=== PATIENT | female | born 1980 | race Caucasian/White ===

== ENCOUNTER 2020-12-22 16:42 | Inpatient (IN) | payer MEDICAID, SELFPAY ==
--- NOTE | 2020-12-22 16:53 | W.ED.PSYCH ---
HPI - Psych General: Chief Complaint: Psychiatric Symptoms Stated Complaint: 96 hour hold Time Seen by Provider: 12/22/20 16:47 History of Present Illness: HPI Narrative: Police have brought in 40 yo f with history of paranoid schizophrenia with delusions, flight of ideas, loose associations, and suicidal statements. She's evidently been involved with police already this week and her behavior/mental illness seems to be getting worse. History is limited due to her mental health crisis: she is not being cooperative. For example, romelia, what are your allergies? 'Medicines don't fix society'. The patient will not answer my questions. MD complaint: suicidal ideation Review of Systems General: Reports: ROS unobtainable due to medical condition PFSH ED PFSH: Social History Current gender identity: Female Physical Exam Const: COMMON NORMALS: average body habitus, alert and well nourished EXAM LIMITATIONS: behavioral limitations GENERAL APPEARANCE: well developed and disheveled; not cooperative and not ill appearing ORIENTATION/CONSCIOUSNESS: Yes awake OTHER: will not answer orientation questions HENMT: COMMON NORMALS: normocephalic, atraumatic, external ears normal and Normal external nose present HEAD & SCALP: normal to inspection, normocephalic and atraumatic FACE & SINUS: face symmetric NOSE: Normal external nose present EXTERNAL EAR: Yes external ears normal MOUTH: no muffled voice Eye: COMMON NORMALS: EOMs intact bilaterally and conjunctivae normal GENERAL EYE: appearance normal, both eyes and all related structures CONJUNCTIVA: Yes conjunctivae normal Neck/C-Spine: COMMON NORMALS: full ROM, no meningeal signs and no JVD GENERAL: Yes normal visual inspection and Yes trachea midline Resp: COMMON NORMALS: normal respiratory effort and No use of accessory muscles EFFORT & INSPECTION: Yes able to speak in complete sentences and Yes symmetric chest movement Cardio: COMMON NORMALS: no JVD GI: INSPECTION: Yes normal to inspection PALPATION: No Guarding due to palpation present (GI) Back/Pelvis: COMMON NORMALS: thoraco-lumbar ROM normal Extremity: COMMON NORMALS: normal to inspection GENERAL: Yes normal exam except as noted Neuro: COMMON NORMALS: moves all extremities, no focal motor deficits and no sensory deficits noted SENSORIUM/ORIENTATION: Yes alert MENINGEAL SIGNS: Yes no meningeal signs SPEECH: speech normal MOTOR EXAM: No Tremors during motor activity present and No Abnormal muscle tone present Psych: COMMON NORMALS: mental status grossly normal, cooperative, normal affect and speech normal APPEARANCE: Yes unkempt ATTITUDE: Yes bizarre, Yes uncooperative and Yes agitated ACTIVITY/MOTOR BEHAVIOR: Yes appropriate eye contact, Yes fidgeting, Yes disorganized behavior and Yes restless SPEECH: Yes normal speech MOOD & AFFECT: Yes irritable THOUGHT PROCESS: disorganized, Flight of ideas present and Tangential thought process present THOUGHT CONTENT: Yes other (Police report patient made comments about asking them to shoot her) ATTENTION/CONCENTRATION: Yes attention grossly intact INSIGHT: Poor insight present (Psych) JUDGEMENT: Poor judgement present (Psych) Skin: COMMON NORMALS: no rashes or lesions noted, turgor normal and no jaundice GENERAL SKIN EXAM: no rashes or lesions noted and turgor normal Course Vital Signs: Vital signs: Vital Signs Pulse Rate 83 12/22/20 18:24 Respiratory Rate 20 H 12/22/20 18:24 Blood Pressure 104/56 12/22/20 18:24 Pulse Oximetry 95 12/22/20 18:24 MDM - Psych MDM Narrative: Medical decision making narrative: 40 yo f presents with acute psychosis with known history of schizophrenia. She's uncooperative and disorganized; it seems as though she's not on any of her meds. Patient will need medical screening and psychiatric admission. She is on a medical hold for psychosis. I spoke with Dr Wyatt of Psychiatry service. Patient has been banned from the [facility] here for past behavior issues. He has asked that patient be transferred for psychiatric evaluation. Patient received haldol 5mg, cogentin, ativan 2mg IM and this allowed her to rest for about an hour. Afterwards, she was pacing and restless again. She kept trying to leave her room and was refusing to provide a urine sample, to sit or lay down, to wear her scrubs and remove other clothes, etc. She was given geodon and ativan. Patient remains on a 96 hour hold. When UA, UPT, UDS is complete will attempt transfer to psychiatric hospital. 1030pm: patient medically cleared for psychiatric evaluation, pending transfer for same. Lab Data: Labs: Lab Results 12/22/20 12/22/20 12/22/20 Range/Units 18:57 18:57 20:38 WBC 5.4 (4.0-10.0) 10^3/ uL RBC 4.29 (4.1-5.3) 10^6/u L Hgb 10.4 L (11.5-15.3) g/dL Hct 34.9 L (37.0-47.0) % MCV 81.4 (81-99) fl MCH 24.2 L (28.0-34.0) pg MCHC 29.8 L (30.0-36.0) g/dL RDW 14.3 (12.1-15.1) % Plt Count 205 (130-400) 10^3/c mm MPV 9.9 (7.4-10.4) fL Neut % (Auto) 69.6 % Lymph % (Auto) 21.5 % [place] % (Auto) 6.3 % Eos % (Auto) 2.2 % Baso % (Auto) 0.4 % Neut # (Auto) 3.79 (1.8-7.7) 10^3/u L Lymph # (Auto) 1.2 (0.8-4.8) 10^3/u L [place] # (Auto) 0.3 (0.2-0.9) 10^3/u L Eos # (Auto) 0.1 (0.0-0.8) 10^3/u L Baso # (Auto) 0.0 (0.0-0.1) 10^3/u L Nucleated RBC % (a uto) 0 % Nucleated RBCs # 0.0 /100WBC Sodium 143 (136-145) mmol/L Potassium 4.1 (3.5-5.1) mmol/L Chloride 109 H (98-107) mmol/L Carbon Dioxide 24 (22-29) mmol/L Anion Gap 14.1 (5-19) BUN 19 (6-20) mg/dL Creatinine 0.5 (0.5-0.9) mg/dL GFR Calculation 137.4 H (90-130) mL/min Glucose 91 (65-115) mg/dL Calculated Osmolal ity 298 H (285-295) mOsm/k g Calcium 8.1 L (8.5-10.5) mg/dL Total Bilirubin 0.2 (0.15-1.2) mg/dL AST 20 (0-32) U/L ALT 28 (0-33) U/L Alkaline Phosphata se 62 (35-105) IU/L Total Protein 6.1 L (6.6-8.7) g/dL Albumin 3.6 (3.5-5.2) g/dL Globulin 2.5 (1.3-4.6) g/dL TSH 2.06 (0.27-4.20) uIU/ mL HCG, Qual (Negative) Urine Color (Yellow) Urine Appearance (CLEAR) Urine pH (5-7) Ur Specific Gravit y (1.005-1.030) Urine Protein (Negative) Urine Glucose (UA) (Normal) Urine Ketones (Negative) Urine Blood (Negative) Urine Nitrate (Negative) Urine Bilirubin (Negative) Urine Urobilinogen (Negative) mg/dL Ur Leukocyte Mirtha ase (Negative) Salicylates 0.7 L (3-10) mg/dL Acetaminophen < 5.0 L (10-30) ug/mL Ethyl Alcohol < 10 (0-10) mg/dL SARS-CoV-2 Ag (Rap id) Negative (Negative) 12/22/20 12/22/20 Range/Units 21:45 21:45 WBC (4.0-10.0) 10^3/ uL RBC (4.1-5.3) 10^6/u L Hgb (11.5-15.3) g/dL Hct (37.0-47.0) % MCV (81-99) fl MCH (28.0-34.0) pg MCHC (30.0-36.0) g/dL RDW (12.1-15.1) % Plt Count (130-400) 10^3/c mm MPV (7.4-10.4) fL Neut % (Auto) % Lymph % (Auto) % [place] % (Auto) % Eos % (Auto) % Baso % (Auto) % Neut # (Auto) (1.8-7.7) 10^3/u L Lymph # (Auto) (0.8-4.8) 10^3/u L [place] # (Auto) (0.2-0.9) 10^3/u L Eos # (Auto) (0.0-0.8) 10^3/u L Baso # (Auto) (0.0-0.1) 10^3/u L Nucleated RBC % (a uto) % Nucleated RBCs # /100WBC Sodium (136-145) mmol/L Potassium (3.5-5.1) mmol/L Chloride (98-107) mmol/L Carbon Dioxide (22-29) mmol/L Anion Gap (5-19) BUN (6-20) mg/dL Creatinine (0.5-0.9) mg/dL GFR Calculation (90-130) mL/min Glucose (65-115) mg/dL Calculated Osmolal ity (285-295) mOsm/k g Calcium (8.5-10.5) mg/dL Total Bilirubin (0.15-1.2) mg/dL AST (0-32) U/L ALT (0-33) U/L Alkaline Phosphata se (35-105) IU/L Total Protein (6.6-8.7) g/dL Albumin (3.5-5.2) g/dL Globulin (1.3-4.6) g/dL TSH (0.27-4.20) uIU/ mL HCG, Qual Negative (Negative) Urine Color Yellow (Yellow) Urine Appearance Clear (CLEAR) Urine pH 5 (5-7) Ur Specific Gravit y 1.025 (1.005-1.030) Urine Protein Neg (Negative) Urine Glucose (UA) Norm (Normal) Urine Ketones Negative (Negative) Urine Blood Neg (Negative) Urine Nitrate Negative (Negative) Urine Bilirubin 1+ H (Negative) Urine Urobilinogen 1 H (Negative) mg/dL Ur Leukocyte Mirtha ase Negative (Negative) Salicylates (3-10) mg/dL Acetaminophen (10-30) ug/mL Ethyl Alcohol (0-10) mg/dL SARS-CoV-2 Ag (Rap id) (Negative) Discharge Plan Discharge Patient Disposition: Xfer Psychiatric Hosp Clinical Impression: Acute psychosis, Chronic schizophrenia Condition: Stable Referrals: URGENT CARE CLINIC, [Primary Care Provider] - Coding Level of Care Code ED Sales Property Manager for [employer] Fwd Exam Comprehensive
[2020-12-22] MEDS: LORazepam 2 mg/mL INJ 1 mL IM ×2 (17:10→21:07)
[2020-12-22] MEDS: haloperidol inj 5 mg/mL INJ 1 mL IM (17:10)
[2020-12-22] MEDS: benztropine 1 mg/mL SDV 2 mL 2 MG IM (17:10)
[2020-12-22 17:45] VITALS: BMI 21.4
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
[2020-12-22 18:24] VITALS: BP 104/56; PULSE 83; RESP 20; O2SAT 95
[2020-12-22 19:06] LABS: Basophils % 0.4 %; Eosinophils # 0.1 10^3/uL (0.0-0.8); Eosinophils % 2.2 %; Hematocrit 34.9 % (37.0-47.0); Hemoglobin 10.4 g/dL (11.5-15.3); Lymphocytes # 1.2 10^3/uL (0.8-4.8); Lymphocytes % 21.5 %; Mean Corpuscular HGB Conc 29.8 g/dL (30.0-36.0); Mean Corpuscular Hemoglobin 24.2 pg (28.0-34.0); Mean Corpuscular Volume 81.4 fl (81-99); Mean Platelet Volume 9.9 fL (7.4-10.4); Monocytes # 0.3 10^3/uL (0.2-0.9); Monocytes % 6.3 %; Neutrophils # 3.79 10^3/uL (1.8-7.7); Neutrophils % 69.6 %; Nucleated Red Blood Cells % 0 %; Platelet Count 205 10^3/cmm (130-400); Red Blood Count 4.29 10^6/uL (4.1-5.3); Red Cell Distribution Width 14.3 % (12.1-15.1); White Blood Count 5.4 10^3/uL (4.0-10.0)
[2020-12-22 19:52] LABS: Acetaminophen < 5.0 ug/mL (10-30); Alanine Aminotransferase 28 U/L (0-33); Albumin Level 3.6 g/dL (3.5-5.2); Alkaline Phosphatase 62 IU/L (35-105); Anion Gap 14.1 (5-19); Aspartate Amino Transferase 20 U/L (0-32); Blood Urea Nitrogen 19 mg/dL (6-20); Calcium 8.1 mg/dL (8.5-10.5); Carbon Dioxide 24 mmol/L (22-29); Chloride 109 mmol/L (98-107); Globulin 2.5 g/dL (1.3-4.6); Glomerular Filtration Rate 137.4 mL/min (90-130); Glucose 91 mg/dL (65-115); Osmolality Calculated 298 mOsm/kg (285-295); Potassium 4.1 mmol/L (3.5-5.1); Salicylate 0.7 mg/dL (3-10); Sodium 143 mmol/L (136-145); Thyroid Stimulating Hormone 2.06 uIU/mL (0.27-4.20); Total Bilirubin 0.2 mg/dL (0.15-1.2); Total Protein 6.1 g/dL (6.6-8.7)
[2020-12-22 19:53] LABS: Alcohol Level < 10 mg/dL (0-10)
[2020-12-22] MEDS: ziprasidone 20 mg/mL SDV 10 MG IM (21:08)
[2020-12-22 21:11] LABS: SARS Covid-2 Antigen Negative (Negative)
[2020-12-22 22:19] LABS: Add Urine Microscopic? NO; Charge for UA Resulting for Rev
[2020-12-22 22:25] LABS: Blood Urine Neg (Negative); Glucose Urine UA Norm (Normal); HCG Qualitative Urine. Negative (Negative); Ketones Urine Negative (Negative); Protein Urine Neg (Negative); Specific Gravity, Urine 1.025 (1.005-1.030); Urine Appearance Clear (CLEAR); Urine Color Yellow (Yellow); pH Urine 5 (5-7)
[2020-12-22 22:26] LABS: Bilirubin Urine 1+ (Negative); Leukocyte Esterase Urine Negative (Negative); Nitrate Urine Negative (Negative); Urobilinogen Urine 1 mg/dL (Negative)
[2020-12-22 22:34] LABS: Amphetamines Screen Urine Negative (Negative); Barbiturates Screen Urine Negative (Negative); Benzodiazepines Screen Urine Positive (Negative); Cocaine Screen Urine Negative (Negative); Opiate Screen Urine Negative (Negative); PCP Screen Urine Negative (Negative); THC Screen Urine Negative (Negative)
[2020-12-23 03:07] VITALS: BP 114/78; PULSE 72; RESP 18; O2SAT 99
[2020-12-23] MEDS: ziprasidone 20 mg/mL SDV 10 MG IM (09:21)
--- NOTE | 2020-12-23 09:22 | PC.NURSE ---
pt continues to be uncooperative with staff, trying to leave her room and get past her PSA. ED provider notified. Medication orders received. pt required manual hold to administer medication. private household worker RN and security at bedside
[2020-12-23] MEDS: water for injection-sterile 10 ML 1.2 ML (09:24)
--- NOTE | 2020-12-23 10:52 | PC.PHAR ---
BOSOM PRESSER STATES SHOULDNT WAKE PT UP NO MEDS PULL UP ON EXT MED HISTORY
--- NOTE | 2020-12-23 11:21 | ED_ITS ---
HPI - Psych General: Chief Complaint: Psychiatric Symptoms Stated Complaint: 96 hour hold Time Seen by Provider: 12/22/20 16:47 [facility] ED PFSH: Social History Current gender identity: Female Course Vital Signs: Vital signs: Vital Signs Pulse Rate 72 12/23/20 03:07 Respiratory Rate 18 12/23/20 03:07 Blood Pressure 114/78 12/23/20 03:07 Pulse Oximetry 99 12/23/20 03:07 MDM - Psych MDM Narrative: Medical decision making narrative: Started my shift patient was in the ER were looking for transfer. She is remained mostly stable she had some anxiety issues she was redosed with Geodon and Ativan and is resting comfortably. She began questioning why she would have to stay when it was explained to her she did not really understand and was anxious. Discussed with the neuropsych staff and with Dr. Wyatt they've agreed to admit her. Orders are written. Lab Data: Labs: Lab Results 12/22/20 12/22/20 12/22/20 Range/Units 18:57 18:57 20:38 WBC 5.4 (4.0-10.0) 10^3/ uL RBC 4.29 (4.1-5.3) 10^6/u L Hgb 10.4 L (11.5-15.3) g/dL Hct 34.9 L (37.0-47.0) % MCV 81.4 (81-99) fl MCH 24.2 L (28.0-34.0) pg MCHC 29.8 L (30.0-36.0) g/dL RDW 14.3 (12.1-15.1) % Plt Count 205 (130-400) 10^3/c mm MPV 9.9 (7.4-10.4) fL Neut % (Auto) 69.6 % Lymph % (Auto) 21.5 % [place] % (Auto) 6.3 % Eos % (Auto) 2.2 % Baso % (Auto) 0.4 % Neut # (Auto) 3.79 (1.8-7.7) 10^3/u L Lymph # (Auto) 1.2 (0.8-4.8) 10^3/u L [place] # (Auto) 0.3 (0.2-0.9) 10^3/u L Eos # (Auto) 0.1 (0.0-0.8) 10^3/u L Baso # (Auto) 0.0 (0.0-0.1) 10^3/u L Nucleated RBC % (a uto) 0 % Nucleated RBCs # 0.0 /100WBC Sodium 143 (136-145) mmol/L Potassium 4.1 (3.5-5.1) mmol/L Chloride 109 H (98-107) mmol/L Carbon Dioxide 24 (22-29) mmol/L Anion Gap 14.1 (5-19) BUN 19 (6-20) mg/dL Creatinine 0.5 (0.5-0.9) mg/dL GFR Calculation 137.4 H (90-130) mL/min Glucose 91 (65-115) mg/dL Calculated Osmolal ity 298 H (285-295) mOsm/k g Calcium 8.1 L (8.5-10.5) mg/dL Total Bilirubin 0.2 (0.15-1.2) mg/dL AST 20 (0-32) U/L ALT 28 (0-33) U/L Alkaline Phosphata se 62 (35-105) IU/L Total Protein 6.1 L (6.6-8.7) g/dL Albumin 3.6 (3.5-5.2) g/dL Globulin 2.5 (1.3-4.6) g/dL TSH 2.06 (0.27-4.20) uIU/ mL HCG, Qual (Negative) Urine Color (Yellow) Urine Appearance (CLEAR) Urine pH (5-7) Ur Specific Gravit y (1.005-1.030) Urine Protein (Negative) Urine Glucose (UA) (Normal) Urine Ketones (Negative) Urine Blood (Negative) Urine Nitrate (Negative) Urine Bilirubin (Negative) Urine Urobilinogen (Negative) mg/dL Ur Leukocyte Mirtha ase (Negative) Salicylates 0.7 L (3-10) mg/dL Urine Opiates Scre en (Negative) ng/mL Acetaminophen < 5.0 L (10-30) ug/mL Ur Barbiturates Sc reen (Negative) ng/mL Ur Phencyclidine S crn (Negative) ng/mL Ur Amphetamines Sc reen (Negative) ng/mL U Benzodiazepines Scrn (Negative) ng/mL Urine Cocaine Scre en (Negative) ng/mL U Marijuana (THC) Screen (Negative) ng/mL Ethyl Alcohol < 10 (0-10) mg/dL SARS-CoV-2 Ag (Rap id) Negative (Negative) 12/22/20 12/22/20 12/22/20 Range/Units 21:45 21:45 21:45 WBC (4.0-10.0) 10^3/ uL RBC (4.1-5.3) 10^6/u L Hgb (11.5-15.3) g/dL Hct (37.0-47.0) % MCV (81-99) fl MCH (28.0-34.0) pg MCHC (30.0-36.0) g/dL RDW (12.1-15.1) % Plt Count (130-400) 10^3/c mm MPV (7.4-10.4) fL Neut % (Auto) % Lymph % (Auto) % [place] % (Auto) % Eos % (Auto) % Baso % (Auto) % Neut # (Auto) (1.8-7.7) 10^3/u L Lymph # (Auto) (0.8-4.8) 10^3/u L [place] # (Auto) (0.2-0.9) 10^3/u L Eos # (Auto) (0.0-0.8) 10^3/u L Baso # (Auto) (0.0-0.1) 10^3/u L Nucleated RBC % (a uto) % Nucleated RBCs # /100WBC Sodium (136-145) mmol/L Potassium (3.5-5.1) mmol/L Chloride (98-107) mmol/L Carbon Dioxide (22-29) mmol/L Anion Gap (5-19) BUN (6-20) mg/dL Creatinine (0.5-0.9) mg/dL GFR Calculation (90-130) mL/min Glucose (65-115) mg/dL Calculated Osmolal ity (285-295) mOsm/k g Calcium (8.5-10.5) mg/dL Total Bilirubin (0.15-1.2) mg/dL AST (0-32) U/L ALT (0-33) U/L Alkaline Phosphata se (35-105) IU/L Total Protein (6.6-8.7) g/dL Albumin (3.5-5.2) g/dL Globulin (1.3-4.6) g/dL TSH (0.27-4.20) uIU/ mL HCG, Qual Negative (Negative) Urine Color Yellow (Yellow) Urine Appearance Clear (CLEAR) Urine pH 5 (5-7) Ur Specific Gravit y 1.025 (1.005-1.030) Urine Protein Neg (Negative) Urine Glucose (UA) Norm (Normal) Urine Ketones Negative (Negative) Urine Blood Neg (Negative) Urine Nitrate Negative (Negative) Urine Bilirubin 1+ H (Negative) Urine Urobilinogen 1 H (Negative) mg/dL Ur Leukocyte Mirtha ase Negative (Negative) Salicylates (3-10) mg/dL Urine Opiates Scre en Negative (Negative) ng/mL Acetaminophen (10-30) ug/mL Ur Barbiturates Sc reen Negative (Negative) ng/mL Ur Phencyclidine S crn Negative (Negative) ng/mL Ur Amphetamines Sc reen Negative (Negative) ng/mL U Benzodiazepines Scrn Positive H (Negative) ng/mL Urine Cocaine Scre en Negative (Negative) ng/mL U Marijuana (THC) Screen Negative (Negative) ng/mL Ethyl Alcohol (0-10) mg/dL SARS-CoV-2 Ag (Rap id) (Negative) Discharge Plan Discharge Patient Disposition: Xfer Psychiatric Hosp Clinical Impression: Acute psychosis, Chronic schizophrenia Condition: Stable Referrals: URGENT CARE CLINIC, [Primary Care Provider] - Coding Level of Care Code ED Electrical Software Engineer for Domitila Rosado
[2020-12-23] MEDS: LORazepam 2 mg/mL INJ 1 mL IM (13:45)
[2020-12-23 20:00] VITALS: RESP 16
--- NOTE | 2020-12-23 20:13 | PC.NURSE ---
pt refusing to have vital signs taken at this time. respirations observed to be 16.
[2020-12-23 22:00] VITALS: BP 114/78; PULSE 72; RESP 16; O2SAT 99
--- NOTE | 2020-12-23 22:56 | PC.NURSE ---
behavior pt walking the halls, confrontational with staff, refusing to move from doorways, pt states she can be violent at times, she continually checks the doors to see if she can get out of the unit, she enters other patient rooms, nursing staff is attempt to keep her out of the other patients rooms.
--- NOTE | 2020-12-24 01:52 | PC.NURSE ---
verbal prompt Spoke with the pt about staying out of other pt's rooms! Redirected several times to stay out of other pt's rooms. Security talked with pt about staying in her room and to quit going into pt's rooms. Pt stated that she was everyone's guardian Alli, she was sent to watch over everyone. Pt is pacing the halls and checking doors, looking for an EXIT!! WIll continue to monitor this pt.
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
--- NOTE | 2020-12-24 08:54 | PC.OT ---
OT EVALUATION ATTEMPTED. PATIENT IS PACING IN THE MARK AND STATES, PERHAPS AT A LATER TIME. WILL ATTEMPT EVALUATION AT A LATER TIME.
--- NOTE | 2020-12-24 09:26 | P.HP_ITS ---
Providers/Chief Complaint Admitting Physician: Mckinley Wyatt MD Primary Care Provider: [facility] Chief Complaint: 96 hour hold HPI NPU History of Present Illness Ivone Torres is a 40 year old female who presented to the emergency department with the following report: Chief Complaint: Psychiatric Symptoms Stated Complaint: 96 hour hold Time Seen by Provider: 12/22/20 16:47 History of Present Illness: HPI Narrative: Police have brought in 40 yo f with history of paranoid schizophrenia with delusions, flight of ideas, loose associations, and suicidal statements. She's evidently been involved with police already this week and her behavior/mental illness seems to be getting worse. History is limited due to her mental health crisis: she is not being cooperative. For example, romelia, what are your allergies? 'Medicines don't fix society'. The patient will not answer my questions. complaint: suicidal ideation. She was admitted to the neuropsychiatric unit for definitive treatment of those issues. Attempts for formal evaluation were thwarted by her unwillingness to go to a private area to have a conversation. She spent most of the morning checking doors and looking for an opportunity to go into any doors open medicine of her last stay. She spoke in almost code like fashion about what she was thinking and questions that she had. She tried to use humor as her primary means of describing things but her jokes were very indicative of what her thought process is. She talked some about worries about children and children being safe. She was unwilling about her own children or the recent baby she had since she left. She was very put off by any discussion of the medications with eye rolls and feigned laughter. We discussed the risk benefits and alternatives of restarting medication and she understood but refused to proceed with any medication at this time. She continued to demonstrate the things that society as nothing to offer. That organized medication and medication systems are a joke often scoffing and role in her eyes. She was a resistant historian. An excerpt from one of her last hospitalization here is included below for context. Her last day here ended on 04/09/2019 and started January 18, 2019. Per her 09/15/2018 [facility] inpatient psychiatric evaluation: History of Present Illness Date of Service: Sep 15, 2018 Chief Complaint: Psychosis HPI: Ivone Torres is a 38 female who is readmitted to the NPU on a 96 hour hold for acute psychosis. Affidavits are reviewed on the chart. The patient allegedly broke into a neighbor's home and attempted to kidnap their children. Police were called and the patient ran off into the [place] with her on 6 children unable to be found for 2 hours. She was brought into the hospital and combative with staff requiring Geodon 20 mg IM. She was found to be covered in tics which were removed in the ER and transferred to the neuropsychiatric unit for further evaluation and treatment. Nursing staff reports that the patient has slept all night and has not been up for breakfast today. Multiple attempts by this provider and nursing staff to awaken the patient her unsuccessful. Patient did briefly open anion look around but quickly dozed off again. She is wrapped tightly in a blanket with only her head exposed. There are no lesions nor rash on her face. The patient was last admitted to the NPU from August 03 through the 96 hour hold for paranoid behavior with a discharge diagnosis of major depressive disorder single with psychosis and noncompliance. During that admission she was started on antidepressant which she refused to take throughout the admission. She denied any thoughts of harming herself or others throughout its the admission. She did endorse experiencing some possible hallucinations prior to admission, some chronic nihilistic use about the world, and possible paranoid delusions that people are being monitored and watched constantly but did not endorse any overt delusional beliefs. She was concerned about society's reliance upon technology and morality in society and very abstract in her thinking. She was discharged home upon expiration of her 96 hour hold as she was not deemed to pose an imminent danger to herself or others at that time with no concrete grounds to hold her for a 21 day hold. Recommendations were discussed with the patient's at that time that the patient not have any unsupervised childcare however. Past psychiatric history: Unable to obtain at this time. During her last NPU admission, the patient denied any prior psychiatric history/prior psychiatric admission/psychotropic medication/history of violence towards herself or others. Family psychiatric history: Unable to obtain at this time. No prior records of mental disorders. Social history: Unable to obtain at this time. Patient is and has 6 children ranging in age from 2-10 years old. Her children have been home schooled. The patient previously denied any alcohol or illicit drug use and urine drug screen was negative during her last admission in July 2018. Past Medical History: Unable to obtain at this time. The patient was allegedly covered with tics during this admission in the ER. During her last admission she had reported no history of any medical problems. Surgical history is positive for . Meds NPU Home Medications Medication Instructions Recorded Confirmed Last Taken Type Unable to Assess 12/23/20 12/23/20 Unknown History Allergies Allergy/AdvReac Type Severity Reaction Status Date / Time No Known Allergies Allergy Verified 12/22/20 17:45 PFSH NPU PFSH: Social History Current gender identity: Female Mental Status Exam MSE Comments: This is a slender white female in hospital scrubs with a blanket wrapped around her head giving a shinto look to her face which is her intention. Limited dress and grooming. No abnormal movements except for mild psychomotor retardation. Mostly uncooperative with exam in no acute distress. Speech is decreased volume but normal rate. Mood described as fine affect odd. Thought process organized, thought content: Patient did not respond to questions about lethality had no aggression directed toward herself or others, there are no delusions reported but clear hyperreligious thinking and paranoia existed, she did not appear to be responding to internal stimuli. Attention and c oncentration appeared intact and memory was unreliable but none were formally tested. She is alert and oriented to person and place. Insight and judgment are impaired and impulse control is impaired. Vitals/I&O/Wt Last Vital Signs Pulse 72 12/23/20 22:00 Resp 16 12/23/20 22:00 BP 114/78 12/23/20 22:00 Pulse Ox 99 12/23/20 22:00 12/24/20 06:59 Intake Total Balance Weight last 48 hrs Weight 56.699 kg Data NPU : 12/22/20 18:57 12/22/20 18:57 A&P Assessment and plan (1) Chronic schizophrenia: Status: Acute (2) Acute psychosis: Status: Acute Additional A&P Information This is a 40-year-old white female known to this underwriter mortgage loan from a long hospitalization at this facility who presents once again acutely psychotic, off of medication and resistant to treatment. 1. Continue current medication. Will review records to determine what he was taken before an attempt to get her restarted. 2. Continue every 15 minute checks for safety. 3. Encourage individual, group and milieu therapies. 4. We will attempt to get her to resume medication but the likelihood based on her history is that we will need a 21-day hold to begin medication management. Involuntary Hold Information 96 Hour Hold: 96 Hour Involuntary Admission: Yes 96 Hour Hold Ending Date: 12/28/20 96 Hour Hold Ending Time: 16:42 Attestations NPU Medical Necessity Statement*: Inpatient hospitalization is medically necessary and the clinically appropriate intervention at this time. We will monitor medications and make changes as indicated. Patient will be in the hospital for over two midnights. Likely length of stay 10-14 days. Coding Level of Care Code Acute Cut Off Man for Domitila Rosado Diagnoses Chronic schizophrenia F20.9 Acute psychosis F23
[2020-12-24 13:59] VITALS: RESP 16
[2020-12-25 06:00] VITALS: BP 114/78; PULSE 72; RESP 16; O2SAT 99
--- NOTE | 2020-12-25 08:40 | PC.OT ---
NURSING REQUESTS TO ALLOW PATIENT TO SLEEP AT THIS TIME. WILL ATTEMPT EVALUATION AT A LATER TIME.
--- NOTE | 2020-12-25 11:37 | PM.NPN ---
Subjective NPU Subjective: Interval history: I met the patient in her room. She reports being well rested. She had not slept much the previous 3 nights according to the night custodian staff. She reports that she normally sleeps well at home. She was pacing as we talked. When asked question, she inquired about my family and pentecostalism background. She remains hyper pentecostalism and fixated on saving the children. She continues to wear the white sheet around her head and body. She continues to speak quietly and slowly. She is not interested in medication at this time. She continues to maintain that it is useless and pointless. Towards the end of the conversation she became tearful, and asked that we end the conversation.The patient adamantly believes that she is well and should be released. She continues to look for ways to escape. <Abhinav Epstein, MED STDNT - Last Filed: 12/25/20 11:51> Mental Status Exam MSE Comments: I met the patient in her room and she was wearing hospital scrubs with a blanket wrapped around her head. Limited dress and grooming. No abnormal movements except for mild psychomotor retardation. She is uncooperative with exam. Speech is decreased volume but significantly slowed. Mood reported as frustrated and affect remains strange. Thought process less organized today. Thought content: The patient did not respond to questions about suicidal or homicidal ideation hallucinations or paranoia. Her only comment was that those questions were unnecessary. The patient has apparent delusions about the safety of children in the presence of her children in the NPU. She remains hyper fixated on advent of herself and others. Memory was not formally tested but she did not remember meeting me the prior 2 days. Attention and concentration appear slightly impaired. She is alert and oriented to person, place and time. Insight judgment and impulse appear grossly impaired. <Abhinav Epstein, MED STDNT - Last Filed: 12/25/20 11:51> Vitals/I&O/Wt Last Vital Signs Pulse 72 12/25/20 06:00 Resp 16 12/25/20 06:00 BP 114/78 12/25/20 06:00 Pulse Ox 99 12/25/20 06:00 <Abhinav Epstein MED STDNT - Last Filed: 12/25/20 11:51> Data NPU : 12/22/20 18:57 12/22/20 18:57 <Abhinav Epstein MELVIN STDNT - Last Filed: 12/25/20 11:51> A&P Assessment and plan (1) Acute psychosis: Status: Acute <Abhinav Epstein MELVIN STDNT - Last Filed: 12/25/20 11:51> (2) Chronic schizophrenia: Status: Acute <Abhinav Epstein MELVIN STDNT - Last Filed: 12/25/20 11:51> Additional A&P Information This is a 40-year-old white female known to this assembly instructions writer from a long hospitalization at this facility who presents once again acutely psychotic, off of medication and resistant to treatment. 1. Continue current medication. Will review records to determine what he was taken before an attempt to get her restarted. 2. Continue every 15 minute checks for safety. 3. Encourage individual, group and milieu therapies. 4. We will attempt to get her to resume medication but the likelihood based on her history is that we will need a 21-day hold to begin medication management. <Abhinav GonzalesMELVIN richardson STDNT - Last Filed: 12/25/20 11:51> Involuntary Hold Information 96 Hour Hold: 96 Hour Involuntary Admission: Yes <Abhinav Epstein MELVIN STDNT - Last Filed: 12/25/20 11:51> 96 Hour Hold Ending Date: 12/28/20 <Abhinav Epstein MELVIN STDNT - Last Filed: 12/25/20 11:51> 96 Hour Hold Ending Time: 16:42 <Abhinav Epstein MELVIN STDNT - Last Filed: 12/25/20 11:51> Attestations NPU Medical Necessity Statement*: Inpatient hospitalization is medically necessary and the clinically appropriate intervention at this time. We will monitor medications and make changes as indicated. Patient will be in the hospital for over two midnights. Likely length of stay 10-14 days. <Abhinav JanetMELVIN richardson STDNT - Last Filed: 12/25/20 11:51> Inpatient hospitalization is medically necessary and the clinically appropriate intervention at this time. We will monitor medications and make changes as indicated. Likely length of stay 10-14 days. <George Peña MD - Last Filed: 12/25/20 17:17> Other Attestations: Other Attestations: Lou was interviewed independently as well as I spent time reviewing her case with the medical student. Documentation was reviewed and agree with the above statements. Ivone continues to be psychotic and had reported being up multiple days without sleeping and finally got up with her with her sleeping late into the day. There was no new information. She continues to be antimedication, antiestablishment and believing that the best thing would be just to discharge her. She is aware of the 21-day hold process and we will be filing at the beginning of the week. She is fairly resistant to attempts to encourage or assist her with personal hygiene which was not something that improved greatly when she was on the medication last hospitalization. <George Peña MD - Last Filed: 12/25/20 17:17> Coding Level of Care Code Acute Dry Cleaning Counter Clerk for Domitila Fwd Diagnoses Acute psychosis F23 Chronic schizophrenia F20.9
[2020-12-25 14:00] VITALS: RESP 16; TEMP 36.3
--- NOTE | 2020-12-25 15:10 | PC.NURSE ---
DFS here to speak with patient concerning children.
[2020-12-25 22:00] VITALS: RESP 18
--- NOTE | 2020-12-25 22:41 | PC.NURSE ---
Patient refused vitals.
[2020-12-26 06:00] VITALS: RESP 17
--- NOTE | 2020-12-26 06:08 | PC.NURSE ---
Patient refused vitals.
[2020-12-26 13:52] VITALS: RESP 18
--- NOTE | 2020-12-26 13:52 | PC.NURSE ---
PATIENT REFUSED VITALS, WILL CONTINUE TO MONITOR.
--- NOTE | 2020-12-26 16:43 | PM.NPN ---
Subjective NPU Subjective: Interval history: Patient presents today reporting that she is not interested in having a conversation with this communications writer. She does not believe she needs to be in the hospital and this was to be discharged to home. She continues to refuse medication and visibly medication has ever worked can work for her. She also continues to believe she has some divine purposes that she is unwilling to discuss. Mental Status Exam MSE Comments: This is a slender white female in hospital scrubs with a blanket wrapped around her head giving a mormon look to her face which is her intention. Limited dress and grooming. No abnormal movements except for mild psychomotor retardation. Mostly uncooperative with exam in no acute distress. Speech is decreased volume but normal rate. Mood described as fine affect odd. Thought process organized, thought content: Patient did not respond to questions about lethality had no aggression directed toward herself or others, there are no delusions reported but clear hyperreligious thinking and paranoia existed, she did not appear to be responding to internal stimuli. Attention and concentration appeared intact and memory was unreliable but none were formally tested. She is alert and oriented to person and place. Insight and judgment are impaired and impulse control is impaired. Vitals/I&O/Wt Last Vital Signs Temp 97.3 F L 12/25/20 14:00 Pulse 72 12/25/20 06:00 Resp 18 12/26/20 13:52 BP 114/78 12/25/20 06:00 Pulse Ox 99 12/25/20 06:00 Data NPU : 12/22/20 18:57 12/22/20 18:57 A&P Additional A&P Information (1) Chronic schizophrenia: (2) Acute psychosis: Additional A&P Information This is a 40-year-old white female known to this communications writer from a long hospitalization at this facility who presents once again acutely psychotic, off of medication and resistant to treatment. 1. Continue current medication. Will review records to determine what he was taken before an attempt to get her restarted after we get court approval.. 2. Continue every 15 minute checks for safety. 3. Encourage individual, group and milieu therapies. 4. We will attempt to get her to resume medication but the likelihood based on her history is that we will need a 21-day hold to begin medication management. Involuntary Hold Information 96 Hour Hold: 96 Hour Involuntary Admission: Yes 96 Hour Hold Ending Date: 12/28/20 96 Hour Hold Ending Time: 16:42 Attestations NPU Medical Necessity Statement*: Inpatient hospitalization is medically necessary and the clinically appropriate intervention at this time. We will monitor medications and make changes as indicated. Likely length of stay 10-14 days. Coding Level of Care Code Acute Milling Machine Operator Gear for Domitila Rosado
[2020-12-26 20:15] VITALS: RESP 18
--- NOTE | 2020-12-26 20:16 | PC.NURSE ---
Patient refused vitals
[2020-12-27 06:00] VITALS: RESP 16; BMI 21.4
--- NOTE | 2020-12-27 06:35 | PC.NURSE ---
Patient refused vitals
--- NOTE | 2020-12-27 12:23 | P.PN_ITS ---
Subjective NPU Subjective: Interval history: Ivone presents today continuing to have the same presentation since her admission. Wandering around with a blanket to have a wholly look and being very disgusted with every day individuals and nonreligious, nonspiritual thinking. She continues to check doors and try to get out or get through any door that opened in her presence. She refuses to con front desk administrator medication and mostly rolls her eyes at this web content writer and does not say much. We discussed the fact that without medication or any progress we would have to follow for 21-day hold next week to which she had no response other than eye rolls. Mental Status Exam MSE Comments: This is a slender white female in hospital scrubs with a blanket wrapped around her head giving a denominational look to her face which is her intention with limited grooming and eye contact. No abnormal movements except for mild psychomotor retardation. Mostly uncooperative with exam in no acute distress. Speech is limited and decreased rate and volume. Mood described not answered, affect odd. Thought process organized, thought content: Patient did not respond to questions about lethality had no aggression directed toward herself or others, there are no delusions reported but clear hyperreligious thinking and paranoia existed, she did not appear to be responding to internal stimuli. Attention and concentration appeared intact and memory was unreliable but none were formally tested. She is alert and oriented to person and place. Insight and judgment are impaired and impulse control is impaired. Vitals/I&O/Wt Last Vital Signs Temp 97.3 F L 12/25/20 14:00 Pulse 72 12/25/20 06:00 Resp 16 12/27/20 06:00 BP 114/78 12/25/20 06:00 Pulse Ox 99 12/25/20 06:00 Weight last 48 hrs Weight 56.699 kg Data NPU : 12/22/20 18:57 12/22/20 18:57 A&P Additional A&P Information (1) Chronic schizophrenia: (2) Acute psychosis: This is a 40-year-old white female known to this web content writer from a long hospitalization at this facility who presents once again acutely psychotic, off of medication and resistant to treatment. 1. Continue current medication. Will review records to determine what he was taken before an attempt to get her restarted after we get court approval.. 2. Continue every 15 minute checks for safety. 3. Encourage individual, group and milieu therapies. 4. We will attempt to get her to resume medication but the likelihood based on her history is that we will need a 21-day hold to begin medication management. Involuntary Hold Information 96 Hour Hold: 96 Hour Involuntary Admission: Yes 96 Hour Hold Ending Date: 12/28/20 96 Hour Hold Ending Time: 16:42 Attestations NPU Medical Necessity Statement*: Inpatient hospitalization is medically necessary and the clinically appropriate intervention at this time. We will monitor medications and make changes as indicated. Likely length of stay 10-14 days. Coding Level of Care Code Acute Plastic Sewer for Domitila Rosado
[2020-12-27 13:53] VITALS: RESP 18
[2020-12-27 20:41] VITALS: RESP 18
[2020-12-28 06:00] VITALS: RESP 16
--- NOTE | 2020-12-28 12:33 | PM.NPN ---
Subjective NPU Subjective: Interval history: When I said good morning to the patient today she asked if she had ever met me before even though we had spoken more than half a dozen times since her arrival. I met with the patient in the hallway and she had a sheet wrapped around her head as she has had since she was admitted. She continues to speak and act as if she is above everyone. She continues to check doors and look for possible escape. She refuses to consider medication. She rolls her eyes at almost every question. She repeatedly mumbles about saving the children. When asked about the children she becomes tearful. When asked if she misses her children she walked away and shortly came back, but ignored the question. <Abhinav Epstein MED STDNT - Last Filed: 12/28/20 12:39> Mental Status Exam MSE Comments: The patient is a slender white female in hospital scrubs with a blanket wrapped around her head with limited grooming and eye contact. She is uncooperative with exam. Her speech is of decreased rate and volume. She did not answer when asked about her mood. Affect continues to be odd. Her thought process organized centrally around sabianist thoughts. The patient did not respond to questions about lethality but shows no aggression other than in an attempt to escape. She reports no delusions or hallucinations but continues to believe that there are children in the NPU. Attention and concentration appear intact. Memory appears unreliable as she did not recognize me this morning. Insight judgment and impulse control all remain impaired. <MELVIN Thurston STDNT - Last Filed: 12/28/20 12:39> Vitals/I&O/Wt Last Vital Signs Temp 97.3 F L 12/25/20 14:00 Pulse 72 12/25/20 06:00 Resp 16 12/28/20 06:00 BP 114/78 12/25/20 06:00 Pulse Ox 99 12/25/20 06:00 <Abhinav Epstein MED STDNT - Last Filed: 12/28/20 12:39> Weight last 48 hrs Weight 56.699 kg <Abhinav Epstein MED STDNT - Last Filed: 12/28/20 12:39> Data NPU : 12/22/20 18:57 12/22/20 18:57 <Abhinav Epstein MED STDNT - Last Filed: 12/28/20 12:39> A&P Assessment and plan (1) Acute psychosis: Status: Acute <Abhinav Epstein MELVIN STDNT - Last Filed: 12/28/20 12:39> (2) Chronic schizophrenia: Status: Acute <Abhinav Epstein MELVIN STDNT - Last Filed: 12/28/20 12:39> Additional A&P Information This is a 40-year-old white female known to this junior underwriter from a long hospitalization at this facility who presents once again acutely psychotic, off of medication and resistant to treatment. 1. Continue current medication. Will review records to determine what he was taken before an attempt to get her restarted after we get court approval. 2. Continue every 15 minute checks for safety. 3. Encourage individual, group and milieu therapies. 4. We will attempt to get her to resume medication but the likelihood based on her history is that we will need a 21-day hold to begin medication management. <Abhinavlydia GonzalesMELVIN richardson STDNT - Last Filed: 12/28/20 12:39> Involuntary Hold Information 96 Hour Hold: 96 Hour Involuntary Admission: Yes <Abhinav EpsteinMELVIN STDNT - Last Filed: 12/28/20 12:39> 96 Hour Hold Ending Date: 12/28/20 <Abhinav EpsteinMELVIN STDNT - Last Filed: 12/28/20 12:39> 96 Hour Hold Ending Time: 16:42 <Abhinav EpsteinMELVIN STDNT - Last Filed: 12/28/20 12:39> Attestations NPU Medical Necessity Statement*: . <Abhinav JosephMELVIN thomas STDNT - Last Filed: 12/28/20 12:39> Inpatient hospitalization is medically necessary and the clinically appropriate intervention at this time. We will monitor medications and make changes as indicated. Likely length of stay 10-14 days. 21-day hold paperwork submitted. <George Peña MD - Last Filed: 12/29/20 06:43> Other Attestations: Other Attestations: Met with patient and reviewed case with medical student and agree with documentation above. We submitted a 21-day hold paperwork given the dangerousness of her irrational behavior with the railroad police officer and the need to be able to give her medication given her refusal and hopefully then we can can break her psychosis. <George Peña MD - Last Filed: 12/29/20 06:43> Coding Level of Care Code Acute Knot Tying Operator for Domitila Fwd Diagnoses Acute psychosis F23 Chronic schizophrenia F20.9
--- NOTE | 2020-12-28 12:39 | P.PN_ITS ---
Vitals/I&O/Wt Last Vital Signs Temp 97.3 F L 12/25/20 14:00 Pulse 72 12/25/20 06:00 Resp 16 12/28/20 06:00 BP 114/78 12/25/20 06:00 Pulse Ox 99 12/25/20 06:00 Weight last 48 hrs Weight 56.699 kg Data NPU : 12/22/20 18:57 12/22/20 18:57 Involuntary Hold Information 96 Hour Hold: 96 Hour Involuntary Admission: Yes 96 Hour Hold Ending Date: 12/28/20 96 Hour Hold Ending Time: 16:42 Coding Level of Care Code Acute Independent Living Specialist for Domitila Rosado
[2020-12-28 14:00] VITALS: RESP 16
--- NOTE | 2020-12-28 16:19 | PC.NURSE ---
PATIENT REFUSED VITALS
[2020-12-28 20:12] VITALS: RESP 16
--- NOTE | 2020-12-29 03:08 | PC.NURSE ---
Pt mentioned a tall man coming to take the children and that they are not safe. Pt also mentioned that she sees children that resemble her children, stating they might be my children . Pt stated that she sees hurt people and wanted to know how she could go about visiting the injured . Pt is very concerned about her own children and said she doesn't want them to become ruined . When asked if she could further explain what ruined meant pt stated that she was worried her children would be ruined by friends, society, and especially trauma. Pt was mumbling about police coming to her home because she was yelling and they were concerned. Pt wouldn't specify who they was. She also mentioned the police reminded her of all the evil in the world and that she wanted holy to win over evil . Pt continuously mumbles about scripture and the judaism.
[2020-12-29 06:00] VITALS: RESP 16
--- NOTE | 2020-12-29 07:05 | PC.NURSE ---
pt refused vitals/RR observed/casey
--- NOTE | 2020-12-29 10:09 | P.PN_ITS ---
Subjective NPU Subjective: Interval history: I met the patient in the hallway in front of the nurses station this morning. She was in hospital scrubs and had a blanket wrapped around her head, limited grooming, and good eye contact. She was calm but condescending. She was more open about her church beliefs today. She says she often prays to stop the hanks human sacrifice. She also mentions that she believes some of the staff are secretly children. She believes the staff there are not children are also sneaking children in and out of the facility. She continues to believe the medication will offer her no help. She did answer more questions this morning. She continues to check doors. <Abhinav Epstein, [facility] - Last Filed: 12/29/20 10:17> Mental Status Exam MSE Comments: The patient is a slender white female in hospital scrubs with a blanket wrapped around her head with limited grooming, and good eye contact. Her speech is a bit of decreased rate and volume. Her mood is described as fine. Her affect this morning is calm. Her thought processes organized but mostly revolves around church thoughts and children. When asked about suicidal or homicidal ideation the patient responds to both questions with, it depends on the situation but I cannot explain it. She reports no auditory or visual hallucinations. She denies paranoia. She maintains delusions centered around children being taken. Attention and concentration appear intact. Her memory appeared fine this morning but was not formally tested. Insight, judgment, and impulse control all remain impaired. <Abhinav Epstein, [facility] - Last Filed: 12/29/20 10:17> Vitals/I&O/Wt Last Vital Signs Temp 97.3 F L 12/25/20 14:00 Pulse 72 12/25/20 06:00 Resp 16 12/29/20 06:00 BP 114/78 12/25/20 06:00 Pulse Ox 99 12/25/20 06:00 <Abhinav Epstein [facility] - Last Filed: 12/29/20 10:17> Data NPU : 12/22/20 18:57 12/22/20 18:57 <Abhinav Epstein [facility] - Last Filed: 12/29/20 10:17> A&P Assessment and plan (1) Acute psychosis: Status: Acute <MELVIN Thurston STDNT - Last Filed: 12/29/20 10:17> (2) Chronic schizophrenia: Status: Acute <MELVIN Thurston STDNT - Last Filed: 12/29/20 10:17> Additional A&P Information This is a 40-year-old white female known to this auto service writer from a long hospitalization at this facility who presents once again acutely psychotic, off of medication and resistant to treatment. 1. Continue current medication. Will review records to determine what he was taken before an attempt to get her restarted after we get court approval. 2. Continue every 15 minute checks for safety. 3. Encourage individual, group and milieu therapies. 4. We will attempt to get her to resume medication but the likelihood based on her history is that we will need a 21-day hold to begin medication management. <Abhinav Epstein [facility] - Last Filed: 12/29/20 10:17> Involuntary Hold Information 96 Hour Hold: 96 Hour Involuntary Admission: Yes <Abhinav Epstein [facility] - Last Filed: 12/29/20 10:17> 96 Hour Hold Ending Date: 12/28/20 <Abhinav Epstein [facility] - Last Filed: 12/29/20 10:17> 96 Hour Hold Ending Time: 16:42 <Abhinav Epstein [facility] - Last Filed: 12/29/20 10:17> Attestations NPU Medical Necessity Statement*: . <Abhinav Epstein [facility] - Last Filed: 12/29/20 10:17> Inpatient hospitalization is medically necessary and the clinically appropriate intervention at this time. We will monitor medications and make changes as indicated. Likely length of stay 10-14 days. 21-day hold hearing tomorrow at 1 PM. <George Peña MD - Last Filed: 12/30/20 06:40> Other Attestations: Other Attestations: I met with patient and reviewed case with medical student and agree with documentation above. We discussed that the hearing date was set for tomorrow and we discussed her interaction with the mounted police officer wherein she grabbed his gun and she could give no rational response for her behavior only statements like I would like to have a gun and a holster. We once again reviewed the treatment team desire to restart medication treatments like this and she was refusing any consideration of medication. <George Peña MD - Last Filed: 12/30/20 06:40> Coding Level of Care Code Acute Vehicle Service Attendant for [employer] Fwd Diagnoses Acute psychosis F23 Chronic schizophrenia F20.9
[2020-12-29 14:00] VITALS: RESP 16; TEMP 36.6
--- NOTE | 2020-12-29 18:47 | PC.NURSE ---
Patient was interfering in another patent's care and was attempted multiple times to redirect patient down the hallway. Patient was assisted down the hallways to room 170 until the other patient was safely moved out of the unit.
[2020-12-29 20:27] VITALS: RESP 17
--- NOTE | 2020-12-29 20:27 | PC.NURSE ---
pt refused vitals/RR observed
[2020-12-30 06:00] VITALS: RESP 17
--- NOTE | 2020-12-30 06:28 | PC.NURSE ---
PT PACED THE HALLWAYS ALL EVENING LAST NIGHT. PT FINALLY LAID DOWN ON FALL MAT IN HER ROOM AROUND 1AM THIS MORNING AND SLEEPING THE REST OF THE SHIFT.
--- NOTE | 2020-12-30 06:37 | PC.NURSE ---
pt refused vitals pt stated they do not matter they tell you nothing aid educated pt on purpose and importance of retrieving vital signs, pt still refused RR observed and recorded
--- NOTE | 2020-12-30 10:33 | PC.NURSE ---
PATIENT REFUSES TO LET THIS NURSE DO MORNING ASSESSMENT OR ANSWER ANY QUESTIONS
--- NOTE | 2020-12-30 11:26 | P.PN_ITS ---
Subjective NPU Subjective: Interval history: I met with the patient in the hallway in front of the nurses station this morning. She was in hospital scrubs and had a blanket wrapped around her waist and shoulders with a towel around her hair. The patient has limited grooming but good eye contact. She remains calm and condescending. She was uninterested in having a conversation with me. She is on interested in continuing conversations from yesterday, and she states that the staff are causing her children to be sad. She continues to refuse medication and continues to check doors. <Abhinav Epstein MED STDNT - Last Filed: 12/30/20 11:30> Mental Status Exam MSE Comments: Patient is a slender white female in hospital scrubs with a blanket wrapped around her waist and shoulders with limited grooming and good eye contact. Her speech is of decreased rate and volume. The patient refused to answer questions about mood, but her affect was irritable. Her thought pr ocess is organized but mostly a lot revolves around yazidi believes, children, and escaping. The patient does not answer when asked about suicidal or homicidal ideation, paranoia, or audio or visual hallucinations. Attention and concentration appear intact. Her memory appears intact. Insight, judgment, and impulse control all remain significantly impaired. <Abhinav Epstein MED STDNT - Last Filed: 12/30/20 11:30> Vitals/I&O/Wt Last Vital Signs Temp 97.9 F 12/29/20 14:00 Pulse 72 12/25/20 06:00 Resp 17 12/30/20 06:00 BP 114/78 12/25/20 06:00 Pulse Ox 99 12/25/20 06:00 <Abhinav Epstein MED STDNT - Last Filed: 12/30/20 11:30> Data NPU : 12/22/20 18:57 12/22/20 18:57 <Abhinav Epstein MED STDNT - Last Filed: 12/30/20 11:30> A&P Assessment and plan (1) Acute psychosis: Status: Acute <Abhinav Epstein MED STDNT - Last Filed: 12/30/20 11:30> (2) Chronic schizophrenia: Status: Acute <Abhinav Epstein MED STDNT - Last Filed: 12/30/20 11:30> Additional A&P Information This is a 40-year-old white female known to this adjusto writer operator from a long hospitalization at this facility who presents once again acutely psychotic, off of medication and resistant to treatment. 1. Continue current medication. Will review records to determine what he was taken before an attempt to get her restarted after we get court approval. 2. Continue every 15 minute checks for safety. 3. Encourage individual, group and milieu therapies. 4. We will attempt to get her to resume medication but the likelihood based on her history is that we will need a 21-day hold to begin medication management. <Abhinav Epstein MED STDNT - Last Filed: 12/30/20 11:30> Involuntary Hold Information 96 Hour Hold: 96 Hour Involuntary Admission: Yes <MELVIN Thurston STDNT - Last Filed: 12/30/20 11:30> 96 Hour Hold Ending Date: 12/28/20 <Abhinav Epstein MED STDNT - Last Filed: 12/30/20 11:30> 96 Hour Hold Ending Time: 16:42 <Abhinav Epstein MED STDNT - Last Filed: 12/30/20 11:30> Attestations NPU Medical Necessity Statement*: . <MELVIN Thurston STDNT - Last Filed: 12/30/20 11:30> Inpatient hospitalization is medically necessary and the clinically appropriate intervention at this time. We will monitor medications and make changes as indicated. Likely length of stay 10-14 days. 21-day hold hearing today at 1 PM. <George Peña MD - Last Filed: 01/01/21 06:13> Other Attestations: Other Attestations: I met with patient and reviewed case with medical student and agree with documentation above. We discussed that the hearing that would be later today and the types of questions they were asked t his adjusto writer operator and my intended responses. She met this with her normal eye roles and limited engagement. She continued to refuse to consider medication interventions. We did discuss that after the hearing we would have legitimacy to start treatment even against her will. We once again reviewed the treatment team desire to restart medication treatments like this and she was refusing any consideration of medication. <George Peña MD - Last Filed: 01/01/21 06:13> Coding Level of Care Code Acute General Office Associate for Chg Fwd Diagnoses Acute psychosis F23 Chronic schizophrenia F20.9
[2020-12-30 13:30] VITALS: RESP 16
--- NOTE | 2020-12-30 13:30 | PC.NURSE ---
Patient refuses vitals. Patient up walking and talking with respirations of 16.
[2020-12-31 13:54] VITALS: RESP 16
--- NOTE | 2020-12-31 17:58 | PM.NPN ---
Subjective NPU Subjective: Interval history: Patient presents today with her continued intrusive behaviors. Somewhat intrusive and some are escape oriented. She needs constant redirection to not go on other peoples rooms. She spends her time walking around the hallways either holding someone does not close the door completely or quickly to try to see if she can get out somehow. She is aware that the 21-day hold was granted and we discussed the fact that tomorrow morning we would start forced medication. She is technically on a hold but it was verified in the hearing as well that she has a guardian and so the hold is absolutely unnecessary. Had a conversation with her guardian at the hearing and discussed the chart review that was performed and the medications that appear to get her to a better place both of which were long-acting injectables both Invega and Abilify and he understood and agreed proceed as documented in this note Mental Status Exam MSE Comments: Patient is a slender white female in hospital scrubs with a blanket wrapped around her waist and shoulders with limited grooming and good eye contact. Her speech is of decreased rate and volume. The patient refused to answer questions about mood, but her affect was irritable. Her thought process is organized but mostly a lot revolves around sabianism believes, children, and escaping. The patient does not answer when asked about suicidal or homicidal ideation, paranoia, or auditory or visual hallucinations. Attention and concentration appear intact. Her memory appears unreliable, but none were formally tested. Insight, judgment, and impulse control all remain significantly impaired. Vitals/I&O/Wt Last Vital Signs Temp 97.9 F 12/29/20 14:00 Pulse 72 12/25/20 06:00 Resp 17 12/31/20 21:14 BP 114/78 12/25/20 06:00 Pulse Ox 99 12/25/20 06:00 Data NPU : 12/22/20 18:57 12/22/20 18:57 A&P Additional A&P Information (1) Acute psychosis: (2) Chronic schizophrenia: Additional A&P Information This is a 40-year-old white female known to this poem writer from a long hospitalization at this facility who presents once again acutely psychotic, off of medication and resistant to treatment. 1. Continue current medication. We will start Invega injection tomorrow given likely faster response and the need for second shot with plan to possibly give the Abilify injection in proximity to the next Invega injection so that they will be on the same cycle. 2. Continue every 15 minute checks for safety. 3. Encourage individual, group and milieu therapies. Involuntary Hold Information 96 Hour Hold: 96 Hour Involuntary Admission: Yes 96 Hour Hold Ending Date: 12/28/20 96 Hour Hold Ending Time: 16:42 Attestations NPU Medical Necessity Statement*: Inpatient hospitalization is medically necessary and the clinically appropriate intervention at this time. We will monitor medications and make changes as indicated. Likely length of stay 10-14 days. Coding Level of Care Code Acute Supervisor [employer] House for Domitila Rosado
[2020-12-31 21:14] VITALS: RESP 17
[2021-01-01 06:00] VITALS: RESP 17
--- NOTE | 2021-01-01 13:33 | PM.NPN ---
Subjective NPU Subjective: Interval history: Presents today essentially unchanged. Attempted to discuss with her the injection and the benefit was clearly seen when she took it before and she had her normal eye rolls and walking away as this public relations writer attempted to speak to her. I explained her ultimately the plan was for her to get this injection followed by an injection in a week of the Invega. And an injection next week at the same time as the Invega and Abilify thus creating an environment that was present when she was successful and improving during her last extensive hospitalization. She was not receptive to the injection but ultimately it was given to her. Her guardian is aware of our plan. Mental Status Exam MSE Comments: Patient is a slender white female in hospital scrubs with a blanket wrapped around her waist and shoulders with limited grooming and good eye contact. Her speech limited and decreased rate and volume. The patient refused to answer questions about mood, but her affect was irritable. Her thought process is organized but mostly a lot revolves around nondenominational believes, children, and escaping. The patient does not answer when asked about suicidal or homicidal ideation, paranoia, or auditory or visual hallucinations. Attention and concentration appear intact. Her memory appears unreliable, but none were formally tested. Insight, judgment, and impulse control all remain significantly impaired. Vitals/I&O/Wt Last Vital Signs Temp 97.9 F 12/29/20 14:00 Pulse 72 12/25/20 06:00 Resp 17 01/01/21 06:00 BP 114/78 12/25/20 06:00 Pulse Ox 99 12/25/20 06:00 Data NPU : 12/22/20 18:57 12/22/20 18:57 A&P Additional A&P Information (1) Acute psychosis: (2) Chronic schizophrenia: This is a 40-year-old white female known to this public relations writer from a long hospitalization at this facility who presents once again acutely psychotic, off of medication and resistant to treatment. 1. Continue current medication. Gave Invega 234 mg injection IM to the deltoid with plan for 156 mg injection in 1 week to the deltoid with plan to possibly give the Abilify injection in proximity to the next Invega injection so that they will be on the same cycle. 2. Continue every 15 minute checks for safety. 3. Encourage individual, group and milieu therapies. Involuntary Hold Information 96 Hour Hold: 96 Hour Involuntary Admission: Yes 96 Hour Hold Ending Date: 12/28/20 96 Hour Hold Ending Time: 16:42 Attestations NPU Medical Necessity Statement*: Inpatient hospitalization is medically necessary and the clinically appropriate intervention at this time. We will monitor medications and make changes as indicated. Likely length of stay 10-14 days. Coding Level of Care Code Acute Staff Accountant for Domitila Rosado
[2021-01-01 14:00] VITALS: RESP 16
[2021-01-01] MEDS: paliperidone palmitate 234 mg Syringe IM (16:46)
--- NOTE | 2021-01-01 21:21 | PC.NURSE ---
Patient pacing hallways, pushing on locked doors. Initially patient was evasive with answers when asked how she was feeling, if she had thoughts of harming herself and other questions of this nature. As the night has continued, she has answered questions more directly. She does hear soft crying from the [address] side of the hallway. She now states she feels ok and is doing fine. Will continue to monitor.
[2021-01-01 22:00] VITALS: RESP 18
--- NOTE | 2021-01-02 04:25 | PC.NURSE ---
Patient continued to pace the rankin till 0230. Patient stayed wrapped in a blanket. Patient very soft spoken when talking to staff. Patient spoke to this staff a lot this evening, but the conversation was often garbled. Patient spoke a lot about the children . She hopes they are being taken care of by family. Patient will not answer questions about if she has children or their ages (if she has any). Patient talked about her and how she thinks she may have slept with some other man. She stated he (the other man) came in and slept with her, in the morning she realized it was not her . She does not know how many times this happened. When asked about her life and where she came from she replied - imagine that people brought you more and more people to take care of... and then one day the law came and told you it wasn't good enough. When asked more questions about this, she said i don't know . Will continue to monitor.
[2021-01-02 06:00] VITALS: RESP 16
--- NOTE | 2021-01-02 07:39 | PC.NURSE ---
DISRUPTIVE BEHAVIOR/MOVED TO [facility] PT UP PACING UNIT, DURING ROUNDING STAFF NOTICED PT WAS STANDING DOWN IN THE DAY ROOM NORTH SIDE ON THE COUNTER TRYING TO MOVE THE CEILING TILES. STAFF X2 & SECURITY IMMEDIATELY RAN DOWN TO THE DAY AREA, ESCORTED PT DOWN OFF THE COUNTER & TOLD HER THAT BEHAVIOR WAS INAPPROPRIATE & UNACCEPTABLE. PT THEN WENT TO TRY TO STAND ON THE COUNTER AGAIN, STAFF AGAIN INTERVENED & ESCORTED PATIENT DOWN TO [facility] FOR HER SAFETY. PT NOT WILLINGLY GOING TO [facility], DESSERT CUP MACHINE FEEDER & SECURITY HAD TO DO A MANUAL HOLD TO ESCORT PT INTO [facility]. DR. GAGE NOTIFIED VIA PHONE ABOUT PT BEHAVIOR & NO NEW ORDERS BY DR. GAGE CURRENTLY. PT IS 1:1 WITH STAFF.
--- NOTE | 2021-01-02 08:04 | PC.NURSE ---
PT BEHAVIOR; CLIENT WAS DISCOVERED TO BE CLIMBING ON THE COUNTER IN THE DAYROOM AND PUSHING THE CEILING TILES OUT FROM THE CEILING AND ATTEMPTING TO CLIMB UP INTO THE CEILING. CLIENT WAS ESCORTED TO THE SECLUSION ROOM AND PLACED IN SECLUSION. CLIENT IS CURRENTLY ON 1 TO 1 OBSERVATION WITH STAFF MEMBER SITTING WITH PATIENT TO ENSURE PATIENTS SAFETY. IS AWARE AND IS CURRENTLY ON THE UNIT.
--- NOTE | 2021-01-02 08:27 | PC.NURSE ---
CLIENT BEHAVIOR CLIENT WAS PLACED IN SECLUSION BY SECURITY ADIEL HARMON AND ELAINE TIMMONS. DR WAS NOTIFIED THAT CLIENT WAS CLIMBING ON COUNTERS AND REMOVING CEILING TILES IN AN ATTEMPT TO CLIMB UP INTO THE CEILING. DR APPROVED SECLUSION AND CLIENT REMAINS IN SECLUSION UNDER ONE TO ONE OBSERVATION. STAFF WILL CONTINUE TO MONITOR.
--- NOTE | 2021-01-02 08:50 | P.PN_ITS ---
Subjective NPU Subjective: Interval history: Patient presents today with no real change in her mental status and behavior. Outside of the fact that since her Invega injection she has been more verbal. [place] arguing and yelling at people and staff. Placed in a seclusion secondary to climbing on tables and counters try to get at the ceiling again. Concerns for wandering into people's rooms which being in others rooms is against the rules and she is wandering him without warning presenting a danger to herself. When we spoke while she was in seclusion she gave no reason for her behavior and continued just eye rolling and ignoring the conversation. Mental Status Exam MSE Comments: Patient is a slender white female in hospital scrubs with a blanket wrapped around her waist and shoulders with limited grooming and good eye contact. Her speech is limited and decreased rate and volume during the conversation for the first time during her stay she had significant vocalization heard when she was being dissuaded from certain behaviors. The patient refused to answer questions about mood, but her affect was irritable. Her thought process is organized but mostly a lot revolves around zoroastrian believes, children, and escaping. The patient does not answer when asked about suicidal or homicidal ideation, paranoia, or auditory or visual hallucinations. She continues however, to have likely hallucinations about children and hearing them, delusions of hyper zoroastrian and paranoid nature of as well as conspiracy theories. Attention and concentration appear intact. Her memory appears un reliable, but none were formally tested. Insight, judgment, and impulse control all remain significantly impaired. Vitals/I&O/Wt Last Vital Signs Temp 97.9 F 12/29/20 14:00 Pulse 72 12/25/20 06:00 Resp 16 01/02/21 06:00 BP 114/78 12/25/20 06:00 Pulse Ox 99 12/25/20 06:00 Data NPU : 12/22/20 18:57 12/22/20 18:57 A&P Additional A&P Information (1) Acute psychosis: (2) Chronic schizophrenia: This is a 40-year-old white female known to this travel writer from a long hospitalization at this facility who presents once again acutely psychotic, off of medication and resistant to treatment. 1. Continue current medication. 2. Continue every 15 minute checks for safety. 3. Encourage individual, group and milieu therapies. 4. Her increasing spontaneous vocalizations is likely a sign that the Invega is helping. Involuntary Hold Information 96 Hour Hold: 96 Hour Involuntary Admission: Yes 96 Hour Hold Ending Date: 12/28/20 96 Hour Hold Ending Time: 16:42 Attestations NPU Medical Necessity Statement*: Inpatient hospitalization is medically necessary and the clinically appropriate intervention at this time. We will monitor medications and make changes as indicated. Likely length of stay 10-14 days. Coding Level of Care Code Acute Marine Resource Economist for Domitila Rosado
--- NOTE | 2021-01-02 09:00 | PC.NURSE ---
PT CARE WAS QUESTIONED BY STORE CONSULTANT REGARDING CLIENTS BEING PLACED IN SECLUSION FOR HER SAFETY AFTER CLIENT WAS CLIMBING ON COUNTERS REMOVING CEILING TILES AND CLIMBING UP INTO THE CEILING. NURSING TRAINING PROGRAM DEVELOPER FANI JETT CONTACTED THE STORE CONSULTANT STATING THAT PLACING HER IN SECLUSION LOOKS LIKE WE ARE PUNISHING CLIENT FOR HER BEHAVIOR. CLIENT WAS IMMEDIATELY RELEASED FROM SECLUSION AND BECAME VERY DISRUPTIVE PUNCHING DOORS AND GOING ONTO OTHER PATIENTS ROOMS BOTH MALE AND FEMALE PATIENTS BEING VERY CONFRONTATIONAL AND DISRUPTIVE. HER BEHAVIOR WAS GETTING OTHER PATIENTS ANXIOUS AND AGITATED. STORE CONSULTANT STORE CONSULTANT, SECURITY ARE ATTEMPTING TO DE-ESCALATE PATIENT AND RETURN HER TO THE SECLUSION ROOM WERE SHE REMAINS ON ONE TP ONE OBSERVATION,
--- NOTE | 2021-01-02 09:25 | W.PM.BREST ---
Face to Face: Restrn/Seclusion Events leading up to initiation: Demonstrating self-destructive behavior (cutting, hitting knapp etc.) (Climbing on tables, going into other peoples rooms.) Evaluation of patient's immediate situation: Alert and oriented, No signs of physical distress and Signs of psychological distress (She continues to want to leave the building and is just looking for a door that will allow her to escape or hope she can climb through the ceiling. Searching for children she believes to be in danger in people's rooms.) Patient reaction since intervention applied: Continued attempts/displays harmful behavior Review of medications: Yes Patient's current medical/behavioral condition: No new concerns since last ROS Need for restraint or seclusion is: Continued Attending notified: Attending completed assessment
--- NOTE | 2021-01-02 10:41 | PC.NURSE ---
0855 STAFF CONTINUES TO MONITOR CLIENT IN SECLUSION. CLIENT HAS BEEN OFFERD FOOD AND DRINK HOWEVER CLIENT DECLINES OFFER. STAFF CONTINUES TO MONITOR CLIENT ON 1;1 OBSERVATION..
--- NOTE | 2021-01-02 10:43 | PC.NURSE ---
PT BEHAVIOR; CLIENT REMAINS 1;1 IN SECLUSION. CLIENT ASSESSED AND OFFERED FOOD AND DRINK HOWEVER CLIENT DECLINED OFFER. STAFF CONTINUES TO MONITOR CLIENT.
--- NOTE | 2021-01-02 11:38 | PC.NURSE ---
PT BEHAVIOR CLIENT REMAINS 1;1 IN OPEN OBSERVATION. CLIENT PROVIDED A LUNCH TRAY AND LIQUID NOURISHMENT. CLIENT ATTEMPTED TO TAKE STAFF MEMBERS KEYS AWAY FROM HER. CLIENT REMAINS IN [facility] ROOM IN SECLUSION WITH 1;[address] STAFF WILL CONTINUE TO MONITOR CLIENT.
--- NOTE | 2021-01-02 12:52 | PC.NURSE ---
1245 PT NOTE; CLIENT REMAINS IN 1;1 SECLUSION IN JEANE WITH 1;1 OBSERVATION. CLIENT PROVIDED FOOD AND WATER AND BATHROOM PRIVILEGES. NEEDS OTHER NEEDS OR CONCERNS VOICE. STAF CONTINUES TO MONITOR.
[2021-01-02 14:00] VITALS: RESP 16
[2021-01-02 22:00] VITALS: RESP 19
--- NOTE | 2021-01-03 01:21 | PC.NURSE ---
Patient observed going into other patient's rooms. Redirection was affective after several attempts.
--- NOTE | 2021-01-03 01:34 | PC.NURSE ---
behaviors [id number] Pt was very intrusive and was wandering, even forcing her way into other pt's rooms at times, disturbing other pt's. Pt has a 1:1 sitter and still needed nursing staff assistance to redirect her out of and prevent her from going into other pt's rooms. Pt became angry and yelled at sitter and staff to just Please let me Out ! Pt checks rooms because she thinks that she hears babies crying behind doors and has to see behind the doors. Pt finally calmed down and fell asleep around 5. will continue to monitor
[2021-01-03 05:29] VITALS: BMI 21.4
[2021-01-03 06:00] VITALS: RESP 18
--- NOTE | 2021-01-03 06:32 | PC.NURSE ---
Patient refused vitals. Respirations were taken.
--- NOTE | 2021-01-03 10:31 | P.PN_ITS ---
Subjective NPU Subjective: Interval history: Patient presents today essentially unchanged. She continues to have more spontaneous mobilization and conversation using words during the interaction versus viral etc. She asked if she could be allowed to leave and almost joking way. She continues to be intrusive however needing a one-to-one sitter to avoid her just wandering into people rooms even after being advised against that behavior. Mental Status Exam MSE Comments: Patient is a slender white female in hospital scrubs with a blanket wrapped around her waist and shoulders with limited grooming and good eye contact. Her speech is more spontaneous and more normal rate and volume. The patient refused to answer questions about mood, but her affect was less irritable. Her thought process is organized but mostly a lot revolves around caodaism beliefs, children, and escaping. The patient does not answer when asked about suicidal or homicidal ideation, paranoia, or auditory or visual mary lucinations. She continues however, to have likely hallucinations about children and hearing them, delusions of hyper caodaism and paranoid nature of as well as conspiracy theories. Attention and concentration appear intact. Her memory appears unreliable, but none were formally tested. Insight, judgment, and impulse control all remain significantly impaired. Vitals/I&O/Wt Last Vital Signs Temp 97.9 F 12/29/20 14:00 Pulse 72 12/25/20 06:00 Resp 19 H 01/02/21 22:00 BP 114/78 12/25/20 06:00 Pulse Ox 99 12/25/20 06:00 Weight last 48 hrs Weight 56.699 kg Data NPU : 12/22/20 18:57 12/22/20 18:57 A&P Additional A&P Information (1) Acute psychosis: (2) Chronic schizophrenia: This is a 40-year-old white female known to this production underwriter from a long h ospitalization at this facility who presents once again acutely psychotic, off of medication and resistant to treatment. 1. Continue current medication. 2. Continue every 15 minute checks for safety. 3. Encourage individual, group and milieu therapies. 4. Her increasing spontaneous vocalizations is likely a sign that the Invega is helping. Involuntary Hold Information 96 Hour Hold: 96 Hour Involuntary Admission: Yes 96 Hour Hold Ending Date: 12/28/20 96 Hour Hold Ending Time: 16:42 Attestations NPU Medical Necessity Statement*: Inpatient hospitalization is medically necessary and the clinically appropriate intervention at this time. We will monitor medications and make changes as indicated. Likely length of stay 10-14 days. Coding Level of Care Code Acute Banquet Supervisor for Domitila Rosado
[2021-01-03 14:00] VITALS: RESP 16
--- NOTE | 2021-01-03 16:06 | PC.NURSE ---
pt cont to wander hallway, checking locked doors, often charging at the nurses station door when staff is entering/exiting nurses station. pt also cont to go into other patients rooms despite being with a 1:1 sitter, not easily redirected. pt thinks we have little children hidden throughout the unit. staff cont to monitor closely and redirect as needed
--- NOTE | 2021-01-03 16:30 | PC.NURSE ---
CLIENT BEHAVIOR; AROUND 3PM CLIENT BROKE FROM FREE FROM HER 1;1 SITTER AND PUSHED HER WAY INTO THE NURSING STAION. CLIENT WAS QUICKLY ESCORTED OUT OF THE NURSING STATION WITHOUT INCIDENT. CLIENT CONTINUES TO BE 1;1 DUE TO HER DISRUPTIVE BEHAVIORS AND HER INTRUSIVE BEHAVIOR OF ATTEMPTING TO GO INTO OTHER PATIENTS ROOMS.
[2021-01-03 21:11] VITALS: RESP 15
--- NOTE | 2021-01-03 22:09 | PC.NURSE ---
pt stated she has been a for 14 years with the same . For the first 10 years she said she sent her off to work everyday with a smile, took care of the kids and household duties, as a should . She stated for the next 4 years there were many men and she didn't know which was her . pt stated that they were all good to her and faithful to her and all helped with the kids. When pt was asked if she was still she responded with maybe legally, but not spiritually . Pt made random comments about not knowing which man was her and not knowing which kids were actually hers.
--- NOTE | 2021-01-04 03:50 | PC.NURSE ---
when aid asked pt if she was hungry pt was hesitant and responded with no I better save it for someone else, have you asked everyone else? Aid assured pt that everyone else had eaten and there was plenty left. Pt stated I better not eat because I doubt all of my children have eaten tonight
[2021-01-04 06:00] VITALS: RESP 18
--- NOTE | 2021-01-04 08:38 | PC.NURSE ---
Patient attempted to climb on the counter in the day room. Patient was redirected by the sitter.
--- NOTE | 2021-01-04 12:41 | PM.NPN ---
Subjective NPU Subjective: Interval history: Patient continues to present with no clear changes but clearly more verbal since her first Invega injection. She continues to spend the bulk of her day going to doors and trying to find an opening that would allow her to leave. She continued to report hearing the voices of children and needing to go into the room to check on them which is why she is needing one-to-one observation to ensure her safety and the safety of others. Mental Status Exam MSE Comments: Patient is a slender white female in hospital scrubs with a blanket wrapped around her waist and shoulders with limited grooming and good eye contact. Her speech is more spontaneous and more normal rate and volume. The patient refused to answer questions about mood, but her affect was less irritable. Her thought process is organized but mostly a lot revolves around hoahaoism beliefs, children, and escaping. The patient does not answer when asked about suicidal or homicidal ideation, paranoia, or auditory or visual hallucinations. She continues however, to have likely hallucinations about children and hearing them, delusions of hyper hoahaoism and paranoid nature of as well as conspiracy theories. Attention and concentration appear intact. Her memory appears unreliable, but none were formally tested. Insight, judgment, and impulse control all remain significantly impaired. Vitals/I&O/Wt Last Vital Signs Temp 97.9 F 12/29/20 14:00 Pulse 72 12/25/20 06:00 Resp 18 01/04/21 06:00 BP 114/78 12/25/20 06:00 Pulse Ox 99 12/25/20 06:00 Weight last 48 hrs Weight 56.699 kg Data NPU : 12/22/20 18:57 12/22/20 18:57 A&P Additional A&P Information (1) Acute psychosis: (2) Chronic schizophrenia: This is a 40-year-old white female known to this race and sports book writer from a long hospitalization at this facility who presents once again acutely psychotic, off of medication and resistant to treatment. 1. Continue current medication. 2. Continue every 15 minute checks for safety. 3. Encourage individual, group and milieu therapies. 4. Her increasing spontaneous vocalizations is likely a sign that the Invega is helping. Involuntary Hold Information 96 Hour Hold: 96 Hour Involuntary Admission: Yes 96 Hour Hold Ending Date: 12/28/20 96 Hour Hold Ending Time: 16:42 Attestations NPU Medical Necessity Statement*: Inpatient hospitalization is medically necessary and the clinically appropriate intervention at this time. We will monitor medications and make changes as indicated. Likely length of stay 10-14 days. Coding Level of Care Code Acute Supervisor [place] for Domitila Rosado
[2021-01-04 14:00] VITALS: RESP 16
[2021-01-04 20:56] VITALS: BP 90/56; PULSE 77; RESP 21; TEMP 36.6; O2SAT 99
[2021-01-05 06:00] VITALS: RESP 18
--- NOTE | 2021-01-05 06:01 | PC.NURSE ---
pt refused vitals at this time pt stated that vitals were not going to be a regular thing for her and that vitals do not work respirations were observed/casey
--- NOTE | 2021-01-05 06:11 | PC.NURSE ---
1:1 sitter reports pt climbed up on counter and tried to remove a ceiling tile. She was able to redirect pt to get down and continues to pace hallway. Pt ask this RN if she could have a set of keys to help staff do rounds and check the courtyard. Pt informed she would not be given any keys.
--- NOTE | 2021-01-05 12:37 | NPU.GN ---
[facility] Group Topic:Coping Skills General Mood of Group:Refused group. But did pop in from time to time.
[2021-01-05 14:00] VITALS: RESP 18
--- NOTE | 2021-01-05 16:05 | PC.NURSE ---
PATIENT REFUSED VITALS, WILL CONTINUE TO MONITOR.
--- NOTE | 2021-01-05 16:33 | PC.NURSE ---
CONTACT INFO, FATHER (LEONA) [phone]
--- NOTE | 2021-01-05 17:00 | PM.NPN ---
Subjective NPU Subjective: Interval history: Patient presented today continuing to have more spontaneous verbal conversation. However, her intrusiveness has not diminished. She continues to believe she is hearing children and attempted on rooms to save them. Additionally she continues to check doors incessantly with a likely plan of escaping. She generally asked at some point today can you just open that door for her. We continued to review with her the fact that we will give her second injection of Invega Sustenna this week as well as Abilify injection. Mental Status Exam MSE Comments: Patient is a slender white female in hospital scrubs with a blanket wrapped around her waist and shoulders with limited grooming and good eye contact. Her speech is more spontaneous and more normal rate and volume. The patient refused to answer questions about mood, but her affect was less irritable. Her thought process is organized but mostly a lot revolves around taoism beliefs, children, and escaping. The patient does not answer when asked about suicidal or homicidal ideation, paranoia, or auditory or visual hallucinations. She continues however, to have likely hallucinations about children and hearing them, delusions of hyper taoism and paranoid nature of as well as conspiracy theories. Attention and concentration appear intact. Her memory appears unreliable, but none were formally tested. Insight, judgment, and impulse control all remain significantly impaired. Vitals/I&O/Wt Last Vital Signs Temp 97.9 F 01/04/21 20:56 Pulse 77 01/04/21 20:56 Resp 16 01/05/21 20:09 BP 90/56 01/04/21 20:56 Pulse Ox 99 01/04/21 20:56 Data NPU : 12/22/20 18:57 12/22/20 18:57 A&P Additional A&P Information (1) Acute psychosis: (2) Chronic schizophrenia: This is a 40-year-old white female known to this pattern chart writer from a long hospitalization at this facility who presents once again acutely psychotic, off of medication and resistant to treatment. 1. Continue current medication. 2. Continue every 15 minute checks for safety. 3. Encourage individual, group and milieu therapies. 4. Her increasing spontaneous vocalizations is likely a sign that the Invega is helping. Involuntary Hold Information 96 Hour Hold: 96 Hour Involuntary Admission: Yes 96 Hour Hold Ending Date: 12/28/20 96 Hour Hold Ending Time: 16:42 Attestations NPU Medical Necessity Statement*: Inpatient hospitalization is medically necessary and the clinically appropriate intervention at this time. We will monitor medications and make changes as indicated. Likely length of stay 10-14 days. Coding Level of Care Code Acute Automotive Refinisher for Domitila Rosado
[2021-01-05 20:09] VITALS: RESP 16
--- NOTE | 2021-01-05 20:10 | PC.NURSE ---
pt refused vitals/respirations observed/casey
--- NOTE | 2021-01-06 04:43 | PC.NURSE ---
PT NOTED TO BE VERY INTRUSIVE, ATTEMPTING TO GO INTO SEVERAL OTHER PTS ROOMS, ESPECIALLY A MALE ROOM. 1:1 SITTER NOTED TO BE BLOCKING PT FROM ENTERING SAID ROOM, AND PT NOTED KICKING PAST SITTER TO OPEN THE DOOR WITH HER FOOT. STAFF ENTERED HALLWAY TO ASSIST SITTER TO DIVERT PTS ATTENTION. PT BEGAN TO TRY TO PUSH THOUGH TO THE MALES ROOM. PT WAS ASSISTED TO ROOM 170 AT THE END OF THE MARK WHERE PT COULD NOT WAKE UP OTHER PTS.
[2021-01-06] MEDS: haloperidol inj 5 mg/mL INJ 1 mL IM (05:00)
--- NOTE | 2021-01-06 05:26 | PC.NURSE ---
at 0455, pt noted with increased agitation, pushing on sitter, trying to kick sitter and door. pt pounding on the door and yelling. Haldol 5mg IM given with assist of [address] Dr Peña notified and additional orders received. pt continued to push and try to wrestle and kick staff. pt was informed that she needed to settle down and rest. pt kept saying over and over, i want to check on the kids. i want to check on the kids. you can't keep me from my kids.
--- NOTE | 2021-01-06 05:29 | PC.NURSE ---
Pt continued to try and get into other patients rooms this am after constant redirection by 1:1 and other staff, pt continues to try to push past staff to enter pt rooms. Pt became increasingly more agitated and was escorted using safe techniques to room 170 to keep pt safe. Pt attempted to kick and hit staff several times and verbal deescalation was unsuccessful. Pt continues to try and kick, hit and grab hold of staff. Pt was given 5mg Haldol IM and continued attempts at verbal deescalation. Pt was released from hold and began jumping on bed and pushing and shoving staff to try and remove herself from seclusion, beat on door and yell for the children. After several unsuccessful attempts at verbal deescalation and pt continued to push staff and kick and hit door, pt was escorted to seclusion room where she continued to push and shove staff. Dr Peña, Hide Cooking Operator notified and orders given in 30 min may give Geodon 20mg IM if pt continues to be aggressive. Pt is safely in seclusion room at this time with 1:1 outside door watching pt closely for safety.
[2021-01-06 06:00] VITALS: RESP 15
--- NOTE | 2021-01-06 06:38 | PC.NURSE ---
pt refused and not complying with vitals/respirations were observed
--- NOTE | 2021-01-06 16:38 | P.PN_ITS ---
Subjective NPU Subjective: Interval history: Patient presents today reporting that she is doing okay. She did have a significant episode this morning where and she was going in rooms and needing redirection and when redirected she got very angry and aggressive and was put in seclusion and given as needed medication. Since then she has been more calm and her slowly improving but still psychotic self. She denied any new problems or issues and continues to focus on being discharged or let go as soon as possible. Mental Status Exam MSE Comments: Patient is a slender white female in hospital scrubs with a blanket wrapped around her waist and shoulders with limited grooming and good eye contact. Her speech is more spontaneous and more normal rate and volume. Mood reported as fine, but her affect congruent. Her thought process is organized but mostly a lot revolves around nondenominational beliefs, children, and escaping. The patient does not answer when asked about suicidal or homicidal ideation, paranoia, or auditory or visual hallucinations. She continues however, to have likely hallucinations about children and hearing them, delusions of hyper nondenominational and paranoid nature of as well as conspiracy theories. Attention and concentration appear intact. Her memory appears unreliable, but none were formally tested. Insight, judgment, and impulse control all remain significantly impaired. Vitals/I&O/Wt Last Vital Signs Temp 97.9 F 01/04/21 20:56 Pulse 77 01/06/21 22:00 Resp 15 01/06/21 22:00 BP 90/56 01/04/21 20:56 Pulse Ox 99 01/04/21 20:56 Data NPU : 12/22/20 18:57 12/22/20 18:57 A&P Additional A&P Information (1) Acute psychosis: (2) Chronic schizophrenia: This is a 40-year-old white female known to this database report writer from a long hospitalization at this facility who presents once again acutely psychotic, off of medication and resistant to treatment. 1. Continue current medication. 2. Continue every 15 minute checks for safety. 3. Encourage individual, group and milieu therapies. 4. Her increasing spontaneous vocalizations is likely a sign that the Invega is helping. Involuntary Hold Information 96 Hour Hold: 96 Hour Involuntary Admission: Yes 96 Hour Hold Ending Date: 12/28/20 96 Hour Hold Ending Time: 16:42 Attestations NPU Medical Necessity Statement*: Inpatient hospitalization is medically necessary and the clinically appropriate intervention at this time. We will monitor medications and make changes as indicated. Likely length of stay 10-14 days. Coding Level of Care Code Acute Buttermaker for Domitila Rosado
[2021-01-06 22:00] VITALS: PULSE 77; RESP 15
[2021-01-07 06:00] VITALS: RESP 19
[2021-01-07 14:00] VITALS: RESP 16
--- NOTE | 2021-01-07 15:26 | PC.NURSE ---
patient refused vitals.
--- NOTE | 2021-01-07 17:21 | PM.NPN ---
Subjective NPU Subjective: Interval history: Ivone presents today reporting that she is fine and should be let go. We discussed the fact that we will be giving her her second Invega injection tomorrow and her first Abilify injection tomorrow. She is not wanting to be on any medication and continues to endorse that it is a waste of time. She continues to be more verbal but continues to have poor impulse control in relation to her underlying delusions about children being unsafe and needing her help. Mental Status Exam MSE Comments: Patient is a slender white female in hospital scrubs with a blanket wrapped around her waist so she looks like she is dressed in biblical times with limited grooming and appropriate eye contact. Her speech is more spontaneous and more normal rate and volume. Mood reported as I am okay, affect continues to be annoyed. Her thought process is organized but mostly a lot revolves around samaritan beliefs, children, and escaping. The patient does not answer when asked about suicidal or homicidal ideation, paranoia, or auditory or visual hallucinations. She continues however, to have likely hallucinations about children and hearing them, delusions of hyper samaritan and paranoid nature of as well as conspiracy theories. Attention and concentration appear intact. Her memory appears unreliable, but none were formally tested. Insight, judgment, and impulse control all remain significantly impaired. Vitals/I&O/Wt Last Vital Signs Temp 97.9 F 01/04/21 20:56 Pulse 77 01/06/21 22:00 Resp 16 01/07/21 14:00 BP 90/56 01/04/21 20:56 Pulse Ox 99 01/04/21 20:56 Data NPU : 12/22/20 18:57 12/22/20 18:57 A&P Additional A&P Information (1) Acute psychosis: (2) Chronic schizophrenia: This is a 40-year-old white female known to this flex o writer operator from a long hospitalization at this facility who presents once again acutely psychotic, off of medication and resistant to treatment. 1. Continue current medication. Will give second injection of Invega Sustenna 156 mg IM to the deltoid and initiate Abilify Maintena 400 mg IM. 2. Continue every 15 minute checks for safety. 3. Encourage individual, group and milieu therapies. Involuntary Hold Information 96 Hour Hold: 96 Hour Involuntary Admission: Yes 96 Hour Hold Ending Date: 12/28/20 96 Hour Hold Ending Time: 16:42 Attestations NPU Medical Necessity Statement*: Inpatient hospitalization is medically necessary and the clinically appropriate intervention at this time. We will monitor medications and make changes as indicated. Likely length of stay 10-14 days. Coding Level of Care Code Acute Escrow Representative for Domitila Rosado
[2021-01-07 20:21] VITALS: RESP 18
[2021-01-08 06:00] VITALS: RESP 18
--- NOTE | 2021-01-08 06:38 | PC.NURSE ---
Patient refuses vitals. Respirations were taken.
--- NOTE | 2021-01-08 08:21 | P.PN_ITS ---
Subjective NPU Subjective: Interval history: Ivone presents today reporting that she is doing okay and she was actively walking around with her one-to-one observer. When I reminded her that she would be getting injections today she mostly does occasionally conversation but was doing so not just walking away but with activity medication describing why she did not want to talk. We discussed the risk benefits alternatives of the medication and she appeared to understand what was not wanting to take the medication. Staff continues to report improvement in her eating and sleeping. Mental Status Exam MSE Comments: Patient is a slender white female in hospital scrubs with a blanket wrapped around her waist so she looks like she is dressed in biblical times with limited grooming and appropriate eye contact. Her speech is more spontaneous and more normal rate and volume. Mood reported as fine, affect continues to be annoyed. Her thought process is organized but mostly a lot revolves around restorationism beliefs, children, and escaping. The patient does not answer when asked about suicidal or homicidal ideation, paranoia, or auditory or visual hallucinations. She continues however, to have likely hallucinations about children and hearing them, delusions of hyper restorationism and paranoid na ture of as well as conspiracy theories. Attention and concentration appear intact. Her memory appears unreliable, but none were formally tested. Insight, judgment, and impulse control all remain significantly impaired. Vitals/I&O/Wt Last Vital Signs Temp 97.9 F 01/04/21 20:56 Pulse 77 01/06/21 22:00 Resp 18 01/08/21 06:00 BP 90/56 01/04/21 20:56 Pulse Ox 99 01/04/21 20:56 Data NPU : 12/22/20 18:57 12/22/20 18:57 A&P Additional A&P Information (1) Acute psychosis: (2) Chronic schizophrenia: This is a 40-year-old white female known to this flex o writer operator from a long hospitalization at this facility who presents once again acutely psychotic, off of medication and resistant to treatment. 1. Continue current medication. Will give second injection of Invega Sustenna 156 mg IM to the deltoid and initiate Abilify Maintena 400 mg IM today. 2. Continue every 15 minute checks for safety. 3. Encourage individual, group and milieu therapies. Involuntary Hold Information 96 Hour Hold: 96 Hour Involuntary Admission: Yes 96 Hour Hold Ending Date: 12/28/20 96 Hour Hold Ending Time: 16:42 Attestations NPU Medical Necessity Statement*: Inpatient hospitalization is medically necessary and the clinically appropriate intervention at this time. We will monitor medications and make changes as indicated. Likely length of stay 10-14 days. Coding Level of Care Code Acute Fireman Helper for Domitila Rosado
[2021-01-08] MEDS: paliperidone palmitate 156 mg Syringe IM (11:01)
[2021-01-08] MEDS: ARIPiprazole Maintena 400 MG IM (11:02)
--- NOTE | 2021-01-08 11:12 | PC.NURSE ---
Physical hold for Anti Psychotic medication injection Physician ordered 2 medication injections, one for Abilify and the other for Invega. Patient verbally refused and is on a [address] hold. Security x2 and 3 staff members were present. At approximately 1055, patient sat on bed and her wrists were held bilaterally for safety for less than 30 seconds while injections were given to both deltoids. Patient remained calm with minimally resistance.
[2021-01-08 14:00] VITALS: RESP 16
[2021-01-08 20:57] VITALS: RESP 18
--- NOTE | 2021-01-08 22:22 | PC.NURSE ---
BEHAVIOR Patient walked into room 153. Staff redirected patient out into the hallway. Staff reminded patient that we can't go into other patients rooms. Patient stated to staff, I was just looking to see if any children were in there. Patient walked with staff down towards the nurses station and continued pacing the hallway.
--- NOTE | 2021-01-09 02:31 | PC.NURSE ---
SLEEPING PATTERN CHANGE PT FELL ASLEEP ON HER FALL MAT AT 2130 AND WOKE UP THIS MORNING AT ABOUT 0230. THIS IS THE LONGEST TIME THIS PRECISION MACHINIST HAS WITNESSED THIS PT SLEEP AT ANY ONE GIVEN TIME. SHE IS STILL ATTEMPTING TO CHECK PT ROOMS AND LOCKED DOORS BUT RETURNS TO HER ROOM WITHOUT MUCH REDIRECTION.
[2021-01-09 06:00] VITALS: RESP 15
--- NOTE | 2021-01-09 08:38 | P.PN_ITS ---
Subjective NPU Subjective: Interval history: Patient presents today continuing her general annoyance with this gag writer in any questions related to her ongoing wellness. She continues to walk around and she is in a told or biblical appearance with a covering for her hair that further is this image. She got her injections yesterday and has denied any issues today. She continues to walk the hallways and check every door and pushed on every door to see if she can escape and attempts to climb on counters to check the ceiling escape routes. Mental Status Exam MSE Comments: Patient is a slender white female in hospital scrubs with a blanket wrapped around her waist so she looks like she is dressed in biblical times with limited grooming and appropriate eye contact. Her speech is more spontaneous and more normal rate and volume. Mood reported as okay, affect continues to be annoyed. Her thought process is organized but mostly a lot revolves around restoration beliefs, children, and escaping. The patient does not answer when asked about suicidal or homicidal ideation, paranoia, or auditory or visual hallucinations. She continues however, to have likely hallucinations about children and hearing them, delusions of hyper restoration and paranoid nature of as well as conspiracy theories. Attention and concentration appear intact. Her memory appears unreliable, but none were formally tested. Insight, judgment, and impulse control all remain significantly impaired. Vitals/I&O/Wt Last Vital Signs Temp 97.9 F 01/04/21 20:56 Pulse 77 01/06/21 22:00 Resp 15 01/09/21 06:00 BP 90/56 01/04/21 20:56 Pulse Ox 99 01/04/21 20:56 Data NPU : 12/22/20 18:57 12/22/20 18:57 A&P Additional A&P Information (1) Acute psychosis: (2) Chronic schizophrenia: This is a 40-year-old white female known to this gag writer from a long hos pitalization at this facility who presents once again acutely psychotic, off of medication and resistant to treatment. 1. Continue current medication. Will gave second injection of Invega Sustenna 156 mg IM to the deltoid and Abilify Maintena 400 mg IM yesterday. 2. Continue every 15 minute checks for safety. 3. Encourage individual, group and milieu therapies. Involuntary Hold Information 96 Hour Hold: 96 Hour Involuntary Admission: Yes 96 Hour Hold Ending Date: 12/28/20 96 Hour Hold Ending Time: 16:42 Attestations NPU Medical Necessity Statement*: Inpatient hospitalization is medically necessary and the clinically appropriate intervention at this time. We will monitor medications and make changes as indicated. Likely length of stay 10-14 days. Coding Level of Care Code Acute Senior Media Buyer for Domitila Rosado
[2021-01-09 14:00] VITALS: BP 124/75; PULSE 84; RESP 18; TEMP 36.9; O2SAT 100
[2021-01-09 22:00] VITALS: RESP 17
--- NOTE | 2021-01-09 23:06 | PC.NURSE ---
Patient refused vitals. Respirations were taken.
[2021-01-10 06:00] VITALS: RESP 15
--- NOTE | 2021-01-10 07:35 | P.PN_ITS ---
Subjective NPU Subjective: Interval history: Patient presents today continuing to have limited insight into her condition but continuing to have increased spontaneity in her interactions and conversations. Even at times seeming to joke about being discharged. She has tolerated her second dose of Invega and first dose of Abilify without incident. She continues to check doors and try all she can to escape. She continues to don the strange toga/biblical like she and towel set up when she is walking around.. Mental Status Exam MSE Comments: Patient is a slender white female in hospital scrubs with a blanket wrapped around her waist so she looks like she is dressed in biblical times with limited grooming and appropriate eye contact. Her speech is more spontaneous and more normal rate and volume. Mood reported as fine, affect continues to be annoyed but seeming less so. Her thought process is organized but mostly a lot revolves around orthodox beliefs, children, and escaping. The patient does not answer when asked about suicidal or homicidal ideation, paranoia, or auditory or visual hallucinations. She continues however, to have likely hallucinations about children and hearing them, delusions of hyper orthodox and paranoid nature of as well as conspiracy theories. Attention and concentration appear intact. Her memory appears unreliable, but none were formally tested. Insight, judgment, and impulse control all remain significantly impaired. Vitals/I&O/Wt Last Vital Signs Temp 98.4 F 01/09/21 14:00 Pulse 84 01/09/21 14:00 Resp 15 01/10/21 06:00 BP 124/75 01/09/21 14:00 Pulse Ox 100 01/09/21 14:00 Weight last 48 hrs Weight 56.699 kg Data NPU : 12/22/20 18:57 12/22/20 18:57 A&P Additional A&P Information (1) Acute psychosis: (2) Chronic schizophrenia: This is a 40-year-old white female known to this ticket writer from a long hospitalization at this facility who presents once again acutely psychotic, off of medication and resistant to treatment. 1. Continue current medication. Will gave second injection of Invega Sustenna 156 mg IM to the deltoid and Abilify Maintena 400 mg IM yesterday. 2. Continue every 15 minute checks for safety. 3. Encourage individual, group and milieu therapies. Involuntary Hold Information 96 Hour Hold: 96 Hour Involuntary Admission: Yes 96 Hour Hold Ending Date: 12/28/20 96 Hour Hold Ending Time: 16:42 Attestations NPU Medical Necessity Statement*: Inpatient hospitalization is medically necessary and the clinically appropriate intervention at this time. We will monitor medications and make changes as indicated. Likely length of stay 10-14 days. Coding Level of Care Code Acute Sanipractic Physician for Domitila Rosado
[2021-01-10 14:00] VITALS: RESP 17
[2021-01-10 21:24] VITALS: RESP 18
--- NOTE | 2021-01-10 21:24 | PC.NURSE ---
pt refused vitals at this time/respirations observed
[2021-01-11 06:00] VITALS: RESP 15
--- NOTE | 2021-01-11 06:28 | PC.NURSE ---
pt refused vitals at this time/respirations were observed
--- NOTE | 2021-01-11 12:29 | P.PN_ITS ---
Subjective NPU Subjective: Interval history: I met with the patient and her father at the patient's request. The patient and her father had some disagreements about what the patient needed to be able to leave. Her father tried to talk with her about taking the police officers gun, and how this was not a good idea. She got quite irritable and told him to shut up. She had sabianist preoccupation and continued delusional ideas. Insight continues to be quite poor. No side effects on medication. She has checked the doors multiple times today. She wears a bed sheet around her waist and over her shoulder as well as some sort of landing on her head. Mental Status Exam MSE Comments: Patient is a slender white female in hospital scrubs who continues to wear idiosyncratic clothing. She has a sheet around her waist and over her shoulder as well as something on her head, so she looks, as Dr. Peña said, like she is dressed in biblical times. Grooming may be improved today and eye contact is fairly good. Her speech is fairly spontaneous and at a normal rate and volume. Mood reported as fine, affect was quite irritable with her father. Her thought process is organized. The patient is guarded about suicidal or homicidal ideation, paranoia, or auditory or visual hallucinations. She does have sabianist preoccupation and preoccupation with conspiracy theories. Attention and concentration appear intact. Her memory appears unreliable, but none were formally tested. Insight, judgment, and impulse control all remain significantly impaired. Vitals/I&O/Wt Last Vital Signs Temp 98.4 F 01/09/21 14:00 Pulse 84 01/09/21 14:00 Resp 18 01/11/21 22:00 BP 124/75 01/09/21 14:00 Pulse Ox 100 01/09/21 14:00 Weight last 48 hrs Weight 56.699 kg Data NPU : 12/22/20 18:57 12/22/20 18:57 A&P Assessment and plan (1) Acute psychosis: Status: Acute (2) Chronic schizophrenia: Status: Acute Additional A&P Information This is a 40-year-old white female who has had long hospitalizations at this facility who presents once again acutely psychotic, off of medication and resistant to treatment. She apparently tried to take a police officers gun out of his holster. 1. Continue current medication. She has gotten her second injection of Invega Sustenna 156 mg IM to the deltoid and Abilify Maintena 400 mg IM. No medication side effects. 2. Continue every 15 minute checks for safety. 3. Encourage individual, group and milieu therapies. Involuntary Hold Information 96 Hour Hold: 96 Hour Involuntary Admission: Yes 96 Hour Hold Ending Date: 12/28/20 96 Hour Hold Ending Time: 16:42 Attestations NPU Medical Necessity Statement*: Inpatient hospitalization is medically necessary and the clinically appropriate intervention at this time. We will monitor medications and make changes as indicated. Likely length of stay 10-14 days. During some previous hospitalization it took several months for her psychosis to remit. Coding Level of Care Code Acute Tilt Tray Driver for Domitila Rosado Diagnoses Acute psychosis F23 Chronic schizophrenia F20.9
[2021-01-11 14:00] VITALS: RESP 18
--- NOTE | 2021-01-11 15:05 | PC.NURSE ---
PATIENT REFUSED VITALS, WILL CONTINUE TO MONITOR.
[2021-01-11 22:00] VITALS: RESP 18
--- NOTE | 2021-01-11 22:48 | NUR.SHIFT ---
pt refused vitals/respirations were observed
[2021-01-12 06:00] VITALS: RESP 16
--- NOTE | 2021-01-12 07:01 | PC.NURSE ---
pt refused vitals/respirations observed
--- NOTE | 2021-01-12 11:52 | PM.NPN ---
Subjective NPU Subjective: Interval history: I met with the patient on the bench by the nurses station. She wanted to know, what do I have to do to get out of here? I asked her what her understanding was. She said, you could just push the button and I would leave. She is not able to say what is her understanding of the reason that other people feel that she needs to be here. I explained that at minimum, her thinking needed to be clear and she needed to be safe around others. I talked to her with her some more about her attempt to take the police officers gun. She had a great deal of difficulty seeing that it would be inappropriate for a number of reasons to take a police officers gun without his permission. Could not see that this would feel threatening to the officer and people around them. I also explained that this is the kind of thinking that needs to get better before she can leave. She was fairly pleasant, even though her insight was quite poor. She continues to deny having medication side effects. She says she feels medications are totally irrelevant. She says she does not think that medications have ever done anything except make her sleepy. Mental Status Exam MSE Comments: Patient is a slender white female in hospital scrubs who continues to wear idiosyncratic clothing. As yesterday, she has a sheet around her waist and over her shoulder as well as something on her head, so she looks, as Dr. Peña said, like she is dressed in biblical times. Grooming and eye contact are fairly good. Her speech is fairly spontaneous and at a normal rate and volume. Mood reported as fine, affect was fairly pleasant. Her thought process is organized. The patient is guarded about suicidal or homicidal ideation, paranoia, or auditory or visual hallucinations. She does have yarsani preoccupation and preoccupation with conspiracy theories. Attention and concentration appear intact. Her memory appears unreliable, but none were formally tested. Insight, judgment, and impulse control all remain significantly impaired. Vitals/I&O/Wt Last Vital Signs Temp 98.4 F 01/09/21 14:00 Pulse 84 01/09/21 14:00 Resp 16 01/12/21 06:00 BP 124/75 01/09/21 14:00 Pulse Ox 100 01/09/21 14:00 Data NPU : 12/22/20 18:57 12/22/20 18:57 A&P Assessment and plan (1) Acute psychosis: Status: Acute (2) Chronic schizophrenia: Status: Acute Additional A&P Information This is a 40-year-old white female who has had long hospitalizations at this facility who presents once again acutely psychotic, off of medication and resistant to treatment. She apparently tried to take a police officers gun out of his holster. 1. Continue current medication. She has gotten her second injection of Invega Sustenna 156 mg IM to the deltoid and Abilify Maintena 400 mg IM. No medication side effects. 2. Continue every 15 minute checks for safety. 3. Encourage individual, group and milieu therapies. Involuntary Hold Information 96 Hour Hold: 96 Hour Involuntary Admission: Yes 96 Hour Hold Ending Date: 12/28/20 96 Hour Hold Ending Time: 16:42 Attestations NPU Medical Necessity Statement*: Inpatient hospitalization is medically necessary and the clinically appropriate intervention at this time. We will monitor medications and make changes as indicated. Likely length of stay 10-14 days. During some previous hospitalizations it took several months for her psychosis to remit. Coding Level of Care Code Acute Corporate Travel Consultant for Domitila Rosado Diagnoses Acute psychosis F23 Chronic schizophrenia F20.9
[2021-01-12 14:00] VITALS: RESP 17
[2021-01-12 20:10] VITALS: RESP 17
[2021-01-13 06:00] VITALS: RESP 16
[2021-01-13 14:00] VITALS: RESP 17
--- NOTE | 2021-01-13 16:26 | PM.NPN ---
Subjective NPU Subjective: Interval history: I met with the treatment team to discuss the patient's progress. We talked about whether a court order for outpatient treatment is possible. We will need to look into this further. The patient is largely unchanged from yesterday. She denies depression or suicidal ideation. No homicidal ideation. She denies auditory and visual hallucinations. She continues to have hyper taoism ideation and to be responding to paranoid conspiracy theories. No medication side effects. Mental Status Exam MSE Comments: Patient is a slender white female in hospital scrubs who continues to wear idiosyncratic clothing. As yesterday, she has a sheet around her waist and over her shoulder as well as something on her head, so she looks, as Dr. Peña said, like she is dressed in biblical times. Grooming and eye contact are fairly good. Her speech is fairly spontaneous and at a normal rate and volume. Mood reported as fine, affect was fairly pleasant. Her thought process is organized. The patient is guarded about suicidal or homicidal ideation, paranoia, or auditory or visual hallucinations. She does have taoism preoccupation and preoccupation with conspiracy theories. Attention and concentration appear intact. Her memory appears unreliable, but none were formally tested. Insight, judgment, and impulse control all remain significantly impaired. For example, she still does not have any idea why it would be inappropriate to grab a production control technologist's gun out of its holster. Vitals/I&O/Wt Last Vital Signs Temp 98.4 F 01/09/21 14:00 Pulse 84 01/09/21 14:00 Resp 17 01/13/21 14:00 BP 124/75 01/09/21 14:00 Pulse Ox 100 01/09/21 14:00 Data NPU : 12/22/20 18:57 12/22/20 18:57 A&P Assessment and plan (1) Acute psychosis: Status: Acute (2) Chronic schizophrenia: Status: Acute Additional A&P Information This is a 40-year-old white female who has had long hospitalizations at this facility who presents once again acutely psychotic, off of medication and resistant to treatment. She apparently tried to take a police officers gun out of his holster. 1. Continue current medication. She has gotten her second injection of Invega Sustenna 156 mg IM to the deltoid and Abilify Maintena 400 mg IM, both on 01/08/2021. No medication side effects. It is expected that it may take several weeks for these medications to achieve full effectiveness. 2. Continue every 15 minute checks for safety. 3. Encourage individual, group and milieu therapies. Involuntary Hold Information 96 Hour Hold: 96 Hour Involuntary Admission: Yes 96 Hour Hold Ending Date: 12/28/20 96 Hour Hold Ending Time: 16:42 Attestations NPU Medical Necessity Statement*: Inpatient hospitalization is medically necessary and the clinically appropriate intervention at this time. We will monitor medications and make changes as indicated. Likely length of stay 10-14 days. During some previous hospitalizations it took several months for her psychosis to remit. Coding Level of Care Code Acute Seaport Planning Manager for Domitila Rosado Diagnoses Acute psychosis F23 Chronic schizophrenia F20.9
[2021-01-13 22:00] VITALS: BP 124/75; PULSE 84; RESP 17; TEMP 36.9; O2SAT 100
--- NOTE | 2021-01-14 04:19 | PC.NURSE ---
needs Bath This patient has refused to bathe the entirety of her stay in NPU. Pt occasionally will was her face. Her feet are crusted with dirt. She is unclean and avoids hygiene. On the last 3 night shifts this RN has worked this patient has refused to bathe. Documentation reflects a lack of hygiene.
[2021-01-14 06:00] VITALS: RESP 15
[2021-01-14 14:00] VITALS: RESP 16
--- NOTE | 2021-01-14 17:29 | PM.NPN ---
Subjective NPU Subjective: Interval history: I had a discussion with the patient about her father's request to talk to me by phone. She is concerned that if I talked to him it will cause the children to suffer more. She feels that he might report something to some authorities that will get her in more trouble. She also said, how will you know you are talking to the right person? I said that I would call the number that her father wrote down in person when I saw him the other day with her. This did not seem to answer her fears. The patient had some other new psychotic ideas. She feels that people are saying her children's names here, so that we must have learned who they are. She also wanted me to check to see if she had any surgeries or procedures while I was knocked out. I told her I did not know of any such things happening. Mental Status Exam MSE Comments: Patient is a slender white female in hospital scrubs who continues to wear idiosyncratic clothing. As yesterday, she has a sheet around her waist and over her shoulder as well as something on her head, so she looks, as Dr. Peña said, like she is dressed in Noval[place] times. Grooming and eye contact are fairly good. Her speech is fairly spontaneous and at a normal rate and volume. Mood continues to be reported as fine, affect was fairly pleasant. Her thought process is organized. The patient is guarded about suicidal or homicidal ideation, paranoia, or auditory or visual hallucinations. She does have congregational preoccupation and preoccupation with conspiracy theories as described above. Attention and concentration appear intact. Her memory appears unreliable, but none were formally tested. Insight, judgment, and impulse control all remain significantly impaired. For example, she still does not have any idea why it would be inappropriate to grab a utility worker film processing's gun out of its holster. Vitals/I&O/Wt Last Vital Signs Temp 98.4 F 01/13/21 22:00 Pulse 84 01/13/21 22:00 Resp 16 01/14/21 14:00 BP 124/75 01/13/21 22:00 Pulse Ox 100 01/13/21 22:00 Data NPU : 12/22/20 18:57 12/22/20 18:57 A&P Assessment and plan (1) Acute psychosis: Status: Acute (2) Chronic schizophrenia: Status: Acute Additional A&P Information This is a 40-year-old white female who has had long hospitalizations at this facility who presents once again acutely psychotic, off of medication and resistant to treatment. She apparently tried to take a police officers gun out of his holster. 1. Continue current medication. She has gotten her second injection of Invega Sustenna 156 mg IM to the deltoid and Abilify Maintena 400 mg IM, both on 01/08/2021. No medication side effects. It is expected that it may take several weeks for these medications to achieve full effectiveness. 2. Continue every 15 minute checks for safety. 3. Encourage individual, group and milieu therapies. Involuntary Hold Information 96 Hour Hold: 96 Hour Involuntary Admission: Yes 96 Hour Hold Ending Date: 12/28/20 96 Hour Hold Ending Time: 16:42 Attestations U Medical Necessity Statement*: Inpatient hospitalization is medically necessary and the clinically appropriate intervention at this time. We will monitor medications and make changes as indicated. Likely length of stay 10-14 days. During some previous hospitalizations it took several months for her psychosis to remit. Coding Level of Care Code Acute Communications Tower Technician for Domitila Rosado Diagnoses Acute psychosis F23 Chronic schizophrenia F20.9
[2021-01-14 21:13] VITALS: RESP 17
[2021-01-15 06:00] VITALS: RESP 16
--- NOTE | 2021-01-15 06:50 | PC.NURSE ---
VS Refused am VS check stating that everything is ok
[2021-01-15 14:00] VITALS: RESP 16
--- NOTE | 2021-01-15 16:57 | P.PN_ITS ---
Subjective NPU Subjective: Interval history: I spoke with the patient after she made a very long phone call. The nurse says that she had told her she had not talked on the phone for 9 years. The patient said she was talking to her children on the phone. Then she said she was not sure who was actually on the phone, but she was pretty sure they were her children. Mental Status Exam MSE Comments: Patient is a slender white female in hospital scrubs who continues to wear idiosyncratic clothing. As yesterday, she has a sheet around her waist and over her shoulder as well as something on her head, so she looks, as Dr. Peña said, like she is dressed in biblical times. Grooming and eye contact are fairly good. Her speech is fairly spontaneous and at a normal rate and volume. Mood continues to be reported as fine, affect was fairly pleasant. Her thought process is organized. The patient is guarded about suicidal or homicidal ideation, paranoia, or auditory or visual hallucinations. She does have nondenominational preoccupation and preoccupation with conspiracy theories as described above. Attention and concentration appear intact. Her memory appears unreliable, but none were formally tested. Insight, judgment, and impulse control all remain significantly impaired. For example, she still does not have any idea why it would be inappropriate to grab a delinquent notice machine operator's gun out of its holster. Vitals/I&O/Wt Last Vital Signs Temp 98.4 F 01/13/21 22:00 Pulse 84 01/13/21 22:00 Resp 16 01/15/21 14:00 BP 124/75 01/13/21 22:00 Pulse Ox 100 01/13/21 22:00 Data NPU : 12/22/20 18:57 12/22/20 18:57 A&P Assessment and plan (1) Acute psychosis: Status: Acute (2) Chronic schizophrenia: Status: Acute Additional A&P Information This is a 40-year-old white female who has had long hospitalizations at this facility who presents once again acutely psychotic, off of medication and resistant to treatment. She apparently tried to take a police officers gun out of his holster. 1. Continue current medication. She has gotten her second injection of Invega Sustenna 156 mg IM to the deltoid and Abilify Maintena 400 mg IM, both on 01/08/2021. No medication side effects. It is expected that it may take several weeks for these medications to achieve full effectiveness. 2. Continue every 15 minute checks for safety. 3. Encourage individual, group and milieu therapies. Involuntary Hold Information 96 Hour Hold: 96 Hour Involuntary Admission: Yes 96 Hour Hold Ending Date: 12/28/20 96 Hour Hold Ending Time: 16:42 Attestations NPU Medical Necessity Statement*: Inpatient hospitalization is medically necessary and the clinically appropriate intervention at this time. We will monitor medications and make changes as indicated. Likely length of stay 10-14 days. During some previous hospitalizations it took several months for her psychosis to remit. Coding Level of Care Code Acute Mechanical Maintenance Engineer for Domitila Rosado Diagnoses Acute psychosis F23 Chronic schizophrenia F20.9
[2021-01-15 20:48] VITALS: RESP 16
--- NOTE | 2021-01-15 20:48 | PC.NURSE ---
client refused vitals/allowed respirations to be observed
[2021-01-15 21:49] VITALS: BP 107/78
[2021-01-16 06:00] VITALS: RESP 21
[2021-01-16 14:00] VITALS: BP 106/70; PULSE 98; RESP 17; TEMP 36.7; O2SAT 97
--- NOTE | 2021-01-16 17:23 | P.PN_ITS ---
Subjective NPU Subjective: Interval history: Nursing says that the patient made 2 significant improvements today. She allowed her vital signs to be taken. She also sat down through the whole meal. Previously she was picking 1 thing to eat off her plate, then walking around to eat it. Then coming back to get something else. When I commented on this to the patient, she asked if she could leave now. I told her that this is a good step she has taken, and we need to string together the successes. She continues to be concerned about the children. This does not seem to refer to her children, but to others she has some delusional ideas about. No medication side effects. Mental Status Exam MSE Comments: Patient is a slender white female in hospital scrubs who continues to wear idiosyncratic clothing. As yesterday, she has a sheet around her waist and over her shoulder as well as something on her head, so she looks, as Dr. Peña said, like she is dressed in biblical times. Grooming and eye contact are fairly good. Her speech is fairly spontaneous and at a normal rate and volume. Mood continues to be reported as fine, affect was fairly pleasant. Her thought process is organized. The patient denies suicidal and homicidal ideation, paranoia, and auditory and visual hallucinations. She does have anabaptism preoccupation and preoccupation with conspiracy theories. Attention and concentration appear intact. Her memory appears unreliable, but none were formally tested. Insight, judgment, and impulse control all remain significantly impaired but may be showing small signs of improvement. Vitals/I&O/Wt Last Vital Signs Temp 98.1 F 01/16/21 14:00 Pulse 98 01/16/21 14:00 Resp 17 01/16/21 14:00 BP 106/70 01/16/21 14:00 Pulse Ox 97 01/16/21 14:00 Data NPU : 12/22/20 18:57 12/22/20 18:57 A&P Assessment and plan (1) Acute psychosis: Status: Acute (2) Chronic schizophrenia: Status: Acute Additional A&P Information This is a 40-year-old white female who has had long hospitalizations at this facility who presents once again acutely psychotic, off of medication and resistant to treatment. She apparently tried to take a police officers gun out of his holster. 1. Continue current medication. She has gotten her second injection of Invega Sustenna 156 mg IM to the deltoid and Abilify Maintena 400 mg IM, both on 01/08/2021. No medication side effects. It is expected that it may take several weeks for these medications to achieve full effectiveness. It may be that we are starting to see some improvement today. 2. Continue every 15 minute checks for safety. 3. Encourage individual, group and milieu therapies. Involuntary Hold Information 96 Hour Hold: 96 Hour Involuntary Admission: Yes 96 Hour Hold Ending Date: 12/28/20 96 Hour Hold Ending Time: 16:42 Attestations NPU Medical Necessity Statement*: Inpatient hospitalization is medically necessary and the clinically appropriate intervention at this time. We will monitor medications and make changes as indicated. Likely length of stay 10-14 days. During some previous hospitalizations it took several months for her psychosis to remit. Coding Level of Care Code Acute Wool Washing Machine Operator for Domitila Rosado Diagnoses Acute psychosis F23 Chronic schizophrenia F20.9
[2021-01-16 20:55] VITALS: RESP 15
--- NOTE | 2021-01-16 20:56 | PC.NURSE ---
client refused vitals at this time/respirations observed
[2021-01-17 06:00] VITALS: RESP 16
--- NOTE | 2021-01-17 06:40 | PC.NURSE ---
pt refused vitals at this time/respirations observed
--- NOTE | 2021-01-17 13:28 | PM.NPN ---
Subjective NPU Subjective: Interval history: I walked with the patient in the hallway. She said she talked to some of her children. Her oldest son, who she believes is 11 years old, told her he was still frightened from when the patient was yelling at the father. The patient says that she was yelling because she was worried about the neighbors children who she felt were in grave danger. She has little insight into either the delusional nature of her concern for the neighbors children or the impact her yelling had on her older son. She says her mood is good. No auditory or visual hallucinations. No suicidal or homicidal ideation. No medication side effects. Mental Status Exam MSE Comments: Mental status is largely unchanged from yesterday. Patient is a slender white female in hospital scrubs who continues to wear idiosyncratic clothing. As usual, she has a sheet around her waist and over her shoulder as well as a pillowcase on her head, so she looks, as Dr. Peña said, like she is dressed in biblical times. Grooming and eye contact are fairly good. Her speech is fairly spontaneous and at a normal rate and volume. Mood continues to be reported as fine, affect was fairly pleasant. Her thought process is organized. The patient denies suicidal and homicidal ideation, paranoia, and auditory and visual hallucinations. She continues to have latter day preoccupation and preoccupation with conspiracy theories. Attention and concentration appear intact. Her memory appears unreliable, but none were formally tested. Insight, judgment, and impulse control all remain significantly impaired but may be showing small signs of improvement. Vitals/I&O/Wt Last Vital Signs Temp 98.1 F 01/16/21 14:00 Pulse 98 01/16/21 14:00 Resp 16 01/17/21 06:00 BP 106/70 01/16/21 14:00 Pulse Ox 97 01/16/21 14:00 Weight last 48 hrs Weight 58.06 kg Data NPU : 12/22/20 18:57 12/22/20 18:57 A&P Assessment and plan (1) Acute psychosis: Status: Acute (2) Chronic schizophrenia: Status: Acute Additional A&P Information This is a 40-year-old white female who has had long hospitalizations at this facility who presents once again acutely psychotic, off of medication and resistant to treatment. The major issue with the patient's psychotic condition is that it causes her to act on her delusions and ways that endanger others. Most recently she apparently tried to take a police officers gun out of his holster. She was trying to rescue neighbor children from the danger she believes them to be facing, even entering the neighbors house. Both of these actions were based on delusional ideas. She also has little insight into how her delusional behavior affects others, such as her children. 1. Continue current medication. She has gotten her second injection of Invega Sustenna 156 mg IM to the deltoid and Abilify Maintena 400 mg IM, both on 01/08/2021. No medication side effects. It is expected that it may take several weeks for these medications to achieve full effectiveness. It may be that we are starting to see some improvement. She is opening up more about her experiences. 2. Continue every 15 minute checks for safety. 3. Encourage individual, group and milieu therapies. Involuntary Hold Information 96 Hour Hold: 96 Hour Involuntary Admission: Yes 96 Hour Hold Ending Date: 12/28/20 96 Hour Hold Ending Time: 16:42 Attestations NPU Medical Necessity Statement*: Inpatient hospitalization is medically necessary and the clinically appropriate intervention at this time. We will monitor medications and make changes as indicated. Likely length of stay 10-14 days. During some previous hospitalizations it took several months for her psychosis to remit. Coding Level of Care Code Acute Acoustic Warfare Analyst for Domitila Rosado Diagnoses Acute psychosis F23 Chronic schizophrenia F20.9
[2021-01-17 14:00] VITALS: RESP 18; TEMP 36.2
[2021-01-17 21:27] VITALS: RESP 18
--- NOTE | 2021-01-17 21:27 | PC.NURSE ---
pt refused vitals at this time/casey/
[2021-01-18 06:00] VITALS: RESP 18
--- NOTE | 2021-01-18 06:34 | PC.NURSE ---
client refused vitals/respirations were observed
--- NOTE | 2021-01-18 09:08 | P.PN_ITS ---
Subjective NPU Subjective: Interval history: I walked in the hallway this morning with the patient and talked with her. She says she talked to another daughter last night, one of the younger children, and her daughter asked her to promised to call back in an hour. The patient does not show much distress about her children not seeing her for this length of time. She still does not have much i nsight about the delusional nature of her concern for the neighbors children or grabbing the consulting practice director's gun. She says her mood is good and she sleeps well. No auditory or visual hallucinations. No suicidal or homicidal ideation. She denies medication side effects. Mental Status Exam MSE Comments: Mental status is largely unchanged from yesterday. Patient is a slender white female in hospital scrubs who continues to wear idiosyncratic clothing. As usual, she has a sheet around her waist and over her shoulder as well as a pillowcase on her head, so she looks, as Dr. Peña said, like she is dressed in biblical times. Grooming and eye contact are fairly good. Her speech is fairly spontaneous and at a normal rate and volume. Mood continues to be reported as fine, affect was fairly pleasant. Her thought process is organized. The patient denies suicidal and homicidal ideation, paranoia, and auditory and visual hallucinations. She continues to have oriental orthodox preoccupation and preoccupation with conspiracy theories. Attention and concentration appear intact. Her memory appears unreliable, but none were formally tested. Insight, judgment, and impulse control all remain signific antly impaired but may be showing small signs of improvement. Vitals/I&O/Wt Last Vital Signs Temp 97.2 F L 01/17/21 14:00 Pulse 98 01/16/21 14:00 Resp 18 01/18/21 06:00 BP 106/70 01/16/21 14:00 Pulse Ox 97 01/16/21 14:00 Weight last 48 hrs Weight 58.06 kg Data NPU : 12/22/20 18:57 12/22/20 18:57 A&P Assessment and plan (1) Acute psychosis: Status: Acute (2) Chronic schizophrenia: Status: Acute Additional A&P Information This is a 40-year-old white female who has had long hospitalizations at this facility who presents once again acutely psychotic, off of medication and resistant to treatment. The major issue with the patient's psychotic condition is that it causes her to act on her delusions and ways that endanger others. Most recently she apparently tried to take a police officers gun out of his holster. She was trying to rescue neighbor children from the danger she believes them to be facing, even entering the neighbors house. Both of these actions were based on delusional ideas. She also has little insight into how her delusional behavior affects others, such as her children. 1. Continue current medication. She has gotten her second injection of Invega Sustenna 156 mg IM to the deltoid and Abilify Maintena 400 mg IM, both on 01/08/2021. No medication side effects. It is expected that it may take several weeks for these medications to achieve full effectiveness. It may be that we are starting to see some improvement. She is opening up more about her experiences. 2. Continue every 15 minute checks for safety. 3. Encourage individual, group and milieu therapies. Involuntary Hold Information 96 Hour Hold: 96 Hour Involuntary Admission: Yes 96 Hour Hold Ending Date: 12/28/20 96 Hour Hold Ending Time: 16:42 Attestations NPU Medical Necessity Statement*: Inpatient hospitalization is medically necessary and the clinically appropriate intervention at this time. We will monitor medications and make changes as indicated. Likely length of stay 10-14 days. During some previous hospitalizations it took several months for her psychosis to remit. Coding Level of Care Code Acute Polymer Tester for Domitila Rosado Diagnoses Acute psychosis F23 Chronic schizophrenia F20.9
[2021-01-18 14:00] VITALS: BP 108/68; PULSE 91; RESP 16; TEMP 36.6; O2SAT 98
[2021-01-18 22:00] VITALS: RESP 17
--- NOTE | 2021-01-18 22:46 | PC.NURSE ---
pt refused vitals at this time/respirations were observed
[2021-01-19 06:00] VITALS: RESP 16
[2021-01-19 14:00] VITALS: BP 98/58; PULSE 91; RESP 20; TEMP 36; O2SAT 97
--- NOTE | 2021-01-19 15:22 | P.PN_ITS ---
Subjective NPU Subjective: Interval history: I met with the treatment team to discuss the patient's progress. She continues to try doors, to see if she can get out of the unit. She also commented yesterday to one of the staff that she was very concerned about the neighbor's children. This comment is significant because the patient has had delusions that the neighbors children are in trouble, and these delusions have caused her to enter the neighbor's house without permission. Her actions have endangered the other children. As long as she has these delusions, she is not safe in that neighborhood. The patient reports that her mood is good and she denies auditory and visual hallucinations. No suicidal ideation. No medication side effects. She continues to ask when she can leave. She does not have insight that the ideas that her neighbor's children are in danger are delusional. Mental Status Exam MSE Comments: Mental status is largely unchanged from yesterday. Patient is a slender white female in hospital scrubs who continues to wear idiosyncratic clothing. As usual, she has a sheet around her waist and over her shoulder as well as a pillowcase on her head, so she looks, as Dr. Peña said, like she is dressed in [employer]. Grooming and eye contact are fairly good. Her speech is fairly spontaneous and at a normal rate and volume. Mood continues to be reported as fine, affect was fairly pleasant. Her thought process is organized. Thought content: The patient denies suicidal and homicidal ideation, paranoia, and auditory and visual hallucinations. She continues to have samaritan preoccupation and preoccupation with conspiracy theories. Attention and concentration appear intact. Her memory appears unreliable, but none were formally tested. Insight, judgment, and impulse control all remain significantly impaired but may be showing small signs of improvement. She is still at risk of acting on delusions and endangering other people's children. Vitals/I&O/Wt Last Vital Signs Temp 96.8 F L 01/19/21 14:00 Pulse 91 01/19/21 14:00 Resp 15 01/19/21 22:00 BP 98/58 01/19/21 14:00 Pulse Ox 97 01/19/21 14:00 Data NPU : 12/22/20 18:57 12/22/20 18:57 A&P Assessment and plan (1) Chronic schizophrenia: Status: Acute (2) Acute psychosis: Status: Acute Additional A&P Information This is a 40-year-old white female who has had long hospitalizations at this facility who presents once again acutely psychotic, off of medication and resistant to treatment. The major issue with the patient's psychotic condition is that it causes her to act on her delusions and ways that endanger others. Most recently she apparently tried to take a police officers gun out of his hols ter. She was trying to rescue neighbor children from the danger she believes them to be facing, even entering the neighbors house. Both of these actions were based on delusional ideas. She also has little insight into how her delusional behavior affects others, such as her children. 1. Continue current medication. She has gotten her second injection of Invega Sustenna 156 mg IM to the deltoid and Abilify Maintena 400 mg IM, both on 01/08/2021. No medication side effects. It is expected that it may take several weeks for these medications to achieve full effectiveness. It may be that we are starting to see some improvement. She is opening up more about her experiences. 2. Continue every 15 minute checks for safety. 3. Encourage individual, group and milieu therapies. 4. Disposition planning: She will need a placement that can prevent her from acting on her delusions, if they have not resolved at the time of discharge. Involuntary Hold Information 96 Hour Hold: 96 Hour Involuntary Admission: Yes 96 Hour Hold Ending Date: 12/28/20 96 Hour Hold Ending Time: 16:42 Attestations NPU Medical Necessity Statement*: Inpatient hospitalization is medically necessary and the clinically appropriate intervention at this time. Her delusions are likely to cause dangerous behaviors which risk harm to others. We will monitor medications and make changes as indicated. Likely length of stay 10-14 days. During some previous hospitalizations it took several months for her psychosis to remit. Coding Level of Care Code Acute Rigging Loft Repairer for Domitila Rosado Diagnoses Chronic schizophrenia F20.9 Acute psychosis F23
--- NOTE | 2021-01-19 16:15 | PC.NURSE ---
this nurse was looking at the camera, saw pt down in the day room climbing on the counter. this nurse immediately got up and went down to the day room to assess the situation. pt was already down from the counter by the time I made it into the day room. I inquired why pt was climbing onto the counter top, pt laughed saying I was actually going to look up in the ceiling again to check it! I informed pt that her behavior was inappropriate, I asked her to please stay off the counter tops for her safety and the safety of others, told her that she didn't need to be messing with the ceiling tiles. pt agreed to stay off the countertops and leave the ceiling tiles alone, staff will cont to monitor closely
[2021-01-19 22:00] VITALS: RESP 15
[2021-01-20 06:00] VITALS: RESP 15
--- NOTE | 2021-01-20 06:41 | PC.NURSE ---
pt refused vital signs/respirations were observed
--- NOTE | 2021-01-20 12:10 | P.PN_ITS ---
Subjective NPU Subjective: Interval history: I met with the treatment team to discuss the patient's progress. She continues to try doors, to see if she can get out of the unit. She also commented to one of the staff recently that she was very concerned about the neighbor's children. This comment is significant because the patient has had delusions that the neighbors children are in trouble, and these delusions have caused her to enter the neighbor's house without permission. Her actions have endangered the other children. As long as she has these delusions, she is not safe in that neighborhood. The patient reports that her mood is good and she denies auditory and visual hallucinations. No suicidal ideation. No medication side effects. She continues to ask when she can leave. She does not have insight that the ideas that her neighbor's children are in danger are delusional. Mental Status Exam MSE Comments: Mental status is largely unchanged from yesterday. Patient is a slender white female in hospital scrubs who continues to wear idiosyncratic clothing. As usual, she has a sheet around her waist and over her shoulder as well as a pillowcase on her head, so she looks, as Dr. Peña said, like she is dressed in [employer] Grooming and eye contact are fairly good. Her speech is fairly spontaneous and at a normal rate and volume. Mood continues to be reported as fine, affect was fairly pleasant. Her thought process is organized. Thought content: The patient denies suicidal and homicidal ideation, paranoia, and auditory and visual hallucinations. She continues to have sabianist preoccupation and preoccupation with conspiracy theories. Attention and concentration appear intact. Her memory appears unreliable, but none were formally tested. Insight, judgment, and impulse control all remain significantly impaired but may be showing small signs of improvement. She is still at risk of acting on delusions and endangering other people's children. Vitals/I&O/Wt Last Vital Signs Temp 96.8 F L 01/19/21 14:00 Pulse 91 01/19/21 14:00 Resp 16 01/21/21 06:00 BP 98/58 01/19/21 14:00 Pulse Ox 97 01/19/21 14:00 Data NPU : 12/22/20 18:57 12/22/20 18:57 A&P Assessment and plan (1) Acute psychosis: Status: Acute (2) Chronic schizophrenia: Status: Acute Additional A&P Information This is a 40-year-old white female who has had long hospitalizations at this facility who presents once again acutely psychotic, off of medication and resistant to treatment. The major issue with the patient's psychotic condition is that it causes her to act on her delusions and ways that endanger others. Most recently she apparently tried to take a police officers gun out of his holster. She was trying to rescue neighbor children from the danger she believes them to be facing, even entering the neighbors house. Both of these actions were based on delusional ideas. She also has little insight into how her delusional behavior affects others, such as her children. 1. Continue current medication. She has gotten her second injection of Invega Sustenna 156 mg IM to the deltoid and Abilify Maintena 400 mg IM, both on 01/08/2021. No medication side effects. It is expected that it may take several weeks for these medications to achieve full effectiveness. It may be that we are starting to see some improvement. She is opening up more about her experiences. 2. Continue every 15 minute checks for safety. 3. Encourage individual, group and milieu therapies. 4. Disposition planning: She will need a placement that can prevent her from acting on her delusions, if they have not resolved at the time of discharge. Involuntary Hold Information 96 Hour Hold: 96 Hour Involuntary Admission: Yes 96 Hour Hold Ending Date: 12/28/20 96 Hour Hold Ending Time: 16:42 Attestations NPU 2 Medical Necessity Statement*: Inpatient hospitalization is medically necessary and the clinically appropriate intervention at this time. Her delusions are lik jevon to cause dangerous behaviors which risk harm to others. We will monitor medications and make changes as indicated. Likely length of stay 10-14 days. During some previous hospitalizations it took several months for her psychosis to remit. Coding Level of Care Code Acute Sound Effects Manager for Domitila Rosado Diagnoses Acute psychosis F23 Chronic schizophrenia F20.9
[2021-01-20 14:00] VITALS: RESP 16
--- NOTE | 2021-01-20 15:45 | PC.NURSE ---
GENERAL MAGISTRATE EXITED NURSES AND DID NOT FULLY CLOSE DOOR. PT PROCEEDED TO ENTER NURSES STATION AND WAS IMMEDIATELY ESCORTED OUT AND BACK TO THE HALLWAY BY STAFF WITHOUT INCIDENT. GENERAL MAGISTRATE EDUCATED ON IMPORTANCE OF ENSURING DOORS ON UNIT ARE COMPLETELY CLOSED. PT IS CONTINUOUSLY EXIT SEEKING ON UNIT.
[2021-01-20 20:24] VITALS: RESP 17
[2021-01-21 06:00] VITALS: RESP 16
--- NOTE | 2021-01-21 11:43 | PC.NURSE ---
Reporting that a peer of the PT removed a toothpaste cap from the ACUTE door. It was wedged in the door, in an attempt to escape the unit. Placed a Elopement wristband on pt at this time.
[2021-01-21 14:00] VITALS: RESP 16
--- NOTE | 2021-01-21 19:26 | P.PN_ITS ---
Subjective NPU Subjective: Interval history: She presents today reporting that she is doing fairly well and wanted to leave. We discussed the fact that relieved to get DFS and everybody involved to figure out if she can safely be discharged she is currently well enough to the plan something that she should or should not say but continues to have over focus on children and saving them and things of that nature. She continues to try to open doors and seek some kind of egress Mental Status Exam MSE Comments: Patient is a slender white female in hospital scrubs who continues to wear idiosyncratic clothing. She has a sheet around her waist and over her shoulder as well as something on her head, so she looks, as Dr. Peña said, like she is dressed in biblical times. Grooming may be improved today and eye contact is fairly good. Her speech is fairly spontaneous and at a normal rate and volume. Mood reported as fine, affect was congruent. Her thought process is organized. The patient is guarded about suicidal or homicidal ideation, paranoia, or auditory or visual hallucinations. She does have yazidism preoccupation and preoccupation with conspiracy theories. Attention and concentration appear intact. Her memory appears unreliable, but none were formally tested. Insight, judgment, and impulse control all remain significantly impaired. Vitals/I&O/Wt Last Vital Signs Temp 96.8 F L 01/19/21 14:00 Pulse 91 01/19/21 14:00 Resp 18 01/21/21 20:27 BP 98/58 01/19/21 14:00 Pulse Ox 97 01/19/21 14:00 Data NPU : 12/22/20 18:57 12/22/20 18:57 A&P Additional A&P Information (1) Acute psychosis: (2) Chronic schizophrenia: Additional A&P Information This is a 40-year-old white female who has had long hospitalizations at this facility who presents once again acutely psychotic, off of medication and resistant to treatment. The major issue with the patient's psychotic condition is that it causes her to act on her delusions and ways that endanger others. Most recently she apparently tried to take a police officers gun out of his holster. She was trying to rescue neighbor children from the danger she bel ieves them to be facing, even entering the neighbors house. Both of these actions were based on delusional ideas. She also has little insight into how her delusional behavior affects others, such as her children. 1. Continue current medication. She has gotten her second injection of Invega Sustenna 156 mg IM to the deltoid and Abilify Maintena 400 mg IM, both on 01/08/2021. No medication side effects. It is expected that it may take several weeks for these medications to achieve full effectiveness. It may be that we are starting to see some improvement. She is opening up more about her experiences. 2. Continue every 15 minute checks for safety. 3. Encourage individual, group and milieu therapies. 4. Disposition planning: She will need a placement that can prevent her from acting on her delusions, if they have not resolved at the time of discharge. Involuntary Hold Information 96 Hour Hold: 96 Hour Involuntary Admission: Yes 96 Hour Hold Ending Date: 12/28/20 96 Hour Hold Ending Time: 16:42 Attestations NPU Medical Necessity Statement*: Inpatient hospitalization is medically necessary and the clinically appropriate intervention at this time. Her delusions are likely to cause dangerous behaviors which risk harm to others. We will monitor medications and make changes as indicated. Likely length of stay 10-14 days. During some previous hospitalizations it took several months for her psychosis to remit. Coding Level of Care Code Acute Hand Zipper Trimmer for Domitila Rosado
[2021-01-21 20:27] VITALS: RESP 18
[2021-01-22 06:00] VITALS: RESP 17
--- NOTE | 2021-01-22 13:59 | P.PN_ITS ---
Subjective NPU Subjective: Interval history: Patient is in today continuing to show significant improvement in her overall cognitive repertoire from her initial presentation. That being said she still asked questions like he sure kids and there are okay he should not want me to check. Her decrease in guardedness has been responsible for some increased insight into her continued level of impai rment. Mental Status Exam MSE Comments: Patient is a slender white female in hospital scrubs who continues to wear idiosyncratic clothing. She has a sheet around her waist and over her shoulder as well as something on her head like she is dressed in biblical times. Grooming may be improved today and eye contact is fairly good. Her speech is fairly spontaneous and at a normal rate and volume. Mood reported as OK affect was congruent. Her thought process is organized. The patient is guarded about suicidal or homicidal ideation, paranoia, or auditory or visual hallucinations. She does have voodoo preoccupation and preoccupation with conspiracy theories. Attention and concentration appear intact. Her memory appears unreliable, but none were formally tested. Insight, judgment, and impulse control all remain significantly impaired. Vitals/I&O/Wt Last Vital Signs Temp 96.8 F L 01/19/21 14:00 Pulse 91 01/19/21 14:00 Resp 17 01/22/21 06:00 BP 98/58 01/19/21 14:00 Pulse Ox 97 01/19/21 14:00 Data NPU : 12/22/20 18:57 12/22/20 18:57 A&P Additional A&P Information (1) Acute psychosis: (2) Chronic schizophrenia: Additional A&P Information This is a 40-year-old white female who has had long hospitalizations at [facility] who presents once again acutely psychotic, off of medication and resistant to treatment. The major issue with the patient's psychotic condition is that it causes her to act on her delusions and ways that endanger others. Most recently she apparently tried to take a police officers gun out of his holster. She was trying to rescue neighbor children from the danger she believes them to be facing, even entering the neighbors house. Both of these actions were based on delusional ideas. She also has little insight into how her delusional behavior affects others, such as her children. 1. Continue current medication. She has gotten her second injection of Invega Sustenna 156 mg IM to the deltoid and Abilify Maintena 400 mg IM, both on 01/08/2021. No medication side effects. It is expected that it may take several weeks for these medications to achieve full effectiveness. It may be that we are starting to see some improvement. She is opening up more about her experiences. 2. Continue every 15 minute checks for safety. 3. Encourage individual, group and milieu therapies. 4. Disposition planning: She will need a placement that can prevent her from acting on her delusions, if they have not resolved at the time of discharge. Involuntary Hold Information 96 Hour Hold: 96 Hour Involuntary Admission: Yes 96 Hour Hold Ending Date: 12/28/20 96 Hour Hold Ending Time: 16:42 Attestations NPU Medical Necessity Statement*: Inpatient hospitalization is medically necessary and the clinically appropriate intervention at this time. Her delusions are likely to cause dangerous behaviors which risk harm to others. We will monitor medications and make changes as indicated. Likely length of stay 10-14 days. During some previous hospitalizations it took several months for her psychosis to remit. Coding Level of Care Code Acute Courtesy Booth Cashier for Domitila Rosado
[2021-01-22 14:00] VITALS: RESP 16
--- NOTE | 2021-01-22 15:02 | PC.NURSE ---
refused vitals Pt refused vitals today, will continue to monitor. Res 16
[2021-01-22 22:00] VITALS: RESP 18
[2021-01-23 06:00] VITALS: RESP 16
--- NOTE | 2021-01-23 09:50 | P.PN_ITS ---
Subjective NPU Subjective: Interval history: Ivone presents today continuing to demonstrate slow incremental improvements in her ability to interact socially. But continues to reveal in her jokes and statements how preoccupied she is with children, rescuing children and some of her rastafarian thinking. She often makes references to children being trapped in some room and having let her tell them and if not she requests just to be let go making jokes about pushing the button to open the door that she will take care of the rest. But the humor is a reflection of her ability to have some latitude and not just anger and irritability as she has had in these previous weeks. Mental Status Exam MSE Comments: Patient is a slender white female in hospital scrubs who continues to wear idiosyncratic clothing. She has a sheet around her waist and over her shoulder as well as something on her head like she is dressed in biblical times. More appropriate grooming and improved eye contact. Her speech is spontaneous and at a normal rate and volume. Mood reported as, affect was congruent. Her thought process is organized. The patient is less guarded overall and denied suicidal or homicidal ideation, there were no delusions reported but clear paranoia, and judaism occupation exists. She denies auditory or visual hallucinations. She does have rastafarian preoccupation and preoccupation with conspiracy theories. Attention and concentration appear intact. Her memory appears reliable, but none were formally tested. Insight, judgment, and impulse control all improving slowly and incrementally, but remain significantly impaired. Vitals/I&O/Wt Last Vital Signs Temp 96.8 F L 01/19/21 14:00 Pulse 91 01/19/21 14:00 Resp 16 01/23/21 06:00 BP 98/58 01/19/21 14:00 Pulse Ox 97 01/19/21 14:00 Data NPU : 12/22/20 18:57 12/22/20 18:57 A&P Additional A&P Information (1) Acute psychosis: (2) Chronic schizophrenia: Additional A&P Information This is a 40-year-old white female who has had long hospitalizations at this facility who presents once again acutely psychotic, off of medication and resistant to treatment. The major issue with the patient's psychotic condition is that it causes her to act on her delusions and ways that endanger others. Most recently she apparently tried to take a police officers gun out of his h olster. She was trying to rescue neighbor children from the danger she believes them to be facing, even entering the neighbors house. Both of these actions were based on delusional ideas. She also has little insight into how her delusional behavior affects others, such as her children. 1. Continue current medication. She has gotten her second injection of Invega Sustenna 156 mg IM to the deltoid and Abilify Maintena 400 mg IM, both on 01/08/2021. No medication side effects. It is expected that it may take several weeks for these medications to achieve full effectiveness. It may be that we are starting to see some improvement. She is opening up more about her experiences. 2. Continue every 15 minute checks for safety. 3. Encourage individual, group and milieu therapies. 4. Disposition planning: She will need a placement that can prevent her from acting on her delusions, if they have not resolved at the time of discharge. Involuntary Hold Information 96 Hour Hold: 96 Hour Involuntary Admission: Yes 96 Hour Hold Ending Date: 12/28/20 96 Hour Hold Ending Time: 16:42 Attestations NPU Medical Necessity Statement*: Inpatient hospitalization is medically necessary and the clinically appropriate intervention at this time. Her delusions are likely to cause dangerous behaviors which risk harm to others. We will monitor medications and make changes as indicated. Likely length of stay 10-14 days. During some previous hospitalizations it took several months for her psychosis to remit. Coding Level of Care Code Acute Dog Hair Clipper for Domitila Rosado
[2021-01-23 14:00] VITALS: BP 96/61; PULSE 91; RESP 16; O2SAT 97
[2021-01-23 20:58] VITALS: RESP 16
[2021-01-24 06:00] VITALS: RESP 16
--- NOTE | 2021-01-24 10:37 | PM.NPN ---
Subjective NPU Subjective: Interval history: Ivone presents today continuing to be more cordial interactive and having less irritability felt in her interactions. She is using humor as a normal school and her discourse. And only still struggles with the psychosis and delusions especially surrounding children. Mental Status Exam MSE Comments: Patient is a slender white female in hospital scrubs who continues to wear idiosyncratic clothing. She has a sheet around her waist and over her shoulder as well as something on her head like she is dressed in biblical times. More appropriate grooming and improved eye contact. Her speech is spontaneous and at a normal rate and volume. Mood reported as alright, affect was congruent. Her thought process is more organized. The patient is less guarded overall and denied suicidal or homicidal ideation, there were no delusions reported but clear paranoia, and zoroastrian preoccupation exists. She denies auditory or visual hallucinations. She does have jain preoccupation and preoccupation with conspiracy theories. Attention and concentration appear intact. Her memory still unreliable, but none were formally tested. Insight, judgment, and impulse control all improving slowly and incrementally, but remain impaired. Vitals/I&O/Wt Last Vital Signs Temp 96.8 F L 01/19/21 14:00 Pulse 91 01/23/21 14:00 Resp 16 01/24/21 06:00 BP 96/61 01/23/21 14:00 Pulse Ox 97 01/23/21 14:00 Weight last 48 hrs Weight 58.06 kg Data NPU : 12/22/20 18:57 12/22/20 18:57 A&P Additional A&P Information (1) Acute psychosis: (2) Chronic schizophrenia: Additional A&P Information This is a 40-year-old white female who has had long hospitalizations at this facility who presents once again acutely psychotic, off of medication and resistant to treatment. The major issue with the patient's psychotic condition is that it causes her to act on her delusions and ways that endanger others. Most recently she apparently tried to take a police officers gun out of his holster. She was trying to rescue neighbor children from the danger she believes them to be facing, even entering the neighbors house. Both of these actions were based on delusional ideas. She also has little insight into how her delusional behavior affects others, such as her children. 1. Continue current medication. She has gotten her second injection of Invega Sustenna 156 mg IM to the deltoid and Abilify Maintena 400 mg IM, both on 01/08/2021. No medication side effects. It is expected that it may take several weeks for these medications to achieve full effectiveness. It may be that we are starting to see some improvement. She is opening up more about her experiences. 2. Continue every 15 minute checks for safety. 3. Encourage individual, group and milieu therapies. 4. Disposition planning: She will need a placement that can prevent her from acting on her delusions, if they have not resolved at the time of discharge. Involuntary Hold Information 96 Hour Hold: 96 Hour Involuntary Admission: Yes 96 Hour Hold Ending Date: 12/28/20 96 Hour Hold Ending Time: 16:42 Attestations NPU Medical Necessity Statement*: Inpatient hospitalization is medically necessary and the clinically appropriate intervention at this time. Her delusions are likely to cause dangerous behaviors which risk harm to others. We will monitor medications and make changes as indicated. Likely length of stay 9-13 days. During some previous hospitalizations it took several months for her psychosis to remit. Coding Level of Care Code Acute Welt Cutter for Domitila Rosado
[2021-01-24 14:00] VITALS: RESP 16
[2021-01-24 21:25] VITALS: RESP 16
--- NOTE | 2021-01-24 21:25 | PC.NURSE ---
pt refused vitals at this time/respirations were observed/casey
--- NOTE | 2021-01-25 03:32 | PC.NURSE ---
pm ASSESSMENT PT DENIES SI/HI/AH/VH. SHE CONTINUES TO CHECK DOORS AND ASK STAFF TO LET HER OUT. PT IS ABLE TO INTERACT WITH STAFF, HER CONVERSATION CONTENT IS MUCH CLEARER. PT SPENT TIME ON THE PHONE WITH HER CHILDREN,SINGING TO THEM, AND SAYING NIGHTTIME PRAYER. SHE SMILES AND SAYS, SHE WANTS TO GO HOME TO HER BABIES. PT REFUSES TO BATHE. SHE HAS WASHED HERSELF UP IN THE SINK SINCE HER ADMISSION. SHE WILL NOT TAKE A SHOWER, REFUSES TO ALLOW STAFF TO OBTAIN V/S AND DOES NOT TAKE PRN MEDICATION. PT IS SLEEPING AT LONGER INTERVALS AND SEEMS REFRESHED IN AM
[2021-01-25 06:00] VITALS: BP 98/70; PULSE 88; RESP 15; TEMP 37.2; O2SAT 97
[2021-01-25 14:00] VITALS: RESP 18
--- NOTE | 2021-01-25 15:23 | NPU.GN ---
[facility] Group Topic:Depression Bingo General Mood of Group: Ivone did not participate in group . But she did pop in and out to listen. Small conversation was held with her overall mental health seems to improved.
--- NOTE | 2021-01-25 18:12 | P.PN_ITS ---
Subjective NPU Subjective: Interval history: Patient presents today continuing to show signs of improvement and healthy personality. He is able to joke in the light even she is here against her will. She continues to have thoughts of delusions about children and the safety and continue to focus on wanting to leave. We discussed our concerns about her discharge and being placed in a supervisory role with her children. And we wanted to work with the best to make sure we would like at a reasonable outcome and she would be able to be in a safe recovery environment after discharge. Mental Status Exam MSE Comments: Patient is a slender white female in hospital scrubs who continues to wear idiosyncratic clothing. She has a sheet around her waist and over her shoulder as well as something on her head like she is dressed in biblical times. More appropriate grooming and improved eye contact. Her speech is spontaneous and at a normal rate and volume. Mood reported as pretty good, affect was congruent. Her thought process is more organized. The patient is less guarded overall and denied suicidal or homicidal ideation, there were no delusions reported but clear paranoia, and anglican preoccupation exists. She denies auditory or visual hallucinations. She does have hinduism preoccupation and preoccupation with conspiracy theories. Attention and concentration appear intact. Her memory still unreliable, but none were formally tested. Insight, judgment, and impulse control all improving slowly and incrementally, but remain impaired. Vitals/I&O/Wt Last Vital Signs Temp 98.9 F 01/25/21 06:00 Pulse 88 01/25/21 06:00 Resp 17 01/25/21 21:09 BP 98/70 01/25/21 06:00 Pulse Ox 97 01/25/21 06:00 Weight last 48 hrs Weight 58.06 kg Data NPU : 12/22/20 18:57 12/22/20 18:57 A&P Additional A&P Information (1) Acute psychosis: (2) Chronic schizophrenia: Additional A&P Information This is a 40-year-old white female who has had long hospitalizations at this facility who presents once again acutely psychotic, off of medication and resist ant to treatment. The major issue with the patient's psychotic condition is that it causes her to act on her delusions and ways that endanger others. Most recently she apparently tried to take a police officers gun out of his holster. She was trying to rescue neighbor children from the danger she believes them to be facing, even entering the neighbors house. Both of these actions were based on delusional ideas. She also has little insight into how her delusional behavior affects others, such as her children. 1. Continue current medication. She has gotten her second injection of Invega Sustenna 156 mg IM to the deltoid and Abilify Maintena 400 mg IM, both on 01/08/2021. No medication side effects. It is expected that it may take several weeks for these medications to achieve full effectiveness. It may be that we are starting to see some improvement. She is opening up more about her experiences. 2. Continue every 15 minute checks for safety. 3. Encourage individual, group and milieu therapies. 4. Disposition planning: She will need a placement that can prevent her from a cting on her delusions, if they have not resolved at the time of discharge. Involuntary Hold Information 96 Hour Hold: 96 Hour Involuntary Admission: Yes 96 Hour Hold Ending Date: 12/28/20 96 Hour Hold Ending Time: 16:42 Attestations NPU Medical Necessity Statement*: Inpatient hospitalization is medically necessary and the clinically appropriate intervention at this time. Her delusions are likely to cause dangerous behaviors which risk harm to others. We will monitor medications and make changes as indicated. Likely length of stay 6-12 days. During some previous hospitalizations it took several months for her psychosis to remit. Coding Level of Care Code Acute Alarm Security Or Surveillance Monitor for Domitila Rosado
[2021-01-25 21:09] VITALS: RESP 17
--- NOTE | 2021-01-25 21:09 | PC.NURSE ---
pt on phone and refused vitals at this time/respirations were observed/will obtain vitals at later time when pt is willing/casey
[2021-01-26 06:00] VITALS: PULSE 74; RESP 16; O2SAT 99
--- NOTE | 2021-01-26 11:02 | NPU.GN ---
[facility] Group Topic:Sail Boat/ Mechanisms General Mood of Group: Ivone was in and out of group today. She did not participate in the sail boat group activity. Although, she was listening to the group discussion.
--- NOTE | 2021-01-26 12:41 | P.PN_ITS ---
Subjective NPU Subjective: Interval history: Dialysis today continuing at her new baseline of being more cordial and interactive. Even pleasant and funny. She continues to struggle with her believes that with her children somewhere that need her saving. We discussed the fact that we need to meet with DFS to have a clear sense of circumstance at home and safety considerations. Significant concerns exist about her wellness if she is thrown back into teacher mother immediately. Mental Status Exam MSE Comments: Patient is a slender white female in hospital scrubs who continues to wear idiosyncratic clothing. She has a sheet around her waist and over her shoulder as well as something on her head like she is dressed in biblical times. More appropriate grooming and improved eye contact. Her speech is spontaneous and at a normal rate and volume. Mood reported as all right, affect was congruent. Her thought process is more organized. The patient is less guarded overall and denied suicidal or homicidal ideation, there were no delusions reported but clear paranoia, and christianity preoccupation exists. She denies auditory or visual hallucinations. She does have scientology preoccupation and preoccupation with conspiracy theories. Attention and concentration appear intact. Her memory still unreliable, but none were formally tested. Insight, judgment, and impulse control all improving slowly and incrementally, but remain impaired. Vitals/I&O/Wt Last Vital Signs Temp 98.9 F 01/25/21 06:00 Pulse 88 01/25/21 06:00 Resp 16 01/26/21 06:00 BP 98/70 01/25/21 06:00 Pulse Ox 97 01/25/21 06:00 Data NPU : 12/22/20 18:57 12/22/20 18:57 A&P Additional A&P Information (1) Acute psychosis: (2) Chronic schizophrenia: Additional A&P Information This is a 40-year-old white female who has had long hospitalizations at this facility who presents once again acutely psychotic, off of medication and resistant to treatment. The major issue with the patient's psychotic condition is that it causes her to act on her delusions and ways that endanger others. Most recently she apparently tried to take a police officers gun out of his holster. She was trying to rescue neighbor children from the danger she believes them to be facing, even entering the neighbors house. Both of these actions were based on delusional ideas. She also has little insight into how her delusional behavior affects others, such as her children. 1. Continue current medication. She has gotten her second injection of Invega Sustenna 156 mg IM to the deltoid and Abilify Maintena 400 mg IM, both on 01/08/2021. No medication side effects. It is expected that it may take several weeks for these medications to achieve full effectiveness. It may be that we are starting to see some improvement. She is opening up more about her experiences. 2. Continue every 15 minute checks for safety. 3. Encourage individual, group and milieu therapies. 4. Disposition planning: She will need a placement that can prevent her from acting on her delusions, if they have not resolved at the time of discharge. Involuntary Hold Information 96 Hour Hold: 96 Hour Involuntary Admission: Yes 96 Hour Hold Ending Date: 12/28/20 96 Hour Hold Ending Time: 16:42 Attestations NPU Medical Necessity Statement*: Inpatient hospitalization is medically necessary and the clinically appropriate intervention at this time. Her delusions are likely to cause dangerous behaviors which risk harm to others. We will monitor medications and make changes as indicated. Likely length of stay 4-10 days. During some previous hospitalizations it took several months for her psychosis to remit. Coding Level of Care Code Acute Quality Analyst/Technical Writer for Domitila Rosado
[2021-01-26 14:00] VITALS: RESP 16
[2021-01-26 22:00] VITALS: RESP 15
--- NOTE | 2021-01-26 22:52 | PC.NURSE ---
pt refused vitals, respirations were observed
[2021-01-27 06:00] VITALS: BP 101/70; PULSE 73; RESP 14; TEMP 36.8; O2SAT 99
--- NOTE | 2021-01-27 13:34 | NPU.GN ---
[facility] Topic: Anxiety Bingo General Mood of Group: Ivone was in and out of group listening today. Ivone did not participate in group though. Ivone has some confusion that FELA was going to call and speak with her children. This junior copywriter brought this up on team meeting so social services director can talk with Ivone and help with her confusion by clarifying things for Ivone.
[2021-01-27 14:00] VITALS: RESP 18; TEMP 36.6
--- NOTE | 2021-01-27 17:58 | P.PN_ITS ---
Subjective NPU Subjective: Interval history: Patient presents today continuing to have improvement in her mental health presentation. She continues to be able to show some mental flexibility however even her jokes are about getting out the door and she continues to have a zoroastrianism focus versus zoroastrianism preoccupation. DFS finally connected with the treatment team and they also expressed concerns about her being put in the situation of primary caregiver that home. We have begun to broach the subject with her about our concerns with her ability to stay well enough to be a safe option for her children. Mental Status Exam MSE Comments: Patient is a slender white female in hospital scrubs who c ontinues to wear idiosyncratic clothing. She has a sheet around her waist and over her shoulder as well as something on her head like she is dressed in biblical times. More appropriate grooming and improved eye contact. Her speech is spontaneous and at a normal rate and volume. Mood reported as okay, affect was congruent. Her thought process is more organized. The patient is less guarded overall and denied suicidal or homicidal ideation, there were no delusions reported but clear paranoia, and zoroastrianism preoccupation exists. She denies auditory or visual hallucinations. She does have zoroastrianism preoccupation and preoccupation with conspiracy theories. Attention and concentration appear intact. Her memory still unreliable, but none were formally tested. Insight, judgment, and impulse control all improving slowly and incrementally, but remain impaired. Vitals/I&O/Wt Last Vital Signs Temp 97.9 F 01/27/21 20:00 Pulse 91 01/27/21 20:00 Resp 18 01/27/21 20:00 BP 99/68 01/27/21 20:00 Pulse Ox 97 01/27/21 20:00 Data NPU : 12/22/20 18:57 12/22/20 18:57 A&P Additional A&P Information (1) Acute psychosis: (2) Chronic schizophrenia: Additional A&P Information This is a 40-year-old white female who has had long hospitalizations at this facility who presents once again acutely psychotic, off of medication and res istant to treatment. The major issue with the patient's psychotic condition is that it causes her to act on her delusions and ways that endanger others. Most recently she apparently tried to take a police officers gun out of his holster. She was trying to rescue neighbor children from the danger she believes them to be facing, even entering the neighbors house. Both of these actions were based on delusional ideas. She also has little insight into how her delusional behavior affects others, such as her children. 1. Continue current medication. She has gotten her second injection of Invega Sustenna 156 mg IM to the deltoid and Abilify Maintena 400 mg IM, both on 01/08/2021. No medication side effects. It is expected that it may take several weeks for these medications to achieve full effectiveness. It may be that we are starting to see some improvement. She is opening up more about her experiences. 2. Continue every 15 minute checks for safety. 3. Encourage individual, group and milieu therapies. 4. Disposition planning: She will need a placement that can prevent her from acting on her delusions, if they have not resolved at the time of discharge. Involuntary Hold Information 96 Hour Hold: 96 Hour Involuntary Admission: Yes 96 Hour Hold Ending Date: 12/28/20 96 Hour Hold Ending Time: 16:42 Attestations NPU Medical Necessity Statement*: Inpatient hospitalization is medically necessary and the clinically appropriate intervention at this time. Her delusions are likely to cause dangerous behaviors which risk harm to others. We will monitor medications and make changes as indicated. Likely length of stay 2-8 days. Du ring some previous hospitalizations it took several months for her psychosis to remit. Coding Level of Care Code Acute Composition Molder for Domitila Rosado
[2021-01-27 20:00] VITALS: BP 99/68; PULSE 91; RESP 18; TEMP 36.6; O2SAT 97
--- NOTE | 2021-01-28 04:22 | PC.NURSE ---
No PRN medications this shift.
[2021-01-28 06:00] VITALS: RESP 17
--- NOTE | 2021-01-28 12:10 | NPU.GN ---
[facility] Topic:Anger General Mood of Group: Ivone was in and out of group today. Ivone did not participate in group or socialize with others in group. Ivone was walking and listening. Ivone was acting as though she wanted to leave as she kept checking the doors to see if they were locked. Ivone does not seem mentally stable yet.
[2021-01-28 13:36] VITALS: BP 101/63; PULSE 93; RESP 20; TEMP 36.1; O2SAT 97
--- NOTE | 2021-01-28 15:27 | PC.NURSE ---
Addendum entered by Callie Coleman LPN 01/28/21 17:57: patient escorted back onto unit @ 1533 Original Note: at 1527, this nurse saw patient inside the nurses station, came into contact with the electronic door controls, this nurse immediately approached patient just as patient was hitting the door buttons, opening the glass door. While the glass door was closing, this nurse escorted patient back out of the nurses station & into the south side hallway. patient immediately ran for the acute/south side wooden door by the nurses station, opening it and immediately ran through the glass door that she had previously opened, which was not yet completely shut. This nurse and Elena Skinner RN immediately responded to the elopement, Nic Castellano CNA let us out the door to pursue patient, as we were running out the door we asked Nic Castellano to call security immediately. staff never lost visible contact with the patient as we could see her through the glass doors. When we made it into the court yard & patient saw us behind her, she started to run out past the gazebo & out into the surgical services parking lot. We called out to patient, asking her to stop running, patient then turned left and started running down the hill onto [facility]. staff continued to ask patient to stop running from staff, patient continued to walk away from us & was walking along the road. We made contact with patient but did not put hands on patient, asking her to please come back into the hospital. patient refused to come back into the hospital so we stayed right along side patient ensuring her safety from crossing the street. At this time, and Dr. Peña also came down the hill and onto [facility]. to assist in encouraging patient to come back onto the unit. patient crossed the street, but continued to be [place] [facility] [place] when security x3 & Dr. Peña approached patient. patient refusing to come back into hospital willingly, since patient is required to stay in the hospital until discharge per her guardian request, security had to do a manual hold & escort patient back into the hospital through [facility] entrance. patient escorted back up to NPU through the elevator, staff had to continue to do manual hold on patient until patient was back on the NPU south rankin & the elevator door completely shut. lasting room supervisor, NPU director, and patient guardian Salazar Oreilly notified of patient elopement.
--- NOTE | 2021-01-28 15:50 | PC.NURSE ---
skin assessment performed by this nurse and charge nurse Kvng Gomez RN. staff removed 3 pens and hair comb from patient.
--- NOTE | 2021-01-28 16:45 | P.PN_ITS ---
Subjective NPU Subjective: Interval history: Patient presents today continuing to have her daughter check behaviors scolding out where she could get out of the building and fortunately executed a plan they got her out the door but never out of the eyesight of staff. She had alin rigged the door and got into the nurses station pushed open doors and then without knowledge that one door wasjerry rigged she was put out back where she belonged which gave her access to the door she escaped from. She was tearful and walked back in and it was convinced that a boy there was either one of her kids or one of her relatives and spent the remainder of the time talking about that Mental Status Exam MSE Comments: Patient is a slender white female in hospital scrubs who continues to wear idiosyncratic clothing. She has a sheet around her waist and over her shoulder as well as something on her head like she is dressed in biblical times. More appropriate grooming and improved eye contact. Her speech is spontaneous and at a normal rate and volume. Mood reported as much time as well. Should be able to leave, affect was congruent. Her thought process is more organized. The patient is less guarded overall and denied suicidal or homicidal ideation, there were no delusions reported but clear paranoia, and jew preoccupation exists. She denies auditory or visual hallucinations. She does have jew preoccupation and preoccupation with conspiracy theories. Attention and concentration appear intact. Her memory still unreliable, but none were formally tested. Insight, judgment, and impulse control all improving slowly and incrementally, but remain impaired. Vitals/I&O/Wt Last Vital Signs Temp 97.0 F L 01/28/21 13:36 Pulse 93 01/28/21 13:36 Resp 20 H 01/28/21 13:36 BP 101/63 01/28/21 13:36 Pulse Ox 97 01/28/21 13:36 Data NPU : 12/22/20 18:57 12/22/20 18:57 A&P Additional A&P Information (1) Acute psychosis: (2) Chronic schizophrenia: Additional A&P Information This is a 40-year-old white female who has had long hospitalizations at this facility who presents once again acutely psychotic, off of medication and resistant to treatment. The major issue with the patient's psychotic condition is that it causes her to act on her delusions and ways that endanger others. Most recently she apparently tried to take a police officers gun out of his holster. She was trying to rescue neighbor children from the danger she believes them to be facing, even entering the neighbors house. Both of these actions were based on delusional ideas. She also has little insight into how her delusional behavior affects others, such as her children. 1. Continue current medication. She has gotten her second injection of Invega Sustenna 156 mg IM to the deltoid and Abilify Maintena 400 mg IM, both on 01/08/2021. No medication side effects. It is expected that it may take several weeks for these medications to achieve full effectiveness. It may be that we are starting to see some improvement. She is opening up more about her experiences. 2. Continue every 15 minute checks for safety. 3. Encourage individual, group and milieu therapies. 4. Disposition planning: She will need a placement that can prevent her from acting on her delusions, if they have not resolved at the time of discharge. 5. Working with DFS given neither they or treatment team feel Ivone is safe to be discharged home with her children. Involuntary Hold Information 96 Hour Hold: 96 Hour Involuntary Admission: Yes 96 Hour Hold Ending Date: 12/28/20 96 Hour Hold Ending Time: 16:42 Attestations NPU Medical Necessity Statement*: Inpatient hospitalization is medically necessary and the clinically appropriate intervention at this time. Her delusions are likely to cause dangerous behaviors which risk harm to others. We will monitor medications and make changes as indicated. Likely length of stay 4-8 days. During some previous hospitalizations it took several months for her psychosis to remit. Coding Level of Care Code Acute Certified Alcohol Drug Counselor for Domitila Rosado
--- NOTE | 2021-01-28 17:44 | PC.NURSE ---
Elopement Event began at 1527 when this nurse was charting at nurse's station. This nurse turned around after hearing another nurse, Josesito Coleman LPN telling patient to please exit nurse's station. This nurse observed patient opening glass door from control panel and was then escorted back out of nurse's station. Patient did not object and when out of nurse's station, patient proceeded to run to wooden door and opened it, then went out through glass door that was still open. This nurse and Josesito Coleman LPN responded immediately, going outside after patient, asking Nic Castellano CNA to call security immediately. As soon as we went through glass doors, we had visual of patient as she was walking [facility] towards parking lot. This nurse asked patient to please come back inside, patient refusing stating ther her 21 day hold was up today. She then began running and this nurse and other nurse followed her, running. She ran down the hillside, heading towards the [facility] parking lot. She began walking alongside the road. This nurse and Josesito Coleman LPN did not make contact with patient, however, was strongly encouraging patient to come back inside, attempting to redirect. Instructed patient that cars were coming by and it is not safe. Patient continued to walk on side of road and did eventually cross the street. At this time, Kvng Gomez RN arrived to help assist patient. This nurse called security at this time and alerted as to where we were currently. Three security officers and Dr. Peña arrived to assist patient back to building. At this time, patient was still refusing and a manual hold was completed to escort patient back inside. Patient was taken to the [facility] entrance and taken by elevator back to NPU. Patient at this point was tearful, however, still demanding to be let back outside. Patient's guardian was notified, as well as Power Plant Inspector, and NPU director. Doors checked and maintenance called to check all automatic doors.
[2021-01-28 22:00] VITALS: RESP 18
[2021-01-29 06:00] VITALS: BP 96/62; RESP 18
--- NOTE | 2021-01-29 13:01 | PM.NPN ---
Subjective NPU Subjective: Interval history: Patient presents today continuing to show improvement in her cognitive latitude. She was not expressing any problematic thoughts except for those surrounding saving little children. She is still resistant though to taking off the toga/biblical attire. We discussed the fact that she would be one-on-one moving forward as her flight risk poses an acceptable risk to herself and others. Mental Status Exam MSE Comments: Patient is a slender white female in hospital scrubs who continues to wear idiosyncratic clothing. She has a sheet around her waist and over her shoulder as well as something on her head like she is dressed in biblical times. More appropriate grooming and improved eye contact. Her speech is spontaneous and at a normal rate and volume. Mood reported as I'm doing fine and should be able to leave, affect was calm. Her thought process is more organized. The patient is less guarded overall and denied suicidal or homicidal ideation, there were no delusions reported but clear paranoia, and gnosticism preoccupation exists. She denies auditory or visual hallucinations. She does have gnosticism preoccupation and preoccupation with conspiracy theories. Attention and concentration appear intact. Her memory still unreliable, but none were formally tested. Insight, judgment, and impulse control all improving slowly and incrementally, but remain limited. Vitals/I&O/Wt Last Vital Signs Temp 97.0 F L 01/28/21 13:36 Pulse 93 01/28/21 13:36 Resp 18 01/29/21 06:00 BP 96/62 01/29/21 06:00 Pulse Ox 97 01/28/21 13:36 Data NPU : 12/22/20 18:57 12/22/20 18:57 A&P Additional A&P Information (1) Acute psychosis: (2) Chronic schizophrenia: Additional A&P Information This is a 40-year-old white female who has had long hospitalizations at this facility who presents once again acutely psychotic, off of medication and resistant to treatment. The major issue with the patient's psychotic condition is that it causes her to act on her delusions and ways that endanger others. Most recently she apparently tried to take a police officers gun out of his holster. She was trying to rescue neighbor children from the danger she believes them to be facing, even entering the neighbors house. Both of these actions were based on delusional ideas. She also has little insight into how her delusional behavior affects others, such as her children. 1. Continue current medication. She has gotten her second injection of Invega Sustenna 156 mg IM to the deltoid and Abilify Maintena 400 mg IM, both on 01/08/2021. No medication side effects. It is expected that it may take several weeks for these medications to achieve full effectiveness. It may be that we are starting to see some improvement. She is opening up more about her experiences. 2. Continue one-to-one for safety. 3. Encourage individual, group and milieu therapies. 4. Disposition planning: She will need a placement that can prevent her from acting on her delusions, if they have not resolved at the time of discharge. 5. Working with DFS given neither they or treatment team feel Ivone is safe to be discharged home with her children. Involuntary Hold Information 96 Hour Hold: 96 Hour Involuntary Admission: Yes 96 Hour Hold Ending Date: 12/28/20 96 Hour Hold Ending Time: 16:42 Attestations NPU Medical Necessity Statement*: Inpatient hospitalization is medically necessary and the clinically appropriate intervention at this time. Her delusions are likely to cause dangerous behaviors which risk harm to others. We will monitor medications and make changes as indicated. Likely length of stay 4-8 days. During some previous hospitalizations it took several months for her psychosis to remit. Coding Level of Care Code Acute Black Top Spreader Machine Operator for Domitila Rosado
[2021-01-29 13:39] VITALS: RESP 16
--- NOTE | 2021-01-29 14:00 | PC.NURSE ---
skin Skin assessment preformed on pt, per physician request for suspected contraband. Pt was redirected to room after being reluctant at first, but pt did cooperate finally. Nothing found in the search, pt was changed out into clean scrubs.
[2021-01-30 06:00] VITALS: RESP 17
--- NOTE | 2021-01-30 06:36 | P.PN_ITS ---
Subjective NPU Subjective: Interval history: Patient presents today essentially unchanged. She continues to have a much more positive presentation. She is communicative and smiling more. She is able to discuss the areas of concern in her behaviors without irritability. She continues to have one-to-one and continues to ask immediately if she can be let out or the doors can just be opened for her. Mental Status Exam MSE Comments: Patient is a slender white female in hospital scrubs who continues to wear idiosyncratic clothing. She has a sheet around her waist and over her shoulder as well as something on her head like she is dressed in biblical times. More appropriate grooming and improved eye contact. Her speech is spontaneous and at a normal rate and volume. Mood reported as decent, affect was calm. Her thought process is more organized. The patient is less guarded overall and denied suicidal or homicidal ideation, there were no delusions reported but clear paranoia, and zoroastrian preoccupation exists. She denies auditory or visual hallucinations. She does have zoroastrian preoccupation and preoccupation with conspiracy theories. Attention and concentration appear intact. Her memory still unreliable, but none were formally tested. Insight, judgment, and impulse control all improving slowly and incrementally, but remain limited. Vitals/I&O/Wt Last Vital Signs Temp 97.0 F L 01/28/21 13:36 Pulse 93 01/28/21 13:36 Resp 17 01/30/21 06:00 BP 96/62 01/29/21 06:00 Pulse Ox 97 01/28/21 13:36 Data NPU : 12/22/20 18:57 12/22/20 18:57 A&P Additional A&P Information (1) Acute psychosis: (2) Chronic schizophrenia: Additional A&P Information This is a 40-year-old white female who has had long hospitalizations at this facility who presents once again acutely psychotic, off of medication and resistant to treatment. The major issue with the patient's psychotic condition is that it causes her to act on her delusions and ways that endanger others. Most recently she apparently tried to take a police officers gun out of his holster. She was trying to rescue neighbor children from the danger she believes them to be facing, even entering the neighbors house. Both of these actions were based on delusional ideas. She also has little insight into how her delusional behavior affects others, such as her children. 1. Continue current medication. She has gotten her second injection of Invega Sustenna 156 mg IM to the deltoid and Abilify Maintena 400 mg IM, both on 01/08/2021. No medication side effects. It is expected that it may take several weeks for these medications to achieve full effectiveness. It may be that we are starting to see some improvement. She is opening up more about her experiences. 2. Continue one-to-one for safety. 3. Encourage individual, group and milieu therapies. 4. Disposition planning: She will need a placement that can prevent her from acting on her delusions, if they have not resolved at the time of discharge. 5. Working with DFS given neither they or treatment team feel Ivone is safe to be discharged home with her children. Involuntary Hold Information 96 Hour Hold: 96 Hour Involuntary Admission: Yes 96 Hour Hold Ending Date: 12/28/20 96 Hour Hold Ending Time: 16:42 Attestations NPU Medical Necessity Statement*: Inpatient hospitalization is medically necessary and the clinically appropriate intervention at this time. Her delusions are likely to cause dangerous behaviors which risk harm to others. We will monitor medications and make changes as indicated. Likely length of stay 4-8 days. During some previous hospitalizations it took several months for her psychosis to remit. Coding Level of Care Code Acute Automatic Glove Turner And Former for Domitila Rosado
[2021-01-30 14:00] VITALS: BP 90/56; PULSE 86; RESP 18; TEMP 36.2; O2SAT 97
[2021-01-30 20:38] VITALS: RESP 17
[2021-01-31 06:00] VITALS: BP 89/54; PULSE 76; RESP 14; TEMP 520.1; TEMP 968.2; O2SAT 100; BMI 21.9
--- NOTE | 2021-01-31 09:12 | PM.NPN ---
Subjective NPU Subjective: Interval history: No changes overall since last conversation. She continues to function fine with a one-to-one sitter. She denied any issues at this time. She continued to immediately request to be let go and also reporting that there is no reason to keep her in the hospital anymore, and that she is fine for discharge. Mental Status Exam MSE Comments: Patient is a slender white female in hospital scrubs who continues to wear idiosyncratic clothing. She has a sheet around her waist and over her shoulder as well as something on her head like she is dressed in biblical times. More appropriate grooming and improved eye contact. Her speech is spontaneous and at a normal rate and volume. Mood reported as pretty good, affect was congruent. Her thought process is more organized. The patient is less guarded overall and denied suicidal or homicidal ideation, there were no delusions reported but clear paranoia, and anabaptist preoccupation exists. She denies auditory or visual hallucinations. She does have anabaptist preoccupation and preoccupation with conspiracy theories. Attention and concentration appear intact. Her memory still unreliable, but none were formally tested. Insight, judgment, and impulse control all improving slowly and incrementally, but remain limited. Vitals/I&O/Wt Last Vital Signs Temp 968.2 F H 01/31/21 06:00 Pulse 76 01/31/21 06:00 Resp 14 01/31/21 06:00 BP 89/54 01/31/21 06:00 Pulse Ox 100 01/31/21 06:00 Weight last 48 hrs Weight 58.06 kg Data NPU : 12/22/20 18:57 12/22/20 18:57 A&P Additional A&P Information (1) Acute psychosis: (2) Chronic schizophrenia: Additional A&P Information This is a 40-year-old white female who has had long hospitalizations at this facility who presents once again acutely psychotic, off of medication and resistant to treatment. The major issue with the patient's psychotic condition is that it causes her to act on her delusions and ways that endanger others. Most recently she apparently tried to take a police officers gun out of his holster. She was trying to rescue neighbor children from the danger she believes them to be facing, even entering the neighbors house. Both of these actions were based on delusional ideas. She also has little insight into how her delusional behavior affects others, such as her children. 1. Continue current medication. She has gotten her second injection of Invega Sustenna 156 mg IM to the deltoid and Abilify Maintena 400 mg IM, both on 01/08/2021. No medication side effects. It is expected that it may take several weeks for these medications to achieve full effectiveness. It may be that we are starting to see some improvement. She is opening up more about her experiences. 2. Continue one-to-one for safety. 3. Encourage individual, group and milieu therapies. 4. Disposition planning: She will need a placement that can prevent her from acting on her delusions, if they have not resolved at the time of discharge. 5. Working with DFS given neither they or treatment team feel Ivone is safe to be discharged home with her children. Involuntary Hold Information 96 Hour Hold: 96 Hour Involuntary Admission: Yes 96 Hour Hold Ending Date: 12/28/20 96 Hour Hold Ending Time: 16:42 Attestations NPU Medical Necessity Statement*: Inpatient hospitalization is medically necessary and the clinically appropriate intervention at this time. Her delusions are likely to cause dangerous behaviors which risk harm to others. We will monitor medications and make changes as indicated. Likely length of stay 4-8 days. During some previous hospitalizations it took several months for her psychosis to remit. Coding Level of Care Code Acute Plate And Frame Filter Operator for Domitila Rosado
[2021-01-31 14:00] VITALS: BP 96/59; PULSE 82; RESP 16; TEMP 36.7; O2SAT 99
[2021-01-31 20:55] VITALS: RESP 17
--- NOTE | 2021-01-31 20:55 | PC.NURSE ---
pt refused full vitals at this time/respirations were observed/will try to obtain vitals later/casey
[2021-02-01 06:00] VITALS: RESP 17
--- NOTE | 2021-02-01 07:04 | PC.NURSE ---
pt refused vitals at this time/respirations were observed
--- NOTE | 2021-02-01 11:21 | NPU.GN ---
[facility] Topic:Yuri Barboza General Mood of Group: Ivone was in and out of group therapy today. Ivone seemed to be in good spirits and was walking around with an aide on for supervision purposes.
[2021-02-01 14:00] VITALS: BP 96/52; PULSE 90; RESP 18; TEMP 36.1; O2SAT 99
--- NOTE | 2021-02-01 16:36 | P.PN_ITS ---
Subjective NPU Subjective: Interval history: Patient presents today unchanged and continuing to be in a positive space. We discussed with her that her next injections are coming up. We discussed the fact that we have the shots being administered on the same day to avoid any confusion. She did not have any complaints or pushback. Treatment team is trying to get a meeting tomorrow to be able to look at appropriate discharge options. She reports that eating okay and sleeping well. Mental Status Exam MSE Comments: Patient is a slender white female in hospital scrubs who continues to wear idiosyncratic clothing. She has a sheet around her waist and over her shoulder as well as something on her head like she is dressed in biblical times. More appropriate grooming and improved eye contact. Her speech is spontaneous and at a normal rate and volume. Mood reported as good, affect was congruent. Her thought process is more organized. The patient is less guarded overall and denied suicidal or homicidal ideation, there were no delusions reported but clear paranoia, and buddhist preoccupation exists. She denies auditory or visual hallucinations. She does have buddhist preoccupation and preoccupation with conspiracy theories. Attention and concentration appear intact. Her memory still unreliable, but none were formally tested. Insight, judgment, and impulse control all improving slowly and incrementally, but remain limited. Vitals/I&O/Wt Last Vital Signs Temp 97.0 F L 02/01/21 14:00 Pulse 90 02/01/21 14:00 Resp 18 02/01/21 14:00 BP 96/52 02/01/21 14:00 Pulse Ox 99 02/01/21 14:00 Weight last 48 hrs Weight 58.06 kg Data NPU : 12/22/20 18:57 12/22/20 18:57 A&P Additional A&P Information (1) Acute psychosis: (2) Chronic schizophrenia: Additional A&P Information This is a 40-year-old white female who has had long hospitalizations at this facility who presents once again acutely psychotic, off of medication and resistant to treatment. The major issue with the patient's psychotic condition is that it causes her to act on her delusions and ways that endanger others. Most recently she apparently tried to take a police officers gun out of his holster. She was trying to rescue neighbor children from the danger she believes them to be facing, even entering the neighbors house. Both of these actions were based on delusional ideas. She also has little insight into how her delusional behavior affects others, such as her children. 1. Continue current medication. She has gotten her second injection of Invega Sustenna 156 mg IM to the deltoid and Abilify Maintena 400 mg IM, both on 01/08/2021. No medication side effects. Her monthly injections are coming up. 2. Continue one-to-one for safety. 3. Encourage individual, group and milieu therapies. 4. Disposition planning: Need to identify a discharge plan given her continued improvement but safety concerns at home. 5. Working with DFS given neither they or treatment team feel Ivone is safe to be discharged home with her children. Involuntary Hold Information 96 Hour Hold: 96 Hour Involuntary Admission: Yes 96 Hour Hold Ending Date: 12/28/20 96 Hour Hold Ending Time: 16:42 Attestations NPU Medical Necessity Statement*: Inpatient hospitalization is medically necessary and the clinically appropriate intervention at this time. Her delusions are likely to cause dangerous behaviors which risk harm to others. We will monitor medications and make changes as indicated. Likely length of stay 2-5 days. At this time of the discharge disposition is the chain regulating step. Coding Level of Care Code Acute Corporate Vp Advertising & Online for Domitila Rosado
[2021-02-01 22:00] VITALS: BP 98/71; PULSE 60; RESP 15; TEMP 36.8; O2SAT 99
[2021-02-02 06:00] VITALS: RESP 15
--- NOTE | 2021-02-02 06:38 | PC.NURSE ---
pt refused vital signs at this time/respirations were counted/casey
--- NOTE | 2021-02-02 12:07 | NPU.GN ---
[facility] Topic:Avni General Mood of Group: Ivone was in and out of group today.
[2021-02-02 14:00] VITALS: BP 93/51; PULSE 78; RESP 18; TEMP 37.1; O2SAT 99
--- NOTE | 2021-02-02 18:10 | PM.NPN ---
Subjective NPU Subjective: Interval history: Patient presents today continuing to make positive progress in her cognitive functioning. We discussed her biblical attire and she reported that she was using it to create two layers so that she had modestly. We discussed that if that is the case then will allow her to wear two sets of scrubs at once. Became clear that using it purely for modestly was not the case but after a long discussion she agreed as part of her moving forward towards discharge that she would no longer aware of the hair covering or the toga-like sheet. Mental Status Exam MSE Comments: Patient is a slender white female in hospital scrubs who continues to wear idiosyncratic clothing. More appropriate grooming and improved eye contact. Her speech is spontaneous and at a normal rate and volume. Mood reported as good, affect was congruent. Her thought process is more organized. The patient is less guarded overall and denied suicidal or homicidal ideation, there were no delusions reported but paranoia and orthodoxy preoccupation seems to be diminishing. She denies auditory or visual hallucinations. Attention and concentration appear intact. Her memory still unreliable, but none were formally tested. Insight, judgment, and impulse control all improving slowly and incrementally, but remain limited. Vitals/I&O/Wt Last Vital Signs Temp 97.6 F 02/02/21 20:40 Pulse 82 02/02/21 20:40 Resp 16 02/02/21 20:40 BP 97/52 02/02/21 20:40 Pulse Ox 97 02/02/21 20:40 Data NPU : 12/22/20 18:57 12/22/20 18:57 A&P Additional A&P Information (1) Acute psychosis: (2) Chronic schizophrenia: Additional A&P Information This is a 40-year-old white female who has had long hospitalizations at this facility who presents once again acutely psychotic, off of medication and resistant to treatment. The major issue with the patient's psychotic condition is that it causes her to act on her delusions and ways that endanger others. Most recently she apparently tried to take a police officers gun out of his holster. She was trying to rescue neighbor children from the danger she believes them to be facing, even entering the neighbors house. Both of these actions were based on delusional ideas. She also has little insight into how her delusional behavior affects others, such as her children. 1. Continue current medication. She has gotten her second injection of Invega Sustenna 156 mg IM to the deltoid and Abilify Maintena 400 mg IM, both on 01/08/2021. No medication side effects. Her monthly injections are coming up. 2. Continue one-to-one for safety. 3. Encourage individual, group and milieu therapies. 4. Disposition planning: Need to identify a discharge plan given her continued improvement but safety concerns at home. 5. Working with DFS given neither they or treatment team feel Ivone is safe to be discharged home with her children. 6. 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 Involuntary Hold Information 96 Hour Hold: 96 Hour Involuntary Admission: Yes 96 Hour Hold Ending Date: 12/28/20 96 Hour Hold Ending Time: 16:42 Attestations NPU Medical Necessity Statement*: Inpatient hospitalization is medically necessary and the clinically appropriate intervention at this time. Her delusions are likely to cause dangerous behaviors which risk harm to others. We will monitor medications and make changes as indicated. Likely length of stay 1-4 days. At this time of the discharge disposition is the chain regulating step. Coding Level of Care Code Acute Military Exchange Wireless Manager for Domitila Rosado
[2021-02-02 20:40] VITALS: BP 97/52; PULSE 82; RESP 16; TEMP 36.4; O2SAT 97
--- NOTE | 2021-02-03 11:07 | PM.NPN ---
Subjective NPU Subjective: Interval history: Ivone continues to show improvement in her ability to interact socially and her decision-making. She still is with the idea that this health technical writer is writing a letter that suggest that of her Covid and responsibilities at home and eat a higher level of stress and make it somewhat difficult for her to continue on her recovery which is critical to her success outside of the hospital. We had a long discussion about the fact that there are stressors that are good things. We also discussed concerns about and the fact that her have another child also create a huge burden on their situation. How that could impact ability to maintain her mental health status. Mental Status Exam MSE Comments: Patient is a slender white female in hospital scrubs who continues to wear idiosyncratic clothing. More appropriate grooming and improved eye contact. Her speech is spontaneous and at a normal rate and volume. Mood reported as good, affect was congruent. Her thought process is more organized. The patient is less guarded overall and denied suicidal or homicidal ideation, there were no delusions reported but paranoia and bahai preoccupation seems to be diminishing. She denies auditory or visual hallucinations. Attention and concentration appear intact. Her memory still unreliable, but none were formally tested. Insight, judgment, and impulse control all improving slowly and incrementally, but remain limited. Vitals/I&O/Wt Last Vital Signs Temp 97.6 F 02/02/21 20:40 Pulse 82 02/02/21 20:40 Resp 16 02/02/21 20:40 BP 97/52 02/02/21 20:40 Pulse Ox 97 02/02/21 20:40 Data NPU : 12/22/20 18:57 12/22/20 18:57 A&P Additional A&P Information (1) Acute psychosis: (2) Chronic schizophrenia: Additional A&P Information This is a 40-year-old white female who has had long hospitalizations at this facility who presents once again acutely psychotic, off of medication and resistant to treatment. The major issue with the patient's psychotic condition is that it causes her to act on her delusions and ways that endanger others. Most recently she apparently tried to take a police officers gun out of his holster. She was trying to rescue neighbor children from the danger she believes them to be facing, even entering the neighbors house. Both of these actions were based on delusional ideas. She also has little insight into how her delusional behavior affects others, such as her children. 1. Continue current medication. She has gotten her second injection of Invega Sustenna 156 mg IM to the deltoid and Abilify Maintena 400 mg IM, both on 01/08/2021. No medication side effects. She should get the 2 injection repeated on 02/05/2021 2. Continue one-to-one for safety. 3. Encourage individual, group and milieu therapies. 4. Disposition planning: Need to identify a discharge plan given her continued improvement but safety concerns at home. 5. Patient should be ready to be discharged after she receives her injections and she seems more fit to be in the home environment. However great concerns existed about the addition of other responsibilities and how that might impact her maintaining her mental wellness. 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 Involuntary Hold Information 96 Hour Hold: 96 Hour Involuntary Admission: Yes 96 Hour Hold Ending Date: 12/28/20 96 Hour Hold Ending Time: 16:42 Attestations NPU Medical Necessity Statement*: Inpatient hospitalization is medically necessary and the clinically appropriate intervention at this time. Her delusions are likely to cause dangerous behaviors which risk harm to others. We will monitor medications and make changes as indicated. Likely length of stay 1-4 days. At this time of the discharge disposition is the chain regulating step. Coding Level of Care Code Acute Fisheries Diver for Domitila Rosado
--- NOTE | 2021-02-03 12:23 | NPU.GN ---
[facility] Topic:Coping Skills Bingo/ Cross word puzzle General Mood of Group: Ivone did not attend and participate in group therapy this morning. Ivone was walking the halls with a one on one.
[2021-02-03 14:00] VITALS: BP 97/52; PULSE 82; RESP 16; TEMP 36.4; O2SAT 97
[2021-02-03 20:11] VITALS: BP 99/55; RESP 17
--- NOTE | 2021-02-04 00:34 | PC.NURSE ---
Upon assessment at 2000 hrs patient walking the hallway with 1:1. Patient denied any complaints. Patient has been social with staff and also spent time on the phone with family. Will continue to monitor and have 1:1.
[2021-02-04 06:00] VITALS: PULSE 85; RESP 16; TEMP 36.8; O2SAT 100
--- NOTE | 2021-02-04 13:34 | NPU.GN ---
[facility] Topic:Coping Kills Checklist General Mood of Group: Ivone did attend group and was listening. Ivone did not participate in group activity. Ivone got up and walked around some.
[2021-02-04 14:00] VITALS: BP 103/68; PULSE 80; RESP 20; TEMP 36.9; O2SAT 100
--- NOTE | 2021-02-04 14:35 | PM.NPN ---
Subjective NPU Subjective: Interval history: I reviewed the case with Dr. Peña and the treatment team. We discussed the progress that she has made in her cognitive functioning over the 2 weeks since I last saw her. I met with the patient in person. Her delusions, when observable, are much less intense and urgent than in the past. She does not seem to feel the need to act on them. For example, when I asked her about grabbing the police officers gun, she shook her head and said, oh I'm not going to do that again. She does not spontaneously talk about being worried about the neighbors children. She is able to speak about her children and a much more appropriate manner. I met with the supportive employment case manager from [facility] to review the patient's case. I told her my opinion that the patient is not imminently dangerous to herself, her children, the neighbors children, etc. The risk is not zero, however. Risk will remain low, to the extent that the patient is able to continue to take medications. We also talked about the importance of monitoring in the home. We talked with the patient together and she indicates that she intends to continue that medication. She talked about a time in her life when she did take her medication regularly and did well. We also discussed what happened that she stopped taking her medication. We discussed warning signs that she should be aware of that indicate she is beginning to have a relapse. She understood and agreed to be on the look out for these signs. Mental Status Exam MSE Comments: Patient is a slender white female in hospital scrubs who continues to wear idiosyncratic clothing. More appropriate grooming and improved eye contact. Her speech is spontaneous and at a normal rate and volume. Mood reported as good, affect was congruent. Her thought process is more organized. The patient is less guarded overall and denied suicidal or homicidal ideation, there were no delusions reported but paranoia and muslim preoccupation seems to be diminishing. She denies auditory or visual hallucinations. Attention and concentration appear intact. Her memory still unreliable, but none were formally tested. Insight, judgment, and impulse control all improving slowly and incrementally, but remain limited. Vitals/I&O/Wt Last Vital Signs Temp 98.3 F 02/04/21 06:00 Pulse 85 02/04/21 06:00 Resp 16 02/04/21 06:00 BP 99/55 02/03/21 20:11 Pulse Ox 100 02/04/21 06:00 Data NPU : 12/22/20 18:57 12/22/20 18:57 A&P Assessment and plan (1) Chronic schizophrenia: Status: Acute (2) Acute psychosis: Status: Acute Additional A&P Information This is a 40-year-old white female who has had long hospitalizations at this facility who presents once again acutely psychotic, off of medication and resistant to treatment. The major issue with the patient's psychotic condition is that it causes her to act on her delusions and ways that endanger others. Most recently she apparently tried to take a police officers gun out of his holster. She was trying to rescue neighbor children from the danger she believes them to be facing, even entering the neighbors house. Both of these actions were based on delusional ideas. She also has little insight into how her delusional behavior affects others, such as her children. 1. Continue current medication. She has gotten her second injection of Invega Sustenna 156 mg IM to the deltoid and Abilify Maintena 400 mg IM, both on 01/08/2021. No medication side effects. She will receive her monthly injections tomorrow. 2. Encourage individual, group and milieu therapies. 3. Disposition planning: Need to identify a discharge plan given her continued improvement but safety concerns at home. 4. Working with DFS given neither they or treatment team feel Ivone is safe to be discharged home with her children. 5. 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 Involuntary Hold Information 96 Hour Hold: 96 Hour Involuntary Admission: Yes 96 Hour Hold Ending Date: 12/28/20 96 Hour Hold Ending Time: 16:42 Attestations NPU Medical Necessity Statement*: Inpatient hospitalization is medically necessary and the clinically appropriate intervention at this time. Her delusions are likely to cause dangerous behaviors which risk harm to others. We will monitor medications and make changes as indicated. Likely length of stay 1-4 days. At this time of the discharge disposition is the chain regulating step. Coding Level of Care Code Acute Building Carpenter Helper for Domitila Rosado Diagnoses Chronic schizophrenia F20.9 Acute psychosis F23
[2021-02-04 19:58] VITALS: BP 116/59; PULSE 90; RESP 14; TEMP 37.1; O2SAT 96
[2021-02-05 06:00] VITALS: BP 85/60; PULSE 105; RESP 16; TEMP 37.1
[2021-02-05] MEDS: paliperidone palmitate 156 mg Syringe IM (10:33)
[2021-02-05] MEDS: ARIPiprazole Maintena 400 MG IM (10:33)
--- NOTE | 2021-02-05 16:07 | P.DS_ITS ---
Diagnoses at Discharge Discharge Diagnosis (1) Chronic schizophrenia: Status: Chronic (2) Acute psychosis: Status: Chronic Reason for Visit Reason for Visit: 96 hour hold Brief History: Ivone Torres is a 40 year old female who presented to the emergency department with the following report: Chief Complaint: Psychiatric Symptoms Stated Complaint: 96 hour hold Time Seen by Provider: 12/22/20 16:47 History of Present Illness: HPI Narrative: Police have brought in 40 yo f with history of paranoid schizophrenia with delusions, flight of ideas, loose a ssociations, and suicidal statements. She's evidently been involved with police already this week and her behavior/mental illness seems to be getting worse. History is limited due to her mental health crisis: she is not being cooperative. For example, romelia, what are your allergies? 'Medicines don't fix society'. The patient will not answer my questions. MD complaint: suicidal ideation. She was admitted to the neuropsychiatric unit for definitive treatment of those issues. Attempts for formal evaluation were thwarted by her unwillingness to go to a private area to have a conversation. She spent most of the morning checking doors and looking for an opportunity to go into any doors open medicine of her last stay. She spoke in almost code like fashion about what she was thinking and questions that she had. She tried to use humor as her primary means of describing things but her jokes were very indicative of what her thought process is. She talked some about worries about children and children being safe. She was unwilling about her own children or the recent baby she had since she left. She was very put off by any discussion of the medications with eye rolls and feigned laughter. We discussed the risk benefits and alternatives of restarting medication and she understood but refused to proceed with any medication at this time. She continued to demonstrate the things that society as nothing to offer. That organized medication and medication systems are a joke often scoffing and role in her eyes. She was a resistant historian. An excerpt from one of her last hospitalization here is included below for context. Her last day here ended on 04/09/2019 and started January 18, 2019. Per her 09/15/2018 [facility] inpatient psychiatric evaluation: History of Present Illness Date of Service: Sep 15, 2018 Chief Complaint: Psychosis HPI: Ivone Torres is a 38 female who is readmitted to the NPU on a 96 hour hold for acute psychosis. Affidavits are reviewed on the chart. The patient allegedly broke into a neighbor's home and attempted to kidnap their children. Police were called and the patient ran off into the [place] with her on 6 children unable to be found for 2 hours. She was brought into the hospital and combative with staff requiring Geodon 20 mg IM. She was found to be covered in tics which were removed in the ER and transferred to the neuropsychiatric unit for further evaluation and treatment. Nursing staff reports that the patient has slept all night and has not been up for breakfast today. Multiple attempts by this provider and nursing staff to awaken the patient her unsuccessful. Patient did briefly open anion look around but quickly dozed off again. She is wrapped tightly in a blanket with only her head exposed. There are no lesions nor rash on her face. The patient was last admitted to the NPU from August 03 through the 96 hour hold for paranoid behavior with a discharge diagnosis of major depressive disorder single with psychosis and noncompliance. During that admission she was started on antidepressant which she refused to take throughout the admission. She denied any thoughts of harming herself or others throughout its the admission. She did endorse experiencing some possible hallucinations prior to admission, some chronic nihilistic use about the world, and possible paranoid delusions that people are being monitored and watched constantly but did not endorse any overt delusional beliefs. She was concerned about society's reliance upon technology and morality in society and very abstract in her t hinking. She was discharged home upon expiration of her 96 hour hold as she was not deemed to pose an imminent danger to herself or others at that time with no concrete grounds to hold her for a 21 day hold. Recommendations were discussed with the patient's at that time that the patient not have any unsupervised childcare however. Past psychiatric history: Unable to obtain at this time. During her last NPU admission, the patient denied any prior psychiatric history/prior psychiatric admission/psychotropic medication/history of violence towards herself or others. Family psychiatric history: Unable to obtain at this time. No prior records of mental disorders. Social history: Unable to obtain at this time. Patient is and has 6 children ranging in age from 2-10 years old. Her children have been home schooled. The patient previously denied any alcohol or illicit drug use and urine drug screen was negative during her last admission in July 2018. Past Medical History: Unable to obtain at this time. The patient was allegedly covered with tics during this admission in the ER. During her last admission she had reported no history of any medical problems. Surgical history is positive for . Hospital Course Hospital Course The patient was admitted to the neuropsychiatric unit for definitive treatment of these issues. She was initially quite delusional and lacking in insight. She was unwilling to participate in treatment, such as allowing her vital signs to be taken. A 21-day hold was granted and the aptient was started on the antipsychotics Abilify and Invega. Her psychosis slowly got better. She became less involved with the delusions and more able to partipate in treatment. On the unit she slowly acclimated to the individual, group and milieu therapies. She improved in her ability to talk about reality-based issues. Eventually she became receptive to treatment team recommendations and showed modest improvement and was able to contract for safety prior to discharge. DFS was consulted and informed that she was not an imminent danger to her children or those next door. It was emphasized that she might again become dangerous if her psychosis returns. During the hospitalization, patient had routine laboratory studies which were within normal limits except for few outliers. Additionally there was a general medical evaluation which was also within normal limits and revealed no new acute processes. PO Abilify was switched to Abilify Maintena, and her second injection was given on the day of discharge, 02/05/21. Likewise PO Invega was switched to Sustenna, and the last dose was 02/05/21. Discharge Summary: At the time of discharge, psychosis and lethality were denied. Mood and anxiety were well managed. Patient endorsed a plan to avoid all drugs of abuse and follow-up with the aftercare recommendations of the treatment team. Patient was evaluated and deemed to be absent credible lethality, and had achieved the maximum benefit from an inpatient hospitalization, so was discharged. Involuntary Hold Information 96 Hour Hold: 96 Hour Involuntary Admission: Yes 96 Hour Hold Ending Date: 12/28/20 96 Hour Hold Ending Time: 16:42 Mental Status Exam MSE Comments: The patient made good eye contact and was cooperative and open to the exam. No psychomotor agitation or retardation. Speech was had a regular rate and rhythm without pressure. Alert and oriented to person, place, time, and situation. Attention and concentration were intact to exam Memory was fairly good to exam. Mood is improved without depression and anxiety. Affect is brighter. Thought process: Logical and goal directed. No racing thoughts or flight of ideas. Thought content: Denies auditory and visual hallucinations. Delusions are not readily noticeable. No suicidal or homicidal ideation. Has future-oriented goals. Insight and judgment are improved and adequate. Discharge Data Vitals: Last Vital Signs Temp 98.7 F 02/05/21 06:00 Pulse 105 H 02/05/21 06:00 Resp 16 02/05/21 06:00 BP 85/60 02/05/21 06:00 Pulse Ox 96 02/04/21 19:58 Discharge Plan Discharge Patient Disposition: Home Condition: Stable Prescriptions: New Abilify Maintena 400 mg suspension,extended rel recon 400 mg IM Q28D Qty: 1 RF: 0 Invega Sustenna 156 mg/mL syringe 156 mg IM Q30D Qty: 1 RF: 0 Discharge Orders: Discharge Order (Routine); Ordered 02/05/21 Ordered By: Mckinley Wyatt Referrals: [facility] [Outside] (Walk in Monday or 7:30am to 3pm. Stated that you were recently discharged from the NPU and need to set up services for invega injection. Next injection will be due on or around 03/08/2021.) [facility], [Primary Care Provider] - Discharge Diet: Usual diet Discharge Activity: Resume usual activity Patient Instructions: Mood Disorders (DC), Psychotic Disorder (DC), Opioid Safety Discharge Attestations NPU Time Spent in Discharge Care*: greater than 30 min Specific Discharge Activities: Specific discharge activities: educating patient, discussing with pcp/other providers, discussing with caseworker protective services/social workers/dc planners, documenting/other paperwork and evaluating patient/reviewing data Status at Discharge: Cognitive status at discharge: cognitively intact , Behavioral status at discharge: cooperative , Functional status at discharge: independent ambulation Overall status at discharge: patient is back to baseline Coding Level of Care Code Acute Chg FW DC note Diagnoses Chronic schizophrenia F20.9 Acute psychosis F23
[2021-02-05 16:16] VITALS: BP 85/60; PULSE 105; RESP 16; TEMP 37.1
== END 2021-02-05 19:12 | disposition home or self-care (01) | DRG 885 ==
LOC: ER 22:17 → NP 12-23 13:40
PROVIDERS: Admitting Provider Psychiatry & Neurology Child & Adolescent Psychiatry; Emergency Provider Emergency Medicine; Visit Provider Psychiatry & Neurology Child & Adolescent Psychiatry
DX: F20.9 Schizophrenia, unspecified (principal); R45.851 Suicidal ideations
CPT/HCPCS: 80053; 80306; 80307; 81003; 81025; 84443; 85025; 87426; 96372; 97150; 99285; J0515; J1630; J2060; J3486

== ENCOUNTER → 2021-03-08 08:16 | Outpatient (BNVA) | payer MEDICAID, SELFPAY | PROVIDERS: Visit Provider Nurse Practitioner Psychiatric/Mental Health | DX: F20.9 Schizophrenia, unspecified (principal); F25.0 Schizoaffective disorder, bipolar type | CPT/HCPCS: 90792; 96372 ==

== ENCOUNTER → 2021-04-07 10:22 | Outpatient (BNVA) | payer MEDICAID, SELFPAY | PROVIDERS: Visit Provider Nurse Practitioner | DX: F20.9 Schizophrenia, unspecified (principal); F25.0 Schizoaffective disorder, bipolar type | CPT/HCPCS: 96372; 99214 ==

== ENCOUNTER → 2021-05-04 14:55 | Outpatient (BNVA) | payer MEDICAID, SELFPAY | PROVIDERS: Visit Provider Nurse Practitioner Psychiatric/Mental Health | DX: F20.9 Schizophrenia, unspecified (principal); F25.0 Schizoaffective disorder, bipolar type; Z79.899 Other long term (current) drug therapy | CPT/HCPCS: 96372; 99214 ==

== ENCOUNTER → 2021-06-01 09:49 | Outpatient (BNVA) | payer MEDICAID, SELFPAY | PROVIDERS: Visit Provider Nurse Practitioner Psychiatric/Mental Health | DX: F20.9 Schizophrenia, unspecified (principal); F25.0 Schizoaffective disorder, bipolar type; Z79.899 Other long term (current) drug therapy | CPT/HCPCS: 80053; 80061; 83036; 96372; 99214 ==

== ENCOUNTER → 2021-06-29 09:40 | Outpatient (BNVA) | payer MEDICAID, SELFPAY | PROVIDERS: Visit Provider Nurse Practitioner Psychiatric/Mental Health | DX: F25.0 Schizoaffective disorder, bipolar type (principal); F20.9 Schizophrenia, unspecified | CPT/HCPCS: 96372; 99214 ==

== ENCOUNTER → 2021-08-18 13:20 | Outpatient (BNVA) | payer MEDICAID, SELFPAY | PROVIDERS: Visit Provider Nurse Practitioner Psychiatric/Mental Health | DX: F20.9 Schizophrenia, unspecified (principal); F25.0 Schizoaffective disorder, bipolar type | CPT/HCPCS: 96372; 99214 ==

== ENCOUNTER → 2021-09-17 13:17 | Outpatient (BNVA) | payer MEDICAID, SELFPAY | PROVIDERS: Visit Provider Nurse Practitioner Psychiatric/Mental Health | DX: F20.9 Schizophrenia, unspecified (principal); F25.0 Schizoaffective disorder, bipolar type | CPT/HCPCS: 96372; 99214 ==

== ENCOUNTER → 2021-10-14 08:26 | Outpatient (BNVA) | payer MEDICAID, SELFPAY | PROVIDERS: Visit Provider Nurse Practitioner Psychiatric/Mental Health | DX: F20.9 Schizophrenia, unspecified (principal); F25.0 Schizoaffective disorder, bipolar type | CPT/HCPCS: 96372; 99214 ==

== ENCOUNTER 2022-09-22 17:09 | Inpatient (IN) | payer MEDICAID, SELFPAY ==
--- NOTE | 2022-09-22 17:31 | W.ED.PSYCHS ---
HPI - Psych General: Chief Complaint: Psychiatric Symptoms Stated Complaint: Homicidal 96 hr hold Time Seen by Provider: 09/22/22 17:17 Limitations: altered mental status History of Present Illness: Patient presents to the ER by police for 96-hour hold. We do have an affidavit written by the officer who said the patient wants to kill her neighbors and take his gun and put in into at all. Patient should be on psychiatric medicine and she is not currently. Patient has been a resident of [facility] here before. Patient will not stay in her room. Will not allow us to do anything to her. Will not change into scrubs. Patient will be medicated with Benadryl Haldol and Ativan. Associated symptoms: Reports delusions Review of Systems General: Reports: ROS unobtainable due to mental status [facility] ED PFSH: Medical History Mixed schizophrenic and affective psychosis Psychiatric care Schizoaffective disorder, bipolar type Social History Smoking and tobacco status: never smoked Second hand smoke exposure: No Alcohol intake: never Substance/Drug Use: never Adopted: No Lives independently: Yes Household members: spouse and children Housing: House Marital status: Current gender identity: Female Physical Exam Const: COMMON NORMALS: no acute distress, average body habitus, healthy appearing, alert and well nourished EXAM LIMITATIONS: altered mental status (Psychosis) ORIENTATION/CONSCIOUSNESS: Yes oriented to person and Yes oriented to place HENMT: COMMON NORMALS: normocephalic, atraumatic, hearing grossly normal bilaterally, external ears normal, Normal external nose present and moist oral mucous membranes HEAD & SCALP: normocephalic and atraumatic NOSE: Normal external nose present EXTERNAL EAR: Yes external ears normal Eye: COMMON NORMALS: Equal, round and reactive pupils present, EOMs intact bilaterally, conjunctivae normal and no scleral icterus CONJUNCTIVA: Yes conjunctivae normal PUPIL: Yes Equal, round and reactive pupils present Neck/C-Spine: COMMON NORMALS: no JVD Resp: COMMON NORMALS: normal respiratory effort, No retractions and No use of accessory muscles Cardio: COMMON NORMALS: no JVD Neuro: SENSORIUM/ORIENTATION: Yes alert, Yes oriented to person and Yes oriented to place Psych: COMMON NORMALS: speech normal APPEARANCE: Yes grossly normal ATTITUDE: Yes Belligerent attititude/behavior present and Yes agitated ACTIVITY/MOTOR BEHAVIOR: Yes psychomotor agitation, Yes hyperactivity and Yes restless SPEECH: Yes normal speech and Yes rapid MOOD & AFFECT: Yes hostile affect THOUGHT PROCESS: disorganized and Confabulating thought process present THOUGHT CONTENT: Yes Homicidality present and Yes delusions MDM - Psych Medical Decision Making Patient will be admitted to nPU for homicidal ideation, 96-hour hold. Differential Diagnosis Likely acute psychosis, chronic schizophrenia and bipolar disorder; Unlikely suicidal ideation, depression, drug-induced psychotic disorder or acute anxiety Medical Records I reviewed the patient's medical records. Lab Data I reviewed the patient's lab results. Discharge Plan Discharge Patient Disposition: Admitted As Inpatient Clinical Impression: Mixed schizophrenic and affective psychosis, Homicidal ideation Condition: Stable Coding Level of Care Code ED Print Machine Operator for Domitila Rosado
--- NOTE | 2022-09-22 17:35 | PC.NURSE ---
Pt walked out into ER hallway stating that she is leaving and we can't keep her here. Pt was reminded by HS and charge nurse that she is on a 96hr hold and will be staying here. Pt walked back to ER room 8 on her own with staff escort. Pt is refusing to change into green paper scrubs, angry, stating that she is not going to change out of her clothing. Security at bedside. Pt informed of her rights by HS and it was explained to her by HS and charge nurse that she is on a 96hr hold and is required to stay here and comply by policy. Pt continues to refuse, Dr Redding aware and was also at bedside to talk with patient. Pt continues to refuse to change out of her clothing and belongings into paper scrubs, standing outside ER room doorway, refuses to comply. Meds given as ordered. Pt changed into green paper scrubs with assist of ER staff and security.
[2022-09-22] MEDS: LORazepam 2 mg/mL INJ 1 mL IM (17:40)
[2022-09-22] MEDS: haloperidol inj 5 mg/mL INJ 1 mL IM (17:40)
[2022-09-22] MEDS: diphenhydrAMINE 50 mg/mL SDV 1mL IM (17:42)
--- NOTE | 2022-09-22 17:57 | PC.NURSE ---
Pt belongings in bag, labeled with patient label, placed in file cabinet in ER hallway outside pt room.
--- NOTE | 2022-09-22 18:05 | PC.NURSE ---
Pt resting in bed, calm, respirations even and nonlabored.
--- NOTE | 2022-09-22 18:10 | PC.NURSE ---
Attempted for second time to get vital signs, pt stood up at bedside. States my heart is beating . Pt pacing around room, refuses to allow vital signs to be taken
[2022-09-22 18:55] VITALS: RESP 16
[2022-09-23 14:00] VITALS: RESP 20
--- NOTE | 2022-09-23 14:15 | PC.NURSE ---
pt stated i am alive, refused to take vital signs.
--- NOTE | 2022-09-23 15:11 | P.NPUHP_ITS ---
Providers/Chief Complaint Admitting Physician: Ethan Goel MD Chief Complaint: Homicidal 96 hr hold HPI NPU History of Present Illness Ivone Torres is a 42 year old white female who was admitted to the neuropsychiatric unit after patient had presented to the emergency room on a 96- hour hold. Per records, the officer had stated that the patient had intention on killing her neighbors by taking an officers gun and shooting them. Patient was admitted to the neuropsychiatric unit for further evaluation and treatment. She has a history of an unspecified number of inpatient hospitalizations with her most recent psychiatric hospitalization in January of 2021. She had been receiving outpatient services at the [facility] until April of this year per records. The patient has been without her antipsychotic medications and has a diagnosis of chronic schizophrenia. The patient reports that she has had suspicions for approximately 7 years that her and her children have been repeatedly replaced by impostors who resemble them but are not them. She believes that the original versions have been taken away and reports that they often reappear in multiple forms but are never the original form. She states that she had been overwhelmed and scared about this information and states that she has a feeling about this and denies being informed of this by any person or spiritual being. She states that she had been in the process of trying to help out families that had children as well and states that in the process of her help she had come into contact with other chil dren and adults that had been replaced in the household of the help that she was trying to provide. She had stated that she had been concerned that there was a nefarious plot in play and she had contacted the police a few days ago to complain to them about a member of one of the family's that she was trying to help had not been who they say they were and they were holding children in their household who was not the children of that family. The patient denies any auditory or visual hallucinations. She had reported feeling sad about this and stated that she feels as if nothing can be done about this. She has stated that she is [employer] and does not feel that anything will help at this time. Past psychiatric history: Per previous record she has been inpatient 3 times with most recent hospitalization in January 2021 [place] on the neuropsychiatric unit. She had previously carried a diagnosis of schizophrenia. Previous medication trials include Abilifchristiane, Geodon, Invega, she has a current guardian through [facility] under Salazar Granado.. Allergies: None Surgeries: Medical history: None reported Current medications: None Family psychiatric history: None Drug and alcohol history: None Social history: She alleges that she may have been born in [place] and had 11 siblings. She reports that she was homeschooled by her mother and obtained her GED. She states that she has been for approximately 15 years and reports that she takes care of her 7 children at home. She describes herself as a homemaker. She reports a happy childhood and denies any history of sexual physical or emotional abuse. She resides with her who is currently unemployed along with her children. She reports being a [employer]ian. ? Excerpt from outpatient appointment 03/08/21 at [facility]: [facility] History and Physical Time In: 08:45 Time Out: 09:15 Chief Complaint: Doing fine History of Present Illness: -40 yr old female, presents today to [facility] f or psychiatric evaluation and follow up after inpatient psychiatric hospitalization from December 23 thru February 05, 2021, involuntary for psychosis. -Sleep pattern reported as pretty well, I get at least 6 hours a night. -Describes mood as its been good, when I went to the hospital I was down ; admits for her anniversary, going to a [facility] [place] this week. -Nutritional intake reported as adequate; discharged from inpatient unit on Abilify Maintena 400 mg IM and Invega Sustenna 156 mg IM. -Ivone denies suicidal ideation/plan, denies homicidal ideation/plan, denies a uditory/visual hallucinations; no delusions or paranoia. History Past Psychiatric History: -Significant past psychiatric history starting in July of 2018 for psychosis, admitted into inpatient psychiatric unit again for psychosis in September 2018 and January 2019, with history of aversion to taking any psychotropic medication regimen.? Recently admitted into inpatient psychiatric unit December 23 thru February 05, 2021 for psychosis, where oral medications of Abilify and Invega were changed to long acting injectables, receiving Abilify Maintena 400 mg IM and Invega Sustenna 156 mg on 02/05/21. Ivone has a guardian, Salazar Holguin, of [facility] assigned to her.? -Ivone denies any suicide attempts, denies accessibility to firearms, however, admits her has firearms in the home, in a closet, with two locks on it. -Past psychiatric diagnoses:? Major Depressive Disorder, single episode with psychosis; Schizoaffective, and Chronic Schizophrenia.? -Past medications:? Geodon, Abilify, and Invega -Current medications:? Abilify Maintena 400 mg IM and Invega Sustenna 156 mg IM Family History: Paternal: Non-contributory ? Maternal: Non-contributory Past Medical History: -Admits history of C-sections Substance Use History: Current: Denies tobacco,? alcohol, methamphetamines, marijuana, opiate use Past:? Denies tobacco use, alcohol, methamphetamines, marijuana, opiate use History of IVDU: Denies? ? Treatment History: Denies ? Social History: -Ivone reports she was born and raised in [place], [place], has 11 siblings, and was homeschooled by her mother and obtained her GED, moved to [place] after getting to her , has been for 14 years this week; in the marriage has had 10 pregnancies, 2 miscarriages, and states she has 7 children at home. 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 -Denies verbal, physical, sexual abuse as a child and adult. -Denies access to firearms, however, admits her has firearms in the home, in a closet, with two locks on it. -Guardian, Salazar Holguin, Public Environmental Technical Officer of [facility] is patient's guardian.? ? Meds NPU Home Medications Medication Instructions Recorded Confirmed Last Taken Type aripiprazole 400 mg intramuscular 400 mg IM DIRECTED 09/22/22 09/22/22 Unknown History suspension,extended release (Abilify Maintena) Allergies Allergy/AdvReac Type Severity Reaction Status Date / Time No Known Allergies Allergy Verified 05/25/22 09:26 PFS NPU PFS: Medical History Mixed schizophrenic and affective psychosis Psychiatric care Schizoaffective disorder, bipolar type Social History Smoking and tobacco status: never smoked Second hand smoke exposure: No Alcohol intake: never Substance/Drug Use: never Adopted: No Lives independently: Yes Household members: spouse and children Housing: House Marital status: Current gender identity: Female Mental Status Exam MSE Comments: Patient is a casually dressed white female who had poor hygiene as her feet were covered with dirt. She appeared thin. She was in moderate to severe distress as she was tearful throughout much of the interview. Her gait appeared steady. Her speech was slow but spontaneous and steady with diminished volume. Her mood was described as upset. Her affect appeared tearful and dysphoric. She denied having any thoughts of hurting herself. She had endorsed having thoughts of harming the people that were holding the so-called other children. 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 Her insight is impaired. Her judgment is poor. Her impulse control appeared poor. She was alert and oriented to person place time and situation. Vitals/I&O/Wt Last Vital Signs Resp 20 H 09/23/22 14:00 O2 Del Method Room Air 09/22/22 19:31 A&P Assessment and plan (1) Schizophrenia, paranoid, chronic: Plan This is a 42-year-old white female with chronic schizophrenia who has not been on her medications with an extended history of noncompliance who appears quite psychotic and incapable of managing herself safely at home. She would likely benefit from acute intervention while on the inpatient unit here. 1.? ? Engage? patient in individual ,milieu, and group therapy ?2. ? We will attempt to gather collateral information from previous providers ?3. ? 1-1 close observations with patient having history of multiple successful attempts to flee hospital. ?4.? Begin invega sustenna 234mg IM with plan for 3mg oral to begin tonight. Involuntary Hold Information 96 Hour Hold: 96 Hour Involuntary Admission: Yes 96 Hour Hold Ending Date: 09/28/22 96 Hour Hold Ending Time: 17:15 Attestations NPU Medical Necessity Statement*: Inpatient hospitalization is medically necessary and deemed to be the clinically appropriate intervention at this time. We will initiate medications and make changes as indicated. She will likely be hospitalized for over two midnights with a likely length of stay of 10-14 days. Coding Level of Care Code Acute Code for Chg Fwd Diagnoses Schizophrenia, paranoid, chronic F20.0
[2022-09-23] MEDS: paliperidone palmitate 234 mg Syringe IM (16:15)
--- NOTE | 2022-09-23 16:15 | PC.NURSE ---
Patient initially refused invega injection. However, upon talking to her a second time the patient reluctantly agreed to take the medication. She stated that the reason she didn't want to take it was because it made it where she didn't feel. Patient was reassured that she would still be able to have emotions, but that it would help regulate them and make her feel much better mentally and emotionally. Patient told this RN to just go ahead and give it to her and stop talking. This RN agreed to leave her alone once the injection had been administered. Upon leaving the room this RN could hear the patient crying softly to herself. She then came into the hallway and began pacing.
--- NOTE | 2022-09-23 21:37 | PC.NURSE ---
pt refused vitals to be taken, stated just tell them I'm
--- NOTE | 2022-09-23 22:43 | PC.NURSE ---
Lab called to ask if lab orders could be cancelled since the patient has been refusing lab draws. I will pass along to dayshift for decision.
--- NOTE | 2022-09-24 03:24 | PC.NURSE ---
Patient is up walking hallways with 1:1, checking doors & looking out windows. Patient has been compliant with 1:1 staff.
--- NOTE | 2022-09-24 08:42 | PC.NURSE ---
Patient refusing assessment this AM. When requesting to do her physical assessment she stated, no, I'm fine. This RN then asked her how she was feeling this morning and she states, feelings don't matter. This RN let her know that her feelings do matter and that we want to help her feel her best mentally because it will also make her feel her best physically. Patient rolled her eyes and turned to face the opposite wall away from this RN. Upon asking her any other questions she refused to make eye contact or respond.
[2022-09-24] MEDS: haloperidol inj 5 mg/mL INJ 1 mL IM (12:30)
[2022-09-24] MEDS: LORazepam 2 mg/mL INJ 1 mL IM (12:30)
[2022-09-24] MEDS: diphenhydrAMINE 50 mg/mL SDV 1mL IM (12:48)
[2022-09-24 12:54] LABS: Basophils % 0.5 %; Eosinophils # 0.1 10^3/uL (0.0-0.8); Hematocrit 39.4 % (37.0-47.0); Hemoglobin 11.7 g/dL (11.5-15.3); Lymphocytes # 1.9 10^3/uL (0.8-4.8); Lymphocytes % 34.3 %; Mean Corpuscular HGB Conc 29.7 g/dL (30.0-36.0); Mean Corpuscular Hemoglobin 24.7 pg (28.0-34.0); Mean Corpuscular Volume 83.1 fl (81-99); Mean Platelet Volume 10.9 fL (7.4-10.4); Monocytes # 0.3 10^3/uL (0.2-0.9); Monocytes % 4.8 %; Neutrophils # 3.24 10^3/uL (1.8-7.7); Neutrophils % 58.2 %; Nucleated Red Blood Cells % 0 %; Platelet Count 215 10^3/cmm (130-400); Red Blood Count 4.74 10^6/uL (4.1-5.3); Red Cell Distribution Width 14.5 % (12.1-15.1); White Blood Count 5.6 10^3/uL (4.0-10.0)
--- NOTE | 2022-09-24 12:56 | PC.NURSE ---
1230 Administered Ativan 2mg IM in left deltoid, Haldol 5mg IM in left deltoid, 50mg Benadryl IM in right deltoid per Dr. Goel's verbal orders. Lab caitlin blood from pt as well, security present. Pt was restrained using SAFE training techniques.
--- NOTE | 2022-09-24 13:08 | W.PM.NPUPNS ---
Subjective NPU Subjective: Patient is a 42-year-old white female admitted with chronic paranoid schizophrenia with Capgras syndrome. She had continue to report that she had no one to talk to has her current was not her but rather a replacement. She had reported that she needed to get out of here. She had reported that she had desire to save children from specific family's who she states had been replaced by other's. She had endorsed that she may attempt to harm those people as she stated that the police were doing nothing about protecting those people. She had attempted to flee and continue to require one-to-one observation on the unit. She had attempted to break doors. She had required as needed medications this morning including Haldol. She had continued to state that she did not need medication at this time. Mental Status Exam MSE Comments: Patient is a casually dressed white female who had poor hygiene as her feet were covered with dirt. She appeared thin. She was in severe distress as she was tearful throughout much of the interview. Her gait appeared steady. Her speech was slow but spontaneous and steady with diminished volume. Her mood was described as angry. Her affect appeared tearful and dysphoric and blunted. She denied having any thoughts of hurting herself. She had endorsed having thoughts of harming the people that were holding the so-called other children. 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 Her insight is impaired. Her judgment is poor. Her impulse control appeared poor. She was alert and oriented to person place time and situation. Vitals/I&O/Wt Last Vital Signs Resp 20 H 09/23/22 14:00 O2 Del Method Room Air 09/22/22 19:31 Data NPU 09/23/22 12:30 09/23/22 12:30 A&P Assessment and plan (1) Schizophrenia, paranoid, chronic: Plan This is a 42-year-old white female with chronic schizophrenia who has not been on her medications with an extended history of noncompliance who appears quite psychotic and incapable of managing herself safely at home. She would likely benefit from acute intervention while on the inpatient unit here. 1.? ? Engage? patient in individual ,milieu, and group therapy ?2. ? We will attempt to gather collateral information from previous providers ?3. ? 1-1 close observations with patient having history of multiple successful attempts to flee hospital. ?4.? Begin invega sustenna 234mg IM with plan for 6mg oral to begin tonight while IM invega is reaching therapeutic levels. Continue 1-1 and Haldol prn for agitation. Involuntary Hold Information 96 Hour Hold: 96 Hour Involuntary Admission: Yes 96 Hour Hold Ending Date: 09/28/22 96 Hour Hold Ending Time: 17:15 Attestations NPU Medical Necessity Statement*: Inpatient hospitalization is medically necessary and deemed to be the clinically appropriate intervention at this time. We will initiate medications and make changes as indicated. Her likely length of stay is 10-14 days. Coding Level of Care Code Acute Code for Chg Fwd Diagnoses Schizophrenia, paranoid, chronic F20.0
[2022-09-24 13:20] LABS: Alanine Aminotransferase 18 U/L (0-33); Albumin Level 4.3 g/dL (3.5-5.2); Alkaline Phosphatase 57 U/L (35-105); Anion Gap 14.4 (5-19); Aspartate Amino Transferase 21 U/L (0-32); Blood Urea Nitrogen 14 mg/dL (6-20); Calcium 8.6 mg/dL (8.5-10.5); Carbon Dioxide 24 mmol/L (22-29); Chloride 104 mmol/L (98-107); Glomerular Filtration Rate 110.2 mL/min (90-130); Glucose 80 mg/dL (65-115); Osmolality Calculated 285 mOsm/kg (285-295); Potassium 4.4 mmol/L (3.5-5.1); Sodium 138 mmol/L (136-145); Total Bilirubin 0.8 mg/dL (0.15-1.2); Total Protein 7.3 g/dL (6.6-8.7)
[2022-09-24 13:33] LABS: Acetaminophen < 5.0 ug/mL (10-30); Alcohol Level < 10 mg/dL (0-10); Salicylate < 0.3 mg/dL (3-10)
[2022-09-24 13:43] LABS: HCG, Serum Qual Negative (Negative)
[2022-09-24 14:00] VITALS: RESP 16
--- NOTE | 2022-09-24 14:17 | PC.NURSE ---
pt. refuse vital signs
[2022-09-24 21:14] VITALS: BP 97/58; PULSE 67; RESP 18; TEMP 36.6; O2SAT 96
[2022-09-25 06:00] VITALS: BP 89/49; PULSE 70; RESP 14; TEMP 36.6; O2SAT 97
--- NOTE | 2022-09-25 08:35 | PC.NURSE ---
PT CURRENTLY UNWILLING TO ALLOW NURSE TO PERFORM ASSESSMENT. PT ALSO CURRENTLY UNWILLING TO TAKE SCHEDULED INVEGA FOR THIS MORNING. PT STATES THEY GAVE ME ENOUGH MEDICATION FOR A YEAR. WHEN TRYING TO EDUCATE PT ON THE IMPORTANCE OF THE MEDICATION AND WHY PT JUST STATED IM NOT TAKING ANYMORE MEDICINE. PT THEN WALKED AWAY FROM THE NURSES STATION. WHILE TRYING TO ATTEMPT NURSING ASSESSMENT PT JUST LOOKED AT NURSE AND STATED NO, IM FINE. THIS NURSE EDUCATED PT THAT IT WILL NOT TAKE LONG AND THE REASON FOR THE ASSESSMENT. PT JUST STATED NO YOU DONT NEED TO, IM FINE. THIS NURSE WILL CONTINUE TO ATTEMPT TO PERFORM ASSESSMENT. WILL CONTINUE TO MONITOR.
[2022-09-25] MEDS: LORazepam 2 mg/mL INJ 1 mL IM ×2 (10:15→19:07)
[2022-09-25] MEDS: haloperidol inj 5 mg/mL INJ 1 mL IM ×2 (10:16→19:07)
[2022-09-25] MEDS: diphenhydrAMINE 50 mg/mL SDV 1mL IM ×2 (10:16→19:07)
--- NOTE | 2022-09-25 10:16 | PC.NURSE ---
Addendum entered by Genevieve Berrios RN 09/25/22 10:40: PT WAS UNWILLING TO TAKE ORAL PALIPERIDONE. THIS NURSE WENT TO DOCTOR AND ASKED WHAT HE WOULD LIKE THE NEXT STEP TO BE. DR STATED THAT A B52 INJECTIONS WOULD BE NEXT. PT WAS GIVEN THE OPTIONS 2-3 MORE TIMES AND WAS STILL UNWILLING TO TAKE THE ORAL INVEGA. THIS NURSE WENT AND CRUZ UP THE INJECTIONS. THEN THIS NURSE WENT BACK OUT TO THE PT AND OFFERED THE ORAL PILL 2 MORE TIMES. AFTER CONTINUED REFUSAL PT WAS INFORMED THAT SHE WOULD THEN BE RECEIVING HER INJECTIONS. PT WAS UNWILLING TO ALLOW INJECTIONS AND AT ONE POINT WAS ATTEMPTING TO GRAB THE NEEDLE OUT OF THIS NURSES HAND. RUSS HULL AND RONALD PLATT MANUALLY RESTRAINED PTS BILATERAL UPPER EXTREMITIES TO PREVENT HARM TO PT OR STAFF. PT RECEIVED THE INJECTIONS. WILL CONTINUE TO MONITOR PT. Original Note: PT RECEIVED A BENADRYL IM, LORAZEPAM IM, AND HALDOL IM PER ORDER FROM DR. PHIPPS. PT RECEIVED THESE MEDICATIONS DUE TO REFUSING TO TAKE PALIPERIDONE ORALLY. PT STATED PRIOR TO INJECTIONS DR. PHIPPS MY MIND IS CLEAR. REPEATEDLY. THEN DURING INJECTIONS PT STATED DR. PHIPPS THEY SAY I HAVE TO SMILE IN THE FACE OF EVIL FOR MY MIND TO BE CLEAR. REPEATEDLY. WILL CONTINUE TO MONITOR PT.
--- NOTE | 2022-09-25 13:21 | P.NPUPN_ITS ---
Subjective NPU Subjective: Patient is a 42-year-old white female admitted with chronic paranoid schizophrenia with Capgras syndrome. The patient had required the addition of Haldol as she had refused oral Invega. She had appeared sedated after this. She had stated earlier that she would have to smile in the face of evil in order for her mind to be clear. She had continued to express concern that people ar ound her at home including her kids and had been replaced by a duplicate. She stated that she had felt that people that she will try was tried to help had also been does replace by duplicates and that they had been harboring children that were not theirs. She had stated in some fashion that these people were in someway harming those children and that they should be harmed as she reported that she felt that the police were not listening to her and that she would have to brandished her own form of justice. She continued to require one-to-one as she had attempted to flee the unit yesterday. She had required the use of haldol for agitation earlier today. Mental Status Exam MSE Comments: Patient is a casually dressed thin white female who had poor hygiene as her feet. She was alert and oriented to person place and time. Her gait appeared steady. Her speech was slow but spontaneous and steady with diminished volume. Her mood was described as upset. Her affect appeared tearful and dysphoric and blunted. She denied having any thoughts of hurting herself. She had endorsed h aving thoughts of harming the people that were holding the so-called other children. 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 Her insight is impaired. Her judgment is poor. Her impulse control appeared poor. Her recent and remote memory appeared intact. Vitals/I&O/Wt Last Vital Signs Temp 97.9 F 09/25/22 06:00 Pulse 70 09/25/22 06:00 Resp 14 09/25/22 06:00 BP 89/49 09/25/22 06:00 Pulse Ox 97 09/25/22 06:00 O2 Del Method Room Air 09/25/22 06:00 Data NPU 09/23/22 12:30 09/23/22 12:30 A&P Assessment and plan (1) Schizophrenia, paranoid, chronic: Plan This is a 42-year-old white female with chronic schizophrenia who has not been on her medications with an extended history of noncompliance who appears quite psychotic and incapable of managing herself safely at home. She would likely benefit from acute intervention while on the inpatient unit here. 1.? ? Engage? patient in individual ,milieu, and group therapy ?2. ? We will attempt to gather collateral information from previous providers ?3. ? 1-1 close observations with patient having history of multiple successful attempts to flee hospital. ?4.? Begin invega sustenna 234mg IM with plan for 6mg oral to begin tonight while IM invega is reaching therapeutic levels. Continue 1-1 and Haldol IM if patient refuses oral invega. Involuntary Hold Information 96 Hour Hold: 96 Hour Involuntary Admission: Yes 96 Hour Hold Ending Date: 09/28/22 96 Hour Hold Ending Time: 17:15 Attestations NPU Medical Necessity Statement*: Inpatient hospitalization is medically necessary and deemed to be the clinically appropriate intervention at this time. We will initiate medications and make changes as indicated. Her likely length of stay is 10-14 days. Coding Level of Care Code Acute Code for [facility] Fwd Diagnoses Schizophrenia, paranoid, chronic F20.0
[2022-09-25 14:00] VITALS: RESP 16
--- NOTE | 2022-09-25 15:03 | PC.NURSE ---
Due to pt being alseep from agitation medications given, staff monitored respirations on pt and did not wake pt at this time for full set of vitals. no distress noted.
[2022-09-25 22:00] VITALS: BP 106/69; PULSE 58; RESP 16; TEMP 36.3; O2SAT 96
[2022-09-26 06:00] VITALS: RESP 18
--- NOTE | 2022-09-26 08:00 | PC.NURSE ---
Patient refusing to answer all assessment questions and refusing to let this RN do a physical assessment. When asked when the last time she used the restroom she stated, it doesn't matter. If a person feeds themselves right it's good. Then when asked if she had any feelings of depression or anxiety she stated, don't ask me that stuff. When is my 96 hour up?
--- NOTE | 2022-09-26 08:49 | PC.NURSE ---
Medication Refusal This RN talked with patient in great length about the benefits of Invega and reiterated that it has worked well for her in the past. Patient rolled her eyes throughout the conversation and stated, it's all false science. She also stated, this hospital is just ridiculous and kills people. Patient reassured that increasing her health is at the forefront of our teams' priorities. Patient also stated she didn't need to take the medication because she was getting to leave today. This RN was honest with her in that she was not going to be able to leave today and that her guardian would prefer she stay here until she is well. The patient then called this RN a liar and asked for her guardian's phone number. The number was given to her, then she refused to talk to this RN anymore.
[2022-09-26] MEDS: LORazepam 2 mg/mL INJ 1 mL IM (10:45)
[2022-09-26] MEDS: haloperidol inj 5 mg/mL INJ 1 mL IM (10:45)
[2022-09-26] MEDS: diphenhydrAMINE 50 mg/mL SDV 1mL IM (10:54)
--- NOTE | 2022-09-26 10:58 | PC.NURSE ---
Doctor ordered benadryl 50mg IM, haldol 5mg IM, and ativan 2mg IM to be given to patient if she continued to refuse morning dose of invega. This RN attempted to talk to the patient again about the benefits of invega and the great results she had in the past with taking it. Patient continued to refuse medication. Doctor Amando, security, and house coordinator were notified. Benadryl 50mg IM was administered in the left deltoid, ativan 2mg IM in right deltoid as well as haldol 5mg in right deltoid. Patient did have to be manually restrained as she was attempting to hit staff and would not comply with medication administration. Patient, nurses, and security were not harmed. Patient tolerated medication well.
[2022-09-26 14:00] VITALS: RESP 16
--- NOTE | 2022-09-26 17:30 | P.NPUPN_ITS ---
Subjective NPU Subjective: Patient is a 42-year-old white female admitted with chronic paranoid schizophrenia with Capgras syndrome. Patient refused to take her oral Invega and was given intramuscular Haldol instead. She had continued to express desire that she was feeling uncomfortable about family members that she was helping where impostors and their children were impostors as well. She continued requir e one-to-one she had made attempts to leave the hospital and continued to make vague statements about needing to take care of Justice as a police had not been helpful. Mental Status Exam MSE Comments: Patient is a casually dressed thin white female who had poor hygiene. She was alert and oriented to person place today. Her gait appeared steady. Her speech was slow but spontaneous and steady with diminished volume. Her mood was not endorsed today. Her affect appeared odd and subdued. She denied having any thoughts of hurting herself. Homicidal ideation remained prominent. 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 Her insight is impaired. Her judgment is poor. Her impulse control appeared poor. Her recent and remote memory appeared intact. Vitals/I&O/Wt Last Vital Signs Temp 97.3 F L 09/25/22 22:00 Pulse 58 L 09/25/22 22:00 Resp 18 09/26/22 06:00 BP 106/69 09/25/22 22:00 Pulse Ox 96 09/25/22 22:00 O2 Del Method Room Air 09/25/22 06:00 Data NPU 09/23/22 12:30 09/23/22 12:30 A&P Assessment and plan (1) Schizophrenia, paranoid, chronic: Plan This is a 42-year-old white female with chronic schizophrenia who has not been on her medications with an extended history of noncompliance who appears quite psychotic and incapable of managing herself safely at home. She would likely benefit from acute intervention while on the inpatient unit here. 1.? ? Engage? patient in individual ,milieu, and group therapy ?2. ? We will attempt to gather collateral information from previous providers ?3. ? 1-1 close observations with patient having history of multiple successful attempts to flee hospital. ?4.? Begin invega sustenna 234mg IM with plan for 6mg oral invega while IM invega is reaching therapeutic levels. Continue 1-1 and Haldol IM if patient refuses oral invega. Will give invega IM second dose 156mg tommorow. Involuntary Hold Information 96 Hour Hold: 96 Hour Involuntary Admission: Yes 96 Hour Hold Ending Date: 09/28/22 96 Hour Hold Ending Time: 17:15 Attestations NPU Medical Necessity Statement*: Inpatient hospitalization is medically necessary and deemed to be the clinically appropriate intervention at this time. We will initiate medications and make changes as indicated. Her likely length of stay is 10-14 days. Coding Level of Care Code Acute Code for [facility] Fwd Diagnoses Schizophrenia, paranoid, chronic F20.0
--- NOTE | 2022-09-26 18:12 | PC.NURSE ---
PT REFUSED VITALS FOR 1400. WILL CONTINUE TO MONITOR.
[2022-09-26 21:04] VITALS: RESP 18
[2022-09-27 06:00] VITALS: RESP 16
[2022-09-27] MEDS: haloperidol inj 5 mg/mL INJ 1 mL IM ×2 (09:21→20:13)
[2022-09-27] MEDS: diphenhydrAMINE 50 mg/mL SDV 1mL IM ×2 (09:21→20:13)
[2022-09-27] MEDS: paliperidone palmitate 156 mg Syringe IM (09:21)
--- NOTE | 2022-09-27 10:15 | W.PM.BREST ---
Face to Face: Restrn/Seclusion Events leading up to initiation: Verbalizing threat to self or others Evaluation of patient's immediate situation: Alert and oriented, No signs of physical distress and Signs of psychological distress Patient reaction since intervention applied: De-escalation/no displays of violent/destructive behavior Recent labs reviewed: No Review of medications: Yes Patient's current medical/behavioral condition: No new concerns since last ROS Need for restraint or seclusion is: No longer present Attending notified: Yes
--- NOTE | 2022-09-27 11:10 | PC.NURSE ---
PT CURRENTLY REFUSING TO ALLOW NURSE TO PERFORM ASSESSMENT. PT WILL NOT ANWSER NURSES QUESTIONS JUST IGNORES THIS NURSE. PT REFUSED PHYSICAL ASSESSMENT STATING NO IM UP AND STANDING, IM FINE. PT WAS ASKED TO TAKE HER SCHEDULED DOSE OF INVEGA THIS MORNING ORALLY. PT REFUSED STATING IM TALKING TO DOCTOR DESIRE. PT WAS EDUCATED THAT THIS MEDICATION WAS ORDERED BY THE DOCTOR. THIS NURSE EDUCATED PT ON THE IMPORTANCE OF THE MEDICATION AND WHY THE DOCTOR ORDERED IT, PT STILL REFUSED AND STATED NO, IM TALKING TO DOCTOR DESIRE. PT WAS INFORMED THAT IF SHE STILL REFUSED THE MEDICATION THAT THE DOCTOR WAS GOING TO HAVE HER RECEIVE MEDICATION INTRAMUSCULARLY, NURSE EXPLAINED THIS IN LAYMANS TERMS CALLING THEM AND INJECTION OR SHOT. PT. JUST CONTINUED TO SAY IM TALKING TO DOCTOR DESIRE. THIS NURSE THEN WENT TO THE PHYSICIAN ABOUT WHAT HE WOULD LIKE THE NEXT LINE OF DEFENSE. PHYSICIAN ORDERED PT SECOND INVEGA IM INJECTION, 5MG IM HALDOL, AND 50MG OF IM BENADRYL. THIS NURSE CONTACTED PHARMACY ABOUT INVEGA INJECTION SO WE COULD DO THE INJECTIONS AT ONCE, ANTICIPATING THE PT REFUSING AND REQUIRING A HOLD. BERNARDA JUNG PROCEEDED TO CONTACT NERI ATKINS THE [employer] REGULATOR, WHILE THIS NURSE PREPARED THE INJECTIONS. ONCE INJECTIONS WERE PREPARED PT WAS INFORMED THAT WE WOULD BE GIVING HER THE INJECTIONS THAT WE HAD TALKED ABOUT AND THAT SHE WOULD NEED TO GO TO HER ROOM. PT WAS UNWILLING TO DO SO AND WAS HOLLJORGE INTO THE NURSES STATION STATING I DONT NEED ANYMORE INJECTIONS. AT [address] IN A MANUAL HOLD BY NERI ATKINS, AND DILIP DRIVER, HOLDING THE PT BILATERAL WRISTS. PT WAS ESCORTED TO HER ROOM WHERE THIS NURSE, RUSS EDEN, AND BERNARDA JUNG ADMINISTERED THE INJECTIONS. THE BENADRYL AND INVEGA WENT INTO THE RIGHT DELTOID AND THE HALDOL WENT INTO THE LEFT DELTOID. AFTER ADMINISTRATION PT WAS RELEASED FROM HOLD AT 0915.
[2022-09-27 14:00] VITALS: RESP 12
--- NOTE | 2022-09-27 16:04 | P.NPUPN_ITS ---
Subjective NPU Subjective: Patient is a 42-year-old white female admitted with chronic paranoid schizophrenia with Capgras syndrome. The patient had refused her medications orally and had been placed in restraints earlier today. She had been given an intramuscular Haldol for agitation and paranoia. She continued to request that she be discharged stating that her guardian did not wish her to be here. The t reatment team had received information suggesting otherwise and the patient continued to express significant concerns about brandishing her own form of justice towards the allegedly impostors that were caring for children that were not his own. She continued to isolate herself in the room. She had continue to test limits as she repeatedly touched all of the doors to see if they were open in an attempt to flee here. She had required constant one-to-one observation and was unable to contract for safety or remain compliant here in the hospital. Mental Status Exam MSE Comments: Patient is a casually dressed thin white female who had poor hygiene. She was alert and oriented to person place today. Her gait appeared steady. Her speech was slow but spontaneous and with normal volume. Her mood was not endorsed today. Her affect appeared dysphoric and agitated.. She denied having any thoughts of hurting herself. Homicidal ideation remained prominent. 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 Her insight is impaired. Her judgment is poor. Her impulse control appeared poor. Her recent and remote memory appeared intact. Vitals/I&O/Wt Last Vital Signs Temp 97.3 F L 09/25/22 22:00 Pulse 58 L 09/25/22 22:00 Resp 12 09/27/22 14:00 BP 106/69 09/25/22 22:00 Pulse Ox 96 09/25/22 22:00 O2 Del Method Room Air 09/25/22 06:00 Data NPU 09/23/22 12:30 09/23/22 12:30 A&P Assessment and plan (1) Schizophrenia, paranoid, chronic: Plan This is a 42-year-old white female with chronic schizophrenia who has not been on her medications with an extended history of noncompliance who appears quite psychotic and incapable of managing herself safely at home. She would likely benefit from acute intervention while on the inpatient unit here. 1.? ? Engage? patient in individual ,milieu, and group therapy ?2. ? We will attempt to gather collateral information from previous providers ?3. ? 1-1 close observations with patient having history of multiple successful attempts to flee hospital. ?4.? Continue 6mg oral invega (haldol 5mg IM given if refused) as patient given 2nd dose of IM invega today of 156mg. Involuntary Hold Information 96 Hour Hold: 96 Hour Involuntary Admission: Yes 96 Hour Hold Ending Date: 09/28/22 96 Hour Hold Ending Time: 17:15 Attestations NPU Medical Necessity Statement*: Inpatient hospitalization is medically necessary and deemed to be the clinically appropriate intervention at this time. We will initiate medications and make changes as indicated. Her likely length of stay is 10-14 days. Coding Level of Care Code Acute Code for [facility] Fwd Diagnoses Schizophrenia, paranoid, chronic F20.0
--- NOTE | 2022-09-27 19:17 | PC.NURSE ---
This nurse tried to complete the pts shift assessment. Pt began swinging at the nurse refusing assessment. Sitter remains at bedside.
[2022-09-27] MEDS: LORazepam 2 mg/mL INJ 1 mL IM (20:13)
--- NOTE | 2022-09-27 20:25 | PC.NURSE ---
Pt was exiting seeking and screaming let me out of here . Pt was ramming her body into the door. This nurse and security went to the pt to attempt to verbal de-escalate the pt and redirect her to her room. Redirection failed, pt remained anxious and trying to elope. Security and sitter remained with pt, while this nurse retrieved PRN medications Haldol, Benadryl, and Ativan for injection, as pt refused PO medications. Injections given and pt remained extremely tearful and agitated w/staff. Pt is now in her bed continuing to cry as she wants to leave this facility. One on one sitter remains w/pt.
[2022-09-27 21:20] VITALS: BP 87/54; PULSE 127; RESP 18; TEMP 36.5; O2SAT 97
[2022-09-28 06:00] VITALS: RESP 16
[2022-09-28] MEDS: diphenhydrAMINE 50 mg/mL SDV 1mL IM (08:58)
[2022-09-28] MEDS: haloperidol inj 5 mg/mL INJ 1 mL IM (08:58)
--- NOTE | 2022-09-28 09:35 | PC.NURSE ---
PT CONTINUES TO REFUSE ASSESSMENTS AND WILL NOT ANWSER THIS RNS QUESTIONS. PT ALSO CONTINUES TO REFUSE MEDICATIONS. PHYSICIAN NOTIFIED OF REFUSAL OF MORNING DOSE OF ORAL INVEGA, PHYSICIAN ORDERED PT TO RECEIVE 5 MG OF IM HALDOL AND 50MG OF IM BENADRYL. PT WAS GIVEN THE OPTION OF ORAL INVEGA OR INJECTIONS AGAIN PRIOR TO ADMINISTRATION. PT WAS EDUCATED ON THE REASONS BEHIND THE MEDICATION. SECURITY WAS CALLED UP TO THE UNIT. NERI ATKINS CAME AND PT WAS UNCOOPERATIVE WITH ADMINISTRATION AND REQUIRED A MANUAL HOLD. NERI ATKINS HELD PT R WRIST AND LUAN MALDONADO HELD PT L WRIST. THIS RN AND HUBER PABLO ADMINISTERED THE INJECTIONS. PT TOLERATED INJECTIONS WELL. PT WAS RELEASED, HOLD ONLY LASTED FOR ABOUT 2 MINUTES. WILL CONTINUE TO MONITOR PT.
[2022-09-28 14:00] VITALS: RESP 16
--- NOTE | 2022-09-28 15:11 | PC.NURSE ---
PT REFUSED VITALS. PT STATES I AM WALKING AND TALKING SO THERE FOR IM ALIVE . RESPIRATIONS WERE OBTAINED AND WILL CONTINUE TO MONITOR.
--- NOTE | 2022-09-28 15:50 | P.NPUPN_ITS ---
Subjective NPU Subjective: Patient is a 42-year-old white female admitted with chronic paranoid schizophrenia with Capgras syndrome. There were no notable changes since her admission. She continues to remain paranoid and suspicious. She continued to endorse a desire to leave the hospital as she repeatedly attempted to check all the doors seeking any opening door so that she may leave. She had reported maribel ara to exact justice for those that were illicitly holding other children hostage in their home with reports of homicidal thoughts noted. She had continued to endorse that her may have been replaced by an impostor and had not requested to speak with him. The patient had continued to require restraints. She had kit continued to require significant redirection and chronic one-on-one monitoring. She had continued to refuse oral Invega and had been given Haldol in place intramuscularly. Mental Status Exam MSE Comments: Patient is a casually dressed thin white female who had poor hygiene. She was alert and oriented to person place today. Her gait appeared steady. Her speech was slow and limited in productivity today. She had expressed desire to leave the hospital now. Her mood was described as better. Her affect was odd and subdued and mood incongruent. She denied having any thoughts of hurting herself. Homicidal ideation remained prominent. 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 Her insight is impaired. Her judgment is poor. Her impulse control appeared poor. Her recent and remote memory appeared at baseline. Vitals/I&O/Wt Last Vital Signs Temp 97.7 F 09/27/22 21:20 Pulse 127 H 09/27/22 21:20 Resp 16 09/28/22 14:00 BP 87/54 09/27/22 21:20 Pulse Ox 97 09/27/22 21:20 O2 Del Method Room Air 09/27/22 21:20 Data NPU 09/23/22 12:30 09/23/22 12:30 A&P Assessment and plan (1) Schizophrenia, paranoid, chronic: Plan This is a 42-year-old white female with chronic schizophrenia who has not been on her medications with an extended history of noncompliance who appears quite psychotic and incapable of managing herself safely at home. She w ould likely benefit from acute intervention while on the inpatient unit here. 1.? ? Engage? patient in individual ,milieu, and group therapy ?2. ? We will attempt to gather collateral information from previous providers ?3. ? 1-1 close observations with patient having history of multiple successful attempts to flee hospital. ?4.? Continue 6mg oral invega (haldol 5mg IM given if refused) as patient given 2nd dose of IM 156mg invega on 09/27/22. Involuntary Hold Information 96 Hour Hold: 96 Hour Involuntary Admission: Yes 96 Hour Hold Ending Date: 09/28/22 96 Hour Hold Ending Time: 17:15 Attestations NPU Medical Necessity Statement*: Inpatient hospitalization is medically necessary and deemed to be the clinically appropriate intervention at this time. We will initiate medications and make changes as indicated. Her likely length of stay is 10-14 days. Coding Level of Care Code Acute Code for [facility] Fwd Diagnoses Schizophrenia, paranoid, chronic F20.0
--- NOTE | 2022-09-29 06:01 | PC.NURSE ---
patient came to window asking to be let out. Tearful, stating she wants to shoot the neighbors because they ar eharming the childrena nd have been doing this for 15 years. asked about killing being a mortal sin under the 10 commandments and the Scientologist jewish. She stated, someone has to protect the children and can I just arrest them?
[2022-09-29] MEDS: paliperidone ER 6 mg Tablet PO (07:10)
--- NOTE | 2022-09-29 07:21 | PC.NURSE ---
Patient given Invega earlier than scheduled time because she agreed to take her medication this morning and this RN took the opportunity to let her take it early since she has refused several days in a row.
--- NOTE | 2022-09-29 08:27 | PC.NURSE ---
Patient refusing assessment this morning. When this RN asked if I could listen to her lungs and heart she said, no there's no need for that. Then when asked when her last bowel movement was she said, oh stop it with that nonsense. Go away.
[2022-09-29 14:00] VITALS: RESP 16
--- NOTE | 2022-09-29 15:10 | PC.NURSE ---
PT REFUSED 1400 VITALS, PT STATES I AM ALIVE, I DONT NEED THEM DONE . RESPIRATIONS WERE COUNTED AT 16. WILL CONTINUE TO MONITOR.
--- NOTE | 2022-09-29 15:54 | W.PM.NPUPNS ---
Subjective NPU Subjective: Patient is in today reporting that she was feeling like she wanted to discharge. She also made this magnetic tape typewriter operator to take her off the unit and take her to charge. We had long discussion about what it would take for her to be discharged. We discussed the fact that Kathryn has progressed to having a twice a year injection and Nain has progressed to having a every 2 month injection so that she can keep herself up-to-date with her medication with 6 doctor visits. She appeared to understand and I described to her that we will need to get her back to baseline or close before discharge. Mental Status Exam MSE Comments: Patient is a slender white female in hospital scrubs who continues to wear idiosyncratic clothing. She has a sheet over her head and over her shoulder like she is dressed in biblical times. Grooming is limited and eye contact is fairly good. No abnormal movements except for psychomotor retardation. Mostly cooperative with exam in moderate distress. Her speech is fairly spontaneous and at a normal rate and decreased volume. Mood reported as OK, except for being here affect was subdued and occasionally tearful. Her thought process appeared organized. Thought content: Patient denied suicidal or homicidal ideation, there were no delusions reported but clear paranoia and hyperreligious delusions noted, she denied auditory or visual hallucinations. She does have roman catholic preoccupation and preoccupation with conspiracy theories. Attention and concentration appear intact. Her memory appears unreliable, but none were formally tested. She is alert and oriented x3. Insight, judgment, and impulse control all remain significantly impaired. Vitals/I&O/Wt Last Vital Signs Temp 97.7 F 09/27/22 21:20 Pulse 127 H 09/27/22 21:20 Resp 16 09/29/22 14:00 BP 87/54 09/27/22 21:20 Pulse Ox 97 09/27/22 21:20 O2 Del Method Room Air 09/27/22 21:20 Data NPU 09/23/22 12:30 09/23/22 12:30 A&P Assessment and plan (1) Schizophrenia, paranoid, chronic: Plan This is a 42-year-old white female with chronic schizophrenia who has not been on her medications with an extended history of noncompliance who appears quite psychotic and incapable of managing herself safely at home. She would likely benefit from acute intervention while on the inpatient unit here. 1.? ? Engage? patient in individual ,milieu, and group therapy ?2. ? We will attempt to gather collateral information from previous providers ?3. ? 1-1 close observations with patient having history of multiple successful attempts to flee hospital. ?4.? Continue 6mg oral invega (haldol 5mg IM given if refused) as patient given 2nd dose of IM 156mg invega on 09/27/22. Involuntary Hold Information 96 Hour Hold: 96 Hour Involuntary Admission: Yes 96 Hour Hold Ending Date: 09/28/22 96 Hour Hold Ending Time: 17:15 Attestations NPU Medical Necessity Statement*: Inpatient hospitalization is medically necessary and deemed to be the clinically appropriate intervention at this time. We will initiate medications and make changes as indicated. Her likely length of stay is 10-14 days. Coding Level of Care Code Acute Code for [facility] Fwd Diagnoses Schizophrenia, paranoid, chronic F20.0
[2022-09-30 05:54] VITALS: BP 94/55; PULSE 85; RESP 15; TEMP 36.8; O2SAT 98
[2022-09-30] MEDS: paliperidone ER 6 mg Tablet PO (08:01)
--- NOTE | 2022-09-30 13:47 | W.PM.NPUPNS ---
Subjective NPU Subjective: Patient presents today reporting that she was feeling fine. She was more assertive about her beliefs that are clearly delusions. Thoughts abdout the neighbors that the police would not believe. We had continued discussion about what it would take for her to be discharged. We discussed her taking the Invega injection as well as the Abilify injection that has progressed to having a every 2 month version. She appeared to understand but still is resistant to medication having any impact on her situation. Mental Status Exam MSE Comments: Patient is a slender white female in hospital scrubs who continues to wear idiosyncratic clothing. She has a sheet over her head and over her shoulder like she is dressed in biblical times. Grooming is limited and eye contact is fairly good. No abnormal movements except for psychomotor retardation. Mostly cooperative with exam in moderate distress. Her speech is fairly spontaneous and at a normal rate and decreased volume. Mood reported as OK, except for being here affect was subdued and occasionally tearful. Her thought process appeared organized. Thought content: Patient denied suicidal or homicidal ideation, there were no delusions reported but clear paranoia and hyperreligious delusions noted, she denied auditory or visual hallucinations. She does have bahai preoccupation and preoccupation with conspiracy theories. Attention and concentration appear intact. Her memory appears unreliable, but none were formally tested. She is alert and oriented x3. Insight, judgment, and impulse control all remain significantly impaired. Vitals/I&O/Wt Last Vital Signs Temp 98.2 F 09/30/22 05:54 Pulse 85 09/30/22 05:54 Resp 15 09/30/22 05:54 BP 94/55 09/30/22 05:54 Pulse Ox 98 09/30/22 05:54 O2 Del Method Room Air 09/30/22 05:54 Data NPU 09/23/22 12:30 09/23/22 12:30 A&P Assessment and plan (1) Schizophrenia, paranoid, chronic: Plan This is a 42-year-old white female with chronic schizophrenia who has not been on her medications with an extended history of noncompliance who appears quite psychotic and incapable of managing herself safely at home. She would likely benefit from acute intervention while on the inpatient unit here. 1.? ? Engage? patient in individual ,milieu, and group therapy ?2. ? We will attempt to gather collateral information from previous providers ?3. ? 1-1 close observations with patient having history of multiple successful attempts to flee hospital. ?4.? Continue 6mg oral invega (haldol 5mg IM given if refused) as patient given 2nd dose of IM 156mg invega on 09/27/22. Involuntary Hold Information 96 Hour Hold: 96 Hour Involuntary Admission: Yes 96 Hour Hold Ending Date: 09/28/22 96 Hour Hold Ending Time: 17:15 Attestations NPU Medical Necessity Statement*: Inpatient hospitalization is medically necessary and deemed to be the clinically appropriate intervention at this time. We will initiate medications and make changes as indicated. Her likely length of stay is 10-14 days. Coding Level of Care Code Acute Code for [facility] Fwd Diagnoses Schizophrenia, paranoid, chronic F20.0
[2022-09-30 14:00] VITALS: RESP 16
[2022-09-30 21:06] VITALS: BP 92/55; PULSE 60; RESP 15; TEMP 36.6; O2SAT 97
[2022-10-01 06:00] VITALS: BP 103/67; PULSE 84; RESP 16; TEMP 36.7; O2SAT 99
[2022-10-01] MEDS: paliperidone ER 6 mg Tablet PO (10:32)
--- NOTE | 2022-10-01 11:47 | P.NPUPN_ITS ---
Subjective NPU Subjective: Patient presented today reporting that she thinks she is ready to leave. She somewhat playfully requested that this functional tester typewriters pushed the button that would open the door. We continue to discuss the importance of her medication compliance and in that regard her compliance to the monthly/bimonthly and hopefully quarterly or less injections. She continues to be resistant to the idea of needing/staying on medications. Mental Status Exam MSE Comments: Patient is a slender white female in hospital scrubs who continues to wear idiosyncratic clothing. She has a sheet over her head and over her shoulder like she is dressed in biblical times. Grooming is limited and eye contact is fairly good. No abnormal movements except for psychomotor retardation. Mostly cooperative with exam in mild distress. Her speech is fairly spontaneous and at a normal rate and decreased volume. Mood reported as fine, except for being here affect was subdued and occasionally tearful. Her thought process appeared organized. Thought content: Patient denied suicidal or homicidal ideation, there were no delusions reported but clear paranoia and hyperreligious delusions noted, she denied auditory or visual hallucinations. She does have temple preoccupation and preoccupation with conspiracy theories. Attention and concentration appear intact. Her memory appears unreliable, but none were formally tested. She is alert and oriented x3. Insight, judgment, and impulse control all remain significantly impaired. Vitals/I&O/Wt Last Vital Signs Temp 98.0 F 10/01/22 06:00 Pulse 84 10/01/22 06:00 Resp 16 10/01/22 06:00 BP 103/67 10/01/22 06:00 Pulse Ox 99 10/01/22 06:00 O2 Del Method Room Air 10/01/22 06:00 Data NPU 09/23/22 12:30 09/23/22 12:30 A&P Assessment and plan (1) Schizophrenia, paranoid, chronic: Plan This is a 42-year-old white female with chronic schizophrenia who has not been on her medications with an extended history of noncompliance who appears quite psychotic and incapable of managing herself safely at home. She would likely benefit from acute intervention while on the inpatient unit here. 1.? ? Engage? patient in individual ,milieu, and group therapy ?2. ? We will attempt to gather collateral information from previous providers ?3. ? 1-1 close observations with patient having history of multiple successful attempts to flee hospital. ?4.? Continue 6mg oral invega (haldol 5mg IM given if refused) as patient given 2nd dose of IM 156mg invega on 09/27/22. We will need to talk to outpatient provider and identify whether Abilify should be restarted as well as a long-acting injectable. Involuntary Hold Information 96 Hour Hold: 96 Hour Involuntary Admission: Yes 96 Hour Hold Ending Date: 09/28/22 96 Hour Hold Ending Time: 17:15 Attestations NPU Medical Necessity Statement*: Inpatient hospitalization is medically necessary and deemed to be the clinically appropriate intervention at this time. We will initiate medications and make changes as indicated. Her likely length of stay is 10-14 days. Coding Level of Care Code Acute Code for Chg Fwd Diagnoses Schizophrenia, paranoid, chronic F20.0
[2022-10-01 14:00] VITALS: BP 114/76; PULSE 72; RESP 15; O2SAT 98
[2022-10-01 20:12] VITALS: BP 87/53; PULSE 83; RESP 16; TEMP 36.7; O2SAT 97
[2022-10-02] MEDS: paliperidone ER 6 mg Tablet PO (08:35)
--- NOTE | 2022-10-02 11:24 | P.NPUPN_ITS ---
Subjective NPU Subjective: Patient presented today reporting that she is feeling fine. She continues to endorse that the circumstance that led to her hospitalization were more about the manager document control just not believing her. We discussed the fact that she has made a name for herself in the community and I am certain that those police are in some ways impacted by previous encounters and that her being off of her medication creates a edge about her thinking and reactions to her neighbor and certain touchy subjects. We discussed her maintaining the injections hopefully at a every 3- month or every 6-month fashion to be able to sustain her freedom. Still considering the Abilify injection to take with Invega. Mental Status Exam MSE Comments: Patient is a slender white female in hospital scrubs who continues to wear idiosyncratic clothing. She has a sheet over her head and over her shoulder like she is dressed in biblical times. Grooming is limited and eye contact is fairly good. No abnormal movements except for psychomotor retardation. Mostly cooperative with exam in mild distress. Her speech is fairly spontaneous and at a normal rate and decreased volume. Mood reported as fine, except for being here affect was subdued and occasionally tearful. Her thought process appeared organized. Thought content: Patient denied suicidal or homicidal ideation, there were no delusions reported but clear paranoia and hyperreligious delusions noted, she denied auditory or visual hallucinations. She does have buddhist preoccupation and preoccupation with conspiracy theories. Attention and concentration appear intact. Her memory appears unreliable, but none were formally tested. She is alert and oriented x3. Insight, judgment, and impulse control all remain significantly impaired. Vitals/I&O/Wt Last Vital Signs Temp 98.0 F 10/01/22 20:12 Pulse 83 10/01/22 20:12 Resp 16 10/01/22 20:12 BP 87/53 10/01/22 20:12 Pulse Ox 97 10/01/22 20:12 O2 Del Method Room Air 10/01/22 20:12 Data NPU 09/23/22 12:30 09/23/22 12:30 A&P Assessment and plan (1) Schizophrenia, paranoid, chronic: Plan This is a 42-year-old white female with chronic schizophrenia who has not been on her medications with an extended history of noncompliance who appears quite psychotic and incapable of managing herself safely at home. She would likely benefit from acute intervention while on the inpatient unit here. 1.? ? Engage? patient in individual ,milieu, and group therapy ?2. ? We will attempt to gather collateral information from previous providers ?3. ? 1-1 close observations with patient having history of multiple successful attempts to flee hospital. ?4.? Continue 6mg oral invega (haldol 5mg IM given if refused) as patient given 2nd dose of IM 156mg invega on 09/27/22. We will need to talk to outpatient provider and identify whether Abilify should be restarted as well as a long-acting injectable. Involuntary Hold Information 96 Hour Hold: 96 Hour Involuntary Admission: Yes 96 Hour Hold Ending Date: 09/28/22 96 Hour Hold Ending Time: 17:15 Attestations NPU Medical Necessity Statement*: Inpatient hospitalization is medically necessary and deemed to be the clinically appropriate intervention at this time. We will initiate medications and make changes as indicated. Her likely length of stay is 9 to 13 days. Coding Level of Care Code Acute Code for [facility] Fwd Diagnoses Schizophrenia, paranoid, chronic F20.0
[2022-10-02 14:00] VITALS: BP 87/53; PULSE 94; RESP 16; O2SAT 98
[2022-10-02 21:02] VITALS: BP 89/60; PULSE 84; RESP 18; TEMP 36.6; O2SAT 99
[2022-10-03 06:00] VITALS: BP 89/53; PULSE 71; RESP 16; TEMP 36.7; O2SAT 99
[2022-10-03] MEDS: paliperidone ER 6 mg Tablet PO (09:17)
--- NOTE | 2022-10-03 11:58 | P.NPUPN_ITS ---
Subjective NPU Subjective: Patient presents today continuing to be focused on discharge. We continue to identify her being in a much better place than she has been in previous hospitalizations however continuing to have resistance to the idea of medication follow-up. We discussed working on identifying some possible legal approaches to ensuring her regular injection adherence. We continue to discuss whether a second antipsychotic is necessary as a standard. Mental Status Exam MSE Comments: Patient is a slender white female in hospital scrubs who continues to wear idiosyncratic clothing. She has a sheet over her head and over her shoulder like she is dressed in biblical times. Grooming is limited and eye contact is fairly good. No abnormal movements except for psychomotor retardation. Mostly cooperative with exam in mild distress. Her speech is fairly spontaneous and at a normal rate and decreased volume. Mood reported as fine, except for being here affect was less subdued and less tearful. Her thought process appeared organized. Thought content: Patient denied suicidal or homicidal ideation, the re were no delusions reported but clear paranoia and hyperreligious delusions noted, she denied auditory or visual hallucinations. She does have restoration preoccupation and preoccupation with conspiracy theories. Attention and concentration appear intact. Her memory appears unreliable, but none were formally tested. She is alert and oriented x3. Insight, judgment, and impulse control all remain significantly impaired. Vitals/I&O/Wt Last Vital Signs Temp 98.0 F 10/03/22 06:00 Pulse 71 10/03/22 06:00 Resp 16 10/03/22 06:00 BP 89/53 10/03/22 06:00 Pulse Ox 99 10/03/22 06:00 O2 Del Method Room Air 10/02/22 21:02 Data NPU 09/23/22 12:30 09/23/22 12:30 A&P Assessment and plan (1) Schizophrenia, paranoid, chronic: Plan This is a 42-year-old white female with chronic schizophrenia who has not been on her medications with an extended history of noncompliance who appears quite psychotic and incapable of managing herself safely at home. She would likely benefit from acute intervention while on the inpatient unit here. 1.? ? Engage? patient in individual ,milieu, and group therapy ?2. ? We will attempt to gather collateral information from previous providers ?3. ? 1-1 close observations with patient having history of multiple successful attempts to flee hospital. ?4.? Continue 6mg oral invega (haldol 5mg IM given if refused) as patient given 2nd dose of IM 156mg invega on 09/27/22. We will need to talk to outpatient provider and identify whether Abilify should be restarted as well as a long-acting injectable. Involuntary Hold Information 96 Hour Hold: 96 Hour Involuntary Admission: Yes 96 Hour Hold Ending Date: 09/28/22 96 Hour Hold Ending Time: 17:15 Attestations NPU Medical Necessity Statement*: Inpatient hospitalization is medically necessary and deemed to be the clinically appropriate intervention at this time. We will initiate medications and make changes as indicated. Her likely length of stay is 8-12 days. Coding Level of Care Code Acute Code for g Fwd Diagnoses Schizophrenia, paranoid, chronic F20.0
[2022-10-03 21:04] VITALS: RESP 18
[2022-10-04] MEDS: paliperidone ER 6 mg Tablet PO (08:36)
--- NOTE | 2022-10-04 09:18 | PC.NURSE ---
PT IS CURRENTLY REFUSING TO PUT ON ELOPEMENT AND ALLERGY BRACELET. WILL CONTINUE TO ATTEMPT PLACEMENT.
--- NOTE | 2022-10-04 10:06 | PC.NURSE ---
PT CURRENTLY UNWILLING TO PARTICIPATING IN ASSESSMENT. PT UNWILLING TO ANSWER NURSES QUESTIONS. PT ONLY STATES IM FINE . PT WILLINGLY TOOK ORAL INVEGA THIS MORNING. PT CURRENT NEEDS ARE MET.
[2022-10-04 14:00] VITALS: BP 95/60; PULSE 91; O2SAT 99
--- NOTE | 2022-10-04 15:04 | W.PM.NPUPNS ---
Subjective NPU Subjective: Patient presented today much more animated and endorsing being open to the idea of even taking the second injection which would be the Abilify IM which now comes in a 2-month version. We discussed working with her guardian on ensuring that there was some accountability to taking injections to avoid hospitalization in the future and also less talking to the outpatient team to make sure that they are functioning in a collaborative way. She took a shower today which for her is very indicative of movement in the positive direction. Mental Status Exam MSE Comments: Patient is a slender white female in hospital scrubs who continues to wear idiosyncratic clothing. She has a sheet over her head and over her shoulder like she is dressed in biblical times. Grooming is limited but improving and eye contact is fairly good. No abnormal movements. Mostly cooperative with exam in mild distress. Her speech is spontaneous and at a normal rate and decreased volume. Mood reported as good, ready to go, affect appeared congruent. Her thought process appeared organized. Thought content: Patient denied suicidal or homicidal ideation, there were no delusions reported and no clear delusions noted, she denied auditory or visual hallucinations. She she appears to have less yarsanism preoccupation and preoccupation with conspiracy theories. Attention and concentration appear intact. Her memory appears unreliable, but none were formally tested. She is alert and oriented x3. Insight, judgment, and impulse control all appear to be improving. Vitals/I&O/Wt Last Vital Signs Temp 98.0 F 10/03/22 06:00 Pulse 91 10/04/22 14:00 Resp 18 10/03/22 21:04 BP 95/60 10/04/22 14:00 Pulse Ox 99 10/04/22 14:00 O2 Del Method Room Air 10/04/22 14:00 Data NPU 09/23/22 12:30 09/23/22 12:30 A&P Assessment and plan (1) Schizophrenia, paranoid, chronic: Plan This is a 42-year-old white female with chronic schizophrenia who has not been on her medications with an extended history of noncompliance who appears quite psychotic and incapable of managing herself safely at home. She would likely benefit from acute intervention while on the inpatient unit here. 1.? ? Engage? patient in individual ,milieu, and group therapy ?2. ? We will attempt to gather collateral information from previous providers ?3. ? 1-1 close observations with patient having history of multiple successful attempts to flee hospital. ?4.? Continue 6mg oral invega (haldol 5mg IM given if refused) as patient given 2nd dose of IM 156mg invega on 09/27/22. We will need to talk to outpatient provider and identify whether Abilify should be restarted as well as a long-acting injectable. Involuntary Hold Information 96 Hour Hold: 96 Hour Involuntary Admission: Yes 96 Hour Hold Ending Date: 09/28/22 96 Hour Hold Ending Time: 17:15 Attestations NPU Medical Necessity Statement*: Inpatient hospitalization is medically necessary and deemed to be the clinically appropriate intervention at this time. We will initiate medications and make changes as indicated. Her likely length of stay is 6-10 days. Improvements coming much quicker than previously so discharge likely sooner than we were expecting Coding Level of Care Code Acute Code for Chg Fwd Diagnoses Schizophrenia, paranoid, chronic F20.0
[2022-10-05 06:00] VITALS: BP 102/61; PULSE 77; RESP 18; O2SAT 98
[2022-10-05] MEDS: paliperidone ER 6 mg Tablet PO (08:55)
--- NOTE | 2022-10-05 09:42 | PC.NURSE ---
PT APPEARS ANXIOUS. PT BELIEVES THAT HER FAMILY IS COMING THIS MORNING AND IS HOPING TO LEAVE. PT CONTINUES TO BE COOPERATIVE WITH 1:1 SITTER AND WILLINGLY TOOK HER MEDICATION THIS MORNING.
--- NOTE | 2022-10-05 12:43 | PC.NURSE ---
One to One sitter order has been stopped at this time.
--- NOTE | 2022-10-05 13:07 | PC.NURSE ---
Nurse encouraged pt to please wear her ID band and also allergy and elopement arm band. Pt refused to put them on her wrist.
[2022-10-05 14:00] VITALS: BP 97/60; PULSE 85; RESP 16; TEMP 36.9; O2SAT 98
--- NOTE | 2022-10-05 19:09 | P.NPUPN_ITS ---
Subjective NPU Subjective: Patient presented today continuing to lobby for discharge and expressed improvement. Given our consideration of discharge soon she was taken off of one-to-one. That made her quite happy. However she showed her limited improvement in a moment she was [place] removed off of her side and care needed to be made to avoid her going to try to exit. We discussed the fact that if she is as well as she is saying she should be able to identify the horrible impact of trying to leave and have on her discharge planning. She was clearly in a different emotional state at that moment. That being said without real challenge she took off her items that establish her biblical look. Mental Status Exam MSE Comments: Patient is a slender white female in hospital scrubs who removed her idiosyncratic clothing upon first request such that she no longer look like she is dressed in biblical times. Grooming is limited but improving as she showered the other day for the first time and eye contact is fairly good. No abnormal movements. Mostly cooperative with exam in mild distress. Her speech is sp ontaneous and with more normal rate and volume. Mood reported as good, ready to go, affect appeared congruent. Her thought process appeared organized. Thought content: Patient denied suicidal or homicidal ideation, there were no delusions reported and no clear delusions noted, she denied auditory or visual hallucinations. She she appears to have less presybeterian preoccupation and preoccupation with conspiracy theories. Attention and concentration appear intact. Her memory appears unreliable, but none were formally tested. She is alert and oriented x3. Insight, judgment, and impulse control all appear to be improving. Vitals/I&O/Wt Last Vital Signs Temp 98.4 F 10/05/22 14:00 Pulse 85 10/05/22 14:00 Resp 16 10/05/22 14:00 BP 97/60 10/05/22 14:00 Pulse Ox 98 10/05/22 14:00 O2 Del Method Room Air 10/05/22 14:00 Data NPU 09/23/22 12:30 09/23/22 12:30 A&P Assessment and plan (1) Schizophrenia, paranoid, chronic: Plan This is a 42-year-old white female with chronic schizophrenia who has not been on her medications with an extended history of noncompliance who appears quite psychotic and incapable of managing herself safely at home. She would likely benefit from acute intervention while on the inpatient unit here. 1.? ? Engage? patient in individual ,milieu, and group therapy ?2. ? We will attempt to gather collateral information from previous providers ?3. ? Changed to every 15 minute checks for safety, but still having exit checking behavior ?4.? Continue 6mg oral invega (haldol 5mg IM given if refused) as patient given 2nd dose of IM 156mg invega on 09/27/22. We will need to talk to outpatient provider and identify whether Abilify should be restarted as well as a long-acting injectable. Involuntary Hold Information 96 Hour Hold: 96 Hour Involuntary Admission: Yes 96 Hour Hold Ending Date: 09/28/22 96 Hour Hold Ending Time: 17:15 Attestations NPU Medical Necessity Statement*: Inpatient hospitalization is medically necessary and deemed to be the clinically appropriate intervention at this time. We will initiate medications and make changes as indicated. Her likely length of stay is 5-9 days. Improvements coming much quicker than previously so discharge likely sooner than we were expecting Coding Level of Care Code Acute Code for Chg Fwd Diagnoses Schizophrenia, paranoid, chronic F20.0
[2022-10-05 21:25] VITALS: RESP 16
[2022-10-06 06:00] VITALS: BP 92/52; PULSE 79; RESP 12; TEMP 36.4; O2SAT 99
[2022-10-06] MEDS: paliperidone ER 6 mg Tablet PO (09:19)
[2022-10-06] MEDS: ARIPiprazole 10 mg Tablet 5 MG PO (12:32)
--- NOTE | 2022-10-06 13:44 | P.NPUPN_ITS ---
Subjective NPU Subjective: Patient presented today reporting that she is going to leave. We continue to discuss her overall situation and wants to ensure that she stays turned to the medication regimen. The Abilify was initiated with consideration for long- acting injectable as we have done in the past. She has taken oral without incident. She continues to exit watch. We discussed continuing to work with her guardian on a discharge plan with safeguards against medication nonadherence. Mental Status Exam MSE Comments: Patient is a slender white female in hospital scrubs who removed her idiosyncratic clothing upon first request such that she no longer look like she is dressed in biblical times. Grooming is limited but improving as she showered the other day for the first time and eye contact is fairly good. No abnormal movements. Mostly cooperative with exam in mild distress. Her speech is spontaneous and with more normal rate and volume. Mood reported as good, ready to go, affect appeared congruent. Her thought process appeared organized. Thought content: Patient denied suicidal or homicidal ideation, there were no delusions reported and no clear delusions noted, she denied auditory or visual h allucinations. She she appears to have less yazidi preoccupation and preoccupation with conspiracy theories. Attention and concentration appear intact. Her memory appears unreliable, but none were formally tested. She is alert and oriented x3. Insight, judgment, and impulse control all appear to be improving. Vitals/I&O/Wt Last Vital Signs Temp 97.6 F 10/06/22 06:00 Pulse 93 10/06/22 14:00 Resp 12 10/06/22 06:00 BP 96/58 10/06/22 14:00 Pulse Ox 96 10/06/22 14:00 O2 Del Method Room Air 10/06/22 14:00 Data NPU 09/23/22 12:30 09/23/22 12:30 A&P Assessment and plan (1) Schizophrenia, paranoid, chronic: Plan This is a 42-year-old white female with chronic schizophrenia who has not been on her medications with an extended history of noncompliance who appears quite psychotic and incapable of managing herself safely at home. She would likely benefit from acute intervention while on the inpatient unit here. 1.? ? Engage? patient in individual ,milieu, and group therapy ?2. ? We will attempt to gather collateral information from previous providers ?3. ? Changed to every 15 minute checks for safety, but still having exit checking behavior ?4.? Continue 6mg oral invega (haldol 5mg IM given if refused) as patient given 2nd dose of IM 156mg invega on 09/27/22. We will need to talk to outpatient provider. We restarted Abilify 5 mg p.o. daily with plan to increase it to 10 mg. Holding out decision on second long-acting injectable. Involuntary Hold Information 96 Hour Hold: 96 Hour Involuntary Admission: Yes 96 Hour Hold Ending Date: 09/28/22 96 Hour Hold Ending Time: 17:15 Attestations NPU Medical Necessity Statement*: Inpatient hospitalization is medically necessary and deemed to be the clinically appropriate intervention at this time. We will initiate medications and make changes as indicated. Her likely length of stay is 4-8 days. Improvements coming much quicker than previously so discharge likely sooner than we were expecting Coding Level of Care Code Acute Code for [facility] Fwd Diagnoses Schizophrenia, paranoid, chronic F20.0
[2022-10-06 14:00] VITALS: BP 96/58; PULSE 93; O2SAT 96
--- NOTE | 2022-10-06 16:04 | PC.NURSE ---
Staff member witnessed patient attempting to push on a locked door to see if she could elope.
--- NOTE | 2022-10-06 16:11 | PC.NURSE ---
Pt is walking in hallway and stopping at doors pushing on them, in hopes that it will open. Encouraged pt to not push on the doors. Pt then stated well then just open it and let me go .
[2022-10-07 06:00] VITALS: BP 91/50; PULSE 71; RESP 12; TEMP 36.5; O2SAT 97
[2022-10-07] MEDS: paliperidone ER 6 mg Tablet PO (08:20)
[2022-10-07] MEDS: ARIPiprazole 10 mg Tablet 5 MG PO (08:21)
--- NOTE | 2022-10-07 13:05 | W.PM.NPUPNS ---
Subjective NPU Subjective: Patient is in today reporting that she is ready to leave which is unchanged. She continues to be more social and be open to the idea of the second injection so that she can go home. She continues to follow instructions but does still door/exit watch. She denies side effects to the medication. We discussed increasing her Abilify to 10 mg p.o. every morning and considering injection. Mental Status Exam MSE Comments: Patient is a slender white female in hospital scrubs who removed her idiosyncratic clothing upon first request such that she no longer look like she is dressed in biblical times. Grooming is limited but improving as she showered the other day for the first time and eye contact is fairly good. No abnormal movements. Mostly cooperative with exam in mild distress. Her speech is spontaneous and with more normal rate and volume. Mood reported as good, ready to go, affect appeared congruent. Her thought process appeared organized. Thought content: Patient denied suicidal or homicidal ideation, there were no delusions reported and no clear delusions noted, she denied auditory or visual hallucinations. She she appears to have less presybeterian preoccupation and preoccupation with conspiracy theories. Attention and concentration appear intact. Her memory appears unreliable, but none were formally tested. She is alert and oriented x3. Insight, judgment, and impulse control all appear to be improving. Vitals/I&O/Wt Last Vital Signs Temp 97.7 F 10/07/22 06:00 Pulse 102 H 10/07/22 14:00 Resp 18 10/07/22 20:56 BP 106/65 10/07/22 14:00 Pulse Ox 96 10/07/22 14:00 O2 Del Method Room Air 10/07/22 14:00 Data NPU 09/23/22 12:30 09/23/22 12:30 A&P Assessment and plan (1) Schizophrenia, paranoid, chronic: Plan This is a 42-year-old white female with chronic schizophrenia who has not been on her medications with an extended history of noncompliance who appears quite psychotic and incapable of managing herself safely at home. She would likely benefit from acute intervention while on the inpatient unit here. 1.? ? Engage? patient in individual ,milieu, and group therapy ?2. ? We will attempt to gather collateral information from previous providers ?3. ? Changed to every 15 minute checks for safety, but still having exit checking behavior ?4.? Continue 6mg oral invega (haldol 5mg IM given if refused) as patient given 2nd dose of IM 156mg invega on 09/27/22. We will need to talk to outpatient provider. We restarted Abilify 5 mg p.o. daily with plan to increase it to 10 mg. Holding out decision on second long-acting injectable. Involuntary Hold Information 96 Hour Hold: 96 Hour Involuntary Admission: Yes 96 Hour Hold Ending Date: 09/28/22 96 Hour Hold Ending Time: 17:15 Attestations NPU Medical Necessity Statement*: Inpatient hospitalization is medically necessary and deemed to be the clinically appropriate intervention at this time. We will initiate medications and make changes as indicated. Her likely length of stay is 3-7 days. Improvements coming much quicker than previously so discharge likely sooner than we were expecting Coding Level of Care Code Acute Code for Chg Fwd Diagnoses Schizophrenia, paranoid, chronic F20.0
[2022-10-07 14:00] VITALS: BP 106/65; PULSE 102; O2SAT 96
[2022-10-07 20:56] VITALS: RESP 18
[2022-10-08 06:00] VITALS: BP 94/62; PULSE 77; RESP 16; TEMP 36.6; O2SAT 98
[2022-10-08] MEDS: ARIPiprazole 10 mg Tablet PO (08:21)
[2022-10-08] MEDS: paliperidone ER 6 mg Tablet PO (08:21)
--- NOTE | 2022-10-08 10:19 | PC.NURSE ---
PT CURRENTLY DENIES SI/HI/AH/VH. PT WAS COOPERATIVE AND WILLING DURING SHIFT ASSESSMENT. PT HAD SOME CONCERNS ABOUT A CHANGE IN MEDICATION. THIS RN EDUCATED PT ABOUT THE CHANGE AND WHY. PT WAS INITIALLY RESISTIVE TO TAKING MEDICATION BUT EVENTUALLY TOOK MEDICATION WILLINGLY AFTER CONTINUED DISCUSSION.
--- NOTE | 2022-10-08 11:49 | PC.NURSE ---
PT IS TESTING DOORS AND AWAITING TO TALK WITH THE DOCTORS. PT HAS BEEN INFORMED THAT THE DOCTOR WILL BE MAKING ROUNDS LATER.
--- NOTE | 2022-10-08 12:11 | P.NPUPN_ITS ---
Subjective NPU Subjective: Patient presented today reporting that she is feeling ready to be discharged. We had a clear discussion about the concerns exist about making sure she is maintained effectively outpatient on her medications and does not have to return. Considerations of outpatient forced medication protocol, such injection versus not and make sure all resources are in place. We discussed the plan for discharge next week by Monday and she seemed to have great peace in that assurance. Mental Status Exam MSE Comments: Patient is a slender white female in hospital scrubs who removed her idiosyncratic clothing upon first request such that she no longer look like she is dressed in biblical times. Grooming is limited but improving as she has showered the other day for the first time and eye contact is fairly good. No abnormal movements. Mostly cooperative with exam in mild distress. Her speech is spontaneous and with more normal rate and volume. Mood reported as good, ready to go, affect appeared congruent. Her thought process appeared organized. Thought content: Patient denied suicidal or homicidal ideation, there were no delusions reported and no clear delusions noted, she denied auditory or visual hallucinations. She she appears to have less alevism preoccupation and preoccupation with conspiracy theories. Attention and concentration appear intact. Her memory appears unreliable, but none were formally tested. She is alert and oriented x3. Insight, judgment, and impulse control all appear to be improving. Vitals/I&O/Wt Last Vital Signs Temp 97.8 F 10/08/22 06:00 Pulse 77 10/08/22 06:00 Resp 16 10/08/22 06:00 BP 94/62 10/08/22 06:00 Pulse Ox 98 10/08/22 06:00 O2 Del Method Room Air 10/07/22 14:00 Data NPU 09/23/22 12:30 09/23/22 12:30 A&P Assessment and plan (1) Schizophrenia, paranoid, chronic: Plan This is a 42-year-old white female with chronic schizophrenia who has not been on her medications with an extended history of noncompliance who appears quite psychotic and incapable of managing herself safely at home. She would likely benefit from acute intervention while on the inpatient unit here. 1.? ? Engage? patient in individual ,milieu, and group therapy ?2. ? We will attempt to gather collateral information from previous providers ?3. ? Changed to every 15 minute checks for safety, but still having exit checking behavior ?4.? Continue 6mg oral invega (haldol 5mg IM given if refused) as patient given 2nd dose of IM 156mg invega on 09/27/22. We will need to talk to outpatient provider. We restarted Abilify 5 mg p.o. daily and increased it to 10 mg today, 10/08/2022. Holding out decision on second long-acting injectable. Involuntary Hold Information 96 Hour Hold: 96 Hour Involuntary Admission: Yes 96 Hour Hold Ending Date: 09/28/22 96 Hour Hold Ending Time: 17:15 Attestations NPU Medical Necessity Statement*: Inpatient hospitalization is medically necessary and deemed to be the clinically appropriate intervention at this time. We will initiate medications and make changes as indicated. Her likely length of stay is 3-6 days. Improvements coming much quicker than previously so discharge likely sooner than we were expecting Coding Level of Care Code Acute Code for Chg Fwd Diagnoses Schizophrenia, paranoid, chronic F20.0
[2022-10-08 14:00] VITALS: BP 97/64; PULSE 107; RESP 16; TEMP 36.9; O2SAT 95
[2022-10-08 21:41] VITALS: BP 104/65; PULSE 84; RESP 17; TEMP 36.6; O2SAT 97
[2022-10-09 06:00] VITALS: BP 93/62; PULSE 86; RESP 16; O2SAT 95
[2022-10-09] MEDS: ARIPiprazole 10 mg Tablet PO (08:47)
[2022-10-09] MEDS: paliperidone ER 6 mg Tablet PO (08:47)
--- NOTE | 2022-10-09 10:31 | W.PM.NPUPNS ---
Subjective NPU Subjective: Patient presented today reporting that she is feeling okay. She continues to have slow but incremental improvement. We discussed the likelihood of discharge by Monday and that we will be working with the social work team to make sure that all the necessary boxes are checked for safe discharge. We discussed this being related to injections and support in the outpatient team to move her [facility] and consideration of the Abilify 2-month injection which we will have to start with a 1 month injection with a prescription for the 2-month at discharge. As well as the possibility of having her injections be court ordered. Mental Status Exam MSE Comments: Patient is a slender white female in hospital scrubs who removed her idiosyncratic clothing upon first request such that she no longer look like she is dressed in biblical times. Grooming is limited but improving as she has showered the other day for the first time and eye contact is fairly good. No abnormal movements. Mostly cooperative with exam in mild distress. Her speech is spontaneous and with more normal rate and volume. Mood reported as good, ready to go, affect appeared congruent. Her thought process appeared organized. Thought content: Patient denied suicidal or homicidal ideation, there were no delusions reported and no clear delusions noted, she denied auditory or visual hallucinations. She she appears to have less roman catholic preoccupation and preoccupation with conspiracy theories. Attention and concentration appear intact. Her memory appears unreliable, but none were formally tested. She is alert and oriented x3. Insight, judgment, and impulse control all appear to be improving. Vitals/I&O/Wt Last Vital Signs Temp 97.8 F 10/08/22 21:41 Pulse 86 10/09/22 06:00 Resp 16 10/09/22 06:00 BP 93/62 10/09/22 06:00 Pulse Ox 95 10/09/22 06:00 O2 Del Method Room Air 10/08/22 14:00 Weight last 48 hrs Weight 57.776 kg Data NPU 09/23/22 12:30 09/23/22 12:30 A&P Assessment and plan (1) Schizophrenia, paranoid, chronic: Plan This is a 42-year-old white female with chronic schizophrenia who has not been on her medications with an extended history of noncompliance who appears quite psychotic and incapable of managing herself safely at home. She would likely benefit from acute intervention while on the inpatient unit here. 1.? ? Engage? patient in individual ,milieu, and group therapy ?2. ? We will attempt to gather collateral information from previous providers ?3. ? Changed to every 15 minute checks for safety, but still having exit checking behavior ?4.? Continue 6mg oral invega (haldol 5mg IM given if refused) as patient given 2nd dose of IM 156mg invega on 09/27/22. We will need to talk to outpatient provider. We restarted Abilify 5 mg p.o. daily and increased it to 10 mg 10/08/2022. Holding out decision on second long-acting injectable. Involuntary Hold Information 96 Hour Hold: 96 Hour Involuntary Admission: Yes 96 Hour Hold Ending Date: 09/28/22 96 Hour Hold Ending Time: 17:15 Attestations NPU Medical Necessity Statement*: Inpatient hospitalization is medically necessary and deemed to be the clinically appropriate intervention at this time. We will initiate medications and make changes as indicated. Her likely length of stay is 2-5 days. Improvements coming much quicker than previously so discharge likely sooner than we were expecting Coding Level of Care Code Acute Code for Chg Fwd Diagnoses Schizophrenia, paranoid, chronic F20.0
[2022-10-09 14:00] VITALS: BP 100/66; PULSE 89; RESP 15; O2SAT 96
--- NOTE | 2022-10-09 14:18 | PC.NURSE ---
PT REFUSED TEMP READING STATING I DO NOT HAVE A FEVER.
[2022-10-09 20:25] VITALS: BP 99/42; PULSE 90; RESP 16; O2SAT 96
[2022-10-10 06:00] VITALS: BP 97/61; PULSE 82; RESP 16; TEMP 36.4; O2SAT 97
[2022-10-10] MEDS: paliperidone ER 6 mg Tablet PO (08:21)
[2022-10-10] MEDS: ARIPiprazole 10 mg Tablet PO (08:21)
[2022-10-10 14:00] VITALS: BP 98/55; PULSE 94; RESP 16; O2SAT 96
--- NOTE | 2022-10-10 14:26 | P.NPUPN_ITS ---
Subjective NPU Subjective: Patient presents today reporting that she is feeling all right. She is pleased that we are working on her discharge this week and is eagerly anticipating that date. Continue work with her outpatient team to make sure we have a clear understanding of how her medications to be managed on discharge and to make sure they will be able to carry out the transition to the [facility] as well as whether they can support the Abilify long-acting injection as well. She is agreeable to these terms as well as working with her guardian to get a forced medication regimen. Mental Status Exam MSE Comments: Patient is a slender white female in hospital scrubs who removed her idiosyncratic clothing upon first request such that she no longer look like she is dressed in biblical times. Grooming is limited but improving as she has showered the other day for the first time and eye contact is fairly good. No abnormal movements. Mostly cooperative with exam in mild distress. Her speech is spontaneous and with more normal rate and volume. Mood reported as good, ready to go, affect appeared congruent. Her thought process appeared organized. Thought content: Patient denied suicidal or homicidal ideation, there were no delusions reported and no clear delusions noted, she denied auditory or visual hallucinations. She she appears to have less oriental orthodox preoccupation and preoccupation with conspiracy theories. Attention and concentration appear intact. Her memory appears unreliable, but none were formally tested. She is alert and oriented x3. Insight, judgment, and impulse control all appear to be improving. Vitals/I&O/Wt Last Vital Signs Temp 97.5 F L 10/10/22 06:00 Pulse 90 10/10/22 20:35 Resp 18 10/10/22 20:35 BP 105/50 10/10/22 20:35 Pulse Ox 96 10/10/22 20:35 O2 Del Method Room Air 10/09/22 14:00 Weight last 48 hrs Weight 57.776 kg Data NPU 09/23/22 12:30 09/23/22 12:30 A&P Assessment and plan (1) Schizophrenia, paranoid, chronic: Plan This is a 42-year-old white female with chronic schizophrenia who has n ot been on her medications with an extended history of noncompliance who appears quite psychotic and incapable of managing herself safely at home. She would likely benefit from acute intervention while on the inpatient unit here. 1.? ? Engage? patient in individual ,milieu, and group therapy ?2. ? We will attempt to gather collateral information from previous providers ?3. ? Changed to every 15 minute checks for safety, but still having exit checking behavior ?4.? Continue 6mg oral invega (haldol 5mg IM given if refused) as patient given 2nd dose of IM 156mg invega on 09/27/22. We will need to talk to outpatient provider. We restarted Abilify 5 mg p.o. daily and increased it to 10 mg 10/08/2022. Holding out decision on second long-acting injectable. Involuntary Hold Information 96 Hour Hold: 96 Hour Involuntary Admission: Yes 96 Hour Hold Ending Date: 09/28/22 96 Hour Hold Ending Time: 17:15 Attestations NPU Medical Necessity Statement*: Inpatient hospitalization is medically necessary and deemed to be the clinically appropriate intervention at this time. We will initiate medications and make changes as indicated. Her likely length of stay is 1-4 days. Improvements coming much quicker than previously so discharge likely sooner than we were expecting Coding Level of Care Code Acute Code for Chg Fwd Diagnoses Schizophrenia, paranoid, chronic F20.0
[2022-10-10 20:35] VITALS: BP 105/50; PULSE 90; RESP 18; O2SAT 96
[2022-10-11 06:00] VITALS: BP 105/66; PULSE 81; RESP 16; TEMP 36.6; O2SAT 97
[2022-10-11] MEDS: ARIPiprazole 10 mg Tablet PO (08:23)
[2022-10-11] MEDS: paliperidone ER 6 mg Tablet PO (08:23)
[2022-10-11 14:00] VITALS: BP 96/58; PULSE 99; O2SAT 97
--- NOTE | 2022-10-11 15:51 | PC.NURSE ---
refused to let staff obtain temperature with 1400 vital signs
--- NOTE | 2022-10-11 15:53 | P.NPUPN_ITS ---
Subjective NPU Subjective: Patient presented today reporting that she is prepared to do what ever is necessary to accomplish the goals that will allow her to be discharged. She is currently functioning at a level that is on par with the most well we have seen her. We continue to discuss the need to sustain the medication to be able to have her functioning at this level. We discussed reaching out to her outpatient provider and trying to make sure that he had a clear sense about what it would take to maintain this level of wellness. Discussed discharge in the next 48 hours. Mental Status Exam MSE Comments: Patient is a slender white female in hospital scrubs who removed her idiosyncratic clothing upon first request such that she no longer look like she is dressed in biblical times. Grooming is limited but improving as she has showered the other day for the first time and eye contact is fairly good. No abnormal movements. Mostly cooperative with exam in mild distress. Her speech is spontaneous and with more normal rate and volume. Mood reported as good, affect appeared congruent. Her thought process appeared organized. Thought content: Patient denied suicidal or homicidal ideation, there were no delusions reported and no clear delusions noted, she denied auditory or visual hallucinations. She she appears to have less adventist preoccupation and preoccupation with conspiracy theories. Attention and concentration appear intact. Her memory appears more reliable, but none were formally tested. She is alert and oriented x3. Insight, judgment, and impulse control all appear to be improving. Vitals/I&O/Wt Last Vital Signs Temp 98.4 F 10/11/22 21:05 Pulse 84 10/11/22 21:05 Resp 17 10/11/22 21:05 BP 93/52 10/11/22 21:05 Pulse Ox 96 10/11/22 21:05 O2 Del Method Room Air 10/11/22 21:05 Data NPU 09/23/22 12:30 09/23/22 12:30 A&P Assessment and plan (1) Schizophrenia, paranoid, chronic: Plan This is a 42-year-old white female with chronic schizophrenia who has not been on her medications with an extended history of noncompliance who appears quite psychotic and incapable of managing herself safely at home. She would likely benefit from acute intervention while on the inpatient unit here. 1.? ? Engage? patient in individual ,milieu, and group therapy ?2. ? We will attempt to gather collateral information from previous providers ?3. ? Changed to every 15 minute checks for safety, but still having exit checking behavior ?4.? Continue 6mg oral invega (haldol 5mg IM given if refused) as patient given 2nd dose of IM 156mg invega on 09/27/22. We will need to talk to outpati t provider. We restarted Abilify 5 mg p.o. daily and increased it to 10 mg 10/08/2022. Holding out decision on second long-acting injectable with outpatient provider. Involuntary Hold Information 96 Hour Hold: 96 Hour Involuntary Admission: Yes 96 Hour Hold Ending Date: 09/28/22 96 Hour Hold Ending Time: 17:15 Attestations NPU Medical Necessity Statement*: Inpatient hospitalization is medically necessary and deemed to be the clinically appropriate intervention at this time. We will initiate medications and make changes as indicated. Her likely length of stay is 1-3 days. Improvements coming much quicker than previously so discharge likely sooner than we were expecting Coding Level of Care Code Acute Code for Chg Fwd Diagnoses Schizophrenia, paranoid, chronic F20.0
[2022-10-11 21:05] VITALS: BP 93/52; PULSE 84; RESP 17; TEMP 36.9; O2SAT 96
[2022-10-12 06:00] VITALS: BP 102/65; PULSE 82; RESP 16; TEMP 36.3; O2SAT 98
--- NOTE | 2022-10-12 06:22 | W.PM.NPUPNS ---
Subjective NPU Subjective: Patient presented today doing well and denying any issues. We discussed a plan for discharge on both the long-acting injectables and working very hard with her outpatient team to make sure we continue that. Working with her guardian about possible legal intervention for not making appointments for injections. She continues to be agreeable to this plan. We discussed discharge in the morning. Mental Status Exam MSE Comments: Patient is a slender white female in hospital scrubs who removed her idiosyncratic clothing upon first request such that she no longer look like she is dressed in biblical times. Grooming is limited but improving as she has showered the other day for the first time and eye contact is fairly good. No abnormal movements. Mostly cooperative with exam in mild distress. Her speech is spontaneous and with more normal rate and volume. Mood reported as good, affect appeared congruent. Her thought process appeared organized. Thought content: Patient denied suicidal or homicidal ideation, there were no delusions reported and no clear delusions noted, she denied auditory or visual hallucinations. She she appears to have less mu-ism preoccupation and preoccupation with conspiracy theories. Attention and concentration appear intact. Her memory appears more reliable, but none were formally tested. She is alert and oriented x3. Insight, judgment, and impulse control all appear to be improving. Vitals/I&O/Wt Last Vital Signs Temp 97.4 F L 10/12/22 06:00 Pulse 82 10/12/22 06:00 Resp 16 10/12/22 06:00 BP 102/65 10/12/22 06:00 Pulse Ox 98 10/12/22 06:00 O2 Del Method Room Air 10/12/22 06:00 Data NPU 09/23/22 12:30 09/23/22 12:30 A&P Assessment and plan (1) Schizophrenia, paranoid, chronic: Plan This is a 42-year-old white female with chronic schizophrenia who has not been on her medications with an extended history of noncompliance who appears quite psychotic and incapable of managing herself safely at home. She would likely benefit from acute intervention while on the inpatient unit here. 1.? ? Engage? patient in individual ,milieu, and group therapy ?2. ? We will attempt to gather collateral information from previous providers ?3. ? Changed to every 15 minute checks for safety, but still having exit checking behavior ?4.? Discontinue 6mg oral invega as patient given 2nd dose of IM 156mg invega on 09/27/22. Contacted outpatient provider. We restarted Abilify 5 mg p.o. daily and increased it to 10 mg 10/08/2022. Abilify Maintena 400 mg IM given today, 10/12/2022. We will give prescription for Abilify Asimtufii at discharge. Next Invega injection 10/25/2022. Involuntary Hold Information 96 Hour Hold: 96 Hour Involuntary Admission: Yes 96 Hour Hold Ending Date: 09/28/22 96 Hour Hold Ending Time: 17:15 Attestations NPU Medical Necessity Statement*: Inpatient hospitalization is medically necessary and deemed to be the clinically appropriate intervention at this time. We will initiate medications and make changes as indicated. Plan plan for discharge in the morning. Coding Level of Care Code Acute Code for Chg Fwd Diagnoses Schizophrenia, paranoid, chronic F20.0
[2022-10-12] MEDS: paliperidone ER 6 mg Tablet PO (08:27)
[2022-10-12] MEDS: ARIPiprazole 10 mg Tablet PO (08:27)
[2022-10-12] MEDS: ARIPiprazole Maintena 400 MG IM (13:55)
[2022-10-12 14:00] VITALS: BP 90/52; PULSE 105; RESP 17; O2SAT 97
[2022-10-12 20:48] VITALS: BP 96/51; PULSE 103; RESP 18; TEMP 36.9; O2SAT 96
[2022-10-13 06:00] VITALS: BP 104/67; PULSE 101; RESP 16; TEMP 36.6; O2SAT 97
[2022-10-13] MEDS: ARIPiprazole 10 mg Tablet PO (08:46)
--- NOTE | 2022-10-13 11:33 | P.NPUDS_ITS ---
Diagnoses at Discharge Discharge Diagnosis (1) Schizophrenia, paranoid, chronic: Status: Chronic Reason for Visit Reason for Visit: Homicidal 96 hr hold Brief History: History of Present Illness Ivone Torres is a 42 year old white female who was admitted to the neuropsychiatric unit after patient had presented to the emergency room on a 96- hour hold. Per records, the officer had stated that the patient had intention on killing her neighbors by taking an officers gun and shooting them. Patient was admitted to the neuropsychiatric unit for further evaluation and treatment. She has a history of an unspecified number of inpatient hospitalizations with her most recent psychiatric hospitalization in January of 2021. She had been receiving outpatient services at the [facility] until April of this year per records. The patient has been without her antipsychotic medications and has a diagnosis of chronic schizophrenia. The patient reports that she has had suspicions for approximately 7 years that her and her children have been repeatedly replaced by impostors who resemble them but are not them. She believes that the original versions have been taken away and reports that they often reappear in multiple forms but are never the original form. She states that she had been overwhelmed and scared about this information and states that she has a feeling about this and denies being informed of this by any person or spiritual being. She states that she had been in the process of trying to help out families that had children as well and states that in the process of her help she had come into contact with other children and adults that had been replaced in the household of the help that she was trying to provide. She had stated that she had been concerned that there was a nefarious plot in play and she had contacted the police a few days ago to complain to them about a member of one of the family's that she was trying to help had not been who they say they were and they were holding children in their household who was not the children of that family. The patient denies any auditory or visual hallucinations. She had reported feeling sad about this and stated that she feels as if nothing can be done about this. She has stated that she is Jew and does not feel that anything will help at this time. Past psychiatric history: Per previous record she has been inpatient 3 times with most recent hospitalization in January 2021 [place] on the neuropsychiatric unit. She had previously carried a diagnosis of schizophrenia. Previous medication trials include Abilifchristiane, Geodon, Invega, she has a current guardian through [facility] under Salazar Granado.. Allergies: None Surgeries: Medical history: None reported Current medications: None Family psychiatric history: None Drug and alcohol history: None Social history: She alleges that she may have been born in [place] and had 11 siblings. She reports that she was homeschooled by her mother and obtained her GED. She states that she has been for approximately 15 years and reports that she takes care of her 7 children at home. She describes herself as a homemaker. She reports a happy childhood and denies any history of sexual physical or emotional abuse. She resides with her who is currently unemployed along with her children. She reports being a Jew. Excerpt from outpatient appointment 03/08/21 at [facility]: [facility] History and Physical Time In: 08:45 Time Out: 09:15 Chief Complaint: Doing fine History of Present Illness: -40 yr old female, presents today to [facility] for psychiatric evaluation and follow up after inpatient psychiatric hospitalization from December 23 thru February 05, 2021, involuntary for psychosis. -Sleep pattern reported as pretty well, I get at least 6 hours a night. -Describes mood as its been good, when I went to the hospital I was down ; admits for her anniversary, going to a [facility] in [place] this week. -Nutritional intake reported as adequate; discharged from inpatient unit on Abilify Maintena 400 mg IM and Invega Sustenna 156 mg IM. -Ivone denies suicidal ideation/plan, denies homicidal ideation/plan, denies auditory/visual hallucinations; no delusions or paranoia. History Past Psychiatric History: -Significant past psychiatric history starting in July of 2018 for psychosis, admitted into inpatient psychiatric unit again for psychosis in September 2018 and January 2019, with history of aversion to taking any psychotropic medication regimen. Recently admitted into inpatient psychiatric unit December 23 thru February 05, 2021 for psychosis, where oral medications of Abilify and Invega were changed to long acting injectables, receiving Abilify Maintena 400 mg IM and Invega Sustenna 156 mg on 02/05/21. Ivone has a guardian, Salazar Holguin, of [facility] assigned to her. -Ivone denies any suicide attempts, denies accessibility to firearms, however, admits her has firearms in the home, in a closet, with two locks on it. -Past psychiatric diagnoses: Major Depressive Disorder, single episode with psychosis; Schizoaffective, and Chronic Schizophrenia. -Past medications: Geodon, Abilify, and Invega -Current medications: Abilify Maintena 400 mg IM and Invega Sustenna 156 mg IM Family History: Paternal: Non-contributory Maternal: Non-contributory Past Medical History: -Admits history of C-sections Substance Use History: Current: Denies tobacco, alcohol, methamphetamines, marijuana, opiate use Past: Denies tobacco use, alcohol, methamphetamines, marijuana, opiate use History of IVDU: Denies Treatment History: Denies Social History: -Ivone reports she was born and raised in [place], [place], has 11 siblings, and was homeschooled by her mother and obtained her GED, moved to [place] after getting to her , has been for 14 years this week; in the marriage has had 10 pregnancies, 2 miscarriages, and states she has 7 children at home. 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 -Denies verbal, physical, sexual abuse as a child and adult. -Denies access to firearms, however, admits her has firearms in the home, in a closet, with two locks on it. -Guardian, Salazar Holguin, [employer] of [facility] is patient's guardian. Hospital Course Hospital Course She very slowly acclimated to the individual, group and milieu therapies provided.? She returned after reportedly discontinuing her medication including the injections in April. Notes from [facility] suggest that they discontinued the second injection a long time ago. We restarted the Invega Sustenna injection and also the Abilify and eventually the Abilify injection. We discussed with her the possibility of titrating the Invega Sustenna to Invega Hafyera and having 2 shots a year and changing the Abilify Maintena to Abilify Asimtulfii which will be just 6 shots a year. She had the best functioning and presentation and all of her stays with significant improvement during the hospitalization. We worked with the guardian and gave them a letter in hopes of having forced medication outside of the hospital. She had significant improvement during her stay. ? She worked with the social work team for appropriate aftercare planning.? She was able to contract for safety outside of the hospital prior to discharge.? During the hospitalization, patient had routine laboratory studies which were within normal limits except for few outliers.? Additionally there was a general medical evaluation which was also within normal limits and revealed no new acute processes. Discharge Summary: At the time of discharge, lethality was denied and psychosis was resolving.? Mood and anxiety were well managed.? Patient endorsed a plan to avoid all drugs of abuse and follow-up with the aftercare recommendations of the treatment team.? Patient was evaluated and deemed to be absent credible lethality, and had achieved the maximum benefit from an inpatient hospitalization, so was discharged. Involuntary Hold Information 96 Hour Hold: 96 Hour Involuntary Admission: Yes 96 Hour Hold Ending Date: 09/28/22 96 Hour Hold Ending Time: 17:15 Mental Status Exam MSE Comments: Patient is a slender white female in hospital scrubs who removed her idiosyncratic clothing upon first request such that she no longer look like she is dressed in biblical times. Grooming is limited but improving as she has showered the other day for the first time and eye contact is fairly good. No abnormal movements. Mostly cooperative with exam in no acute distress. Her speech is spontaneous and with more normal rate and volume. Mood reported as good, affect appeared congruent. Her thought process appeared organized. Thought content: Patient denied suicidal or homicidal ideation, there were no delusions reported and no clear delusions noted, she denied auditory or visual hallucinations. She she appears to have less gnosticism preoccupation and preoccupation with conspiracy theories. Attention and concentration appear intact. Her memory appears more reliable, but none were formally tested. She is alert and oriented x3. Insight, judgment, and impulse control all appear to be improving. Discharge Data Studies Completed and Pending: Laboratory Results WBC 5.6 10^3/uL (4.0- 10.0) 09/23/22 12:30 RBC 4.74 10^6/uL (4.1 -5.3) 09/23/22 12:30 Hgb 11.7 g/dL (11.5-1 5.3) 09/23/22 12:30 Hct 39.4 % (37.0-47.0 ) 09/23/22 12:30 MCV 83.1 fl (81-99) 09/23/22 12:30 MCH 24.7 pg (28.0-34. 0) L 09/23/22 12: MCHC 29.7 g/dL (30.0-3 6.0) L 09/23/22 12:30 RDW 14.5 % (12.1-15.1 ) 09/23/22 12:30 Plt Count 215 10^3/cmm (130 -400) 09/23/22 12:30 MPV 10.9 fL (7.4-10.4 ) H 09/23/22 12:30 Neut % (Auto) 58.2 % 09/23/22 12:30 Lymph % (Auto) 34.3 % 09/23/22 12:30 [place] % (Auto) 4.8 % 09/23/22 12:30 Eos % (Auto) 2.0 % 09/23/22 12:30 Baso % (Auto) 0.5 % 09/23/22 12:30 Neut # (Auto) 3.24 10^3/uL (1.8 -7.7) 09/23/22 12:30 Lymph # (Auto) 1.9 10^3/uL (0.8- 4.8) 09/23/22 12:30 [place] # (Auto) 0.3 10^3/uL (0.2- 0.9) 09/23/22 12:30 Eos # (Auto) 0.1 10^3/uL (0.0- 0.8) 09/23/22 12:30 Baso # (Auto) 0.0 10^3/uL (0.0- 0.1) 09/23/22 12:30 Nucleated RBC % (a uto) 0 % 09/23/22 12: Nucleated RBCs # 0.0 /100WBC 09/23/22 12:30 Sodium 138 mmol/L (136-1 45) 09/23/22 12:30 Potassium 4.4 mmol/L (3.5-5 .1) 09/23/22 12:30 Chloride 104 mmol/L (98-10 7) 09/23/22 12:30 Carbon Dioxide 24 mmol/L (22-29) 09/23/22 12:30 Anion Gap 14.4 (5-19) 09/23/22 12:30 BUN 14 mg/dL (6-20) 09/23/22 12:30 Creatinine 0.6 mg/dL (0.5-0. 9) 09/23/22 12:30 GFR Calculation 110.2 mL/min (90- 130) 09/23/22 12:30 Glucose 80 mg/dL (65-115) 09/23/22 12:30 Calculated Osmolal ity 285 mOsm/kg (285- 295) 09/23/22 12:30 Calcium 8.6 mg/dL (8.5-10 .5) 09/23/22 12:30 Total Bilirubin 0.8 mg/dL (0.15-1 .2) 09/23/22 12:30 AST 21 U/L (0-32) 09/23/22 12:30 ALT 18 U/L (0-33) 09/23/22 12:30 Alkaline Phosphata se 57 U/L (35-105) 09/23/22 12:30 Total Protein 7.3 g/dL (6.6-8.7 ) 09/23/22 12:30 Albumin 4.3 g/dL (3.5-5.2 ) 09/23/22 12:30 Globulin 3.0 g/dL (1.3-4.6 ) 09/23/22 12:30 HCG, Qual Negative (Negati ve) 09/24/22 12:30 Salicylates < 0.3 mg/dL (3-10 ) L 09/23/22 12:30 Acetaminophen < 5.0 ug/mL (10-3 0) L 09/23/22 12:30 Ethyl Alcohol < 10 mg/dL (0-10) 09/23/22 12:30 Vitals: Last Vital Signs Temp 97.8 F 10/13/22 06:00 Pulse 101 H 10/13/22 06:00 Resp 16 10/13/22 06:00 BP 104/67 10/13/22 06:00 Pulse Ox 97 10/13/22 06:00 O2 Del Method Room Air 10/13/22 06:00 Discharge Plan Discharge Patient Disposition: Home Condition: Stable Prescriptions: New Invega Sustenna 156 mg/mL syringe 156 mg IM Q30D Qty: 1 1RF Rx Instructions: Next injection 11/03/22 then as directed with recommendation for [place] Continued Abilify Maintena 400 mg suspension,extended rel recon 400 mg IM DIRECTED 28 Days Qty: 1 1RF Rx Instructions: Next injection 11/09/2022 then as directed. Will attempt to call in prescription for Abilify Asimtufii instead before 11/09/22 Discharge Orders: Discharge Order (Routine); Ordered 10/13/22 Ordered By: George Peña Referrals: Johnna Fernandes, PMHNP [Staff Physician] - 10/14/22 2:30 pm Discharge Diet: Regular Discharge Activity: Resume usual activity Patient Instructions: Depression (DC), Help Prevent Suicide (DC), Opioid Safety Discharge Attestations NPU Time Spent in Discharge Care*: less than 30 min Specific Discharge Activities: Specific discharge activities: educating patient, discussing with showcase maker/social workers/dc planners, documenting/other paperwork and evaluating patient/reviewing data Status at Discharge: Cognitive status at discharge: cognitively intact , Behavioral status at discharge: cooperative , Coding Level of Care Code Acute Chg FW DC note Diagnoses Schizophrenia, paranoid, chronic F20.0
[2022-10-13 11:42] VITALS: BP 104/67; PULSE 101; RESP 16; TEMP 36.6; O2SAT 97
--- NOTE | 2022-10-13 12:20 | PC.NURSE ---
written discharge instructions discussed and left with patient. pt stated understanding and compliance. pt leaving with pov and spouse. medication from pharmacy given to patient no question on discharge instructions or medication adminstration
== END 2022-10-13 12:44 | disposition home or self-care (01) | DRG 885 ==
LOC: ER 18:02 → NP 18:39
PROVIDERS: Admitting Provider Psychiatry & Neurology Psychiatry; Emergency Provider Emergency Medicine; Visit Provider Psychiatry & Neurology Psychiatry
DX: F20.0 Paranoid schizophrenia (principal); R45.850 Homicidal ideations
CPT/HCPCS: 36415; 80053; 80307; 84703; 85025; 96372; 97150; 97165; 99238; 99285; J1200; J1630; J2060

== ENCOUNTER 2023-03-24 19:46 | Inpatient (IN) | payer MEDICAID, SELFPAY ==
[2023-03-24 19:48] VITALS: BP 134/60; RESP 18; TEMP 36.7; O2SAT 98
--- NOTE | 2023-03-24 19:52 | ED.C_ITS ---
HPI - Psych 2 General: Chief Complaint: Psychiatric Symptoms Stated Complaint: 96 HOUR HOLD Time Seen by Provider: 03/24/23 19:47 Source: patient and police Mode of arrival: ambulatory Limitations: no limitations History of Present Illness: 42-year-old female here with police unde r 96-hour hold for acute psychosis. She has a history of psychosis in the past. Patient here is rambling she states that there is sex offenders she also believes that her children have been switched out she is not making any sense whatsoever to me at this time. Associated symptoms: Reports auditory hallucinations; Deny depression Review of Systems 2 Const: Denies: fever(s) or chills ENMT: Denies: throat pain or dental pain Card: Denies: chest pain Resp: Denies: dyspnea GI: Denies: abdominal pain, nausea, vomiting or diarrhea Musc: Denies: neck pain or back pain Skin/Breast: Denies: rash Neuro: Denies: headache(s) Psych: Reports: auditory hallucinations; Denies: depression PFSH ED 2 PFSH: Medical History Schizophrenia, paranoid, chronic Psychiatric care Social History Smoking and tobacco/nicotine status: never used tobacco/nicotine Second hand smoke exposure: No Alcohol intake: never Substance/Drug Use: never Adopted: No Lives independently: Yes Household members: spouse and children Housing: House Marital status: Current gender identity: Female Physical Exam 2 Const: COMMON NORMALS: patient oriented x3 HENMT: COMMON NORMALS: normocephalic and atraumatic HEAD & SCALP: n ormocephalic and atraumatic Eye: COMMON NORMALS: Equal, round and reactive pupils present and EOMs intact bilaterally PUPIL: Yes Equal, round and reactive pupils present Neck/C-Spine: COMMON NORMALS: full ROM and supple Chest: COMMONS NORMALS: normal inspection of the chest Resp: COMMON NORMALS: normal respiratory effort, No retractions, No use of accessory muscles and clear to auscultation bilaterally AUSCULTATION: clear to auscultation bilaterally Cardio: COMMON NORMALS: regular rate, regular rhythm and No murmurs present (Cardio) RATE: regular rate RHYTHM: regular rhythm GI: COMMON NORMALS: Normal to inspection, nondistended, normoactive bowel sounds present, Soft to palpation, non-tender and no masses PALPATION: Yes Soft to palpation Extremity: COMMON NORMALS: normal to inspection and full ROM Neuro: COMMON NORMALS: patient oriented x3, moves all extremities and no focal motor deficits Psych: SPEECH: Yes rapid THOUGHT PROCESS: Illogical thought process present Skin: COMMON NORMALS: no rashes or lesions noted and no wounds GENERAL SKIN EXAM: no rashes or lesions noted Course 2 Vital Signs: Vital signs: Vital Signs Temperature 98.0 F 03/24/23 19:48 Respiratory Rate 18 03/24/23 19:48 Blood Pressure 134/60 03/24/23 19:48 Pulse Oximetry 98 03/24/23 19:48 Oxygen Delivery Me thod Room Air 03/24/23 19:48 MDM - Psych Medical Decision Making Patient presents here with acute psychosis she has been placed under court ordered 96-hour hold she is medically cleared I spoke to psychiatrist and will admit. Medical Records I reviewed the patient's medical records. Lab Data I reviewed the patient's lab results. 03/24/23 20:04 03/24/23 20:04 Laboratory Results WBC 7.76 10^3/uL (3.29-11.43) 03/24/23 20:04 RBC 4.45 10^6/uL (3.85-5.65) 03/24/23 20:04 Hgb 11.40 g/dL (11.27-16.99) 03/24/23 20:04 Hct 36.7 % (36-47) 03/24/23 20:04 MCV 82.5 fl (85-98) L 03/24/23 20:04 MCH 25.6 pg (27-33) L 03/24/23 20:04 MCHC 31.1 g/dL (30-55) 03/24/23 20:04 RDW 13.4 % (12.1-15.1) 03/24/23 20:04 Plt Count 225 10^3/cmm (157-399) 03/24/23 20:04 MPV 10.0 fL (7.4-10.4) 03/24/23 20:04 Neut % (Auto) 54.3 % 03/24/23 20:04 Lymph % (Auto) 38.4 % 03/24/23 20:04 [place] % (Auto) 5.5 % 03/24/23 20:04 Eos % (Auto) 1.2 % 03/24/23 20:04 Baso % (Auto) 0.5 % 03/24/23 20:04 Neut # (Auto) 4.21 10^3/uL (1.8-7.7) 03/24/23 20:04 Lymph # (Auto) 3.0 10^3/uL (0.8-4.8) 03/24/23 20:04 [place] # (Auto) 0.4 10^3/uL (0.2-0.9) 03/24/23 20:04 Eos # (Auto) 0.1 10^3/uL (0.0-0.8) 03/24/23 20:04 Baso # (Auto) 0.0 10^3/uL (0.0-0.1) 03/24/23 20:04 Nucleated RBC % (auto) 0 % 03/24/23 20:04 Nucleated RBCs # 0.0 /100WBC 03/24/23 20:04 Sodium 140 mmol/L (136-145) 03/24/23 20:04 Potassium 3.9 mmol/L (3.5-5.1) 03/24/23 20:04 Chloride 105 mmol/L (98-107) 03/24/23 20:04 Carbon Dioxide 23 mmol/L (22-29) 03/24/23 20:04 Anion Gap 15.9 (5-19) 03/24/23 20:04 BUN 15 mg/dL (6-20) 03/24/23 20:04 Creatinine 0.6 mg/dL (0.5-0.9) 03/24/23 20:04 GFR Calculation 110.2 mL/min (90-130) 03/24/23 20:04 Glucose 99 mg/dL (65-115) 03/24/23 20:04 Calculated Osmolality 291 mOsm/kg (285-295) 03/24/23 20:04 Calcium 9.0 mg/dL (8.5-10.5) 03/24/23 20:04 Total Bilirubin 0.5 mg/dL (0.15-1.2) 03/24/23 20:04 AST 14 U/L (0-32) 03/24/23 20:04 ALT 12 U/L (0-33) 03/24/23 20:04 Alkaline Phosphatase 53 U/L (35-105) 03/24/23 20:04 Total Protein 7.3 g/dL (6.6-8.7) 03/24/23 20:04 Albumin 4.2 g/dL (3.5-5.2) 03/24/23 20:04 Globulin 3.1 g/dL (1.3-4.6) 03/24/23 20:04 Salicylates 1.6 mg/dL (3-10) L 03/24/23 20:04 Acetaminophen < 5.0 ug/mL (10-30) L 03/24/23 20:04 Ethyl Alcohol < 10 mg/dL (0-10) 03/24/23 20:04 All radiology interpretation(s) finalized by discharge Discharge Plan Discharge Patient Disposition: Admitted As Inpatient Admit Provider: George Peña Clinical Impression: Acute psychosis Condition: Stable Coding Level of Care Code ED Software Intern for Domitila Rosado
[2023-03-24 20:08] LABS: Basophils % 0.5 %; Eosinophils # 0.1 10^3/uL (0.0-0.8); Eosinophils % 1.2 %; Hematocrit 36.7 % (36-47); Lymphocytes % 38.4 %; Mean Corpuscular HGB Conc 31.1 g/dL (30-55); Mean Corpuscular Hemoglobin 25.6 pg (27-33); Mean Corpuscular Volume 82.5 fl (85-98); Monocytes # 0.4 10^3/uL (0.2-0.9); Monocytes % 5.5 %; Neutrophils # 4.21 10^3/uL (1.8-7.7); Neutrophils % 54.3 %; Nucleated Red Blood Cells % 0 %; Platelet Count 225 10^3/cmm (157-399); Red Blood Count 4.45 10^6/uL (3.85-5.65); Red Cell Distribution Width 13.4 % (12.1-15.1); White Blood Count 7.76 10^3/uL (3.29-11.43)
[2023-03-24] MEDS: haloperidol inj 5 mg/mL INJ 1 mL IM (20:14)
[2023-03-24 20:27] LABS: Alanine Aminotransferase 12 U/L (0-33); Albumin Level 4.2 g/dL (3.5-5.2); Alkaline Phosphatase 53 U/L (35-105); Anion Gap 15.9 (5-19); Aspartate Amino Transferase 14 U/L (0-32); Blood Urea Nitrogen 15 mg/dL (6-20); Carbon Dioxide 23 mmol/L (22-29); Chloride 105 mmol/L (98-107); Globulin 3.1 g/dL (1.3-4.6); Glomerular Filtration Rate 110.2 mL/min (90-130); Glucose 99 mg/dL (65-115); Osmolality Calculated 291 mOsm/kg (285-295); Potassium 3.9 mmol/L (3.5-5.1); Salicylate 1.6 mg/dL (3-10); Sodium 140 mmol/L (136-145); Total Bilirubin 0.5 mg/dL (0.15-1.2); Total Protein 7.3 g/dL (6.6-8.7)
[2023-03-24 20:28] LABS: Acetaminophen < 5.0 ug/mL (10-30); Alcohol Level < 10 mg/dL (0-10)
--- NOTE | 2023-03-25 00:05 | PC.NURSE ---
pt ref vs stating er just took them
--- NOTE | 2023-03-25 06:45 | PC.NURSE ---
pt resting no vs per rn resp documented
--- NOTE | 2023-03-25 07:25 | W.PM.NPUH&PS ---
Providers/Chief Complaint Admitting Physician: George Peña MD Chief Complaint: 96 HOUR HOLD HPI NPU History of Present Illness Ivone Torres is a 42 year old female who presented to the emergency department with the following report: Chief Complaint: Psychiatric Symptoms Stated Complaint: 96 HOUR HOLD Time Seen by Provider: 03/24/23 19:47 Source: patient and police Mode of arrival: ambulatory Limitations: no limitations History of Present Illness: 42-year-old female here with police under 96-hour hold for acute psychosis. She has a history of psychosis in the past. Patient here is rambling she states that there is sex offenders she also believes that her children have been switched out she is not making any sense whatsoever to me at this time. Associated symptoms: Reports auditory hallucinations; Deny depression She was admitted to the neuropsychiatric unit for definitive treatment of those issues. She presents today well-known to this typewriters functional tester through multiple inpatient stays of very lengthy periods. She was last discharged in September 2022 and an excerpt of that discharge summary is included below for context and the fact that she is a limited historian partially by choice at this time. When asked what brought her to the hospital she shook her head and said why do not you tell me what you know? She would not answer the burning question of whether she has had any medication since discharge. We discussed that in October of this year she did have a virtual appointment with Dr. Saunders but it is unclear whether she ever received an injection beyond that time. She reports I ran out of refills so I did not think they wanted me to take it anymore. We discussed the fact that she is aware of the need for her to take medication and how nonadherence eventually always leads to a hospitalization for her. We discussed the plan to restart the medications the Abilify maintainer or hopefully Abilify Asimtufii as well as Invega Sustenna and hopefully Invega Trinza or Invega Hafyera. She really had no response to this. We discussed that we would review this plan with her guardian Salazar Granado. She made it a point of saying she would not be here for the next injection because this is a 96-hour hold. We discussed that it was our belief that she will be here longer however if not we would still make sure she got her injections before discharge. She really did not answer any other questions and it is our understanding that she has not had her medications for at least 3 months and maybe as long as 5 months. Per her 10/13/2022 [facility] inpatient psychiatric discharge summary: Discharge Diagnosis (1) Schizophrenia, paranoid, chronic: Status: Chronic Reason for Visit Reason for Visit: Homicidal 96 hr hold Brief History: History of Present Illness Ivone Torres is a 42 year old white female who was admitted to the neuropsychiatric unit after patient had presented to the emergency room on a 96-hour hold. Per records, the officer had stated that the patient had intention on killing her neighbors by taking an officers gun and shooting them. Patient was admitted to the neuropsychiatric unit for further evaluation and treatment. She has a history of an unspecified number of inpatient hospitalizations with her most recent psychiatric hospitalization in January of 2021. She had been receiving outpatient services at the behavioral health clinic until April of this year per records. The patient has been without her antipsychotic medications and has a diagnosis of chronic schizophrenia. The patient reports that she has had suspicions for approximately 7 years that her and her children have been repeatedly replaced by impostors who resemble them but are not them. She believes that the original versions have been taken away and reports that they often reappear in multiple forms but are never the original form. She states that she had been overwhelmed and scared about this information and states that she has a feeling about this and denies being informed of this by any person or spiritual being. She states that she had been in the process of trying to help out families that had children as well and states that in the process of her help she had come into contact with other children and adults that had been replaced in the household of the help that she was trying to provide. She had stated that she had been concerned that there was a nefarious plot in play and she had contacted the police a few days ago to complain to them about a member of one of the family's that she was trying to help had not been who they say they were and they were holding children in their household who was not the children of that family. The patient denies any auditory or visual hallucinations. She had reported feeling sad about this and stated that she feels as if nothing can be done about this. She has stated that she is Mandaen and does not feel that anything will help at this time. Past psychiatric history: Per previous record she has been inpatient 3 times with most recent hospitalization in January 2021 [place] on the neuropsychiatric unit. She had previously carried a diagnosis of schizophrenia. Previous medication trials include Abilify, Geodon, Invega, she has a current guardian through [facility] under Salazar Granado.. Allergies: None Surgeries: Medical history: None reported Current medications: None Family psychiatric history: None Drug and alcohol history: None Social history: She alleges that she may have been born in [place] and had 11 siblings. She reports that she was homeschooled by her mother and obtained her GED. She states that she has been for approximately 15 years and reports that she takes care of her 7 children at home. She describes herself as a homemaker. She reports a happy childhood and denies any history of sexual physical or emotional abuse. She resides with her who is currently unemployed along with her children. She reports being a Mandaen. Excerpt from outpatient appointment 03/08/21 at [facility] [place]: [facility] [place] History and Physical Time In: 08:45 Time Out: 09:15 Chief Complaint: Doing fine History of Present Illness: -40 yr old female, presents today to [facility] [place] for psychiatric evaluation and follow up after inpatient psychiatric hospitalization from December 23 thru February 05, 2021, involuntary for psychosis. -Sleep pattern reported as pretty well, I get at least 6 hours a night. -Describes mood as its been good, when I went to the hospital I was down ; admits for her anniversary, going to a [facility] in [place] this week. -Nutritional intake reported as adequate; discharged from inpatient unit on Abilify Maintena 400 mg IM and Invega Sustenna 156 mg IM. -Ivone denies suicidal ideation/plan, denies homicidal ideation/plan, denies auditory/visual hallucinations; no delusions or paranoia. History Past Psychiatric History: -Significant past psychiatric history starting in July of 2018 for psychosis, admitted into inpatient psychiatric unit again for psychosis in September 2018 and January 2019, with history of aversion to taking any psychotropic medication regimen. Recently admitted into inpatient psychiatric unit December 23 thru February 05, 2021 for psychosis, where oral medications of Abilify and Invega were changed to long acting injectables, receiving Abilify Maintena 400 mg IM and Invega Sustenna 156 mg on 02/05/21. Ivone has a guardian, Salazar Holguin, of [facility] assigned to her. -Ivone denies any suicide attempts, denies accessibility to firearms, however, admits her has firearms in the home, in a closet, with two locks on it. -Past psychiatric diagnoses: Major Depressive Disorder, single episode with psychosis; Schizoaffective, and Chronic Schizophrenia. -Past medications: Geodon, Abilify, and Invega -Current medications: Abilify Maintena 400 mg IM and Invega Sustenna 156 mg IM Family History: Paternal: Non-contributory Maternal: Non-contributory Past Medical History: -Admits history of C-sections Substance Use History: Current: Denies tobacco, alcohol, methamphetamines, marijuana, opiate use Past: Denies tobacco use, alcohol, methamphetamines, marijuana, opiate use History of IVDU: Denies Treatment History: Denies Social History: -Ivone reports she was born and raised in [place], [place], has 11 siblings, and was homeschooled by her mother and obtained her GED, moved to [place] after getting to her , has been for 14 years this week; in the marriage has had 10 pregnancies, 2 miscarriages, and states she has 7 children at home. 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 -Denies verbal, physical, sexual abuse as a child and adult. -Denies access to firearms, however, admits her has firearms in the home, in a closet, with two locks on it. -Guardian, Salazar Holguin, [employer] of [facility] is patient's guardian. Hospital Course She very slowly acclimated to the individual, group and milieu therapies provided. She returned after reportedly discontinuing her medication including the injections in April. Notes from [facility] [place] suggest that they discontinued the second injection a long time ago. We restarted the Invega Sustenna injection and also the Abilify and eventually the Abilify injection. We discussed with her the possibility of titrating the Invega Sustenna to Invega Hafyera and having 2 shots a year and changing the Abilify Maintena to Abilify Asimtulfii which will be just 6 shots a year. She had the best functioning and presentation and all of her stays with significant improvement during the hospitalization. We worked with the guardian and gave them a letter in hopes of having forced medication outside of the hospital. She had significant improvement during her stay. She worked with the social work team for appropriate aftercare planning. She was able to contract for safety outside of the hospital prior to discharge. During the hospitalization, patient had routine laboratory studies which were within normal limits except for few outliers. Additionally there was a general medical evaluation which was also within normal limits and revealed no new acute processes. Discharge Summary: At the time of discharge, lethality was denied and psychosis was resolving. Mood and anxiety were well managed. Patient endorsed a plan to avoid all drugs of abuse and follow-up with the aftercare recommendations of the treatment team. Patient was evaluated and deemed to be absent credible lethality, and had achieved the maximum benefit from an inpatient hospitalization, so was discharged. Meds NPU Home Medications Medication Instructions Recorded Confirmed Last Taken Type aripiprazole 400 mg intramuscular 400 mg IM DIRECTED 28 days #1 ea 10/13/22 03/24/23 Unknown Rx suspension,extended release (Abilify Maintena) paliperidone palmitate 156 mg/mL 156 mg IM Q30D #1 mL 10/13/22 03/24/23 Unknown Rx intramuscular syringe (Invega Sustenna) Allergies Allergy/AdvReac Type Severity Reaction Status Date / Time No Known Allergies Allergy Verified 10/31/22 14:27 [facility] NPU PFSH: Medical History Schizophrenia, paranoid, chronic Psychiatric care Social History Smoking and tobacco/nicotine status: never used tobacco/nicotine Second hand smoke exposure: No Alcohol intake: never Substance/Drug Use: never Adopted: No Lives independently: Yes Household members: spouse and children Housing: House Marital status: Current gender identity: Female Mental Status Exam MSE Comments: Patient is a slender white female in hospital scrubs with limited grooming and adequate eye contact. No abnormal movements. Mostly cooperative with exam in no acute distress. Her speech is spontaneous and with normal rate and volume. Mood reported as fine, affect appeared congruent. Her thought process appeared linear. Thought content: Patient denied suicidal or homicidal ideation, there were no delusions reported and no clear delusions noted, she denied auditory or visual hallucinations. Attention and concentration appear intact. Her memory appears unreliable though intentionally, but none were formally tested. She is alert and oriented x3. Insight, judgment, and impulse control all impaired. Vitals/I&O/Wt Last Vital Signs Temp 98.0 F 03/24/23 19:48 Resp 18 03/24/23 19:48 BP 134/60 03/24/23 19:48 Pulse Ox 98 03/24/23 19:48 O2 Del Method Room Air 03/24/23 19:48 Data NPU 03/24/23 20:04 03/24/23 20:04 A&P Assessment and plan (1) Schizophrenia, paranoid, chronic: Plan This is a 42-year-old white female with chronic schizophrenia who has not been on her medications with an extended history of noncompliance who appears quite psychotic and incapable of managing herself safely at home. She would likely benefit from acute intervention while on the inpatient unit here. 1.? ?Engage? patient in individual ,milieu, and group therapy ?2. ? We will attempt to gather collateral information from previous providers ?3. ? 1-1 close observations with patient having history of multiple successful attempts to flee hospital. ?4.? Begin invega sustenna 234mg IM to deltoid with plan for 3mg oral to begin tonight. Goal: Trajectory for Invega Trinza as soon as switch can be made. 5 we will attempt to give Abilify oral with plan for injection in 1 week so that the injections will be on the same timeline. Will put on Abilify Asimtufii given difficulty with injections. Involuntary Hold Information 96 Hour Hold: 96 Hour Involuntary Admission: Yes 96 Hour Hold Ending Date: 09/28/22 96 Hour Hold Ending Time: 17:15 Attestations NPU Medical Necessity Statement*: Inpatient hospitalization is medically necessary and deemed to be the clinically appropriate intervention at this time. We will initiate medications and make changes as indicated. She will likely be hospitalized for over two midnights with a likely length of stay of 10-14 days. Coding Level of Care Code Acute Code for [facility] Fwd Diagnoses Schizophrenia, paranoid, chronic F20.0
[2023-03-25] MEDS: paliperidone palmitate 234 mg Syringe IM (10:58)
[2023-03-25 11:00] VITALS: BP 94/55; PULSE 75; RESP 18; TEMP 36.9; O2SAT 99
--- NOTE | 2023-03-25 11:43 | PC.NURSE ---
Patient only answered a few of this RN's assessment questions before she refused to continue. She asked, is that all, and scoffed at one point. Then she said, I don't wanna talk. Patient did deny avh and when asked if she experienced si/hi she replied, only when there's wickedness. Patient has been roaming the hallways, occasionally checking doors to see if they are unlocked.
[2023-03-25 14:00] VITALS: RESP 18
--- NOTE | 2023-03-25 16:59 | PC.NURSE ---
patient refused vitals.
[2023-03-25 22:00] VITALS: BP 95/55; PULSE 94; RESP 16; TEMP 36.8; O2SAT 96
[2023-03-26 06:00] VITALS: BP 95/53; PULSE 84; RESP 16; O2SAT 99
--- NOTE | 2023-03-26 09:08 | PC.NURSE ---
Patient answered all assessment questions with nope. Patient then added, the whole world is a mess...including your colleagues. This RN assured her we had her best interests in mind and asked if we could get her anything this morning to which she replied, this is all nonsense.
--- NOTE | 2023-03-26 11:25 | P.NPUPN_ITS ---
Subjective NPU 2 Subjective: Patient presented today reporting that she is doing fine. She reports she does not want to talk to this production underwriter but would not explain why. We discussed the plan to give her second Invega injection on 04/01/2023 along with either Nain Mcfadden or Nain Last so that her shots are in tandem as much as possible. We discussed wanting her to get to the Invega Trinza as soon as is feasible. Mental Status Exam 2 MSE Comments: Patient is a slender white female in hospital scrubs with limited grooming and adequate eye contact. No abnormal movements. Mostly cooperative with exam in no acute distress. Her speech is spontaneous and with normal rate and volume. Mood reported as fine, affect appeared congruent. Her thought process appeared linear. Thought content: Patient denied suicidal or homicidal ideation, there were no delusions reported and no clear delusions noted, she denied auditory or visual hallucinations. Attention and concentration appear intact. Her memory appears unreliable though intentionally, but none were formally tested. She is alert and oriented x3. Insight, judgment, and impulse control all impaired. Vitals/I&O/Wt Last Vital Signs Temp 98.2 F 03/25/23 22:00 Pulse 84 03/26/23 06:00 Resp 16 03/26/23 06:00 BP 95/53 03/26/23 06:00 Pulse Ox 99 03/26/23 06:00 O2 Del Method Room Air 03/26/23 06:00 Weight last 48 hrs Weight 59.024 kg Weight 58.967 kg Data NPU 03/24/23 20:04 03/24/23 20:04 A&P Assessment and plan (1) Schizophrenia, paranoid, chronic: Plan This is a 42-year-old white female with chronic schizophrenia who has not been on her medications with an extended history of noncompliance who appears quite psychotic and incapable of managing herself safely at home. She would likely benefit from acute intervention while on the inpatient unit here. 1.? ?Engage? patient in individual ,milieu, and group therapy ?2. ? We will attempt to gather collateral information from previous providers ?3. ? 1-1 close observations with patient having history of multiple successful attempts to flee hospital. ?4.? Begin invega sustenna 234mg IM to deltoid 03/25/2023. Next injection 04/01/2023 with plan for 6 mg oral to be offered though she will likely reject. Goal: Trajectory for Invega Trinza as soon as switch can be made. 5 we will attempt to give Abilify oral with plan for injection 04/01/2023 so that the injections will be on the same timeline. Will put on Abilify Asimtufii given difficulty with injections. Involuntary Hold Information 2 96 Hour Hold: 96 Hour Involuntary Admission: Yes 96 Hour Hold Ending Date: 09/28/22 96 Hour Hold Ending Time: 17:15 Attestations NPU 2 Medical Necessity Statement*: Inpatient hospitalization is medically necessary and deemed to be the clinically appropriate intervention at this time. We will initiate medications and make changes as indicated. She will likely be hospitalized for over two midnights with a likely length of stay of 10-14 days. Coding Level of Care Code Acute Code for [facility] Fwd Diagnoses Schizophrenia, paranoid, chronic F20.0
--- NOTE | 2023-03-26 13:36 | PC.NURSE ---
refused scheduled Invega, patient stated no I'm good
[2023-03-26 14:00] VITALS: BP 93/56; PULSE 83; RESP 20; TEMP 36.6; O2SAT 100
--- NOTE | 2023-03-26 19:46 | PC.NURSE ---
asked pt to obtain vital signs. pt refused stated i don't want to have them done
[2023-03-27 06:00] VITALS: RESP 16
--- NOTE | 2023-03-27 06:22 | PC.NURSE ---
This nurse was called to the patient's room for refusal to complete v/s. This nurse explained to patient that this was part of her care, and she stated she wasn't sick and then closed her eyes ignoring this medical underwriter.
--- NOTE | 2023-03-27 07:08 | P.NPUPN_ITS ---
Subjective NPU 2 Subjective: Patient presented today reporting that she is doing fine. She reports she does not want to talk to this ad writer but would not explain why. We discussed the plan to give her second Invega injection on 04/01/2023 along with either Nain Mcfadden or Nain Last so that her shots are in tandem as much as possible. We continued to discuss the Invega Trinza. Mental Status Exam 2 MSE Comments: Patient is a slender white female in hospital scrubs with limited grooming and adequate eye contact. No abnormal movements. Mostly cooperative with exam in no acute distress. Her speech is spontaneous and with normal rate and volume. Mood reported as fine, affect appeared congruent. Her thought process appeared linear. Thought content: Patient denied suicidal or homicidal ideation, there were no delusions reported and no clear delusions noted, she denied auditory or visual hallucinations. Attention and concentration appear intact. Her memory appears unreliable though intentionally, but none were formally tested. She is alert and oriented x3. Insight, judgment, and impulse control all impaired. Vitals/I&O/Wt Last Vital Signs Temp 98 F 03/26/23 14:00 Pulse 83 03/26/23 14:00 Resp 16 03/27/23 06:00 BP 93/56 03/26/23 14:00 Pulse Ox 100 03/26/23 14:00 O2 Del Method Room Air 03/26/23 06:00 Weight last 48 hrs Weight 59.024 kg Weight 58.967 kg Data NPU 03/24/23 20:04 03/24/23 20:04 A&P Assessment and plan (1) Schizophrenia, paranoid, chronic: Plan This is a 42-year-old white female with chronic schizophrenia who has not been on her medications with an extended history of noncompliance who appears quite psychotic and incapable of managing herself safely at home. She would likely benefit from acute intervention while on the inpatient unit here. 1.? ?Engage? patient in individual ,milieu, and group therapy ?2. ? We will attempt to gather collateral information from previous providers ?3. ? 1-1 close observations with patient having history of multiple successful attempts to flee hospital. ?4.? Begin invega sustenna 234mg IM to deltoid 03/25/2023. Next injection 04/01/2023 with plan for 6 mg oral to be offered though she will likely reject. Goal: Trajectory for Invega Trinza as soon as switch can be made. 5 we will attempt to give Abilify oral with plan for injection 04/01/2023 so that the injections will be on the same timeline. Will put on Abilify Asimtufii given difficulty with injections. Involuntary Hold Information 2 96 Hour Hold: 96 Hour Involuntary Admission: Yes 96 Hour Hold Ending Date: 09/28/22 96 Hour Hold Ending Time: 17:15 Attestations NPU 2 Medical Necessity Statement*: Inpatient hospitalization is medically necessary and deemed to be the clinically appropriate intervention at this time. We will initiate medications and make changes as indicated. She will likely be hospitalized for over two midnights with a likely length of stay of 10-14 days. Coding Level of Care Code Acute Code for [facility] Fwd Diagnoses Schizophrenia, paranoid, chronic F20.0
--- NOTE | 2023-03-27 08:10 | PC.NURSE ---
refused scheduled Invega
--- NOTE | 2023-03-27 08:13 | PC.NURSE ---
PT REFUSED PHYSICAL SHIFT ASSESSMENT FROM THIS NURSE STATING I AM FINE. PT CURRENTLY DENIES SI/HI/AH/VH. THIS NURSE ASKED PT WHEN HER LAST BOWEL MOVEMENT WAS AND PT STATED YOU GUYS AND YOUR POINTLESS QUESTIONS, YOU DO NOT NEED TO KNOW THAT. THIS NURSE ATTEMPTED EDUCATION ABOUT WHY THESE QUESTIONS ARE ASKED BUT PT INTERRUPTED WITH I AM FINE. THIS NURSE THEN STATED WELL IS THERE ANYTHING ELSE THAT YOU NEED BEFORE I GO? PT STATED CAN YOU LET ME OUT? THIS NURSE EDUCATED PT THAT THE PHYSICIAN IS THE ONLY PERSON THAT CAN DISCHARGE HER AND THAT COOPERATION AND COMPLIANCE WITH TREATMENT WOULD HELP HER GET OUT SOONER. PT RESPONDED YOU GUYS ARE CRAZY WANT ME TO TAKE MEDICATION AND THEN WORRY ABOUT MY VITALS JUST CRAZY. THEN WALKED AWAY FROM THIS NURSE.
[2023-03-27 14:00] VITALS: BP 102/65; PULSE 89; RESP 16; TEMP 36.7; O2SAT 100
[2023-03-27 20:32] VITALS: RESP 18
[2023-03-28 06:00] VITALS: BP 102/66; PULSE 62; RESP 16; O2SAT 98
--- NOTE | 2023-03-28 06:31 | PC.NURSE ---
When asking patient this morning to obtain vitals, patient asked this tech and the other aid if any children were admitted last night. Informed patient that children do not get admitted into this unit. Patient stated ok and agreed to let us take her vitals.
--- NOTE | 2023-03-28 07:45 | PC.NURSE ---
PT CURRENTLY DENIES SI/HI/AH/VH. PT CONTINUES TO RESIST CARE AND CONTINUES TO BE UNWILLING TO TAKE MEDICATIONS. PT STATED WHEN ASKED IF SHE WOULD TAKE HER MEDICATIONS PT STATED WHY SO I CAN HAVE MORE PROBLEMS? THIS NURSE ATTEMPTED EDUCATED ON THE IMPORTANCE OF MEDICATION COMPLIANCE PT WAS RESISTANT TO LEARNING. PT CURRENT NEEDS ARE MET AT THIS TIME.
[2023-03-28 14:00] VITALS: RESP 16
--- NOTE | 2023-03-28 16:39 | PC.NURSE ---
STAFF HAS REPEATEDLY ATTEMPTED TO PROVIDED DRINKS AND FOOD TO PT. EACH TIME PT HAS EITHER REFUSED OR CHOSEN TO IGNORE STAFF AND WALK AWAY.
--- NOTE | 2023-03-28 18:11 | W.PM.NPUPNS ---
Subjective NPU Subjective: Patient presented today reporting that she is fine. She denied that there is anything wrong with her or that there is any reason to be in the hospital. Otherwise she continued her stoic presentation without desire to communicate or have conversation about anything. We continue to discuss the need to get her back on the medications with a plan to have that fully executed from the standpoint of having both Abilify and Invega injections on Monday or Monday. Mental Status Exam MSE Comments: Patient is a slender white female in hospital scrubs with limited grooming and adequate eye contact. No abnormal movements. Mostly cooperative with exam in no acute distress. Her speech is spontaneous and with normal rate and volume. Mood reported as fine, affect appeared congruent. Her thought process appeared linear. Thought content: Patient denied suicidal or homicidal ideation, there were no delusions reported and no clear delusions noted, she denied auditory or visual hallucinations. Attention and concentration appear intact. Her memory appears unreliable though intentionally, but none were formally tested. She is alert and oriented x3. Insight, judgment, and impulse control all impaired. Vitals/I&O/Wt Last Vital Signs Temp 98.0 F 03/27/23 14:00 Pulse 62 03/28/23 06:00 Resp 16 03/28/23 14:00 BP 102/66 03/28/23 06:00 Pulse Ox 98 03/28/23 06:00 O2 Del Method Room Air 03/28/23 06:00 Data NPU 03/24/23 20:04 03/24/23 20:04 A&P Assessment and plan (1) Schizophrenia, paranoid, chronic: Plan This is a 42-year-old white female with chronic schizophrenia who has not been on her medications with an extended history of noncompliance who appears quite psychotic and incapable of managing herself safely at home. She would likely benefit from acute intervention while on the inpatient unit here. 1.? ?Engage? patient in individual ,milieu, and group therapy ?2. ? We will attempt to gather collateral information from previous providers ?3. ? 1-1 close observations with patient having history of multiple successful attempts to flee hospital. ?4.? Begin invega sustenna 234mg IM to deltoid 03/25/2023. Next injection 04/01/2023 with plan for 6 mg oral to be offered though she will likely reject. Goal: Trajectory for Invega Trinza as soon as switch can be made. 5 we will attempt to give Abilify oral with plan for injection 04/01/2023 so that the injections will be on the same timeline. Will put on Abilify Asimtufii given difficulty with injections. Involuntary Hold Information 96 Hour Hold: 96 Hour Involuntary Admission: Yes 96 Hour Hold Ending Date: 09/28/22 96 Hour Hold Ending Time: 17:15 Attestations NPU Medical Necessity Statement*: Inpatient hospitalization is medically necessary and deemed to be the clinically appropriate intervention at this time. We will initiate medications and make changes as indicated. She will likely be hospitalized for over two midnights with a likely length of stay of 10-14 days. Coding Level of Care Code Acute Code for [facility] Fwd Diagnoses Schizophrenia, paranoid, chronic F20.0
--- NOTE | 2023-03-28 20:32 | PC.NURSE ---
asked pt to obtain vital signs. pt stated no, i'm fine.
--- NOTE | 2023-03-29 06:27 | PC.NURSE ---
Attempted to obtain patients vitals. Patient stated I'm Fine . This tech tried to educated patient on being compliant with vitals and patient stated my vitals were bad once after medication you all gave me but they have been fine since. I am fine. This tech let patient know that the vitals were part of the doctors orders. Patient then stated the doctor, Don't even get me started. I'm fine
--- NOTE | 2023-03-29 08:44 | PC.NURSE ---
PT CURRENTLY DENIES SI/HI/AH/VH. PT CONTINUES PARANOID BEHAVIORS INCLUDING UNWILLINGNESS TO EAT AND DRINK WHEN STAFF OFFERED FOOD OR DRINK AND UNWILLINGNESS TO TAKE MEDICATIONS. PT CONTINUES TO CHECK DOORS IN AN ATTEMPT TO ELOPE.
[2023-03-29 14:00] VITALS: RESP 16
--- NOTE | 2023-03-29 15:15 | PC.NURSE ---
REFUSED VITALS RESPIRATIONS WERE OBTAINED AT 16. PT STATES OH IM STILL BREATHING, SO THERE FOR IM ALIVE. NO NEED TO WORRY ABOUT THEM . THIS CASING TESTER WILL CONTINUE TO MONITOR.
--- NOTE | 2023-03-29 17:53 | P.NPUPN_ITS ---
Subjective NPU 2 Subjective: Patient presented today reporting that she is fine. She continues to be resistant to regular conversation reporting daily that she does not want to speak to this writer technical publications. We continue to discuss the plan moving forward including when her next injections will be. She denies any side effects of the medications but is clear that she does not believe any medications are necessary or that she really has a problem. Mental Status Exam 2 MSE Comments: Patient is a slender white female in hospital scrubs with limited grooming and adequate eye contact. No abnormal movements. Mostly cooperative with exam in no acute distress. Her speech is spontaneous and with normal rate and volume. Mood reported as fine, affect appeared congruent. Her thought process appeared linear. Thought content: Patient denied suicidal or homicidal ideation, there were no delusions reported and no clear delusions noted, she denied auditory or visual hallucinations. Attention and concentration appear intact. Her memory appears unreliable though intentionally, but none were formally tested. She is alert and oriented x3. Insight, judgment, and impulse control all impaired. Vitals/I&O/Wt Last Vital Signs Temp 98.0 F 03/27/23 14:00 Pulse 62 03/28/23 06:00 Resp 16 03/29/23 14:00 BP 102/66 03/28/23 06:00 Pulse Ox 98 03/28/23 06:00 O2 Del Method Room Air 03/28/23 06:00 03/29/23 03/29/23 03/30/23 14:59 22:59 06:59 Intake Total 0 / 0 Balance 0 / 0 Data NPU 03/24/23 20:04 03/24/23 20:04 A&P Assessment and plan (1) Schizophrenia, paranoid, chronic: Plan This is a 42-year-old white female with chronic schizophrenia who has not been on her medications with an extended history of noncompliance who appears quite psychotic and incapable of managing herself safely at home. She would likely benefit from acute intervention while on the inpatient unit here. 1.? ?Engage? patient in individual ,milieu, and group therapy ?2. ? We will attempt to gather collateral information from previous providers ?3. ? 1-1 close observations with patient having history of multiple successful attempts to flee hospital. ?4.? Begin invega sustenna 234mg IM to deltoid 03/25/2023. Next injection 04/01/2023 with plan for 6 mg oral to be offered though she will likely reject. Goal: Trajectory for Invega Trinza as soon as switch can be made. 5 we will attempt to give Abilify oral with plan for injection 04/01/2023 so that the injections will be on the same timeline. Will see if we can obtain Abilify Asimtufii given difficulty of keeping her current with injections. Involuntary Hold Information 2 96 Hour Hold: 96 Hour Involuntary Admission: Yes 96 Hour Hold Ending Date: 09/28/22 96 Hour Hold Ending Time: 17:15 Attestations NPU 2 Medical Necessity Statement*: Inpatient hospitalization is medically necessary and deemed to be the clinically appropriate intervention at this time. We will initiate medications and make changes as indicated. She will likely be hospitalized for over two midnights with a likely length of stay of 10-14 days. Coding Level of Care Code Acute Code for [facility] Fwd Diagnoses Schizophrenia, paranoid, chronic F20.0
--- NOTE | 2023-03-29 20:17 | PC.NURSE ---
Attempted to obtain patients vitals. Patient stated no, I'm fine
--- NOTE | 2023-03-30 06:37 | PC.NURSE ---
Attempted to obtain patients vitals. Patient refused
--- NOTE | 2023-03-30 13:48 | P.NPUPN_ITS ---
Subjective NPU 2 Subjective: Patient presented today reporting that she is doing fine. She denies any side effects to the medication and continues to be resistant to speaking with this song writer. Staff reports that her eating improve significantly today as there have been concerns with her purposefully refusing eating. We continue to discuss the plan for the injections and we discussed that Dr. Goel would be back on the unit Monday. Mental Status Exam 2 MSE Comments: Patient is a slender white female in hospital scrubs with limited grooming and adequate eye contact. No abnormal movements. Mostly cooperative with exam in no acute distress. Her speech is spontaneous and with normal rate and volume. Mood reported as fine, affect appeared congruent. Her thought process appeared linear. Thought content: Patient denied suicidal or homicidal ideation, there were no delusions reported and no clear delusions noted, she denied auditory or visual hallucinations. Attention and concentration appear intact. Her memory appears unreliable though intentionally, but none were formally tested. She is alert and oriented x3. Insight, judgment, and impulse control all impaired. Vitals/I&O/Wt Last Vital Signs Temp 98.0 F 03/27/23 14:00 Pulse 62 03/28/23 06:00 Resp 16 03/29/23 14:00 BP 102/66 03/28/23 06:00 Pulse Ox 98 03/28/23 06:00 O2 Del Method Room Air 03/28/23 06:00 03/29/23 03/30/23 03/30/23 22:59 06:59 14:59 Intake Total 0 / 0 Balance 0 / 0 Data NPU 03/24/23 20:04 03/24/23 20:04 A&P Assessment and plan (1) Schizophrenia, paranoid, chronic: Plan This is a 42-year-old white female with chronic schizophrenia who has not been on her medications with an extended history of noncompliance who appears quite psychotic and incapable of managing herself safely at home. She would likely benefit from acute intervention while on the inpatient unit here. 1.? ?Engage? patient in individual ,milieu, and group therapy ?2. ? We will attempt to gather collateral information from previous providers ?3. ? 1-1 close observations with patient having history of multiple successful attempts to flee hospital. ?4.? Begin invega sustenna 234mg IM to deltoid 03/25/2023. Next injection 04/01/2023 with plan for 6 mg oral to be offered though she will likely reject. Goal: Trajectory for [facility] as soon as switch can be made. 5 we will attempt to give Abilify oral with plan for injection 04/01/2023 so that the injections will be on the same timeline. Will see if we can obtain Abilify Asimtufii given difficulty of keeping her current with injections. 6. We may consider giving her injections a day early tomorrow but definitely by 04/01/2023. Involuntary Hold Information 2 96 Hour Hold: 96 Hour Involuntary Admission: Yes 96 Hour Hold Ending Date: 09/28/22 96 Hour Hold Ending Time: 17:15 Attestations NPU 2 Medical Necessity Statement*: Inpatient hospitalization is medically necessary and deemed to be the clinically appropriate intervention at this time. We will initiate medications and make changes as indicated. She will likely be hospitalized for over two midnights with a likely length of stay of 10-14 days. Coding Level of Care Code Acute Code for [facility] Diagnoses Schizophrenia, paranoid, chronic F20.0
[2023-03-30 14:00] VITALS: BP 104/68; PULSE 78; RESP 16; O2SAT 99
--- NOTE | 2023-03-30 14:06 | PC.NURSE ---
Patient refused paliperidone ER 6mg tablet. Dr. Peña aware.
--- NOTE | 2023-03-31 06:34 | PC.NURSE ---
PT UP THIS AM LOOKING FOR THE KIDS THAT CAME IN LAST NIGHT. PT ASSURED THAT NO CHILDREN CAME TO THE UNIT LAST NIGHT. PT LOOKED CONFUSED AND LAUGHED THEN REQUESTED THIS RN OPEN UP THE BREAK ROOM SO SHE COULD SEE THE CHILDREN. PT VERBALLY REDIRECTED. PT CONTINUES TO CHECK DOORS AND HIDES AND WAITS TO SEE IF ANY COMES IN OR OUT. SIDE DOOR TO UNIT IS NOT IN USE DUE TO PTS HIGH ELOPEMENT RISK.
--- NOTE | 2023-03-31 06:45 | PC.NURSE ---
Attempted to obtain patients vitals. Patient stated that they have not changed and that she was fine.
--- NOTE | 2023-03-31 08:01 | PC.NURSE ---
at window. patient denies anxiety, when asked about SI, HI, AVH, depression, patient stated I don't want to talk anymore, thanks, it's fine . Patient at window praying. Patient observed checking doors.
--- NOTE | 2023-03-31 08:33 | W.PM.NPUPNS ---
Subjective NPU Subjective: Patient presented today unchanged. She continues checking doors and seeking means for escape. She continues to refuse her oral doses and we discussed that she will get Abilify and Invega injections tomorrow to get her back on the medication and doses that assisted her getting discharged last time. She was praying and reciting scriptures today. Mental Status Exam MSE Comments: Patient is a slender white female in hospital scrubs with limited grooming and adequate eye contact. No abnormal movements. Mostly cooperative with exam in no acute distress. Her speech is spontaneous and with normal rate and volume. Mood reported as fine, affect appeared congruent. Her thought process appeared linear. Thought content: Patient denied suicidal or homicidal ideation, there were no delusions reported and paranoia and significant hyperreligious delusions noted, she denied auditory or visual hallucinations but appears to have hallucinations about children being somewhere close to needing her assistance. Attention and concentration appear intact. Her memory appears unreliable though intentionally, but none were formally tested. She is alert and oriented x3. Insight, judgment, and impulse control all impaired. Vitals/I&O/Wt Last Vital Signs Temp 98.0 F 03/27/23 14:00 Pulse 78 03/30/23 14:00 Resp 16 03/30/23 14:00 BP 104/68 03/30/23 14:00 Pulse Ox 99 03/30/23 14:00 O2 Del Method Room Air 03/28/23 06:00 Data NPU 03/24/23 20:04 03/24/23 20:04 A&P Assessment and plan (1) Schizophrenia, paranoid, chronic: Plan This is a 42-year-old white female with chronic schizophrenia who has not been on her medications with an extended history of noncompliance who appears quite psychotic and incapable of managing herself safely at home. She would likely benefit from acute intervention while on the inpatient unit here. 1.? ?Engage? patient in individual ,milieu, and group therapy ?2. ? We will attempt to gather collateral information from previous providers ?3. ? 1-1 close observations with patient having history of multiple successful attempts to flee hospital. ?4.? Begin invega sustenna 234mg IM to deltoid 03/25/2023. Next injection loading dose 156 mg IM deltoid 04/01/2023 with plan for 6 mg oral to be offered though she will likely reject. Goal: Trajectory for [facility] as soon as switch can be made. 5 we will attempt to give Abilify oral with plan for injection Abilify Maintena 400 mg IM 04/01/2023 so that the injections will be on the same timeline. Will see if we can obtain Abilify Asimtufii given difficulty of keeping her current with injections. At this point she is refusing oral medication we will likely just need to wait for IM medication to manifest. Involuntary Hold Information 96 Hour Hold: 96 Hour Involuntary Admission: Yes 96 Hour Hold Ending Date: 09/28/22 96 Hour Hold Ending Time: 17:15 Attestations NPU Medical Necessity Statement*: Inpatient hospitalization is medically necessary and deemed to be the clinically appropriate intervention at this time. We will initiate medications and make changes as indicated. She will likely be hospitalized for over two midnights with a likely length of stay of 10-14 days. Coding [facility] Diagnoses Schizophrenia, paranoid, chronic F20.0
[2023-03-31 20:39] VITALS: RESP 18
--- NOTE | 2023-03-31 20:39 | PC.NURSE ---
Patient refused vitals. RR obtained.
--- NOTE | 2023-03-31 21:12 | PC.NURSE ---
PT CONTINUES TO PACE HALLWAYS LOOKING OUT WINDOWS, ATTEMPTING TO GET OUT DOORS. ASK STAFF FREQUENTLY TO LET HER OUT AND OPEN THE DOORS. PT HAS FOLLOWED STAFF INTO THE NURSES STATION TWICE TONIGHT. STAFF ABLE TO VERBALLY REDIRECT BACK OUT TO MARK. PT DENIES SI/HI AND AVH. WILL NOT RATE DEPRESSION OR ANXIETY. PT JUST LOOKS AT NURSE IN A CONFUSED LOOK. PT EDUCATED THAT STAFF CAN NOT LET HER OUT UNTIL SHE IS DISCHARGED. FLAT AFFECT NOTED. ALL QUESTIONS ANSWERED AND SUPPORT VOICED. DENIES PAIN.
--- NOTE | 2023-04-01 06:40 | PC.NURSE ---
Patient refused vitals.
[2023-04-01 13:20] VITALS: RESP 16
[2023-04-01] MEDS: ARIPiprazole Maintena 400 MG IM (13:51)
[2023-04-01] MEDS: paliperidone palmitate 156 mg Syringe IM (13:51)
--- NOTE | 2023-04-01 13:51 | PC.NURSE ---
Administered abilify 400mg IM to patient's right deltoid. lot:[id number] Administered Invega Sustenna 156mg IM to patient's left deltoid. lot: [id number] EXP:07/2024
--- NOTE | 2023-04-01 19:16 | P.NPUPN_ITS ---
Subjective NPU 2 Subjective: 42-year-old female with acute psychosis with a diagnosis of paranoid schizophrenia currently under guardianship. Patient continues to appear paranoid and appears to be repeatedly testing the doors in an attempt to escape. Patient continued to appear religiously preoccupied. She had been guarded about discussing issues with her and children. She had previously described having loved ones having been replaced by Dopplegangers. she continued to refuse oral doses of her medications. She had been seen in her room quietly reciting specific biblical's scriptures. Mental Status Exam 2 MSE Comments: Patient is a slender white female in hospital scrubs unkempt, poor hygiene and adequate eye contact. No abnormal involuntary motor movements. She was minimally cooperative with exam and appeared in acute distress. Her speech is spontaneous and with normal rate and volume. Mood reported as fine, affect appeared odd and subdued. Her thought process appeared linear. Thought content: Patient denied suicidal or homicidal ideation, there was significant paranoia noted. She denied auditory or visual hallucinations and engaged in delusions that her children were somehow communicating to her that they need to be saved. Attention and concentration appear intact. Her memory appears unreliable though intentionally, but none were formally tested. She is alert and oriented x3. Insight, judgment, and impulse control all impaired. Vitals/I&O/Wt Last Vital Signs Temp 98.0 F 03/27/23 14:00 Pulse 78 03/30/23 14:00 Resp 16 04/01/23 13:20 BP 104/68 03/30/23 14:00 Pulse Ox 99 03/30/23 14:00 O2 Del Method Room Air 03/28/23 06:00 Data NPU 03/24/23 20:04 03/24/23 20:04 A&P Assessment and plan (1) Schizophrenia, paranoid, chronic: Plan This is a 42-year-old white female with chronic schizophrenia who has not been on her medications with an extended history of noncompliance who appears quite psychotic and incapable of managing herself safely at home. She would likely benefit from acute intervention while on the inpatient unit here. 1.? ?Engage? patient in individual ,milieu, and group therapy ?2. ? We will attempt to gather collateral information from previous providers ?3. ? 1-1 close observations with patient having history of multiple successful attempts to flee hospital. ?4.? Begin invega sustenna 234mg IM to deltoid 03/25/2023. Next injection loading dose 156 mg IM deltoid 04/01/2023 with plan for 6 mg oral to be offered though she will likely reject. Goal: Trajectory for Invega Trinza as soon as switch can be made. 5 we will attempt to give Abilify oral with plan for injection Abilify Maintena 400 mg IM 04/01/2023 so that the injections will be on the same timeline. Will see if we can obtain Abilify Asimtufii given difficulty of keeping her current with injections. At this point she is refusing oral medication we will likely just need to wait for IM medication to manifest. Involuntary Hold Information 2 96 Hour Hold: 96 Hour Involuntary Admission: Yes 96 Hour Hold Ending Date: 09/28/22 96 Hour Hold Ending Time: 17:15 Attestations NPU 2 Medical Necessity Statement*: Inpatient hospitalization is medically necessary and deemed to be the clinically appropriate intervention at this time. We will initiate medications and make changes as indicated. Her likely length of stay is 10-14 days. Coding Level of Care Code Acute Code for [facility]wd Diagnoses Schizophrenia, paranoid, chronic F20.0
--- NOTE | 2023-04-01 20:31 | PC.NURSE ---
asked pt multiple times to obtain vital signs. pt refused.
--- NOTE | 2023-04-01 20:55 | PC.NURSE ---
PT CONTINUES TO PEER OUT OF DOORS AND TRIES TO FOLLOW STAFF INTO DOORS. PT IS OBSERVED HAVING DELUSIONS, LOOKING FOR KIDS AND ASKING WHERE THE KIDS ARE? PT DENIES SI/HI AND AVH AT THIS TIME. DENIES PAIN. PT IS NOTED TO HAVE A FLAT AFFECT, DEPRESSED MOOD, PARANOID AT TIMES AND EXIT SEEKING. PT REMAINS ON 15 MINUTE CHECKS AND CLOSE OBSERVATION DUE TO INCREASED ELOPEMENT RISK. ALL QUESTIONS ANSWERED AND SUPPORT VOICE.
--- NOTE | 2023-04-02 06:48 | PC.NURSE ---
pt refused vital signs
[2023-04-02 14:00] VITALS: RESP 16
--- NOTE | 2023-04-02 15:00 | P.NPUPN_ITS ---
Subjective NPU 2 Subjective: 42-year-old female with acute psychosis with a diagnosis of paranoid schizophrenia currently under guardianship. She continues to report a desire to want to leave. She refused all oral dose of her medication but was able to take her IM Abilify and IM invega earlier. Patient continues to pace on the unit and reports that she needs to leave but is unable to provide any explanation as to why she felt she was hospitalized here. She was informed that she is under state guardianship and stated that this was unnecessary. She continued to spend time reciting biblical scriptures. Mental Status Exam 2 MSE Comments: Patient is a slender white female in hospital scrubs unkempt, poor hygiene and intense eye contact. No abnormal involuntary motor movements. She was minimally cooperative with exam and appeared in acute distress. Her speech is spontaneous and with normal rate and volume. Mood reported as okay, affect appeared odd, subdued and mood incongruent. Her thought process appeared linear. Thought content: Patient denied suicidal or homicidal ideation, there was significant paranoia noted. She denied auditory or visual hallucinations and engaged in delusions that her children were somehow communicating to her that they need to be saved. Attention and concentration appear intact. Her memory appears unreliable though intentionally, but none were formally tested. She is alert and oriented x3. Insight, judgment, and impulse control all impaired. Vitals/I&O/Wt Last Vital Signs Temp 98.0 F 03/27/23 14:00 Pulse 78 03/30/23 14:00 Resp 16 04/02/23 14:00 BP 104/68 03/30/23 14:00 Pulse Ox 99 03/30/23 14:00 O2 Del Method Room Air 03/28/23 06:00 Data NPU 03/24/23 20:04 03/24/23 20:04 A&P Assessment and plan (1) Schizophrenia, paranoid, chronic: Plan This is a 42-year-old white female with chronic schizophrenia who has not been on her medications with an extended history of noncompliance who appears quite psychotic and incapable of managing herself safely at home. She would likely benefit from acute intervention while on the inpatient unit here. 1.? ?Engage? patient in individual ,milieu, and group therapy ?2. ? We will attempt to gather collateral information from previous providers ?3. ? 1-1 close observations with patient having history of multiple successful attempts to flee [facility]. ?4.? Begin invega sustenna 234mg IM to deltoid 03/25/2023. Next injection loading dose 156 mg IM deltoid 04/01/2023 with plan for 6 mg oral to be offered though she will likely reject. Goal: Trajectory for Invega Trinza as soon as switch can be made. 5 we will attempt to give Abilify oral with plan for injection Abilify Maintena 400 mg IM 04/01/2023 so that the injections will be on the same timeline. Will see if we can obtain Abilify Asimtufii given difficulty of keeping her current with injections. At this point she is refusing oral medication we will likely just need to wait for IM medication to manifest. Involuntary Hold Information 2 96 Hour Hold: 96 Hour Involuntary Admission: Yes 96 Hour Hold Ending Date: 09/28/22 96 Hour Hold Ending Time: 17:15 Attestations NPU 2 Medical Necessity Statement*: Inpatient hospitalization is medically necessary and deemed to be the clinically appropriate intervention at this time. We will initiate medications and make changes as indicated. Her likely length of stay is 10-14 days. Coding Level of Care Code Acute Code for [facility] Diagnoses Schizophrenia, paranoid, chronic F20.0
[2023-04-03 14:00] VITALS: RESP 20
--- NOTE | 2023-04-03 17:58 | P.NPUPN_ITS ---
Subjective NPU 2 Subjective: 42-year-old female with acute psychosis with a diagnosis of paranoid schizophrenia currently under guardianship. She continued to ask if she could go home soon. She had been continuing to recite scripture at times and continue to check doors to see if there was a mode of escape here on the unit. She had continued to refuse oral medications and appeared to have little motivation to receive treatment stating that God did not want her to take medications. She had reported having no desire to have her come visit her here. She had reported that she was involved in the care of her children as they appear to be homeschooled. Mental Status Exam 2 MSE Comments: Patient is a slender white female in hospital scrubs unkempt, poor hygiene and intense eye contact. No abnormal involuntary motor movements. She was minimally cooperative with exam and appeared in acute distress. Her speech is spontaneous and with normal rate and volume. Mood reported as good., affect appeared odd, subdued and mood incongruent. Her thought process appeared linear. Thought content: Patient denied suicidal or homicidal ideation, there was significant paranoia noted. She denied auditory or visual hallucinations and engaged in delusions that her children were somehow communicating to her that they need to be saved. Attention and concentration appear intact. Her memory appears unreliable though intentionally, but none were formally tested. She is alert and oriented x3. Insight, judgment, and impulse control all impaired. Vitals/I&O/Wt Last Vital Signs Temp 98.0 F 03/27/23 14:00 Pulse 78 03/30/23 14:00 Resp 20 H 04/03/23 14:00 BP 104/68 03/30/23 14:00 Pulse Ox 99 03/30/23 14:00 O2 Del Method Room Air 03/28/23 06:00 Data NPU 03/24/23 20:04 03/24/23 20:04 A&P Assessment and plan (1) Schizophrenia, paranoid, chronic: Plan This is a 42-year-old white female with chronic schizophrenia who has not been on her medications with an extended history of noncompliance who appears quite psychotic and incapable of managing herself safely at home. She would likely benefit from acute intervention while on the inpatient unit here. 1.? ?Engage? patient in individual ,milieu, and group therapy ?2. ? We will attempt to gather collateral information from previous providers ?3. ? 1-1 close observations with patient having history of multiple successful attempts to flee hospital. ?4.? Begin invega sustenna 234mg IM to deltoid 03/25/2023. Next injection loading dose 156 mg IM deltoid 04/01/2023 with plan for 6 mg oral to be offered though she will likely reject. Goal: Trajectory for Invega Trinza as soon as switch can be made. 5 we will attempt to give Abilify oral with plan for injection Abilify Maintena 400 mg IM 04/01/2023 so that the injections will be on the same timeline. Will see if we can obtain Abilify Asimtufii given difficulty of keeping her current with injections. At this point she is refusing oral medication we will likely just need to wait for IM medication to manifest. Involuntary Hold Information 2 96 Hour Hold: 96 Hour Involuntary Admission: Yes 96 Hour Hold Ending Date: 09/28/22 96 Hour Hold Ending Time: 17:15 Attestations NPU 2 Medical Necessity Statement*: Inpatient hospitalization is medically necessary and deemed to be the clinically appropriate intervention at this time. We will initiate medications and make changes as indicated. Her likely length of stay is 10-14 days. Coding Level of Care Code Acute Code for [facility] Fwd Diagnoses Schizophrenia, paranoid, chronic F20.0
[2023-04-03 19:50] VITALS: RESP 18
--- NOTE | 2023-04-03 19:50 | PC.NURSE ---
Patient refused vitals. RR obtained.
--- NOTE | 2023-04-04 06:15 | PC.NURSE ---
Patient refused vitals
--- NOTE | 2023-04-04 08:38 | PC.NURSE ---
Pt refused to take oral 6mg Invega this morning.
--- NOTE | 2023-04-04 16:20 | P.NPUPN_ITS ---
Subjective NPU 2 Subjective: 42-year-old female with acute psychosis with a diagnosis of paranoid schizophrenia currently under guardianship. She continued to ask if she could go home soon. She had successfully managed to get into nursing station and was redirected. When asked why she had done this she stated that they were talking about me. She had been continuing to recite scripture at times and continue to check doors to see if there was a mode of escape here on the unit. She continues to refuse oral medications. She reports no desire to communicate in person with . Patient reports no side effects from medication. Mental Status Exam 2 MSE Comments: Patient is a slender white female in hospital scrubs unkempt, poor hygiene and intense eye contact. No abnormal involuntary motor movements. She was minimally cooperative with exam and appeared in acute distress. Her speech is spontaneous and with normal rate and volume. Mood reported as okay., affect appeared odd, subdued and mood incongruent. Her thought process appeared linear but superficial. Thought content: Patient denied suicidal or homicidal ideation, there was continued presence of significant paranoia noted. She denied auditory or visual hallucinations. Attention and concentration appear intact. Her memory appears unreliable though intentionally, but none were formally tested. She is alert and oriented x3. Insight, judgment, and impulse control all impaired. Vitals/I&O/Wt Last Vital Signs Temp 98.0 F 03/27/23 14:00 Pulse 78 03/30/23 14:00 Resp 18 04/03/23 19:50 BP 104/68 03/30/23 14:00 Pulse Ox 99 03/30/23 14:00 O2 Del Method Room Air 03/28/23 06:00 Data NPU 03/24/23 20:04 03/24/23 20:04 A&P Assessment and plan (1) Schizophrenia, paranoid, chronic: Plan This is a 42-year-old white female with chronic schizophrenia who has not been on her medications with an extended history of noncompliance who appears quite psychotic and incapable of managing herself safely at home. She would likely benefit from acute intervention while on the inpatient unit here. 1.? ?Engage? patient in individual ,milieu, and group therapy ?2. ? We will attempt to gather collateral information from previous providers ?3. ? 1-1 close observations with patient having history of multiple successful attempts to flee hospital. ?4.? Begin invega sustenna 234mg IM to deltoid 03/25/2023. Next injection loading dose 156 mg IM deltoid 04/01/2023 with plan for 6 mg oral to be offered though she will likely reject. Goal: Trajectory for Invega Trinza as soon as switch can be made. 5 we will attempt to give Abilify oral with plan for injection Abilify Maintena 400 mg IM 04/01/2023 so that the injections will be on the same timeline. Will see if we can obtain Abilify Asimtufii given difficulty of keeping her current with injections. At this point she is refusing oral medication we will likely just need to wait for IM medication to manifest. Involuntary Hold Information 2 96 Hour Hold: 96 Hour Involuntary Admission: Yes 96 Hour Hold Ending Date: 09/28/22 96 Hour Hold Ending Time: 17:15 Attestations NPU 2 Medical Necessity Statement*: Inpatient hospitalization is medically necessary and deemed to be the clinically appropriate intervention at this time. We will initiate medications and make changes as indicated. Her likely length of stay is 7-10 days. Coding Level of Care Code Acute Code for g Fwd Diagnoses Schizophrenia, paranoid, chronic F20.0
--- NOTE | 2023-04-04 19:52 | PC.NURSE ---
Attempted to obtain patients vitals. Patient stated that she was fine
[2023-04-05 06:00] VITALS: RESP 18
[2023-04-05 14:00] VITALS: RESP 16
--- NOTE | 2023-04-05 14:56 | PC.NURSE ---
PT REFUSED 1400 VITALS. WILL CONTINUE TO MONITOR.
--- NOTE | 2023-04-05 16:53 | P.NPUPN_ITS ---
Subjective NPU 2 Subjective: 42-year-old female with acute psychosis with a diagnosis of paranoid schizophrenia currently under guardianship. No side effects noted from her medications. She had been less intrusive. She continued to appear somewhat guarded but did not make repeated attempts to flee the hospital. The patient stated that she was ready to go home. She had stated that she would continue to take her monthly medications. Mental Status Exam 2 MSE Comments: Patient is a slender white female in hospital scrubs, with improving hygiene and intense eye contact. No abnormal involuntary motor movements. She was minimally cooperative with exam and appeared in acute distress. Her speech is spontaneous and with normal rate and volume. Mood reported as okay., affect remained blunted. Her thought process appeared linear but superficial. Thought content: Patient denied suicidal or homicidal ideation, there was continued paranoia but less overt. She denied auditory or visual hallucinations. Attention and concentration appear intact. Her memory appears unreliable though intentionally, but none were formally tested. She is alert and oriented x3. Insight remained poor, judgment, and impulse control are limited. Vitals/I&O/Wt Last Vital Signs Temp 98.0 F 03/27/23 14:00 Pulse 78 03/30/23 14:00 Resp 16 04/05/23 14:00 BP 104/68 03/30/23 14:00 Pulse Ox 99 03/30/23 14:00 O2 Del Method Room Air 03/28/23 06:00 Data NPU 03/24/23 20:04 03/24/23 20:04 A&P Assessment and plan (1) Schizophrenia, paranoid, chronic: Plan This is a 42-year-old white female with chronic schizophrenia who has not been on her medications with an extended history of noncompliance who appears quite psychotic and incapable of managing herself safely at home. She would likely benefit from acute intervention while on the inpatient unit here. 1.? ?Engage? patient in individual ,milieu, and group therapy ?2. ? We will attempt to gather collateral information from previous providers ?3. ? 1-1 close observations with patient having history of multiple successful attempts to flee hospital. ?4.? Invega Trinza due 04/21/23. 5 Abilishawn im on 04/01/23 with no dose due 04/30/23 Involuntary Hold Information 2 96 Hour Hold: 96 Hour Involuntary Admission: Yes 96 Hour Hold Ending Date: 09/28/22 96 Hour Hold Ending Time: 17:15 Attestations NPU 2 Medical Necessity Statement*: Inpatient hospitalization is medically necessary and deemed to be the clinically appropriate intervention at this time. We will initiate medications and make changes as indicated. Her likely length of stay is 7-10 days. Coding Level of Care Code Acute Code for [facility] Fwd Diagnoses Schizophrenia, paranoid, chronic F20.0
--- NOTE | 2023-04-05 20:41 | PC.NURSE ---
IN BED RESTING, AROUSES TO VOICE. SOFT SPOKEN, DENIES PAIN, SI/HI AND AVH AT THIS TIME. PT CONTINUES TO REST IN BED, DOES NOT ENGAGE WITH STAFF. SUPPORT VOICED.
[2023-04-06 06:00] VITALS: RESP 17
--- NOTE | 2023-04-06 08:12 | PC.NURSE ---
PATIENT REFUSED INVEGA TABLET THIS MORNING. SHE STATED SHE DIDN'T NEED IT SINCE SHE HAD THE SHOT. EDUCATION PROVIDED TO PATIENT BY THIS NURSE ON THE TAPERING OF THE TABLET, BUT PATIENT CONTINUED TO REFUSE MED.
[2023-04-06 10:34] VITALS: RESP 17
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
== END 2023-04-06 16:45 | disposition home or self-care (01) | DRG 885 ==
LOC: ER 20:28 → NP 21:02
PROVIDERS: Emergency Medicine; Admitting Provider Psychiatry & Neurology Psychiatry; Emergency Provider Emergency Medicine; Visit Provider Psychiatry & Neurology Psychiatry
DX: F20.0 Paranoid schizophrenia (principal)
CPT/HCPCS: 80053; 80307; 85025; 96372; 97165; 99285; J1630; J2060

== ENCOUNTER 2024-10-23 12:19 | Inpatient (IN) | payer BC, MEDICAID, SELFPAY ==
[2024-10-23 12:20] VITALS: BP 109/45; PULSE 68; RESP 15; TEMP 36.8; O2SAT 98; BMI 15.4
--- OUTSIDE RECORDS SUMMARY | 2024-10-23 12:23 | XMS_ITS | Clinical Summary ---
Author Organization [facility] Address [address] [place] [address] Phone Care Team Providers Care Depositing Machine Operator Name Role Phone Jocelin Foley MD Primary Care Provider [phone] Allergies No known active allergies Medications ibuprofen (MOTRIN) 600 mg Oral tablet Take 1 Tab by mouth every 6 hours as needed. 60 Tab 1 0 Active ipratropium-albut Katey (DUONEB) 0.5 mg-3 mg(2.5 mg base)/3 mL Solution for Nebulization Take 3 mL by inhalation 1 time daily as needed. Active Resolved Problems Problem Noted Date Diagnosed Date Resolved Date Deliv (05/25) 05/25/2009 010 Family History Medical History Relation Name Comments Cancer Maternal Grandmother Diabetes Maternal Grandmother Cancer Paternal Grandfather Cancer Paternal Grandmother Relation Name Status Comments Maternal Grandmother Paternal Grandfather Paternal Grandmother Social History Tobacco Use Types Packs/Day Years Used Date Smoking Tobacco: Never Assessed Alcohol Use Standard Drinks/Week Comments No 0 (1 standard drink = 0.6 oz pur e alcohol) Comments No Sex and Gender Information Value Date Recorded Sex Assigned at Not on file Legal Sex Female 6:29 AM HOSPITAL MEDICAL BILLER Gender Identity Not on file Sexual Orientation Not on file Last Filed Vital Signs Vital Sign Reading Time Taken Comments Blood Pressure 102/58 05/29/2009 9:54 AM HOSPITAL MEDICAL BILLER Pulse 88 05/29/2009 9:54 AM HOSPITAL MEDICAL BILLER Temperature 37 C (98.6 F) 05/29/2009 9:54 AM HOSPITAL MEDICAL BILLER Respiratory Rate 16 05/29/2009 9:54 AM HOSPITAL MEDICAL BILLER Oxygen Saturation 99% 05/29/2009 3:30 AM HOSPITAL MEDICAL BILLER Inhaled Oxygen Concentration - - Weight 65.3 kg (144 lb) 05/25/2009 11:45 AM HOSPITAL MEDICAL BILLER Height 160 cm (5' 3 ) 05/25/2009 11:45 AM HOSPITAL MEDICAL BILLER Body Mass Index 25.51 05/25/2009 11:45 AM HOSPITAL MEDICAL BILLER Plan of Treatment Health Maintenance Due Date Last Done Comments DTAP/TDAP/TD VACCINES (1 - Tdap) 2000 HEPATITIS B VACCINES (1 of 3 - 19+ 3-dose series) 2000 HPV/Cotest (21-29) 2002 CERVICAL CANCER SCREENING 08/19/2011 HPV/Cotest (30-65) 08/19/2011 PAP SMEAR 08/19/2011 BREAST CANCER SCREENING 2021 Preventative Visit- Commercial 04/17/2024 INFLUENZA VACCINE (#1) 2024 HPV VACCINES Aged Out No longer eligi ble based on patient's age to complete this topic Insurance [employer] PPO Advance Directives For more information, please contact: [phone] * Full Code (Latest Code Status on File) Date Activated Date Inactivated Comments 05/26/2009 1:33 AM 05/29/2009 4:45 PM * Full Code Date Activated Date Inactivated Comments 05/25/2009 1:23 PM 05/26/2009 1:33 AM Care Teams Depositing Machine Operator Relationship Specialty Start Date End Date Jocelin Foley MD PCP - General 05/22/09
--- OUTSIDE RECORDS SUMMARY | 2024-10-23 12:23 | XMS_ITS | Encounter Summary ---
Author Organization [facility] Address [address] [place] [address] Care Team Providers Care Board Member Name Role Phone Unavailable Primary Care Provider Unavailabl e Encounter Details Date Type Department Care Team (Late st Contact Info) Description 05/04/[address] [facility] External Department [address] [place] [phone] [facility], External Provider [address] [place] [address] HRP (High Risk ) Social History Tobacco Use Types Packs/Day Years Used Date Smoking Tobacco: Never Assessed Comments Yes Sex and Gender Information Value Date Recorded Sex Assigned at Not on file Legal Sex Female 10:47 AM FRONT OFFICE ATTENDANT Gender Identity Not on file Sexual Orientation Not on file documented as of this encounter Plan of Treatment Not on file documented as of this encounter Results * US OB DETAIL SINGLE GEST (05/04/2009 12:11 PM FRONT OFFICE ATTENDANT) Anatomical Region Laterality Modality Pelvis Ultrasound us External Provider [facility] ORDERABLES Final Resu lt documented in this encounter Visit Diagnoses Diagnosis HRP (high risk ) Unspecified high-risk documented in this encounter
--- OUTSIDE RECORDS SUMMARY | 2024-10-23 12:23 | XMS_ITS | Clinical Summary ---
Author Organization [facility] Address [address] [place] [address] Phone Care Team Providers Care Talent Acquisition Program Manager Name Role Phone Unavailable Primary Care Provider Unavailabl e Allergies No known active allergies Medications albuterol-iprat ropium (DUONEB) 0.5-2.5 mg/3 mL Inhalation Nebu Take 3 mL by inhalation 1 time daily as needed for Shortness of Breath. Active Social History Tobacco Use Types Packs/Day Years Used Date Smoking Tobacco: Never Assessed Comments Yes Sex and Gender Information Value Date Recorded Sex Assigned at Not on file Legal Sex Female 10:47 AM DUCK FARMER Gender Identity Not on file Sexual Orientation Not on file Last Filed Vital Signs Vital Sign Reading Time Taken Comments Blood Pressure 103/57 05/04/2009 1:20 AM DUCK FARMER Pulse 109 05/04/2009 1:20 AM DUCK FARMER Temperature 36.8 C (98.3 F) 05/04/2009 1:20 AM DUCK FARMER Respiratory Rate 16 05/04/2009 1:20 AM DUCK FARMER Oxygen Saturation 97% 05/04/2009 1:20 AM DUCK FARMER Inhaled Oxygen Concentration - - Weight 65.1 kg (143 lb 9.6 oz) 05/04/2009 1:00 A M DUCK FARMER Height 160 cm (5' 3 ) 05/04/2009 1:00 AM DUCK FARMER Body Mass Index 25.44 05/04/2009 1:00 AM DUCK FARMER Plan of Treatment Health Maintenance Due Date Last Done Comments DTAP/TDAP/TD VACCINES (1 - Tdap) 2000 HEPATITIS B VACCINES (1 of 3 - 19+ 3-dose series) 2000 HPV/Cotest (21-29) 2002 CERVICAL CANCER SCREENING 08/19/2011 HPV/Cotest (30-65) 08/19/2011 PAP SMEAR 08/19/2011 BREAST CANCER SCREENING 2021 INFLUENZA VACCINE (#1) 2024 RSV VACCINE (60+ or ) (1 - 1-dose 75+ series) 2056 HPV VACCINES Aged Out No longer eligi ble based on patient's age to complete this topic Insurance Advance Directives For more information, please contact: [phone] * Full Code (Latest Code Status on File) Date Activated Date Inactivated Comments 05/04/2009 1:46 AM 05/04/2009 5:39 AM
[2024-10-23 13:05] LABS: Hematocrit 31.0 % (36-47); Hemoglobin 8.40 g/dL (11.27-16.99); Mean Corpuscular HGB Conc 27.1 g/dL (30-55); Mean Corpuscular Hemoglobin 18.9 pg (27-33); Mean Corpuscular Volume 69.8 fl (85-98); Nucleated Red Blood Cells % 0 %; Platelet Count 261 10^3/cmm (157-399); Red Blood Count 4.44 10^6/uL (3.85-5.65); White Blood Count 5.27 10^3/uL (3.29-11.43)
[2024-10-23] MEDS: haloperidol inj 5 mg/mL INJ 1 mL 10 MG IM ×2 (13:05→16:59)
--- NOTE | 2024-10-23 13:05 | PC.NURSE ---
PT ATTEMPTING TO ELOPE FROM TREATMENT ROOM. VERBAL DEESCALATION ATTEMPTED AND UNSUCCESSFUL. VERBAL ORDER FROM DR. MCGEE FOR HALDOL 10MG IM.
[2024-10-23 13:25] LABS: Alanine Aminotransferase 9 U/L (0-33); Albumin Level 4.0 g/dL (3.5-5.2); Alkaline Phosphatase 59 U/L (35-105); Anion Gap 16.9 (5-19); Aspartate Amino Transferase 10 U/L (0-32); Blood Urea Nitrogen 7 mg/dL (6-20); Calcium 8.9 mg/dL (8.5-10.5); Carbon Dioxide 22 mmol/L (22-29); Chloride 105 mmol/L (98-107); Creatinine Clr Calc Pharmacy 77.9133; Globulin 3.1 g/dL (1.3-4.6); Glucose 84 mg/dL (65-115); Osmolality Calculated 287 mOsm/kg (285-295); Potassium 3.9 mmol/L (3.5-5.1); Salicylate < 0.3 mg/dL (3-10); Sodium 140 mmol/L (136-145); Total Protein 7.1 g/dL (6.6-8.7)
[2024-10-23 13:26] LABS: Acetaminophen < 5.0 ug/mL (10-30)
[2024-10-23 14:41] LABS: Alcohol Level < 10 mg/dL (0-10)
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
--- NOTE | 2024-10-23 15:41 | PC.NURSE ---
PT was read her 96 hour hold rights at 1315. pt did not have any questions regarding the information.
[2024-10-23 15:45] LABS: HCG, Serum Qual Negative (Negative)
[2024-10-23] MEDS: LORazepam 1 MG/0.5 ML injection 2 MG IM (16:59)
--- NOTE | 2024-10-23 17:06 | ED.C_ITS ---
HPI - Psych 2 General: Chief Complaint: Psychiatric Symptoms Stated Complaint: 96 Time Seen by Provider: 10/23/24 12:22 History of Present Illness: 44-year-old female brought to the emerge ncy department by [facility]'s Office on a 96-hour court-ordered psychiatric hold. Patient has a known history of paranoid schizophrenia per chart review. She was previously admitted to [facility] in 2022 for a similar 96-hour hold due to acute psychosis. Upon arrival, patient was minimally communicative, stating only I don't need help. She appeared poorly groomed and somewhat tearful. During the evaluation, patient became increasingly agitated, eventually becoming combative and slapping a member of the nursing staff. This necessitated chemical restraint with Haldol 10mg administered twice, along with Ativan 2mg. Physical restraints were also temporarily required due to her combativeness and agitation. Related Data Home Medications ?Medication ?Instructions ?Recorded ?Confirmed No Known Home Medications 10/23/24 07/0 01/09 Allergies Allergy/AdvReac Type Severity Reaction Status Date / Time No Known Allergies Allergy Verified 02/21/24 09:55 PFS ED 2 PFSH: Medical History (Updated 10/23/24 @ 17:10 by Boubacar Smith MD) Schizophrenia, paranoid, chronic Psychiatric care Social History Smoking and tobacco/nicotine status: never used tobacco/nicotine Second hand smoke exposure: No Alcohol intake: never Substance/Drug Use: never Adopted: No Lives independently: Yes Household members: spouse and children Housing: House Marital status: Current gender identity: Female Course 2 Vital Signs: Vital signs: Vital Signs Temperature 98.3 F 10/23/24 12:20 Pulse Rate 68 10/23/24 12:20 Respiratory Rate 15 10/23/24 12:20 Blood Pressure 109/45 10/23/24 12:20 Pulse Oximetry 98 10/23/24 12:20 Oxygen Delivery Me thod Room Air 10/23/24 12:20 MDM - Psych Medical Decision Making ROS: Patient was largely non-communicative during the encounter, limiting review of systems. Constitutional: Patient denied pain or physical discomfort when specifically asked. Psychiatric: Patient demonstrated agitation, poor grooming, minimal verbal communication, and combative behavior consistent with acute psychosis. MEDICATIONS AND ALLERGIES: - Meds: Patient states I don't take any medicines though chart review indicates she has prescribed antipsychotic medications that she has likely been non-compliant with - Allergies: None reported PAST HISTORICAL DATA: - PMH: Paranoid schizophrenia - PSH: None documented in available records - Previous Psychiatric Admissions: [facility] in 2022 for 96-hour hold due to acute psychosis VITAL SIGNS: No specific vital signs verbalized in marketing traffic coordinator. Patient described as hemodynamically stable. PHYSICAL EXAM: General: Poorly groomed, somewhat tearful, sitting on edge of bed, minimally communicative, initially in no acute distress but later became agitated and combative HEENT: Head normocephalic and atraumatic. Mucous membranes moist. Neck: Supple Respiratory: No increased work of breathing, no wheezing Cardiac: Regular rate and rhythm, 2+ pulses in all extremities Abdomen: Soft, non-distended, no rebound or guarding Neuro: Limited exam due to patient's minimal cooperation. Patient alert but with altered mental status consistent with acute psychosis. Psychiatric: Poorly groomed, minimal verbal communication, tearful at times, agitated, combative behavior requiring chemical and physical restraints INITIAL IMPRESSION AND PLAN: Given the history and presentation, the primary working diagnosis is acute psychosis in a patient with known paranoid schizophrenia, likely due to medication non-compliance. Additional considerations include potential underlying medical causes of altered mental status, including anemia which was identified on laboratory testing. Based on this initial impression I will order basic psychiatric laboratory tests including CBC, BMP, salicylate level, acetaminophen level, ethanol level, test, and urinalysis with drug screen. Will administer Haldol 10mg for acute agitation as needed. Will consult with psychiatry for admission to the psychiatric unit. TEST INTERPRETATIONS: - CBC: Hemoglobin 8.4 (low), microcytic anemia pattern consistent with iron deficiency. WBC 5.2 (normal). - BMP: BUN 7, Creatinine 0.6 (normal renal function). - Salicylate level: Normal - Acetaminophen level: Normal - Ethanol level: Normal - test: Negative - Urinalysis/drug screen: Patient did not provide specimen PROCEDURES: Application of physical restraints due to patient combativeness and agitation to ensure safety of patient and staff. Restraints were applied according to hospital protocol after less restrictive measures failed. Patient was monitored continuously while in restraints. CONSIDERED BUT NOT PERFORMED: Head CT CONSIDERED but NOT DONE due to no history of trauma, no focal neurological deficits, and psychiatry entry level sales consultant's familiarity with patient's presentation as consistent with her known psychiatric condition when off medications. FINAL IMPRESSION: Based on all the above, my clinical impression is most compatible with acute psychosis in a patient with known paranoid schizophrenia, likely due to medication non-compliance. Secondary diagnosis of microcytic anemia, likely iron deficiency, with hemoglobin of 8.4. The clinical picture is not currently suggestive of intoxication, traumatic brain injury, or metabolic encephalopathy. Although other conditions were also considered, they were deemed unlikely based on the clinical information available. CLINICAL DISPOSITION: The patient's current condition is stabilized but requiring psychiatric intervention in my estimation and the most appropriate and indicated disposition at this time is admission to the psychiatric unit at [facility] under the care of Dr. Peña. The patient requires inpatient psychiatric care due to acute psychosis with agitation and combative behavior that poses a risk to herself and others. She is currently on a court-ordered 96-hour hold, and Dr. Peña from psychiatry has accepted the patient for admission. Dr. Peañ is familiar with the patient and notes that this presentation is consistent with her previous episodes when off medications. The patient's anemia was communicated to Dr. Peña for further evaluation during her inpatient stay. RISK STRATIFICATION AND CLINICAL DECISION RULES APPLIED: No formal clinical decision rules were applied in this case. Risk assessment was based on the patient's presentation with acute psychosis, agitation, and combative behavior requiring chemical and physical restraints, along with her history of paranoid schizophrenia and previous psychiatric admissions. These factors, combined with the court-ordered 96-hour hold, clearly indicated the need for inpatient psychiatric admission. CASE SUMMARY: 44-year-old female with known paranoid schizophrenia brought to the ED by law enforcement on a court-ordered 96-hour psychiatric hold. Patient was minimally communicative, poorly groomed, and tearful on presentation. During the evaluation, she became increasingly agitated and combative, requiring chemical restraint with Haldol 10mg twice and Ativan 2mg, as well as temporary physical restraints after slapping a staff member. Laboratory evaluation revealed microcytic anemia with hemoglobin of 8.4, likely due to iron deficiency. Other laboratory values were within normal limits. Dr. Peña from psychiatry was consulted and accepted the patient for admission to the psychiatric unit, noting that this presentation is consistent with the patient's previous episodes when non-compliant with medications. Patient was stabilized in the ED and transferred to the psychiatric unit for further management of her acute psychosis and evaluation of her anemia. Medical Records I reviewed the patient's medical records. Lab Data I reviewed the patient's lab results. 10/23/24 12:59 10/23/24 12:59 Laboratory Results WBC 5.27 10^3/uL (3.29-11.43) 10/23/24 12:59 RBC 4.44 10^6/uL (3.85-5.65) 10/23/24 12:59 Hgb 8.40 g/dL (11.27-16.99) L 10/23/24 12:59 Hct 31.0 % (36-47) L 10/23/24 12:59 MCV 69.8 fl (85-98) L 10/23/24 12:59 MCH 18.9 pg (27-33) L 10/23/24 12:59 MCHC 27.1 g/dL (30-55) L 10/23/24 12:59 RDW 17.4 % (12.1-15.1) H 10/23/24 12:59 Plt Count 261 10^3/cmm (157-399) 10/23/24 12:59 MPV 10.1 fL (7.4-10.4) 10/23/24 12:59 Neut % (Auto) 59.1 % 10/23/24 12:59 Lymph % (Auto) 33.4 % 10/23/24 12:59 Stearns % (Auto) 5.9 % 10/23/24 12:59 Eos % (Auto) 0.8 % 10/23/24 12:59 Baso % (Auto) 0.6 % 10/23/24 12:59 Neut # (Auto) 3.12 10^3/uL (1.8-7.7) 10/23/24 12:59 Lymph # (Auto) 1.8 10^3/uL (0.8-4.8) 10/23/24 12:59 Stearns # (Auto) 0.3 10^3/uL (0.2-0.9) 10/23/24 12:59 Eos # (Auto) 0.0 10^3/uL (0.0-0.8) 10/23/24 12:59 Baso # (Auto) 0.0 10^3/uL (0.0-0.1) 10/23/24 12:59 Nucleated RBC % (auto) 0 % 10/23/24 12:59 Nucleated RBCs # 0.0 /100WBC 10/23/24 12:59 Sodium 140 mmol/L (136-145) 10/23/24 12:59 Potassium 3.9 mmol/L (3.5-5.1) 10/23/24 12:59 Chloride 105 mmol/L (98-107) 10/23/24 12:59 Carbon Dioxide 22 mmol/L (22-29) 10/23/24 12:59 Anion Gap 16.9 (5-19) 10/23/24 12:59 BUN 7 mg/dL (6-20) 10/23/24 12:59 Creatinine 0.6 mg/dL (0.5-0.9) 10/23/24 12:59 GFR Calculation 109.1 mL/min (90-130) 10/23/24 12:59 Glucose 84 mg/dL (65-115) 10/23/24 12:59 Calculated Osmolality 287 mOsm/kg (285-295) 10/23/24 12:59 Calcium 8.9 mg/dL (8.5-10.5) 10/23/24 12:59 Total Bilirubin 0.5 mg/dL (0.15-1.2) 10/23/24 12:59 AST 10 U/L (0-32) 10/23/24 12:59 ALT 9 U/L (0-33) 10/23/24 12:59 Alkaline Phosphatase 59 U/L (35-105) 10/23/24 12:59 Total Protein 7.1 g/dL (6.6-8.7) 10/23/24 12:59 Albumin 4.0 g/dL (3.5-5.2) 10/23/24 12:59 Globulin 3.1 g/dL (1.3-4.6) 10/23/24 12:59 HCG, Qual Negative (Negative) 10/23/24 15:30 Salicylates < 0.3 mg/dL (3-10) L 10/23/24 12:59 Acetaminophen < 5.0 ug/mL (10-30) L 10/23/24 12:59 Ethyl Alcohol < 10 mg/dL (0-10) 10/23/24 12:59 No radiology studies performed this visit Discharge Plan Discharge Patient Disposition: Admitted As Inpatient Admit Provider: George Peña Clinical Impression: Acute psychosis, Psychiatric care Condition: Stable Coding Level of Care Code ED Paint Tinter for Domitila Rosado
--- NOTE | 2024-10-23 17:13 | PC.NURSE ---
PT REMEDICATED AT 1750 DUE TO AGITATION AND ATTEMPTING TO GET OUT OF RESTRAINTS.
--- NOTE | 2024-10-23 20:02 | PC.NURSE ---
vs not collected resp. 16 charge notified
--- NOTE | 2024-10-24 06:31 | PC.NURSE ---
vitals not collected, resp. 16, charge notified
--- NOTE | 2024-10-24 09:24 | P.NPUHP_ITS ---
Providers/Chief Complaint 2 Admitting Physician: George Peña MD Chief Complaint: 96 HPI NPU History of Present Illness Ivone Torres is a 44 year old female who presented to the emergency department with the following report: Chief Complaint: Psychiatric Symptoms Stated Complaint: 96 Time Seen by Provider: 10/23/24 12:22 History of Present Illness: 44-year-old female brought to the emergency department by [facility]'s Office on a 96-hour court-ordered psychiatric hold. Patient has a known history of paranoid schizophrenia per chart review. She was previously admitted to [facility] in 2022 for a similar 96-hour hold due to acute psychosis. Upon arrival, patient was minimally communicative, stating only I don't need help. She appeared poorly groomed and somewhat tearful. During the evaluation, patient became increasingly agitated, eventually becoming combative and slapping a member of the nursing staff. This necessitated chemical restraint with Haldol 10mg administered twice, along with Ativan 2mg. Physical restraints were also temporarily required due to her combativeness and agitation. She was admitted to the neuropsychiatric unit for definitive treatment of those issues. She is known quite well to [facility] through inpatient and outpatient services with her last outpatient note being February of last year and her last inpatient stay being in March 2023. An excerpt of her last discharge summary is included below for context and history given that she tends to present identically to the hospital each time. Per her 02/21/2024 outpatient note she was administered the 2 injections, Abilify Maintena 400 mg IM q. 28 days and Invega Sustenna 156 mg IM q. monthly at that visit. However that was the last visit that she attended meaning that at the beginning of March her system would have started having a decline in the medication in her system and it does not appear she has had any medication since. It was clear that she recognized this fiction and nonfiction writer prose by her body language however she never spoken word to this fiction and nonfiction writer prose during the interview. We discussed that I would get some collateral information from her and her guardian and the likelihood is that we would restart her medications tomorrow. Per her 04/06/2023 [facility] inpatient psychiatric discharge summary: Discharge Diagnosis (1) Schizophrenia, paranoid, chronic: Status: Chronic Reason for Visit Reason for Visit: 96 HOUR HOLD Brief History: History of Present Illness Ivone Torres is a 42 year old female who presented to the emergency department with the following report: Chief Complaint: Psychiatric Symptoms Stated Complaint: 96 HOUR HOLD Time Seen by Provider: 03/24/23 19:47 Source: patient and police Mode of arrival: ambulatory Limitations: no limitations History of Present Illness: 42-year-old female here with police under 96-hour hold for acute psychosis. She has a history of psychosis in the past. Patient here is rambling she states that there is sex offenders she also believes that her children have been switched out she is not making any sense whatsoever to me at this time. Associated symptoms: Reports auditory hallucinations; Deny depression She was admitted to the neuropsychiatric unit for definitive treatment of those issues. She presents today well-known to this fiction and nonfiction writer prose through multiple inpatient stays of very lengthy periods. She was last discharged in September 2022 and an excerpt of that discharge summary is included below for context and the fact that she is a limited historian partially by choice at this time. When asked what brought her to the hospital she shook her head and said why do not you tell me what you know? She would not answer the burning question of whether she has had any medication since discharge. We discussed that in October of this year she did have a virtual appointment with Dr. Saunders but it is unclear whether she ever received an injection beyond that time. She reports I ran out of refills so I did not think they wanted me to take it anymore. We discussed the fact that she is aware of the need for her to take medication and how nonadherence eventually always leads to a hospitalization for her. We discussed the plan to restart the medications the Abilify maintainer or hopefully Abilifchristiane Asimtufii as well as Invega Sustenna and hopefully Invega Trinza or Invega Hafyera. She really had no response to this. We discussed that we would review this plan with her guardian Salazar Granado. She made it a point of saying she would not be here for the next injection because this is a 96-hour hold. We discussed that it was our belief that she will be here longer however if not we would still make sure she got her injections before discharge. She really did not answer any other questions and it is our understanding that she has not had her medications for at least 3 months and maybe as long as 5 months. Per her 10/13/2022 [facility] inpatient psychiatric discharge summary: Discharge Diagnosis (1) Schizophrenia, paranoid, chronic: Status: Chronic Reason for Visit Reason for Visit: Homicidal 96 hr hold Brief History: History of Present Illness Ivone Torres is a 42 year old white female who was admitted to the neuropsychiatric unit after patient had presented to the emergency room on a 96- hour hold. Per records, the officer had stated that the patient had intention on killing her neighbors by taking an officers gun and shooting them. Patient was admitted to the neuropsychiatric unit for further evaluation and treatment. She has a history of an unspecified number of inpatient hospitalizations with her most recent psychiatric hospitalization in January of 2021. She had been receiving outpatient services at the behavioral health clinic until April of this year per records. The patient has been without her antipsychotic medications and has a diagnosis of chronic schizophrenia. The patient reports that she has had suspicions for approximately 7 years that her and her children have been repeatedly replaced by impostors who resemble them but are not them. She believes that the original versions have been taken away and reports that they often reappear in multiple forms but are never the original form. She states that she had been overwhelmed and scared about this information and states that she has a feeling about this and denies being informed of this by any person or spiritual being. She states that she had been in the process of trying to help out families that had children as well and states that in the process of her help she had come into contact with other children and adults that had been replaced in the household of the help that she was trying to provide. She had stated that she had been concerned that there was a nefarious plot in play and she had contacted the police a few days ago to complain to them about a member of one of the family's that she was trying to help had not been who they say they were and they were holding children in their household who was not the children of that family. The patient denies any auditory or visual hallucinations. She had reported feeling sad about this and stated that she feels as if nothing can be done about this. She has stated that she is Oriental Orthodox and does not feel that anything will help at this time. Past psychiatric history: Per previous record she has been inpatient 3 times with most recent hospitalization in January 2021 [facility] on the neuropsychiatric unit. She had previously carried a diagnosis of schizophrenia. Previous medication trials include Abilify, Geodon, Invega, she has a current guardian through [facility] under Salazar Granado.. Allergies: None Surgeries: Medical history: None reported Current medications: None Family psychiatric history: None Drug and alcohol history: None Social history: She alleges that she may have been born in [place] and had 11 siblings. She reports that she was homeschooled by her mother and obtained her GED. She states that she has been for approximately 15 years and reports that she takes care of her 7 children at home. She describes herself as a homemaker. She reports a happy childhood and denies any history of sexual physical or emotional abuse. She resides with her who is currently unemployed along with her children. She reports being a Oriental Orthodox. Excerpt from outpatient appointment 03/08/21 at [facility]: [facility] History and Physical Time In: 08:45 Time Out: 09:15 Chief Complaint: Doing fine History of Present Illness: -40 yr old female, presents today to [facility] for psychiatric evaluation and follow up after inpatient psychiatric hospitalization from December 23 thru February 05, 2021, involuntary for psychosis. -Sleep pattern reported as pretty well, I get at least 6 hours a night. -Describes mood as its been good, when I went to the hospital I was down ; admits for her anniversary, going to a [facility] in [place] this week. -Nutritional intake reported as adequate; discharged from inpatient unit on Abilify Maintena 400 mg IM and Invega Sustenna 156 mg IM. -Ivone denies suicidal ideation/plan, denies homicidal ideation/plan, denies auditory/visual hallucinations; no delusions or paranoia. History Past Psychiatric History: -Significant past psychiatric history starting in July of 2018 for psychosis, admitted into inpatient psychiatric unit again for psychosis in September 2018 and January 2019, with history of aversion to taking any psychotropic medication regimen. Recently admitted into inpatient psychiatric unit December 23 thru February 05, 2021 for psychosis, where oral medications of Abilify and Invega were changed to long acting injectables, receiving Abilify Maintena 400 mg IM and Invega Sustenna 156 mg on 02/05/21. Ivone has a guardian, Salazar Holguin, of [facility] assigned to her. -Ivone denies any suicide attempts, denies accessibility to firearms, however, admits her has firearms in the home, in a closet, with two locks on it. -Past psychiatric diagnoses: Major Depressive Disorder, single episode with psychosis; Schizoaffective, and Chronic Schizophrenia. -Past medications: Geodon, Abilify, and Invega -Current medications: Abilify Maintena 400 mg IM and Invega Sustenna 156 mg IM Family History: Paternal: Non-contributory Maternal: Non-contributory Past Medical History: -Admits history of C-sections Substance Use History: Current: Denies tobacco, alcohol, methamphetamines, marijuana, opiate use Past: Denies tobacco use, alcohol, methamphetamines, marijuana, opiate use History of IVDU: Denies Treatment History: Denies Social History: -Ivone reports she was born and raised in [place], [place], has 11 siblings, and was homeschooled by her mother and obtained her GED, moved to [place] after getting to her , has been for 14 years this week; in the marriage has had 10 pregnancies, 2 miscarriages, and states she has 7 children at home. 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 -Denies verbal, physical, sexual abuse as a child and adult. -Denies access to firearms, however, admits her has firearms in the home, in a closet, with two locks on it. -Guardian, Salazar Holguin, [employer] of [facility] is patient's guardian. Hospital Course She very slowly acclimated to the individual, group and milieu therapies provided. She returned after reportedly discontinuing her medication including the injections in April. Notes from [facility] suggest that they discontinued the second injection a long time ago. We restarted the Invega Sustenna injection and also the Abilify and eventually the Abilify injection. We discussed with her the possibility of titrating the Invega Sustenna to Invega Hafyera and having 2 shots a year and changing the Abilify Maintena to Abilify Asimtulfii which will be just 6 shots a year. She had the best functioning and presentation and all of her stays with significant improvement during the hospitalization. We worked with the guardian and gave them a letter in hopes of having forced medication outside of the hospital. She had significant improvement during her stay. She worked with the social work team for appropriate aftercare planning. She was able to contract for safety outside of the hospital prior to discharge. During the hospitalization, patient had routine laboratory studies which were within normal limits except for few outliers. Additionally there was a general medical evaluation which was also within normal limits and revealed no new acute processes. Discharge Summary: At the time of discharge, lethality was denied and psychosis was resolving. Mood and anxiety were well managed. Patient endorsed a plan to avoid all drugs of abuse and follow-up with the aftercare recommendations of the treatment team. Patient was evaluated and deemed to be absent credible lethality, and had achieved the maximum benefit from an inpatient hospitalization, so was discharged. Hospital Course During the hospitalization, the patient had routine laboratory studies which were within normal limits except for a few outliers. Additionally, there was a general medical evaluation which was also within normal limits and revealed no new acute processes. At the time of discharge, lethality was denied and psychosis was resolving. Mood and anxiety were well managed. The patient endorsed a plan to avoid all drugs of abuse and follow up with the aftercare recommendations of the treatment team. The patient was evaluated and deemed to be absent credible lethality and had achieved the maximum benefit from an inpatient hospitalization, and so was discharged. The patient refused all oral doses of antipsychotics but received IM injection of invega sustenna at 234mg and 156mg respectively and Abilify Maintena 400mg IM during her hospital stay. After a few weeks, the paranoia reduced and the intense bizarre delusions were absent and she was agreeable to monthly receipt of these medications in IM form. Meds NPU Home Medications ?Medication ?Instructions ?Recorded ?Confirmed ?Last Taken ?Type No Known Home Medications 10/23/24 07/0 01/09 Unknown History Allergies Allergy/AdvReac Type Severity Reaction Status Date / Time No Known Allergies Allergy Verified 02/21/24 09:55 PFS NPU 2 PFS: Medical History (Updated 10/23/24 @ 17:10 by Boubacar Smith MD) Schizophrenia, paranoid, chronic Psychiatric care Social History Smoking and tobacco/nicotine status: never used tobacco/nicotine Second hand smoke exposure: No Alcohol intake: never Substance/Drug Use: never Adopted: No Lives independently: Yes Household members: spouse and children Housing: House Marital status: Current gender identity: Female Mental Status Exam 2 MSE Comments: Patient is a slender white female in hospital scrubs with limited grooming and eye contact. No abnormal movements except for significant psychomotor retardation. Uncooperative with exam in moderate distress. She was mute. Mood not discussed, affect appeared annoyed and irritable. Her thought process appeared linear. Thought content: Patient did not respond to any questions but demonstrated no aggression towards herself or others, no delusions reported and no conversations to allow for identification of any current delusions, she did not report any auditory or visual hallucinations not responding to those questions and did not necessarily appear to be attending to internal stimuli. Attention and concentration appear intact. Her memory appears unreliable though intentionally, but none were formally tested. She is alert but orientation could not be determined due to her mute nature. Insight, judgment, and impulse control all impaired. Vitals/I&O/Wt Last Vital Signs Temp 98.3 F 10/23/24 12:20 Pulse 68 10/23/24 12:20 Resp 15 10/23/24 12:20 BP 109/45 10/23/24 12:20 Pulse Ox 98 10/23/24 12:20 O2 Del Method Room Air 10/23/24 17:19 Weight last 48 hrs Weight 40.823 kg Data NPU 10/23/24 12:59 10/23/24 12:59 A&P Assessment and plan 1. Schizophrenia, paranoid, chronic: Plan: This is a 44-year-old white female with chronic schizophrenia who has not been on her medications since last year in the fall with an extended history of noncompliance who becomes quite psychotic and incapable of managing herself safely at home when off of her medications. She will need to be put back on her 2 antipsychotic injections for likely resolution of this relapse. 1.? ?Engage? patient in individual ,milieu, and group therapy ?2. ? We will attempt to gather collateral information from previous providers ?3. ? 1-1 close observations with patient having history of multiple successful attempts to flee hospital. ?4.? Begin invega sustenna 234mg IM to deltoid with plan for 3mg oral to begin tonight. Goal: Trajectory for Invega Trinza as soon as switch can be made. 5 we will attempt to give Abilify oral with plan for injection in 1 week so that the injections will be on the same timeline. Will put on Abilify Asimtufii given difficulty with injections. PDMP PDMP Reviewed: Not Reviewed Involuntary Hold Information 2 Hold Status: Legal Status: 96 Hour Hold Date/Time Hold Expires: @1235 96 Hour Hold: 96 Hour Involuntary Admission: Yes Attestations NPU 2 Medical Necessity Statement*: Inpatient hospitalization is medically necessary and the clinically appropriate intervention at this time. We will monitor medications and make changes as indicated. Patient will be in the hospital for over two midnights. Likely length of stay 10-14 days. Coding Level of Care Code Acute Code for [facility] Fwd Diagnoses Schizophrenia, paranoid, chronic F20.0
--- NOTE | 2024-10-24 19:52 | PC.NURSE ---
pt refused vs, charge nurse notified, resp 17
--- NOTE | 2024-10-25 06:51 | PC.NURSE ---
vs not completed per charge nurse, resp 16
--- NOTE | 2024-10-25 13:11 | W.PM.NPUPNS ---
Subjective NPU Subjective: Patient presented today unchanged and continued to be mute. This production underwriter walked with her as she paced and attempted to engage and get some information about the circumstances of this hospitalization. However she had no verbal response and mostly ignored this production underwriter's presence. Tried to communicate with her with the plan was and that she would get the first injection today and then our goal was to get her back on the medications that Throughout the hospital for a year and a half. Mental Status Exam MSE Comments: Patient is a slender white female in hospital scrubs with limited grooming and eye contact. No abnormal movements except for significant psychomotor retardation. Uncooperative with exam in moderate distress. She was mute. Mood not discussed, affect appeared annoyed and irritable. Her thought process appeared linear. Thought content: Patient did not respond to any questions but demonstrated no aggression towards herself or others, no delusions reported and no conversations to allow for identification of any current delusions, she did not report any auditory or visual hallucinations not responding to those questions and did not necessarily appear to be attending to internal stimuli. Attention and concentration appear intact. Her memory appears unreliable though intentionally, but none were formally tested. She is alert but orientation could not be determined due to her mute nature. Insight, judgment, and impulse control all impaired. Vitals/I&O/Wt Last Vital Signs Temp 98.3 F 10/23/24 12:20 Pulse 68 10/23/24 12:20 Resp 15 10/23/24 12:20 BP 109/45 10/23/24 12:20 Pulse Ox 98 10/23/24 12:20 O2 Del Method Room Air 10/23/24 17:19 Data NPU 10/23/24 12:59 10/23/24 12:59 A&P Assessment and plan 1. Schizophrenia, paranoid, chronic: Plan: This is a 44-year-old white female with chronic schizophrenia who has not been on her medications since last year in the fall with an extended history of noncompliance who becomes quite psychotic and incapable of managing herself safely at home when off of her medications. She will need to be put back on her 2 antipsychotic injections for likely resolution of this relapse. 1.? ?Engage? patient in individual ,milieu, and group therapy ?2. ? We will attempt to gather collateral information from previous providers ?3. ? 1-1 close observations with patient having history of multiple successful attempts to flee hospital. ?4.? Begin invega sustenna 234mg IM to deltoid with plan for 3mg oral to begin tonight. Goal: Trajectory for Invega Trinza as soon as switch can be made. Gave Invega Sustenna 234 mg IM to deltoid for initiation of long-acting injectable today 10/25/2024 and will plan for second injection in 3 to 4 days but will initiate Abilify when we will reach the 7-day roland. 5 we will attempt to give Abilify oral with plan for injection in 1 week so that the injections will be on the same timeline. Will put on Abilify Asimtufii given difficulty with injections. PDMP PDMP Reviewed: Not Reviewed Involuntary Hold Information Hold Status: Legal Status: 96 Hour Hold Date/Time Hold Expires: 10/29/24@1235 96 Hour Hold: 96 Hour Involuntary Admission: Yes Attestations NPU Medical Necessity Statement*: Inpatient hospitalization is medically necessary and the clinically appropriate intervention at this time. We will monitor medications and make changes as indicated. Patient will be in the hospital for over two midnights. Likely length of stay 10-14 days. Coding Level of Care Code Acute Code for [facility] Fwd Diagnoses Schizophrenia, paranoid, chronic F20.0
[2024-10-25 14:00] VITALS: RESP 16
[2024-10-25] MEDS: paliperidone palmitate 234 mg Syringe IM (14:07)
--- NOTE | 2024-10-25 15:22 | PC.NURSE ---
patient refused vitals
--- NOTE | 2024-10-25 23:00 | PC.NURSE ---
pt refused vs, charge nurse notified, resp 18
--- NOTE | 2024-10-26 06:26 | PC.NURSE ---
pt refused vs, charge nurse notified, resp 18
--- NOTE | 2024-10-26 13:28 | P.NPUPN_ITS ---
Subjective NPU 2 Subjective: Patient presented today continuing to be mute. She once again received a barrage of questions without uttering a word. Occasional audible sighs were appreciated but otherwise she made no responses. I continue to describe to her the plan which includes giving her her second shot of Invega Sustenna loading dose to the deltoid in the next couple of days and then timing her Abilify injection so that she will be only having to make 1 trip for her injections. Mental Status Exam 2 MSE Comments: Patient is a slender white female in hospital scrubs with limited grooming and eye contact. No abnormal movements except for significant psychomotor retardation. Uncooperative with exam in moderate distress. She was mute. Mood not discussed, affect appeared annoyed and irritable. Her thought process appeared linear. Thought content: Patient did not respond to any questions but demonstrated no aggression towards herself or others, no delusions reported and no conversations to allow for identification of any current delusions, she did not report any auditory or visual hallucinations not responding to those questions and did not necessarily appear to be attending to internal stimuli. Attention and concentration appear intact. Her memory appears unreliable though intentionally, but none were formally tested. She is alert but orientation could not be determined due to her mute nature. Insight, judgment, and impulse control all impaired. Vitals/I&O/Wt Last Vital Signs Temp 98.3 F 10/23/24 12:20 Pulse 68 10/23/24 12:20 Resp 16 10/25/24 14:00 BP 109/45 10/23/24 12:20 Pulse Ox 98 10/23/24 12:20 O2 Del Method Room Air 10/23/24 17:19 Data NPU 10/23/24 12:59 10/23/24 12:59 A&P Assessment and plan 1. Schizophrenia, paranoid, chronic: Plan: This is a 44-year-old white female with chronic schizophrenia who has not been on her medications since last year in the fall with an extended history of noncompliance who becomes quite psychotic and incapable of managing herself safely at home when off of her medications. She will need to be put back on her 2 antipsychotic injections for likely resolution of this relapse. 1.? ?Engage? patient in individual ,milieu, and group therapy ?2. ? We will attempt to gather collateral information from previous providers ?3. ? 1-1 close observations with patient having history of multiple successful attempts to flee hospital. ?4.? Began invega sustenna 234mg IM to deltoid with plan for 3mg oral. Next injection due 11/01/2024 but will likely do early in the ?4-day window. Goal: Trajectory for Invega Trinza as soon as switch can be made. Gave Invega Sustenna 234 mg IM to deltoid for initiation of long-acting injectable today 10/25/2024 and will plan for second injection in 3 to 4 days but will initiate Abilify when we will reach the 7-day roland. 5 we will attempt to give Abilify oral with plan for injection in 1 week so that the injections will be on the same timeline. Will put on Abilify Asimtufii given difficulty with injections. PDMP PDMP Reviewed: Not Reviewed Involuntary Hold Information 2 Hold Status: Legal Status: 96 Hour Hold Date/Time Hold Expires: @1235 96 Hour Hold: 96 Hour Involuntary Admission: Yes Attestations NPU 2 Medical Necessity Statement*: Inpatient hospitalization is medically necessary and the clinically appropriate intervention at this time. We will monitor medications and make changes as indicated. Patient will be in the hospital for over two midnights. Likely length of stay 10-14 days. Coding Level of Care Code Acute Code for Chg Fwd Diagnoses Schizophrenia, paranoid, chronic F20.0
[2024-10-26 14:00] VITALS: RESP 16
[2024-10-26 20:16] VITALS: RESP 18
--- NOTE | 2024-10-26 20:16 | PC.NURSE ---
Patient refused nurse notified.
[2024-10-26] MEDS: LORazepam 1 MG/0.5 ML injection 2 MG IM (22:40)
[2024-10-26] MEDS: diphenhydrAMINE 50 mg/mL SDV 1mL IM (22:40)
[2024-10-26] MEDS: haloperidol inj 5 mg/mL INJ 1 mL IM (22:40)
--- NOTE | 2024-10-26 22:55 | PC.NURSE ---
Patient was at nurses station beating on window and yelling out something to the effect of staff having children in the nurses station. This RN attempted to deescalate, reorient and redirect patient without success. Haldol 5 mg IM, Ativan 2 mg IM given in right deltoid and diphehydramine 50 mg IM given in left deltoid. Patient tolerated well. Sitter at bedside.
[2024-10-27 05:59] VITALS: BMI 15.4
[2024-10-27 06:00] VITALS: RESP 18
--- NOTE | 2024-10-27 06:08 | PC.NURSE ---
Patient refused nurse was notified.
--- NOTE | 2024-10-27 08:39 | P.NPUPN_ITS ---
Subjective NPU 2 Subjective: Patient presented today remaining mute. She continued to stay silent during each of the questions that were asked today. Once again this inspector automatic typewriter outlined the treatment plan including the timing of her injections and explained to her that her guardian has given permission for us to proceed in the manner that we have. Mental Status Exam 2 MSE Comments: Patient is a slender white female in hospital scrubs with limited grooming and eye contact. No abnormal movements except for significant psychomotor retardation. Uncooperative with exam in moderate distress. She was mute. Mood not discussed, affect appeared annoyed and irritable. Her thought process appeared linear. Thought content: Patient did not respond to any questions but demonstrated no aggression towards herself or others, no delusions reported and no conversations to allow for identification of any current delusions, she did not report any auditory or visual hallucinations not responding to those questions and did not necessarily appear to be attending to internal stimuli. Attention and concentration appear intact. Her memory appears unreliable though intentionally, but none were formally tested. She is alert but orientation could not be determined due to her mute nature. Insight, judgment, and impulse control all impaired. Vitals/I&O/Wt Last Vital Signs Temp 98.3 F 10/23/24 12:20 Pulse 68 10/23/24 12:20 Resp 18 10/27/24 06:00 BP 109/45 10/23/24 12:20 Pulse Ox 98 10/23/24 12:20 O2 Del Method Room Air 10/23/24 17:19 Weight last 48 hrs Weight 40.823 kg Data NPU 10/23/24 12:59 10/23/24 12:59 A&P Assessment and plan 1. Schizophrenia, paranoid, chronic: Plan: This is a 44-year-old white female with chronic schizophrenia who has not been on her medications since last year in the fall with an extended history of noncompliance who becomes quite psychotic and incapable of managing herself safely at home when off of her medications. She will need to be put back on her 2 antipsychotic injections for likely resolution of this relapse. 1.? ?Engage? patient in individual ,milieu, and group therapy ?2. ? We will attempt to gather collateral information from previous providers ?3. ? 1-1 close observations with patient having history of multiple successful attempts to flee hospital. ?4.? Began invega sustenna 234mg IM to deltoid with plan for 3mg oral. Next injection due 11/01/2024 but will likely do early in the ?4-day window. Goal: Trajectory for Invega Trinza as soon as switch can be made. Gave Invega Sustenna 234 mg IM to deltoid for initiation of long-acting injectable today 10/25/2024 and will plan for second injection in 3 to 4 days but will initiate Abilify when we will the 7-day roland i.e 11/01/2024.. 5 we will attempt to give Abilify oral with plan for injection in 1 week so that the injections will be on the same timeline. Will put on Abilify Asimtufii given difficulty with injections. PDMP PDMP Reviewed: Not Reviewed Involuntary Hold Information 2 Hold Status: Legal Status: 96 Hour Hold Date/Time Hold Expires: @1235 96 Hour Hold: 96 Hour Involuntary Admission: Yes Attestations NPU 2 Medical Necessity Statement*: Inpatient hospitalization is medically necessary and the clinically appropriate intervention at this time. We will monitor medications and make changes as indicated. Likely length of stay 10-14 days. Coding Level of Care Code Acute Code for Chg Fwd Diagnoses Schizophrenia, paranoid, chronic F20.0
[2024-10-27 14:00] VITALS: RESP 17
--- NOTE | 2024-10-27 14:06 | PC.NURSE ---
refused vital signs at 1400, resp even et unlabored at this time does not appear to be in any distress. pacing unit with 1:1 sitter currently
--- NOTE | 2024-10-27 20:04 | PC.NURSE ---
pt rounding sitter with pt in her room currently. pt still pacing up and down hallway exit seeking. pt also had to be reminded not to enter other pt rooms.
--- NOTE | 2024-10-28 18:29 | P.NPUPN_ITS ---
Subjective NPU 2 Subjective: Patient presented today continuing to be mute with this personal lines underwriter but is increasing her verbiage in other situations very slightly. She continued her nonresponse during the interview today and just had very heavy size when she was not happy with the direction of questioning. We discussed that she would get her second loading dose injection of Invega Sustenna to the deltoid tomorrow and that we would continue with the plan to initiate Abilify on Monday. Mental Status Exam 2 MSE Comments: Patient is a slender white female in hospital scrubs with limited grooming and eye contact. No abnormal movements except for significant psychomotor retardation. Uncooperative with exam in moderate distress. She was mute. Mood not discussed, affect appeared annoyed and irritable. Her thought process appeared linear. Thought content: Patient did not respond to any questions but demonstrated no aggression towards herself or others, no delusions reported and no conversations to allow for identification of any current delusions, she did not report any auditory or visual hallucinations not responding to those questions and did not necessarily appear to be attending to internal stimuli. Attention and concentration appear intact. Her memory appears unreliable though intentionally, but none were formally tested. She is alert but orientation could not be determined due to her mute nature. Insight, judgment, and impulse control all impaired. Vitals/I&O/Wt Last Vital Signs Temp 98.3 F 10/23/24 12:20 Pulse 68 10/23/24 12:20 Resp 17 10/27/24 14:00 BP 109/45 10/23/24 12:20 Pulse Ox 98 10/23/24 12:20 O2 Del Method Room Air 10/23/24 17:19 Weight last 48 hrs Weight 40.823 kg Data NPU 10/23/24 12:59 10/23/24 12:59 A&P Assessment and plan 1. Schizophrenia, paranoid, chronic: Plan: This is a 44-year-old white female with chronic schizophrenia who has not been on her medications since last year in the fall with an extended history of noncompliance who becomes quite psychotic and incapable of managing herself safely at home when off of her medications. She will need to be put back on her 2 antipsychotic injections for likely resolution of this relapse. 1.? ?Engage? patient in individual ,milieu, and group therapy ?2. ? We will attempt to gather collateral information from previous providers ?3. ? 1-1 close observations with patient having history of multiple successful attempts to flee hospital. ?4.? Began invega sustenna 234mg IM to deltoid with plan for 3mg oral. Next injection due 11/01/2024 but will likely do early in the ?4-day window. Goal: Trajectory for Invega Trinza as soon as switch can be made. Gave Invega Sustenna 234 mg IM to deltoid for initiation of long-acting injectable today 10/25/2024 and will plan for second injection in 3 to 4 days but will initiate Abilify when we will the 7-day roland i.e 11/01/2024. Invega Sustenna 156 mg IM to the deltoid for loading dose tomorrow 10/29/2024. 5 we will attempt to give Abilify oral with plan for injection in 1 week so that the injections will be on the same timeline. Will put on Abilify Asimtufii given difficulty with injections. PDMP PDMP Reviewed: Not Reviewed Involuntary Hold Information 2 Hold Status: Legal Status: 96 Hour Hold Date/Time Hold Expires: @1235 96 Hour Hold: 96 Hour Involuntary Admission: Yes Attestations NPU 2 Medical Necessity Statement*: Inpatient hospitalization is medically necessary and the clinically appropriate intervention at this time. We will monitor medications and make changes as indicated. Likely length of stay 10-14 days. Coding Level of Care Code Acute Code for Chg Fwd Diagnoses Schizophrenia, paranoid, chronic F20.0
[2024-10-28 19:52] VITALS: RESP 18
--- NOTE | 2024-10-28 19:52 | PC.NURSE ---
Patient refused vital signs nurse notified.
[2024-10-29 06:00] VITALS: RESP 18
--- NOTE | 2024-10-29 06:22 | PC.NURSE ---
Patient refused nurse notified.
[2024-10-29 14:00] VITALS: RESP 16
[2024-10-29] MEDS: paliperidone palmitate 156 mg Syringe IM (14:39)
--- NOTE | 2024-10-29 17:50 | W.PM.NPUPNS ---
Subjective NPU Subjective: Patient presented today continuing to be mute with this remote mortgage underwriter. She is pacing around the unit but consistent with past hospitalizations she is walking around identifying whether doors are available to be open or walk-through. She continues to be on one-to-one for that reason given her propensity to try to escape. Otherwise she is getting her medication through the injection without difficulty. She received her second Invega loading dose injection to the deltoid today per staff reports. Mental Status Exam MSE Comments: Patient is a slender white female in hospital scrubs with limited grooming and eye contact. No abnormal movements except for significant psychomotor retardation. Uncooperative with exam in moderate distress. She was mute. Mood not discussed, affect appeared annoyed and irritable. Her thought process appeared linear. Thought content: Patient did not respond to any questions but demonstrated no aggression towards herself or others, no delusions reported and no conversations to allow for identification of any current delusions, she did not report any auditory or visual hallucinations not responding to those questions and did not necessarily appear to be attending to internal stimuli. Attention and concentration appear intact. Her memory appears unreliable though intentionally, but none were formally tested. She is alert but orientation could not be determined due to her mute nature. Insight, judgment, and impulse control all impaired. Vitals/I&O/Wt Last Vital Signs Temp 98.3 F 10/23/24 12:20 Pulse 68 10/23/24 12:20 Resp 18 10/29/24 19:35 BP 109/45 10/23/24 12:20 Pulse Ox 98 10/23/24 12:20 O2 Del Method Room Air 10/23/24 17:19 Data NPU 10/23/24 12:59 10/23/24 12:59 A&P Assessment and plan 1. Schizophrenia, paranoid, chronic: Plan: This is a 44-year-old white female with chronic schizophrenia who has not been on her medications since last year in the fall with an extended history of noncompliance who becomes quite psychotic and incapable of managing herself safely at home when off of her medications. She will need to be put back on her 2 antipsychotic injections for likely resolution of this relapse. 1.? ?Engage? patient in individual ,milieu, and group therapy ?2. ? We will attempt to gather collateral information from previous providers ?3. ? 1-1 close observations with patient having history of multiple successful attempts to flee hospital. ?4.? Began invega sustenna 234mg IM to deltoid with plan for 3mg oral. Next injection due 11/01/2024 but will likely do early in the ?4-day window. Goal: Trajectory for Invega Trinza as soon as switch can be made. Gave Invega Sustenna 234 mg IM to deltoid for initiation of long-acting injectable today 10/25/2024 and will plan for second injection in 3 to 4 days and will initiate Abilify when we hit the 7-day roland i.e 11/01/2024. Invega Sustenna 156 mg IM to the deltoid for loading dose given today 10/29/2024. 5 We we will give Abilify oral with plan for injection on 11/01/2024 so that the injections will be on the same timeline. Will put on Abilify Asimtufii as soon as possible given difficulty with adherence to injections long-term. PDMP PDMP Reviewed: Not Reviewed Involuntary Hold Information Hold Status: Legal Status: 96 Hour Hold Date/Time Hold Expires: 10/29/24@1235 96 Hour Hold: 96 Hour Involuntary Admission: Yes Attestations NPU Medical Necessity Statement*: Inpatient hospitalization is medically necessary and the clinically appropriate intervention at this time. We will monitor medications and make changes as indicated. Likely length of stay 10-14 days. Coding Level of Care Code Acute Code for Chg Fwd Diagnoses Schizophrenia, paranoid, chronic F20.0
[2024-10-29 19:35] VITALS: RESP 18
--- NOTE | 2024-10-29 19:35 | PC.NURSE ---
Patient refused vitals nurse notified.
[2024-10-30 06:00] VITALS: RESP 18
--- NOTE | 2024-10-30 06:18 | PC.NURSE ---
Patient refused charge nurse was notified.
--- NOTE | 2024-10-30 18:24 | W.PM.NPUPNS ---
Subjective NPU Subjective: Patient presented today continuing to be mute. He has continued to be without utterance to this junior underwriter which is a significant change from past presentations. However she seems to be less distraught in comparison per staff reports and direct observation. I continue to explain to her the plan moving forward which includes now her getting her Invega Maintena or Asimtufii on Monday. We may also attempt to do the new loading dose protocol to avoid any need for additional oral supplementation. Mental Status Exam MSE Comments: Patient is a slender white female in hospital scrubs with limited grooming and eye contact. No abnormal movements except for significant psychomotor retardation. Uncooperative with exam in moderate distress. She was mute. Mood not discussed, affect appeared annoyed and irritable. Her thought process appeared linear. Thought content: Patient did not respond to any questions but demonstrated no aggression towards herself or others, no delusions reported and no conversations to allow for identification of any current delusions, she did not report any auditory or visual hallucinations not responding to those questions and did not necessarily appear to be attending to internal stimuli. Attention and concentration appear intact. Her memory appears unreliable though intentionally, but none were formally tested. She is alert but orientation could not be determined due to her mute nature. Insight, judgment, and impulse control all impaired. Vitals/I&O/Wt Last Vital Signs Temp 98.3 F 10/23/24 12:20 Pulse 68 10/23/24 12:20 Resp 18 10/30/24 06:00 BP 109/45 10/23/24 12:20 Pulse Ox 98 10/23/24 12:20 O2 Del Method Room Air 10/23/24 17:19 Data NPU 10/23/24 12:59 10/23/24 12:59 A&P Assessment and plan 1. Schizophrenia, paranoid, chronic: Plan: This is a 44-year-old white female with chronic schizophrenia who has not been on her medications since last year in the fall with an extended history of noncompliance who becomes quite psychotic and incapable of managing herself safely at home when off of her medications. She will need to be put back on her 2 antipsychotic injections for likely resolution of this relapse. 1.? ?Engage? patient in individual ,milieu, and group therapy ?2. ? We will attempt to gather collateral information from previous providers ?3. ? 1-1 close observations with patient having history of multiple successful attempts to flee hospital. ?4.? Began invega sustenna 234mg IM to deltoid with plan for 3mg oral. Next injection due 11/01/2024 but will likely do early in the ?4-day window. Goal: Trajectory for Invega Trinza as soon as switch can be made. Gave Invega Sustenna 234 mg IM to deltoid for initiation of long-acting injectable today 10/25/2024 and will plan for second injection in 3 to 4 days and will initiate Abilify when we hit the 7-day roland i.e 11/01/2024. Invega Sustenna 156 mg IM to the deltoid for loading dose given today 10/29/2024. 5 We we will give Abilify oral with plan for injection on 11/01/2024 so that the injections will be on the same timeline. Will put on Abilify Asimtufii as soon as possible given difficulty with adherence to injections long-term. PDMP PDMP Reviewed: Not Reviewed Involuntary Hold Information Hold Status: Legal Status: 96 Hour Hold Date/Time Hold Expires: 10/29/24@1235 96 Hour Hold: 96 Hour Involuntary Admission: Yes Attestations NPU Medical Necessity Statement*: Inpatient hospitalization is medically necessary and the clinically appropriate intervention at this time. We will monitor medications and make changes as indicated. Likely length of stay 10-14 days. Coding Level of Care Code Acute Code for Chg Fwd Diagnoses Schizophrenia, paranoid, chronic F20.0
--- NOTE | 2024-10-30 19:42 | PC.NURSE ---
vs not collected resp 17 yadi notified
--- NOTE | 2024-10-31 05:53 | PC.NURSE ---
vs not collected resp 16 charge notified
[2024-10-31 14:00] VITALS: RESP 17
--- NOTE | 2024-10-31 17:22 | PC.NURSE ---
Pt refused vitals, notified charge nurse.
--- NOTE | 2024-10-31 18:15 | P.NPUPN_ITS ---
Subjective NPU 2 Subjective: Patient presented today continuing to be on one-to-one and being fairly nonverbal per staff reports and direct observation. He continues not to speak to this production underwriter but we did discuss the fact that she would get her below 5 injections tomorrow. There were no signs of side effects to her initial injections per staff reports and direct observation. Mental Status Exam 2 MSE Comments: Patient is a slender white female in hospital scrubs with limited grooming and eye contact. No abnormal movements except for significant psychomotor retardation. Uncooperative with exam in moderate distress. She was mute. Mood not discussed, affect appeared annoyed and irritable. Her thought process appeared linear. Thought content: Patient did not respond to any questions but demonstrated no aggression towards herself or others, no delusions reported and no conversations to allow for identification of any current delusions, she did not report any auditory or visual hallucinations not responding to those questions and did not necessarily appear to be attending to internal stimuli. Attention and concentration appear intact. Her memory appears unreliable though intentionally, but none were formally tested. She is alert but orientation could not be determined due to her mute nature. Insight, judgment, and impulse control all impaired. Vitals/I&O/Wt Last Vital Signs Temp 98.3 F 10/23/24 12:20 Pulse 68 10/23/24 12:20 Resp 17 10/31/24 14:00 BP 109/45 10/23/24 12:20 Pulse Ox 98 10/23/24 12:20 O2 Del Method Room Air 10/23/24 17:19 Data NPU 10/23/24 12:59 10/23/24 12:59 A&P Assessment and plan 1. Schizophrenia, paranoid, chronic: Plan: This is a 44-year-old white female with chronic schizophrenia who has not been on her medications since last year in the fall with an extended history of noncompliance who becomes quite psychotic and incapable of managing herself safely at home when off of her medications. She will need to be put back on her 2 antipsychotic injections for likely resolution of this relapse. 1.? ?Engage? patient in individual ,milieu, and group therapy ?2. ? We will attempt to gather collateral information from previous providers ?3. ? 1-1 close observations with patient having history of multiple successful attempts to flee hospital. ?4.? Began invega sustenna 234mg IM to deltoid with plan for 3mg oral. Next injection due 11/01/2024 but will likely do early in the ?4-day window. Goal: Trajectory for Invega Trinza as soon as switch can be made. Gave Invega Sustenna 234 mg IM to deltoid for initiation of long-acting injectable today 10/25/2024 and will plan for second injection in 3 to 4 days and will initiate Abilify when we hit the 7-day roland i.e 11/01/2024. Invega Sustenna 156 mg IM to the deltoid for loading dose given 10/29/2024. Next Invega Sustenna injection due 11/29/2024 5 We we will give Abilify oral with plan for injection on 11/01/2024 so that the injections will be on the same timeline. Will put on Abilify Asimtufii as soon as possible given difficulty with adherence to injections long-term. PDMP PDMP Reviewed: Not Reviewed Involuntary Hold Information 2 Hold Status: Legal Status: 96 Hour Hold Date/Time Hold Expires: @1235 96 Hour Hold: 96 Hour Involuntary Admission: Yes Attestations NPU 2 Medical Necessity Statement*: Inpatient hospitalization is medically necessary and the clinically appropriate intervention at this time. We will monitor medications and make changes as indicated. Likely length of stay 10-14 days. Coding Level of Care Code Acute Code for Chg Fwd Diagnoses Schizophrenia, paranoid, chronic F20.0
--- NOTE | 2024-10-31 18:17 | PC.NURSE ---
Staff suspected that pt had a spoon on her person. Charge nurse and this CONTRACTS SPECIALIST changed out pt in her room. Bedding was searched and no contraband was found. Security was waiting outside the door in case needed. Pt did not cooperate at first but did finally change her shirt and socks. Pt shook out her pants and staff emptied out pt's pockets, only napkins were in pt's pockets. This nurse removed blanket from bed and top sheet, pt has been wrapping sheets around her body. That will no longer be allowed on the unit, per Dr. Peña.
--- NOTE | 2024-10-31 22:19 | PC.NURSE ---
pt refused vs, charge nurse notified, resp 16
--- NOTE | 2024-11-01 06:26 | PC.NURSE ---
pt refused charge nurse notified, resp 18
[2024-11-01 14:00] VITALS: RESP 18
--- NOTE | 2024-11-01 14:11 | W.PM.NPUPNS ---
Subjective NPU Subjective: Patient presented today continuing to be mute and not speaking to this health science writer. Occasional sighs or eye rolls are noted. We discussed the risks, benefits and alternatives of her getting her Abilify Maintena 400 mg p.o. q. monthly injection and she understood and accepted this shot without resistance but we did have extra staff available in the event she was resistant. Mental Status Exam MSE Comments: Patient is a slender white female in hospital scrubs with limited grooming and eye contact. No abnormal movements except for significant psychomotor retardation. Uncooperative with exam in moderate distress. She was mute. Mood not discussed, affect appeared annoyed and irritable. Her thought process appeared linear. Thought content: Patient did not respond to any questions but demonstrated no aggression towards herself or others, no delusions reported and no conversations to allow for identification of any current delusions, she did not report any auditory or visual hallucinations not responding to those questions and did not necessarily appear to be attending to internal stimuli. Attention and concentration appear intact. Her memory appears unreliable though intentionally, but none were formally tested. She is alert but orientation could not be determined due to her mute nature. Insight, judgment, and impulse control all impaired. Vitals/I&O/Wt Last Vital Signs Temp 98.3 F 10/23/24 12:20 Pulse 68 10/23/24 12:20 Resp 17 10/31/24 14:00 BP 109/45 10/23/24 12:20 Pulse Ox 98 10/23/24 12:20 O2 Del Method Room Air 10/23/24 17:19 Data NPU 10/23/24 12:59 10/23/24 12:59 A&P Assessment and plan 1. Schizophrenia, paranoid, chronic: Plan: This is a 44-year-old white female with chronic schizophrenia who has not been on her medications since last year in the fall with an extended history of noncompliance who becomes quite psychotic and incapable of managing herself safely at home when off of her medications. She will need to be put back on her 2 antipsychotic injections for likely resolution of this relapse. 1.? ?Engage? patient in individual ,milieu, and group therapy ?2. ? We will attempt to gather collateral information from previous providers ?3. ? 1-1 close observations with patient having history of multiple successful attempts to flee hospital. ?4.? Began invega sustenna 234mg IM to deltoid with plan for 3mg oral. Next injection due 11/01/2024 but will likely do early in the ?4-day window. Goal: Trajectory for Invega Trinza as soon as switch can be made. Gave Invega Sustenna 234 mg IM to deltoid for initiation of long-acting injectable today 10/25/2024 and will plan for second injection in 3 to 4 days and will initiate Abilify when we hit the 7-day roland i.e 11/01/2024. Invega Sustenna 156 mg IM to the deltoid for loading dose given 10/29/2024. Next Invega Sustenna injection due 11/29/2024 5 We we will give Abilify oral with plan for injection on 11/01/2024 so that the injections will be on the same timeline. Will put on Abilify Asimtufii as soon as possible given difficulty with adherence to injections long-term. Gave Abilify Maintena 400 mg IM today 11/01/2024. PDMP PDMP Reviewed: Not Reviewed Involuntary Hold Information Hold Status: Legal Status: Active Guardianship Date/Time Hold Expires: 10/29/24@1235 96 Hour Hold: 96 Hour Involuntary Admission: Yes Attestations NPU Medical Necessity Statement*: Inpatient hospitalization is medically necessary and the clinically appropriate intervention at this time. We will monitor medications and make changes as indicated. Likely length of stay 10-14 days. Coding Level of Care Code Acute Code for [facility] Fwd Diagnoses Schizophrenia, paranoid, chronic F20.0
--- NOTE | 2024-11-01 14:39 | PC.NURSE ---
patient refused vitals
[2024-11-01] MEDS: ARIPiprazole Maintena 400 MG IM (15:15)
[2024-11-02 06:00] VITALS: BP 91/48; PULSE 49; RESP 16; O2SAT 99
--- NOTE | 2024-11-02 13:29 | P.NPUPN_ITS ---
Subjective NPU 2 Subjective: Patient presented today reporting that things are going okay. She has no changes per staff reports or direct observation. She is likely becoming slightly more verbal overall on the unit per staff reports but continues to not speak with this automatic typewriter inspector. No reports of problematic response to her injections. Mental Status Exam 2 MSE Comments: Patient is a slender white female in hospital scrubs with limited grooming and eye contact. No abnormal movements except for significant psychomotor retardation. Uncooperative with exam in moderate distress. She was mute. Mood not discussed, affect appeared annoyed and irritable. Her thought process appeared linear. Thought content: Patient did not respond to any questions but demonstrated no aggression towards herself or others, no delusions reported and no conversations to allow for identification of any current delusions, she did not report any auditory or visual hallucinations not responding to those questions and did not necessarily appear to be attending to internal stimuli. Attention and concentration appear intact. Her memory appears unreliable though intentionally, but none were formally tested. She is alert but orientation could not be determined due to her mute nature. Insight, judgment, and impulse control all impaired. Vitals/I&O/Wt Last Vital Signs Temp 98.3 F 10/23/24 12:20 Pulse 49 L 11/02/24 06:00 Resp 16 11/02/24 06:00 BP 91/48 11/02/24 06:00 Pulse Ox 99 11/02/24 06:00 O2 Del Method Room Air 11/02/24 06:00 Data NPU 10/23/24 12:59 10/23/24 12:59 A&P Assessment and plan 1. Schizophrenia, paranoid, chronic: Plan: This is a 44-year-old white female with chronic schizophrenia who has not been on her medications since last year in the fall with an extended history of noncompliance who becomes quite psychotic and incapable of managing herself safely at home when off of her medications. She will need to be put back on her 2 antipsychotic injections for likely resolution of this relapse. 1.? ?Engage? patient in individual ,milieu, and group therapy ?2. ? We will attempt to gather collateral information from previous providers ?3. ? 1-1 close observations with patient having history of multiple successful attempts to flee hospital. ?4.? Began invega sustenna 234mg IM to deltoid with plan for 3mg oral. Next injection due 11/01/2024 but will likely do early in the ?4-day window. Goal: Trajectory for Invega Trinza as soon as switch can be made. Gave Invega Sustenna 234 mg IM to deltoid for initiation of long-acting injectable today 10/25/2024 and will plan for second injection in 3 to 4 days and will initiate Abilify when we hit the 7-day roland i.e 11/01/2024. Invega Sustenna 156 mg IM to the deltoid for loading dose given 10/29/2024. Next Invega Sustenna injection due 11/29/2024 5. We we will give Abilify oral with plan for injection on 11/01/2024 so that the injections will be on the same timeline. Will put on Abilify Asimtufii as soon as possible given difficulty with adherence to injections long-term. Gave Abilify Maintena 400 mg IM today 11/01/2024. 6. Patient presented today having received both of her shots but continuing to be in a confused state of mind now that she is on her appropriate medications we will monitor for improvement. PDMP PDMP Reviewed: Not Reviewed Involuntary Hold Information 2 Hold Status: Legal Status: Active Guardianship Date/Time Hold Expires: @1235 96 Hour Hold: 96 Hour Involuntary Admission: Yes Attestations NPU 2 Medical Necessity Statement*: Inpatient hospitalization is medically necessary and the clinically appropriate intervention at this time. We will monitor medications and make changes as indicated. Likely length of stay 10-14 days. Coding Level of Care Code Acute Code for [facility] Fwd Diagnoses Schizophrenia, paranoid, chronic F20.0
[2024-11-03 14:00] VITALS: RESP 16
--- NOTE | 2024-11-03 15:23 | P.NPUPN_ITS ---
Subjective NPU 2 Subjective: Patient presents today continuing to be mute. She has not added one-word to this technical publications writer. She continues to pace the hallways per staff reports and direct observation. There have been no signs of side effects to the injections per staff reports and direct observation. Mental Status Exam 2 MSE Comments: Patient is a slender white female in hospital scrubs with limited grooming and eye contact. No abnormal movements except for significant psychomotor retardation. Uncooperative with exam in moderate distress. She was mute. Mood not discussed, affect appeared annoyed and irritable. Her thought process appeared linear. Thought content: Patient did not respond to any questions but demonstrated no aggression towards herself or others, no delusions reported and no conversations to allow for identification of any current delusions, she did not report any auditory or visual hallucinations not responding to those questions and did not necessarily appear to be attending to internal stimuli. Attention and concentration appear intact. Her memory appears unreliable though intentionally, but none were formally tested. She is alert but orientation could not be determined due to her mute nature. Insight, judgment, and impulse control all impaired. Vitals/I&O/Wt Last Vital Signs Temp 98.3 F 10/23/24 12:20 Pulse 49 L 11/02/24 06:00 Resp 16 11/03/24 14:00 BP 91/48 11/02/24 06:00 Pulse Ox 99 11/02/24 06:00 O2 Del Method Room Air 11/02/24 06:00 Data NPU 10/23/24 12:59 10/23/24 12:59 A&P Assessment and plan 1. Schizophrenia, paranoid, chronic: Plan: This is a 44-year-old white female with chronic schizophrenia who has not been on her medications since last year in the fall with an extended history of noncompliance who becomes quite psychotic and incapable of managing herself safely at home when off of her medications. She will need to be put back on her 2 antipsychotic injections for likely resolution of this relapse. 1.? ?Engage? patient in individual ,milieu, and group therapy ?2. ? We will attempt to gather collateral information from previous providers ?3. ? 1-1 close observations with patient having history of multiple successful attempts to flee hospital. ?4.? Began invega sustenna 234mg IM to deltoid with plan for 3mg oral. Next injection due 11/01/2024 but will likely do early in the ?4-day window. Goal: Trajectory for Invega Trinza as soon as switch can be made. Gave Invega Sustenna 234 mg IM to deltoid for initiation of long-acting injectable today 10/25/2024 and will plan for second injection in 3 to 4 days and will initiate Abilify when we hit the 7-day roland i.e 11/01/2024. Invega Sustenna 156 mg IM to the deltoid for loading dose given 10/29/2024. Next Invega Sustenna injection due 11/29/2024 5. We we will give Abilify oral with plan for injection on 11/01/2024 so that the injections will be on the same timeline. Will put on Abilify Asimtufii as soon as possible given difficulty with adherence to injections long-term. Gave Abilify Maintena 400 mg IM today 11/01/2024. 6. Patient presented today having received both of her shots but continuing to be in a confused state of mind now that she is on her appropriate medications we will monitor for improvement. PDMP PDMP Reviewed: Not Reviewed Involuntary Hold Information 2 Hold Status: Legal Status: Active Guardianship Date/Time Hold Expires: @1235 96 Hour Hold: 96 Hour Involuntary Admission: Yes Attestations NPU 2 Medical Necessity Statement*: Inpatient hospitalization is medically necessary and the clinically appropriate intervention at this time. We will monitor medications and make changes as indicated. Likely length of stay 10-14 days. Coding Level of Care Code Acute Code for [facility] Fwd Diagnoses Schizophrenia, paranoid, chronic F20.0
--- NOTE | 2024-11-03 15:45 | PC.NURSE ---
patient refused vitals.
--- NOTE | 2024-11-03 19:49 | PC.NURSE ---
pt refused vs charge nurse notified, resp 18
--- NOTE | 2024-11-04 06:39 | PC.NURSE ---
vs not completed per charge nurse, resp 16
--- NOTE | 2024-11-04 12:52 | W.PM.NPUPNS ---
Subjective NPU Subjective: Patient presented today continuing to be clearly cognizant of our conversations but continued to be mute. We discussed the fact that we needed to be able to discuss how she was doing but that did not create any change in her continence or behavior. She continues to walk around and check doors and have a fairly disgruntled look. She continued to be disheveled per staff reports and direct observation as she still limited in her showering and self maintenance/hygiene. We discussed the fact that she has her medications on board now just amount of time which will be a little longer because she is not taking oral medication. No staff reports of her reporting side effects because she has been a little bit more verbal with her sitter. No signs/symptoms of side effects noted on observation. Mental Status Exam MSE Comments: Patient is a slender white female in hospital scrubs with limited grooming and eye contact. No abnormal movements except for significant psychomotor retardation. Uncooperative with exam in moderate distress. She was mute. Mood not discussed, affect appeared annoyed and irritable. Her thought process appeared linear. Thought content: Patient did not respond to any questions but demonstrated no aggression towards herself or others, no delusions reported and no conversations to allow for identification of any current delusions, she did not report any auditory or visual hallucinations not responding to those questions and did not necessarily appear to be attending to internal stimuli. Attention and concentration appear intact. Her memory appears unreliable though intentionally, but none were formally tested. She is alert but orientation could not be determined due to her mute nature. Insight, judgment, and impulse control all impaired. Vitals/I&O/Wt Last Vital Signs Temp 98.3 F 10/23/24 12:20 Pulse 49 L 11/02/24 06:00 Resp 16 11/03/24 14:00 BP 91/48 11/02/24 06:00 Pulse Ox 99 11/02/24 06:00 O2 Del Method Room Air 11/02/24 06:00 Data NPU 10/23/24 12:59 10/23/24 12:59 A&P Assessment and plan 1. Schizophrenia, paranoid, chronic: Plan: This is a 44-year-old white female with chronic schizophrenia who has not been on her medications since last year in the fall with an extended history of noncompliance who becomes quite psychotic and incapable of managing herself safely at home when off of her medications. She will need to be put back on her 2 antipsychotic injections for likely resolution of this relapse. 1.? ?Engage? patient in individual ,milieu, and group therapy ?2. ? We will attempt to gather collateral information from previous providers ?3. ? 1-1 close observations with patient having history of multiple successful attempts to flee hospital. ?4.? Began invega sustenna 234mg IM to deltoid with plan for 3mg oral. Next injection due 11/01/2024 but will likely do early in the ?4-day window. Goal: Trajectory for Invega Trinza as soon as switch can be made. Gave Invega Sustenna 234 mg IM to deltoid for initiation of long-acting injectable today 10/25/2024 and will plan for second injection in 3 to 4 days and will initiate Abilify when we hit the 7-day roland i.e 11/01/2024. Invega Sustenna 156 mg IM to the deltoid for loading dose given 10/29/2024. Next Invega Sustenna injection due 11/29/2024 5. We we will give Abilify oral with plan for injection on 11/01/2024 so that the injections will be on the same timeline. Will put on Abilify Asimtufii as soon as possible given difficulty with adherence to injections long-term. Gave Abilify Maintena 400 mg IM today 11/01/2024. 6. Patient presented today having received both of her shots but continuing to be in a confused state of mind now that she is on her appropriate medications we will monitor for improvement. PDMP PDMP Reviewed: Not Reviewed Involuntary Hold Information Hold Status: Legal Status: Active Guardianship Date/Time Hold Expires: 10/29/24@1235 96 Hour Hold: 96 Hour Involuntary Admission: Yes Attestations NPU Medical Necessity Statement*: Inpatient hospitalization is medically necessary and the clinically appropriate intervention at this time. We will monitor medications and make changes as indicated. Likely length of stay 10-14 days. Coding Level of Care Code Acute Code for [facility] Fwd Diagnoses Schizophrenia, paranoid, chronic F20.0
--- NOTE | 2024-11-04 20:41 | PC.NURSE ---
vitals not collected, resp.18, nurse notified
--- NOTE | 2024-11-05 06:06 | PC.NURSE ---
vitals not collected, resp. 18, nurse notified
[2024-11-05 14:00] VITALS: RESP 17
--- NOTE | 2024-11-05 17:42 | W.PM.NPUPNS ---
Subjective NPU Subjective: Patient presented today staying mute. She continues to pace and have some communication with her sitter. I continue to explain to her what the plan would be in the process would be. She did not show any signs of any specific side effects. Mental Status Exam MSE Comments: Patient is a slender white female in hospital scrubs with limited grooming and eye contact. No abnormal movements except for significant psychomotor retardation. Uncooperative with exam in moderate distress. She was mute. Mood not discussed, affect appeared annoyed and irritable. Her thought process appeared linear. Thought content: Patient did not respond to any questions but demonstrated no aggression towards herself or others, no delusions reported and no conversations to allow for identification of any current delusions, she did not report any auditory or visual hallucinations not responding to those questions and did not necessarily appear to be attending to internal stimuli. Attention and concentration appear intact. Her memory appears unreliable though intentionally, but none were formally tested. She is alert but orientation could not be determined due to her mute nature. Insight, judgment, and impulse control all impaired. Vitals/I&O/Wt Last Vital Signs Temp 98.3 F 10/23/24 12:20 Pulse 49 L 11/02/24 06:00 Resp 17 11/05/24 14:00 BP 91/48 11/02/24 06:00 Pulse Ox 99 11/02/24 06:00 O2 Del Method Room Air 11/02/24 06:00 Data NPU 10/23/24 12:59 10/23/24 12:59 A&P Assessment and plan 1. Schizophrenia, paranoid, chronic: Plan: This is a 44-year-old white female with chronic schizophrenia who has not been on her medications since last year in the fall with an extended history of noncompliance who becomes quite psychotic and incapable of managing herself safely at home when off of her medications. She will need to be put back on her 2 antipsychotic injections for likely resolution of this relapse. 1.? ?Engage? patient in individual ,milieu, and group therapy ?2. ? We will attempt to gather collateral information from previous providers ?3. ? 1-1 close observations with patient having history of multiple successful attempts to flee hospital. ?4.? Began invega sustenna 234mg IM to deltoid with plan for 3mg oral. Next injection due 11/01/2024 but will likely do early in the ?4-day window. Goal: Trajectory for Invega Trinza as soon as switch can be made. Gave Invega Sustenna 234 mg IM to deltoid for initiation of long-acting injectable today 10/25/2024 and will plan for second injection in 3 to 4 days and will initiate Abilify when we hit the 7-day roland i.e 11/01/2024. Invega Sustenna 156 mg IM to the deltoid for loading dose given 10/29/2024. Next Invega Sustenna injection due 11/29/2024 5. We we will give Abilify oral with plan for injection on 11/01/2024 so that the injections will be on the same timeline. Will put on Abilify Asimtufii as soon as possible given difficulty with adherence to injections long-term. Gave Abilify Maintena 400 mg IM today 11/01/2024. 6. Patient presented today having received both of her shots but continuing to be in a confused state of mind now that she is on her appropriate medications we will monitor for improvement. PDMP PDMP Reviewed: Not Reviewed Involuntary Hold Information Hold Status: Legal Status: Active Guardianship Date/Time Hold Expires: 10/29/24@1235 96 Hour Hold: 96 Hour Involuntary Admission: Yes Attestations NPU Medical Necessity Statement*: Inpatient hospitalization is medically necessary and the clinically appropriate intervention at this time. We will monitor medications and make changes as indicated. Likely length of stay 10-14 days. Coding Level of Care Code Acute Code for [facility] Fwd Diagnoses Schizophrenia, paranoid, chronic F20.0
--- NOTE | 2024-11-05 20:40 | PC.NURSE ---
vitals not collected, resp. 18, nurse notified
--- NOTE | 2024-11-06 05:50 | PC.NURSE ---
vitals not collected, nurse notified, resp. 18
--- NOTE | 2024-11-06 07:59 | PC.NURSE ---
ASSESSMENT PT REFUSED ASSESSMENT
[2024-11-06 14:00] VITALS: RESP 18
--- NOTE | 2024-11-06 14:52 | P.NPUPN_ITS ---
Subjective NPU 2 Subjective: Patient presented today staying mute. She continues to pace and have some communication with her sitter. I continue to explain to her what the plan would be in the process would be. She did not show any signs of any specific side effects. Mental Status Exam 2 MSE Comments: Patient is a slender white female in hospital scrubs with limited grooming and eye contact. No abnormal movements except for significant psychomotor retardation. Uncooperative with exam in moderate distress. She was mute. Mood not discussed, affect appeared annoyed and irritable. Her thought process appeared linear. Thought content: Patient did not respond to any questions but demonstrated no aggression towards herself or others, no delusions reported and no conversations to allow for identification of any current delusions, she did not report any auditory or visual hallucinations not responding to those questions and did not necessarily appear to be attending to internal stimuli. Attention and concentration appear intact. Her memory appears unreliable though intentionally, but none were formally tested. She is alert but orientation could not be determined due to her mute nature. Insight, judgment, and impulse control all impaired. Vitals/I&O/Wt Last Vital Signs Temp 98.3 F 10/23/24 12:20 Pulse 49 L 11/02/24 06:00 Resp 17 11/05/24 14:00 BP 91/48 11/02/24 06:00 Pulse Ox 99 11/02/24 06:00 O2 Del Method Room Air 11/02/24 06:00 Data NPU 10/23/24 12:59 10/23/24 12:59 A&P Assessment and plan 1. Schizophrenia, paranoid, chronic: Plan: This is a 44-year-old white female with chronic schizophrenia who has not been on her medications since last year in the fall with an extended history of noncompliance who becomes quite psychotic and incapable of managing herself safely at home when off of her medications. She will need to be put back on her 2 antipsychotic injections for likely resolution of this relapse. 1.? ?Engage? patient in individual ,milieu, and group therapy ?2. ? We will attempt to gather collateral information from previous providers ?3. ? 1-1 close observations with patient having history of multiple successful attempts to flee hospital. ?4.? Began invega sustenna 234mg IM to deltoid with plan for 3mg oral. Next injection due 11/01/2024 but will likely do early in the ?4-day window. Goal: Trajectory for Invega Trinza as soon as switch can be made. Gave Invega Sustenna 234 mg IM to deltoid for initiation of long-acting injectable today 10/25/2024 and will plan for second injection in 3 to 4 days and will initiate Abilify when we hit the 7-day roland i.e 11/01/2024. Invega Sustenna 156 mg IM to the deltoid for loading dose given 10/29/2024. Next Invega Sustenna injection due 11/29/2024 5. We we will give Abilify oral with plan for injection on 11/01/2024 so that the injections will be on the same timeline. Will put on Abilify Asimtufii as soon as possible given difficulty with adherence to injections long-term. Gave Abilify Maintena 400 mg IM today 11/01/2024. 6. Patient presented today having received both of her shots but continuing to be in a confused state of mind now that she is on her appropriate medications we will monitor for improvement. PDMP PDMP Reviewed: Not Reviewed Involuntary Hold Information 2 Hold Status: Legal Status: Active Guardianship Date/Time Hold Expires: @1235 96 Hour Hold: 96 Hour Involuntary Admission: Yes Attestations NPU 2 Medical Necessity Statement*: Inpatient hospitalization is medically necessary and the clinically appropriate intervention at this time. We will monitor medications and make changes as indicated. Likely length of stay 10-14 days. Coding Level of Care Code Acute Code for [facility] Fwd Diagnoses Schizophrenia, paranoid, chronic F20.0
--- NOTE | 2024-11-06 20:53 | PC.NURSE ---
vs not collected resp 18 charge notified
--- NOTE | 2024-11-07 06:09 | PC.NURSE ---
vitals not collected, nurse notified, resp. 16
--- NOTE | 2024-11-07 17:45 | W.PM.NPUPNS ---
Subjective NPU Subjective: Presented today continuing to be mute. This junior copywriter continues to meet with her and give her updates as to where we are but she has had 0 return communication. There are no signs or symptoms of side effects to medication and no real signs of improvement at this point. Mental Status Exam MSE Comments: Patient is a slender white female in hospital scrubs with limited grooming and eye contact. No abnormal movements except for significant psychomotor retardation. Uncooperative with exam in moderate distress. She was mute. Mood not discussed, affect appeared annoyed and irritable. Her thought process appeared linear. Thought content: Patient did not respond to any questions but demonstrated no aggression towards herself or others, no delusions reported and no conversations to allow for identification of any current delusions, she did not report any auditory or visual hallucinations not responding to those questions and did not necessarily appear to be attending to internal stimuli. Attention and concentration appear intact. Her memory appears unreliable though intentionally, but none were formally tested. She is alert but orientation could not be determined due to her mute nature. Insight, judgment, and impulse control all impaired. Vitals/I&O/Wt Last Vital Signs Temp 98.3 F 10/23/24 12:20 Pulse 49 L 11/02/24 06:00 Resp 18 11/06/24 14:00 BP 91/48 11/02/24 06:00 Pulse Ox 99 11/02/24 06:00 O2 Del Method Room Air 11/02/24 06:00 Data NPU 10/23/24 12:59 10/23/24 12:59 A&P Assessment and plan 1. Schizophrenia, paranoid, chronic: Plan: This is a 44-year-old white female with chronic schizophrenia who has not been on her medications since last year in the fall with an extended history of noncompliance who becomes quite psychotic and incapable of managing herself safely at home when off of her medications. She will need to be put back on her 2 antipsychotic injections for likely resolution of this relapse. 1.? ?Engage? patient in individual ,milieu, and group therapy ?2. ? We will attempt to gather collateral information from previous providers ?3. ? 1-1 close observations with patient having history of multiple successful attempts to flee hospital. ?4.? Began invega sustenna 234mg IM to deltoid with plan for 3mg oral. Next injection due 11/01/2024 but will likely do early in the ?4-day window. Goal: Trajectory for Invega Trinza as soon as switch can be made. Gave Invega Sustenna 234 mg IM to deltoid for initiation of long-acting injectable today 10/25/2024 and will plan for second injection in 3 to 4 days and will initiate Abilify when we hit the 7-day roland i.e 11/01/2024. Invega Sustenna 156 mg IM to the deltoid for loading dose given 10/29/2024. Next Invega Sustenna injection due 11/29/2024 5. We we will give Abilify oral with plan for injection on 11/01/2024 so that the injections will be on the same timeline. Will put on Abilify Asimtufii as soon as possible given difficulty with adherence to injections long-term. Gave Abilify Maintena 400 mg IM today 11/01/2024. 6. Patient presented today having received both of her shots but continuing to be in a confused state of mind now that she is on her appropriate medications we will monitor for improvement. PDMP PDMP Reviewed: Not Reviewed Involuntary Hold Information Hold Status: Legal Status: Active Guardianship Date/Time Hold Expires: 10/29/24@1235 96 Hour Hold: 96 Hour Involuntary Admission: Yes Attestations NPU Medical Necessity Statement*: Inpatient hospitalization is medically necessary and the clinically appropriate intervention at this time. We will monitor medications and make changes as indicated. Likely length of stay 10-14 days. Coding Level of Care Code Acute Code for [facility] Fwd Diagnoses Schizophrenia, paranoid, chronic F20.0
[2024-11-07 20:04] VITALS: RESP 18
--- NOTE | 2024-11-07 20:05 | PC.NURSE ---
Patient refused charge nurse notified.
[2024-11-08 06:00] VITALS: RESP 18
--- NOTE | 2024-11-08 06:08 | PC.NURSE ---
Patient refused vitals charge nurse notified.
[2024-11-08 14:00] VITALS: RESP 18
--- NOTE | 2024-11-08 19:55 | P.NPUPN_ITS ---
Subjective NPU 2 Subjective: Patient presented today continuing to be mute to this typewriter repairer but reportedly having some disorganized speech with her sitters. No signs or symptoms of side effects or medications and awaiting a response to the resumption of her medications. Mental Status Exam 2 MSE Comments: Patient is a slender white female in hospital scrubs with limited grooming and eye contact. No abnormal movements except for significant psychomotor retardation. Uncooperative with exam in moderate distress. She was mute. Mood not discussed, affect appeared annoyed and irritable. Her thought process appeared linear. Thought content: Patient did not respond to any questions but demonstrated no aggression towards herself or others, no delusions reported and no conversations to allow for identification of any current delusions, she did not report any auditory or visual hallucinations not responding to those questions and did not necessarily appear to be attending to internal stimuli. Attention and concentration appear intact. Her memory appears unreliable though intentionally, but none were formally tested. She is alert but orientation could not be determined due to her mute nature. Insight, judgment, and impulse control all impaired. Vitals/I&O/Wt Last Vital Signs Temp 98.3 F 10/23/24 12:20 Pulse 49 L 11/02/24 06:00 Resp 18 11/08/24 14:00 BP 91/48 11/02/24 06:00 Pulse Ox 99 11/02/24 06:00 O2 Del Method Room Air 11/02/24 06:00 Data NPU 10/23/24 12:59 10/23/24 12:59 A&P Assessment and plan 1. Schizophrenia, paranoid, chronic: Plan: This is a 44-year-old white female with chronic schizophrenia who has not been on her medications since last year in the fall with an extended history of noncompliance who becomes quite psychotic and incapable of managing herself safely at home when off of her medications. She will need to be put back on her 2 antipsychotic injections for likely resolution of this relapse. 1.? ?Engage? patient in individual ,milieu, and group therapy ?2. ? We will attempt to gather collateral information from previous providers ?3. ? 1-1 close observations with patient having history of multiple successful attempts to flee hospital. ?4.? Began invega sustenna 234mg IM to deltoid with plan for 3mg oral. Next injection due 11/01/2024 but will likely do early in the ?4-day window. Goal: Trajectory for Invega Trinza as soon as switch can be made. Gave Invega Sustenna 234 mg IM to deltoid for initiation of long-acting injectable today 10/25/2024 and will plan for second injection in 3 to 4 days and will initiate Abilify when we hit the 7-day roland i.e 11/01/2024. Invega Sustenna 156 mg IM to the deltoid for loading dose given 10/29/2024. Next Invega Sustenna injection due 11/29/2024 5. We we will give Abilify oral with plan for injection on 11/01/2024 so that the injections will be on the same timeline. Will put on Abilify Asimtufii as soon as possible given difficulty with adherence to injections long-term. Gave Abilify Maintena 400 mg IM today 11/01/2024. 6. Patient presented today having received both of her shots but continuing to be in a confused state of mind now that she is on her appropriate medications we will monitor for improvement. PDMP PDMP Reviewed: Not Reviewed Involuntary Hold Information 2 Hold Status: Legal Status: Active Guardianship Date/Time Hold Expires: @1235 96 Hour Hold: 96 Hour Involuntary Admission: Yes Attestations NPU 2 Medical Necessity Statement*: Inpatient hospitalization is medically necessary and the clinically appropriate intervention at this time. We will monitor medications and make changes as indicated. Likely length of stay 10-14 days. Coding Level of Care Code Acute Code for [facility] Fwd Diagnoses Schizophrenia, paranoid, chronic F20.0
--- NOTE | 2024-11-08 20:59 | PC.NURSE ---
pt refused vs, charge nurse notified, resp 18
--- NOTE | 2024-11-09 06:39 | PC.NURSE ---
pt refused vs, charge nurse notified, resp 18
[2024-11-09 14:00] VITALS: RESP 18
--- NOTE | 2024-11-09 20:00 | PC.NURSE ---
vs not collected resp 16 charge notified
--- NOTE | 2024-11-09 21:27 | W.PM.NPUPNS ---
Subjective NPU Subjective: Patient presented today continuing to be mute. However she made the first sign of interactional communication and that I asked her how she was doing and she was standing at the door that would allow her to leave the unit and she gestured towards the door that I could open the door for her. We discussed that it is our desire to discharge her as soon as possible but we need to have signs of improvement. There were no signs or symptoms of side effects to the injections that were restarted. Mental Status Exam MSE Comments: Patient is a slender white female in hospital scrubs with limited grooming and eye contact. No abnormal movements except for significant psychomotor retardation. Uncooperative with exam in moderate distress. She was mute. Mood not discussed, affect appeared annoyed and irritable. Her thought process appeared linear. Thought content: Patient did not respond to any questions but demonstrated no aggression towards herself or others, no delusions reported and no conversations to allow for identification of any current delusions, she did not report any auditory or visual hallucinations not responding to those questions and did not necessarily appear to be attending to internal stimuli. Attention and concentration appear intact. Her memory appears unreliable though intentionally, but none were formally tested. She is alert but orientation could not be determined due to her mute nature. Insight, judgment, and impulse control all impaired. Vitals/I&O/Wt Last Vital Signs Temp 98.3 F 10/23/24 12:20 Pulse 49 L 11/02/24 06:00 Resp 18 11/09/24 14:00 BP 91/48 11/02/24 06:00 Pulse Ox 99 11/02/24 06:00 O2 Del Method Room Air 11/02/24 06:00 Weight last 48 hrs Weight 46.72 kg Data NPU 10/23/24 12:59 10/23/24 12:59 A&P Assessment and plan 1. Schizophrenia, paranoid, chronic: Plan: This is a 44-year-old white female with chronic schizophrenia who has not been on her medications since last year in the fall with an extended history of noncompliance who becomes quite psychotic and incapable of managing herself safely at home when off of her medications. She will need to be put back on her 2 antipsychotic injections for likely resolution of this relapse. 1.? ?Engage? patient in individual ,milieu, and group therapy ?2. ? We will attempt to gather collateral information from previous providers ?3. ? 1-1 close observations with patient having history of multiple successful attempts to flee hospital. ?4.? Began invega sustenna 234mg IM to deltoid with plan for 3mg oral. Next injection due 11/01/2024 but will likely do early in the ?4-day window. Goal: Trajectory for Invega Trinza as soon as switch can be made. Gave Invega Sustenna 234 mg IM to deltoid for initiation of long-acting injectable today 10/25/2024 and will plan for second injection in 3 to 4 days and will initiate Abilify when we hit the 7-day roland i.e 11/01/2024. Invega Sustenna 156 mg IM to the deltoid for loading dose given 10/29/2024. Next Invega Sustenna injection due 11/29/2024 5. We we will give Abilify oral with plan for injection on 11/01/2024 so that the injections will be on the same timeline. Will put on Abilify Asimtufii as soon as possible given difficulty with adherence to injections long-term. Gave Abilify Maintena 400 mg IM today 11/01/2024. 6. Patient presented today having received both of her shots but continuing to be in a confused state of mind now that she is on her appropriate medications we will monitor for improvement. PDMP PDMP Reviewed: Not Reviewed Involuntary Hold Information Hold Status: Legal Status: Active Guardianship Date/Time Hold Expires: 10/29/24@1235 96 Hour Hold: 96 Hour Involuntary Admission: Yes Attestations NPU Medical Necessity Statement*: Inpatient hospitalization is medically necessary and the clinically appropriate intervention at this time. We will monitor medications and make changes as indicated. Likely length of stay 10-14 days. Coding Level of Care Code Acute Code for [facility] Fwd Diagnoses Schizophrenia, paranoid, chronic F20.0
--- NOTE | 2024-11-10 06:48 | PC.NURSE ---
vs not collected resp16 charge notified
--- NOTE | 2024-11-10 08:38 | P.NPUPN_ITS ---
Subjective NPU 2 Subjective: Patient presented today once again being mute but for the first time being more receptive to this engineering technical writer in her personal space. She had less expressions of distress on her face per staff reports and direct observation. She has begun having some spontaneous speech with some staff like sitters in a way that is reportedly coherent at times. She seemed to be more open to some consideration of hygiene suggestions. We discussed the fact that Dr. Goel would be here tomorrow. She had no signs or symptoms of side effects to medications. Mental Status Exam 2 MSE Comments: Patient is a slender white female in hospital scrubs with limited grooming and eye contact. No abnormal movements except for significant psychomotor retardation. Uncooperative with exam in mild to moderate distress. She was mute. Mood not discussed, affect appeared annoyed and irritable. Her thought process appeared linear. Thought content: Patient did not respond to any questions but demonstrated no aggression towards herself or others, no delusions reported and no conversations to allow for identification of any current delusions, she did not report any auditory or visual hallucinations not responding to those questions and did not necessarily appear to be attending to internal stimuli. Attention and concentration appear intact. Her memory appears unreliable though intentionally, but none were formally tested. She is alert but orientation could not be determined due to her mute nature. Insight, judgment, and impulse control all impaired. Vitals/I&O/Wt Last Vital Signs Temp 98.3 F 10/23/24 12:20 Pulse 49 L 11/02/24 06:00 Resp 18 11/09/24 14:00 BP 91/48 11/02/24 06:00 Pulse Ox 99 11/02/24 06:00 O2 Del Method Room Air 11/02/24 06:00 Weight last 48 hrs Weight 46.72 kg Data NPU 10/23/24 12:59 10/23/24 12:59 A&P Assessment and plan 1. Schizophrenia, paranoid, chronic: Plan: This is a 44-year-old white female with chronic schizophrenia who has not been on her medications since last year in the fall with an extended history of noncompliance who becomes quite psychotic and incapable of managing herself safely at home when off of her medications. She will need to be put back on her 2 antipsychotic injections for likely resolution of this relapse. 1.? ?Engage? patient in individual ,milieu, and group therapy ?2. ? We will attempt to gather collateral information from previous providers ?3. ? 1-1 close observations with patient having history of multiple successful attempts to flee hospital. ?4.? Began invega sustenna 234mg IM to deltoid with plan for 3mg oral. Next injection due 11/01/2024 but will likely do early in the ?4-day window. Goal: Trajectory for Invega Trinza as soon as switch can be made. Gave Invega Sustenna 234 mg IM to deltoid for initiation of long-acting injectable today 10/25/2024 and will plan for second injection in 3 to 4 days and will initiate Abilify when we hit the 7-day roland i.e 11/01/2024. Invega Sustenna 156 mg IM to the deltoid for loading dose given 10/29/2024. Next Invega Sustenna injection due 11/29/2024 5. We we will give Abilify oral with plan for injection on 11/01/2024 so that the injections will be on the same timeline. Will put on Abilify Asimtufii as soon as possible given difficulty with adherence to injections long-term. Gave Abilify Maintena 400 mg IM today 11/01/2024. 6. Patient presented today having received both of her shots but continuing to be in a confused state of mind now that she is on her appropriate medications we will monitor for improvement. PDMP PDMP Reviewed: Not Reviewed Involuntary Hold Information 2 Hold Status: Legal Status: Active Guardianship Date/Time Hold Expires: @1235 96 Hour Hold: 96 Hour Involuntary Admission: Yes Attestations NPU 2 Medical Necessity Statement*: Inpatient hospitalization is medically necessary and the clinically appropriate intervention at this time. We will monitor medications and make changes as indicated. Likely length of stay 10-14 days. Coding Level of Care Code Acute Code for [facility] Fwd Diagnoses Schizophrenia, paranoid, chronic F20.0
[2024-11-10 14:00] VITALS: RESP 16
--- NOTE | 2024-11-10 18:21 | PC.NURSE ---
patient took shower, washed hair, changed into clean scrubs, brushed out hair on her own.
[2024-11-10 21:42] VITALS: RESP 18
--- NOTE | 2024-11-10 21:42 | PC.NURSE ---
Patient refused nurse notified
--- NOTE | 2024-11-11 06:54 | PC.NURSE ---
pt refused, nurse notified, resp 18
[2024-11-11 14:00] VITALS: BP 90/49; PULSE 84; RESP 16; TEMP 36.8; O2SAT 99
--- NOTE | 2024-11-11 18:07 | W.PM.NPUPNS ---
Subjective NPU Subjective: 44-year-old female with paranoid schizophrenia admitted after patient had been noncompliant with her medications. Patient had continued to appear to make efforts to try to leave the unit. She had recognized the specification writer of this note. She had appeared to have showered yesterday and was given both injections of her intramuscular antipsychotic. The patient did not report any side effects from her medication regimen. Patient had continued to report that she did not need any medications at this time. She had stated that she was under guardianship but continued to take care of her children at home. She had described having engaged in schooling all of them with the youngest being 4 years old and the oldest being 17 years old. Mental Status Exam MSE Comments: Patient is a slender white female in hospital scrubs with limited grooming and eye contact. No abnormal movements except for significant psychomotor retardation. She was standing close to the door attempting to try to leave the unit. She was superficially cooperative with exam in mild to moderate distress. Mood was described as okay. Her affect appeared blunted. Her thought process appeared linear. Thought content: Patient denied thoughts of hurting self or others. She remained very guarded and suspicious but did not appear to be responding to internal stimuli. Attention and concentration appear intact. Her memory appears unreliable though intentionally, but none were formally tested. She is alert and oriented to person and place. Insight, judgment, and impulse control all impaired. Vitals/I&O/Wt Last Vital Signs Temp 98.3 F 11/11/24 14:00 Pulse 84 11/11/24 14:00 Resp 16 11/11/24 14:00 BP 90/49 11/11/24 14:00 Pulse Ox 99 11/11/24 14:00 O2 Del Method Room Air 11/02/24 06:00 Weight last 48 hrs Weight 46.72 kg Data NPU 10/23/24 12:59 10/23/24 12:59 A&P PDMP PDMP Reviewed: Not Reviewed Involuntary Hold Information Hold Status: Legal Status: Active Guardianship Date/Time Hold Expires: 10/29/24@1235 96 Hour Hold: 96 Hour Involuntary Admission: Yes Attestations NPU Medical Necessity Statement*: Inpatient hospitalization is medically necessary and the clinically appropriate intervention at this time. We will monitor medications and make changes as indicated. Likely length of stay 10-14 days. Coding Level of Care Code Acute Code for [facility]
[2024-11-11 19:16] VITALS: RESP 18
--- NOTE | 2024-11-11 19:16 | PC.NURSE ---
pt refused stated they all ready took them today
[2024-11-12 06:00] VITALS: RESP 16
--- NOTE | 2024-11-12 06:26 | PC.NURSE ---
pt refused vitals
[2024-11-12 14:00] VITALS: BP 83/47; PULSE 74; RESP 18; TEMP 36.8; O2SAT 99
--- NOTE | 2024-11-12 16:30 | P.NPUPN_ITS ---
Subjective NPU 2 Subjective: 44-year-old female with schizophrenia ad mitted with disorganized thinking and behavior. Patient has been doing better on the unit. She had continued to appear suspicious while trying to attempt to flee any doors that may be open. She had been more communicative. She reported no side effects from her medication regimen. She had continued to report that she did not think that these medications were necessary. She had apparently gone more than 6 months without any routine intramuscular antipsychotic medications despite having a guardian. She had reported that she had spoken to her and stated that she was hopeful about seeing her kids soon. Mental Status Exam 2 MSE Comments: Patient is a slender white female in hospital scrubs with limited grooming and eye contact. No abnormal movements except for significant psychomotor retardation. She was again hovering close to the door attempting to try to leave the unit. She was superficially cooperative with exam in mild to moderate distress. Mood was described as allright, when can i go?. Her affect appeared blunted. Her thought process appeared linear. Thought content: Patient denied thoughts of hurting self or others. She remained very guarded and suspicious but did not appear to be responding to internal stimuli. Attention and concentration appear intact. Her memory appears unreliable though intentionally, but none were formally tested. She is alert and oriented to person and place. Insight, judgment, and impulse control all impaired. Vitals/I&O/Wt Last Vital Signs Temp 98.3 F 11/11/24 14:00 Pulse 84 11/11/24 14:00 Resp 16 11/12/24 06:00 BP 90/49 11/11/24 14:00 Pulse Ox 99 11/11/24 14:00 O2 Del Method Room Air 11/02/24 06:00 Data NPU 10/23/24 12:59 10/23/24 12:59 A&P Assessment and plan 1. Schizophrenia, paranoid, chronic: Plan: This is a 44-year-old white female with chronic schizophrenia who has not been on her medications since last year in the fall with an extended history of noncompliance who becomes quite psychotic and incapable of managing herself safely at home when off of her medications. She will need to be put back on her 2 antipsychotic injections for likely resolution of this relapse. 1.? ?Engage? patient in individual ,milieu, and group therapy ?2. ? We will attempt to gather collateral information from previous providers ?3. ? Patient on 04-17 still due to attempts to elope from unit. ?4.? Began invega sustenna 234mg IM to deltoid with plan for 3mg oral. Next injection due 11/01/2024 but will likely do early in the ?4-day window. Goal: Trajectory for Invega Trinza as soon as switch can be made. Gave Invega Sustenna 234 mg IM to deltoid for initiation of long-acting injectable today 10/25/2024 and will plan for second injection in 3 to 4 days and will initiate Abilify when we hit the 7-day roland i.e 11/01/2024. Invega Sustenna 156 mg IM to the deltoid for loading dose given 10/29/2024. Next Invega Sustenna injection due 11/29/2024 5. We we will give Abilify oral with plan for injection on 11/01/2024 so that the injections will be on the same timeline. Will put on Abilify Asimtufii as soon as possible given difficulty with adherence to injections long-term. Gave Abilify Maintena 400 mg IM today 11/01/2024. 6. Patient showing some improvement currently. PDMP PDMP Reviewed: Not Reviewed Involuntary Hold Information 2 Hold Status: Legal Status: Active Guardianship Date/Time Hold Expires: @1235 96 Hour Hold: 96 Hour Involuntary Admission: Yes Attestations NPU 2 Medical Necessity Statement*: Inpatient hospitalization is medically necessary and the clinically appropriate intervention at this time. We will monitor medications and make changes as indicated. The patient's likely length of stay 5-7 days. Coding Level of Care Code Acute Code for Chg Fwd Diagnoses Schizophrenia, paranoid, chronic F20.0
[2024-11-12 19:39] VITALS: RESP 16
--- NOTE | 2024-11-12 19:39 | PC.NURSE ---
asked pt if i could get her vitals and pt stated they have gotten the twice today so i dont want to
[2024-11-13 06:00] VITALS: RESP 20
[2024-11-13 14:00] VITALS: BP 91/50; PULSE 79; RESP 18; TEMP 36.6; O2SAT 99
--- NOTE | 2024-11-13 15:49 | P.NPUPN_ITS ---
Subjective NPU 2 Subjective: 44-year-old female with schizophrenia ad mitted with disorganized thinking and behavior. The patient continues spends several hours of the day attempting to leave the facility while checking for doors. She had been speaking with her on a daily basis. She had continued to express limited interest in consideration for taking medications routinely as she stated that she did not have any problems. She had not discussed in any detail any concerns about anyone in her family being impostors. She continued to appear guarded and had limited conversation with others here on the unit. She remained on one-to-one at this time. Mental Status Exam 2 MSE Comments: Patient is a slender white female in hospital scrubs with limited grooming and eye contact. No abnormal movements except for significant psychomotor retardation. She was again hovering close to the door attempting to try to leave the unit. She was superficially cooperative with exam in mild to moderate distress. Mood was described as ok, can you put my discharge papers in. Her affect appeared blunted. Her thought process appeared linear. Thought content: Patient denied thoughts of hurting self or others. She remained very guarded and suspicious but did not appear to be responding to internal stimuli. Attention and concentration appear intact. Her memory appears unreliable though intentionally, but none were formally tested. She is alert and oriented to person and place. Insight, judgment, and impulse control all impaired. Vitals/I&O/Wt Last Vital Signs Temp 98.2 F 11/12/24 14:00 Pulse 74 11/12/24 14:00 Resp 20 H 11/13/24 06:00 BP 83/47 11/12/24 14:00 Pulse Ox 99 11/12/24 14:00 O2 Del Method Room Air 11/02/24 06:00 Data NPU 10/23/24 12:59 10/23/24 12:59 A&P Assessment and plan 1. Schizophrenia, paranoid, chronic: Plan: This is a 44-year-old white female with chronic schizophrenia who has not been on her medications since last year in the fall with an extended history of noncompliance who becomes quite psychotic and incapable of managing herself safely at home when off of her medications. She will need to be put back on her 2 antipsychotic injections for likely resolution of this relapse. 1.? ?Engage? patient in individual ,milieu, and group therapy ?2. ? We will attempt to gather collateral information from previous providers ?3. ? Patient on 04-17 still due to attempts to elope from unit. ?4.? Began invega sustenna 234mg IM to deltoid with plan for 3mg oral. Next injection due 11/01/2024 but will likely do early in the ?4-day window. Goal: Trajectory for Invega Trinza as soon as switch can be made. Gave Invega Sustenna 234 mg IM to deltoid for initiation of long-acting injectable today 10/25/2024 and will plan for second injection in 3 to 4 days and will initiate Abilify when we hit the 7-day roland i.e 11/01/2024. Invega Sustenna 156 mg IM to the deltoid for loading dose given 10/29/2024. Next Invega Sustenna injection due 11/29/2024 5. We we will give Abilify oral with plan for injection on 11/01/2024 so that the injections will be on the same timeline. Will put on Abilify Asimtufii as soon as possible given difficulty with adherence to injections long-term. Gave Abilify Maintena 400 mg IM today 11/01/2024. 6. Patient showing some improvement currently, patient needs to have an organized plan with support from court appointed guardian to avoid this from happening again. PDMP PDMP Reviewed: Not Reviewed Involuntary Hold Information 2 Hold Status: Legal Status: Active Guardianship Date/Time Hold Expires: @1235 96 Hour Hold: 96 Hour Involuntary Admission: Yes Attestations NPU 2 Medical Necessity Statement*: Inpatient hospitalization is medically necessary and the clinically appropriate intervention at this time. We will monitor medications and make changes as indicated. The patient's likely length of stay 5-7 days. Coding Level of Care Code Acute Code for Chg Fwd Diagnoses Schizophrenia, paranoid, chronic F20.0
[2024-11-13 19:22] VITALS: BP 111/63; PULSE 73; RESP 16; O2SAT 97
[2024-11-14 06:00] VITALS: BP 116/71; PULSE 68; RESP 16; O2SAT 98
[2024-11-14 14:00] VITALS: BP 89/52; PULSE 80; RESP 16; O2SAT 99
--- NOTE | 2024-11-14 17:45 | W.PM.NPUPNS ---
Subjective NPU Subjective: 44-year-old female with schizophrenia admitted with disorganized thinking and behavior. The patient remained somewhat guarded. She continued to pace the hallway and reports that she had been talking to her . The life insurance underwriter and suggested that the patient come visit if possible and the patient had indicated in that remark that she was concerned that the team would place him in the psychiatric facility. She had continued to appear suspicious of the intention of others and stated that she did not need any medications despite the significant adverse events that had appeared to occur due to her noncompliance with her medications. The patient reported no side effects from her medication regimen. She remained on one-to-one while appearing to test whether the doorways and exits were able to be opened by simply pushing on them. Mental Status Exam MSE Comments: Patient is a slender white female in hospital scrubs with limited grooming and eye contact. No abnormal movements except for significant psychomotor retardation. She was again hovering close to the door attempting to try to leave the unit. She was superficially cooperative with exam in mild to moderate distress. Mood was described as allright, just waiting for the discharge. Her affect appeared blunted. Her thought process appeared linear. Thought content: Patient denied thoughts of hurting self or others. She continued to remain suspicious but did not appear to be responding to internal stimuli. Attention and concentration appear intact. Her memory appears unreliable though intentionally, but none were formally tested. She is alert and oriented to person and place. Insight, judgment, and impulse control all impaired. Vitals/I&O/Wt Last Vital Signs Temp 98 F 11/13/24 14:00 Pulse 80 11/14/24 14:00 Resp 16 11/14/24 14:00 BP 89/52 11/14/24 14:00 Pulse Ox 99 11/14/24 14:00 O2 Del Method Room Air 11/14/24 06:00 Data NPU 10/23/24 12:59 10/23/24 12:59 A&P Assessment and plan 1. Schizophrenia, paranoid, chronic: Plan: This is a 44-year-old white female with chronic schizophrenia who has not been on her medications since last year in the fall with an extended history of noncompliance who becomes quite psychotic and incapable of managing herself safely at home when off of her medications. She will need to be put back on her 2 antipsychotic injections for likely resolution of this relapse. 1.? ?Engage? patient in individual ,milieu, and group therapy ?2. ? We will attempt to gather collateral information from previous providers ?3. ? Patient on 04-17 still due to attempts to elope from unit. ?4.? Began invega sustenna 234mg IM to deltoid with plan for 3mg oral. Next injection due 11/01/2024 but will likely do early in the ?4-day window. Goal: Trajectory for Invega Trinza as soon as switch can be made. Gave Invega Sustenna 234 mg IM to deltoid for initiation of long-acting injectable today 10/25/2024 and will plan for second injection in 3 to 4 days and will initiate Abilify when we hit the 7-day roland i.e 11/01/2024. Invega Sustenna 156 mg IM to the deltoid for loading dose given 10/29/2024. Next Invega Sustenna injection due 11/29/2024 5. We we will give Abilify oral with plan for injection on 11/01/2024 so that the injections will be on the same timeline. Will put on Abilify Asimtufii as soon as possible given difficulty with adherence to injections long-term. Gave Abilify Maintena 400 mg IM today 11/01/2024. 6. Patient showing some improvement currently, patient needs to have an organized plan with support from court appointed guardian to avoid this from happening again. PDMP PDMP Reviewed: Not Reviewed Involuntary Hold Information Hold Status: Legal Status: Active Guardianship Date/Time Hold Expires: 10/29/24@1235 96 Hour Hold: 96 Hour Involuntary Admission: Yes Attestations NPU Medical Necessity Statement*: Inpatient hospitalization is medically necessary and the clinically appropriate intervention at this time. We will monitor medications and make changes as indicated. The patient's likely length of stay 7-10 days. Coding Level of Care Code Acute Code for Chg Fwd Diagnoses Schizophrenia, paranoid, chronic F20.0
[2024-11-14 20:20] VITALS: BP 93/67; PULSE 79; RESP 18; O2SAT 97
[2024-11-15 06:00] VITALS: PULSE 68; RESP 18; O2SAT 100
[2024-11-15 14:00] VITALS: BP 101/65; PULSE 84; RESP 16; O2SAT 98
--- NOTE | 2024-11-15 17:57 | W.PM.NPUPNS ---
Subjective NPU Subjective: 44-year-old female with schizophrenia admitted with disorganized thinking and behavior. The patient had continued to ask when she would be able to go home. She remained guarded about discussing what had brought her into the hospital. She did not report any desire to have her to visit here as she had expressed suspicion that the treatment team would place him in the hospital as well. She had continued to minimize any of the effects of her attempt to stop the medications and not attend visits leading to her eventual presents back here in the hospital. She was removed off of one-to-one today and continued to hover around the doors in an attempt to check to see if they were patent. Mental Status Exam MSE Comments: Patient is a slender white female in hospital scrubs with limited grooming and eye contact. No abnormal movements except for significant psychomotor retardation. She was again hovering close to the door attempting to try to leave the unit. She was superficially cooperative with exam in mild distress. Mood was described as fine, just waiting for discharge papers. Her affect appeared blunted. Her thought process appeared linear. Thought content: Patient denied thoughts of hurting self or others. She continued to remain suspicious but did not appear to be responding to internal stimuli. Attention and concentration appear intact. Her memory appeared selective. She is alert and oriented to person and place. Insight is minimal. Her judgment, and impulse control all poor. Vitals/I&O/Wt Last Vital Signs Temp 98 F 11/13/24 14:00 Pulse 68 11/15/24 06:00 Resp 18 11/15/24 06:00 BP 93/67 11/14/24 20:20 Pulse Ox 100 11/15/24 06:00 O2 Del Method Room Air 11/15/24 06:00 Data NPU 10/23/24 12:59 10/23/24 12:59 A&P Assessment and plan 1. Schizophrenia, paranoid, chronic: Plan: This is a 44-year-old white female with chronic schizophrenia who has not been on her medications since last year in the fall with an extended history of noncompliance who becomes quite psychotic and incapable of managing herself safely at home when off of her medications. She will need to be put back on her 2 antipsychotic injections for likely resolution of this relapse. 1.? ?Engage? patient in individual ,milieu, and group therapy ?2. ? We will attempt to gather collateral information from previous providers ?3. ? Patient on 04-17 still due to attempts to elope from unit. ?4.? Began invega sustenna 234mg IM to deltoid with plan for 3mg oral. Next injection due 11/01/2024 but will likely do early in the ?4-day window. Goal: Trajectory for Invega Trinza as soon as switch can be made. Gave Invega Sustenna 234 mg IM to deltoid for initiation of long-acting injectable today 10/25/2024 and will plan for second injection in 3 to 4 days and will initiate Abilify when we hit the 7-day roland i.e 11/01/2024. Invega Sustenna 156 mg IM to the deltoid for loading dose given 10/29/2024. Next Invega Sustenna injection due 11/29/2024 5. We we will give Abilify oral with plan for injection on 11/01/2024 so that the injections will be on the same timeline. Will put on Abilify Asimtufii as soon as possible given difficulty with adherence to injections long-term. Gave Abilify Maintena 400 mg IM today 11/01/2024. 6. Patient showing some improvement currently, patient needs to have an organized plan with support from court appointed guardian to avoid this from happening again. PDMP PDMP Reviewed: Not Reviewed Involuntary Hold Information Hold Status: Legal Status: Active Guardianship Date/Time Hold Expires: 10/29/24@1235 96 Hour Hold: 96 Hour Involuntary Admission: Yes Attestations NPU Medical Necessity Statement*: Inpatient hospitalization is medically necessary and the clinically appropriate intervention at this time. We will monitor medications and make changes as indicated. The patient's likely length of stay 7-10 days. Coding Level of Care Code Acute Code for Chg Fwd Diagnoses Schizophrenia, paranoid, chronic F20.0
[2024-11-15 20:35] VITALS: BP 112/70; PULSE 75; RESP 16; O2SAT 100
[2024-11-16 14:00] VITALS: BP 94/61; PULSE 77; RESP 15; O2SAT 98
--- NOTE | 2024-11-16 14:53 | W.PM.NPUPNS ---
Subjective NPU Subjective: 44-year-old female with schizophrenia admitted with disorganized thinking and behavior. The patient had continued to remain ambivalent about returning home stating that she continued to be uncertain about whether her was indeed an impostor as she stated that she was uncertain when talking to them on the phone whether he was real. The patient had made an attempt to try to leave the unit as she continued to seek any doors that would remain open for a brief moment in an attempt to flee the unit. She continued to report that she felt ready to leave here. Mental Status Exam MSE Comments: Patient is a slender white female in hospital scrubs with limited grooming and eye contact. No abnormal movements except for significant psychomotor retardation. She was again hovering close to the door attempting to try to leave the unit. She was superficially cooperative with exam in mild distress. Mood was described as okay, just waiting to leave here. Her affect appeared blunted. Her thought process appeared linear. Thought content: Patient denied thoughts of hurting self or others. She continued to remain suspicious but did not appear to be responding to internal stimuli. She continued to appear paranoid. Attention and concentration appear intact. Her memory appeared selective. She is alert and oriented to person and place. Insight is minimal. Her judgment, and impulse control all poor. Vitals/I&O/Wt Last Vital Signs Temp 98 F 11/13/24 14:00 Pulse 75 11/15/24 20:35 Resp 16 11/15/24 20:35 BP 112/70 11/15/24 20:35 Pulse Ox 100 11/15/24 20:35 O2 Del Method Room Air 11/15/24 20:35 Data NPU 10/23/24 12:59 10/23/24 12:59 A&P Assessment and plan 1. Schizophrenia, paranoid, chronic: Plan: This is a 44-year-old white female with chronic schizophrenia who has not been on her medications since last year in the fall with an extended history of noncompliance who becomes quite psychotic and incapable of managing herself safely at home when off of her medications. She will need to be put back on her 2 antipsychotic injections for likely resolution of this relapse. 1.? ?Engage? patient in individual ,milieu, and group therapy ?2. ? We will attempt to gather collateral information from previous providers ?3. ? Patient on 04-17 still due to attempts to elope from unit. ?4.? Began invega sustenna 234mg IM to deltoid with plan for 3mg oral. Next injection due 11/01/2024 but will likely do early in the ?4-day window. Goal: Trajectory for Invega Trinza as soon as switch can be made. Gave Invega Sustenna 234 mg IM to deltoid for initiation of long-acting injectable today 10/25/2024 and will plan for second injection in 3 to 4 days and will initiate Abilify when we hit the 7-day roland i.e 11/01/2024. Invega Sustenna 156 mg IM to the deltoid for loading dose given 10/29/2024. Next Invega Sustenna injection due 11/29/2024 5. We we will give Abilify oral with plan for injection on 11/01/2024 so that the injections will be on the same timeline. Will put on Abilify Asimtufii as soon as possible given difficulty with adherence to injections long-term. Gave Abilify Maintena 400 mg IM today 11/01/2024. 6. Patient showing some improvement currently, patient needs to have an organized plan with support from court appointed guardian to avoid this from happening again. PDMP PDMP Reviewed: Not Reviewed Involuntary Hold Information Hold Status: Legal Status: Active Guardianship Date/Time Hold Expires: 10/29/24@1235 96 Hour Hold: 96 Hour Involuntary Admission: Yes Attestations NPU Medical Necessity Statement*: Inpatient hospitalization is medically necessary and the clinically appropriate intervention at this time. We will monitor medications and make changes as indicated. The patient's likely length of stay 7-10 days. Coding Level of Care Code Acute Code for Chg Fwd Diagnoses Schizophrenia, paranoid, chronic F20.0
[2024-11-16 20:07] VITALS: BP 101/70; PULSE 71; RESP 16; O2SAT 100
[2024-11-17 06:00] VITALS: BP 100/65; PULSE 84; RESP 16; O2SAT 100
--- NOTE | 2024-11-17 13:32 | W.PM.NPUPNS ---
Subjective NPU Subjective: 44-year-old female with schizophrenia admitted with disorganized thinking and behavior. The patient was removed off one-to-one and appeared to respond well without any attempts to flee the unit. She had expressed continued contempt with the idea of being forced on medications as she stated that she did not really have any problems. She had acknowledged having struggled with her thinking after months of being off of her medication but denied her having any problem that was associated with the lack of taking necessary medication. She had denied any worries about her children and her being replaced by impostors today. Mental Status Exam MSE Comments: Patient is a slender white female in hospital scrubs with limited grooming and eye contact. No abnormal movements except for significant psychomotor retardation. She was again hovering close to the door attempting to try to leave the unit. She was superficially cooperative with exam in mild distress. Mood was described as allright. Her affect appeared blunted. Her thought process appeared linear. Thought content: Patient denied thoughts of hurting self or others. She continued to remain suspicious but did not appear to be responding to internal stimuli. She continued to appear suspicious of the scenario writer's intentions. Attention and concentration appear intact. Her memory appeared selective. She is alert and oriented to person and place. Insight is minimal. Her judgment, and impulse control all poor. Vitals/I&O/Wt Last Vital Signs Temp 98 F 11/13/24 14:00 Pulse 84 11/17/24 06:00 Resp 16 11/17/24 06:00 BP 100/65 11/17/24 06:00 Pulse Ox 100 11/17/24 06:00 O2 Del Method Room Air 11/17/24 06:00 Data NPU 10/23/24 12:59 10/23/24 12:59 A&P Assessment and plan 1. Schizophrenia, paranoid, chronic: Plan: This is a 44-year-old white female with chronic schizophrenia who has not been on her medications since last year in the fall with an extended history of noncompliance who becomes quite psychotic and incapable of managing herself safely at home when off of her medications. She will need to be put back on her 2 antipsychotic injections for likely resolution of this relapse. 1.? ?Engage? patient in individual ,milieu, and group therapy ?2. ? We will attempt to gather collateral information from previous providers ?3. ? Patient on 04-17 still due to attempts to elope from unit. ?4.? Began invega sustenna 234mg IM to deltoid with plan for 3mg oral. Next injection due 11/01/2024 but will likely do early in the ?4-day window. Goal: Trajectory for Invega Trinza as soon as switch can be made. Gave Invega Sustenna 234 mg IM to deltoid for initiation of long-acting injectable today 10/25/2024 and will plan for second injection in 3 to 4 days and will initiate Abilify when we hit the 7-day roland i.e 11/01/2024. Invega Sustenna 156 mg IM to the deltoid for loading dose given 10/29/2024. Next Invega Sustenna injection due 11/29/2024 5. We we will give Abilify oral with plan for injection on 11/01/2024 so that the injections will be on the same timeline. Will put on Abilify Asimtufii as soon as possible given difficulty with adherence to injections long-term. Gave Abilify Maintena 400 mg IM today 11/01/2024. 6. Patient showing some improvement currently, patient needs to have an organized plan with support from court appointed guardian to avoid this from happening again. PDMP PDMP Reviewed: Not Reviewed Involuntary Hold Information Hold Status: Legal Status: Active Guardianship Date/Time Hold Expires: 10/29/24@1235 96 Hour Hold: 96 Hour Involuntary Admission: Yes Attestations NPU Medical Necessity Statement*: Inpatient hospitalization is medically necessary and the clinically appropriate intervention at this time. We will monitor medications and make changes as indicated. The patient's likely length of stay 7-10 days. Coding Level of Care Code Acute Code for Chg Fwd Diagnoses Schizophrenia, paranoid, chronic F20.0
[2024-11-17 14:00] VITALS: BP 94/40; PULSE 108; RESP 16; O2SAT 100
[2024-11-17 20:58] VITALS: BP 106/65; PULSE 76; RESP 16; O2SAT 99
[2024-11-18 06:45] VITALS: BP 98/61; PULSE 74; RESP 16
[2024-11-18 14:00] VITALS: RESP 16
--- NOTE | 2024-11-18 15:30 | P.NPUPN_ITS ---
Subjective NPU 2 Subjective: 44-year-old female with schizophrenia ad mitted with disorganized thinking and behavior. Patient continues to show improvement here. She had been more social. She had reported increased comfort with returning home. She had been communicating with her at this time. She continued to show evidence of limited insight stating that she did not feel as if the medicines were helpful for her. She had appeared more communicative and was able to attend groups. She did not attempt to leave out the doors. She reported worries about someone else being behind the nursing station but refused to elaborate after she asked if someone else was there. Mental Status Exam 2 MSE Comments: Patient is a slender white female in hospital scrubs with limited grooming and eye contact. No abnormal movements except for significant psychomotor retardation. She was again hovering close to the door attempting to try to leave the unit. She was superficially cooperative with exam in mild distress. Mood was described as good Her affect appeared blunted. Her thought process appeared linear but superficial. Thought content: Patient denied thoughts of hurting self or others. She continued to remain suspicious but did not appear to be responding to internal stimuli. Attention and concentration appear intact. Her recent and remote memory appeared to be improving. She is alert and oriented to person and place. Insight is minimal. Her judgment appeared better. Her impulse control is improving. Vitals/I&O/Wt Last Vital Signs Temp 98 F 11/13/24 14:00 Pulse 74 11/18/24 06:45 Resp 16 11/18/24 06:45 BP 98/61 11/18/24 06:45 Pulse Ox 99 11/17/24 20:58 O2 Del Method Room Air 11/17/24 20:58 Data NPU 10/23/24 12:59 10/23/24 12:59 A&P Assessment and plan 1. Schizophrenia, paranoid, chronic: Plan: This is a 44-year-old white female with chronic schizophrenia who has not been on her medications since last year in the fall with an extended history of noncompliance who becomes quite psychotic and incapable of managing herself safely at home when off of her medications. She will need to be put back on her 2 antipsychotic injections for likely resolution of this relapse. 1.? ?Engage? patient in individual ,milieu, and group therapy ?2. ? We will attempt to gather collateral information from previous providers ?3. ? Patient on 04-17 still due to attempts to elope from unit. ?4.? Began invega sustenna 234mg IM to deltoid with plan for 3mg oral. Next injection due 11/01/2024 but will likely do early in the ?4-day window. Goal: Trajectory for Invega Trinza as soon as switch can be made. Gave Invega Sustenna 234 mg IM to deltoid for initiation of long-acting injectable today 10/25/2024 and will plan for second injection in 3 to 4 days and will initiate Abilify when we hit the 7-day roland i.e 11/01/2024. Invega Sustenna 156 mg IM to the deltoid for loading dose given 10/29/2024. Next Invega Sustenna injection due 11/29/2024 5. We we will give Abilify oral with plan for injection on 11/01/2024 so that the injections will be on the same timeline. Will put on Abilify Asimtufii as soon as possible given difficulty with adherence to injections long-term. Gave Abilify Maintena 400 mg IM today 11/01/2024. 6. Patient showing some improvement currently, patient needs to have an organized plan with support from court appointed guardian to avoid this from happening again. PDMP PDMP Reviewed: Not Reviewed Involuntary Hold Information 2 Hold Status: Legal Status: Active Guardianship Date/Time Hold Expires: @1235 96 Hour Hold: 96 Hour Involuntary Admission: Yes Attestations NPU 2 Medical Necessity Statement*: Inpatient hospitalization is medically necessary and the clinically appropriate intervention at this time. We will monitor medications and make changes as indicated. The patient's likely length of stay 3-5 days. Coding Level of Care Code Acute Code for Chg Fwd Diagnoses Schizophrenia, paranoid, chronic F20.0
[2024-11-18 19:16] VITALS: RESP 16
--- NOTE | 2024-11-18 19:17 | PC.NURSE ---
pt refused vitals
[2024-11-19 06:00] VITALS: BP 94/66; PULSE 63; RESP 16; O2SAT 90
[2024-11-19 14:00] VITALS: RESP 16
--- NOTE | 2024-11-19 15:12 | P.NPUPN_ITS ---
Subjective NPU 2 Subjective: 44-year-old female with schizophrenia ad mitted with disorganized thinking and behavior. The patient appeared to be doing well without one-to-one staff. She had made no attempts to escape. She had continued to speak with her on the phone. She reported no side effects from her medication. She had continued to share a belief that these medications were wholly unnecessary. She did not report any mood symptoms at this time. Mental Status Exam 2 MSE Comments: Patient is a slender white female in hospital scrubs with limited grooming and eye contact. No abnormal movements except for significant psychomotor retardation. She was again hovering close to the door attempting to try to leave the unit. She was superficially cooperative with exam in mild distress. Mood was described as okay. Her affect appeared blunted still. Her thought process appeared linear but superficial. Thought content: Patient denied thoughts of hurting self or others. She continued to remain paranoia but did not appear to be responding to internal stimuli. Attention and concentration appear intact. Her recent and remote memory appeared to be improving. She is alert and oriented to person, place and time. Insight is minimal. Her judgment appeared better. Her impulse control is improving. Vitals/I&O/Wt Last Vital Signs Temp 98 F 11/13/24 14:00 Pulse 63 11/19/24 06:00 Resp 16 11/19/24 06:00 BP 94/66 11/19/24 06:00 Pulse Ox 90 11/19/24 06:00 O2 Del Method Room Air 11/17/24 20:58 Data NPU 10/23/24 12:59 10/23/24 12:59 A&P Assessment and plan 1. Schizophrenia, paranoid, chronic: Plan: This is a 44-year-old white female with chronic schizophrenia who has not been on her medications since last year in the fall with an extended history of noncompliance who becomes quite psychotic and incapable of managing herself safely at home when off of her medications. She will need to be put back on her 2 antipsychotic injections for likely resolution of this relapse. 1.? ?Engage? patient in individual ,milieu, and group therapy ?2. ? We will attempt to gather collateral information from previous providers ?3. ? Patient on to-15 minute checks 4. Patient had Invega 234mg IM on 10/25/24 and Invega 156mg on 10/29/24. Abilify Maintena IM given on 11/01/24. Will coordinate for outpatient IM abilify and invega sustenna monthly to both be given on 11/29/24. PDMP PDMP Reviewed: Not Reviewed Involuntary Hold Information 2 Hold Status: Legal Status: Active Guardianship Date/Time Hold Expires: @1235 96 Hour Hold: 96 Hour Involuntary Admission: Yes Attestations NPU 2 Medical Necessity Statement*: Inpatient hospitalization is medically necessary and the clinically appropriate intervention at this time. We will monitor medications and make changes as indicated. The patient's likely length of stay 2-3 days. Coding Level of Care Code Acute Code for [facility] Fwd Diagnoses Schizophrenia, paranoid, chronic F20.0
--- NOTE | 2024-11-19 19:35 | PC.NURSE ---
pt nursing assessment pt allowed this nurse to do a physical assessment today. she stated she was 'fine' but allowed me to do it anyways.
[2024-11-19 19:40] VITALS: BP 106/58; PULSE 70; RESP 18; O2SAT 100
--- NOTE | 2024-11-19 19:46 | PC.NURSE ---
temperature attempted pt refused
[2024-11-20 05:50] VITALS: BP 92/52; PULSE 63; RESP 18; TEMP 36.5; O2SAT 96
[2024-11-20 13:56] VITALS: BP 94/51; PULSE 74; RESP 16; O2SAT 100
--- NOTE | 2024-11-20 15:40 | W.PM.NPUPNS ---
Subjective NPU Subjective: 44-year-old female with schizophrenia admitted with disorganized thinking and behavior. The patient appeared to be doing better. She reported no side effects from her medication. She had continued to suggest that these medications were unnecessary. She stated that when her was able to visit she would like to be able to go home with him. She appeared redirectable on the milieu and did not make any attempts to flee the hospital. Mental Status Exam MSE Comments: Patient is a slender white female in hospital scrubs with limited grooming and eye contact. No abnormal movements except for significant psychomotor retardation. She was again hovering close to the door attempting to try to leave the unit. She was superficially cooperative with exam in mild distress. Mood was described as okay. Her affect appeared blunted still. Her thought process appeared linear but superficial. Thought content: Patient denied thoughts of hurting self or others. She continued to remain paranoia but did not appear to be responding to internal stimuli. Attention and concentration appear intact. Her recent and remote memory appeared to be improving. She is alert and oriented to person, place and time. Insight is minimal. Her judgment appeared better. Her impulse control is improving. Vitals/I&O/Wt Last Vital Signs Temp 97.7 F 11/20/24 05:50 Pulse 74 11/20/24 13:56 Resp 16 11/20/24 13:56 BP 94/51 11/20/24 13:56 Pulse Ox 100 11/20/24 13:56 O2 Del Method Room Air 11/20/24 13:56 Data NPU 10/23/24 12:59 10/23/24 12:59 A&P Assessment and plan 1. Schizophrenia, paranoid, chronic: Plan: This is a 44-year-old white female with chronic schizophrenia who has not been on her medications since last year in the fall with an extended history of noncompliance who becomes quite psychotic and incapable of managing herself safely at home when off of her medications. She will need to be put back on her 2 antipsychotic injections for likely resolution of this relapse. 1.? ?Engage? patient in individual ,milieu, and group therapy ?2. ? We will attempt to gather collateral information from previous providers ?3. ? Patient on to-15 minute checks 4. Patient had Invega 234mg IM on 10/25/24 and Invega 156mg on 10/29/24. Abilify Maintena IM given on 11/01/24. Will coordinate for outpatient IM abilify and invega sustenna monthly to both be given on 11/29/24. PDMP PDMP Reviewed: Not Reviewed Involuntary Hold Information Hold Status: Legal Status: Active Guardianship Date/Time Hold Expires: 10/29/24@1235 96 Hour Hold: 96 Hour Involuntary Admission: Yes Attestations NPU Medical Necessity Statement*: Inpatient hospitalization is medically necessary and the clinically appropriate intervention at this time. We will monitor medications and make changes as indicated. The patient's likely length of stay 7-8 days. Coding Level of Care Code Acute Code for Chg Fwd Diagnoses Schizophrenia, paranoid, chronic F20.0
[2024-11-20 19:19] VITALS: BP 94/49; PULSE 77; RESP 18; TEMP 36.6; O2SAT 99
--- NOTE | 2024-11-20 19:19 | PC.NURSE ---
Refused to let me retake her blood pressure.
[2024-11-21 06:00] VITALS: RESP 18
--- NOTE | 2024-11-21 06:16 | PC.NURSE ---
Patient Refused Charge Nurse Notified.
--- NOTE | 2024-11-21 12:39 | P.NPUPN_ITS ---
Subjective NPU 2 Subjective: 44-year-old female with schizophrenia ad mitted with disorganized thinking and behavior. The patient had question the nurses yesterday as to whether there was children behind the nursing station hidden there. The patient had denied that she was hearing any voices but did appear preoccupied and still remained guarded. She continued to communicate with her on the phone. She reported no suicidal thoughts. She continued to remain hesitant about a plan to take medications on a regular basis consistently but did not elaborate. Mental Status Exam 2 MSE Comments: Patient is a slender white female in hospital scrubs with limited grooming and eye contact. No abnormal movements except for significant psychomotor retardation. She was not attempting to leave the unit. She was superficially cooperative with exam in mild distress. Mood was described as good. Her affect remained blunted. Her thought process appeared linear but superficial. Thought content: Patient denied thoughts of hurting self or others. She continued to remain paranoia but did not appear to be responding to internal stimuli. Attention and concentration appear intact. Her recent and remote memory appeared to be improving. She is alert and oriented to person, place and time. Insight is minimal. Her judgment appeared fair. Her impulse control is improving. Vitals/I&O/Wt Last Vital Signs Temp 97.9 F 11/20/24 19:19 Pulse 77 11/20/24 19:19 Resp 18 11/21/24 06:00 BP 94/49 11/20/24 19:19 Pulse Ox 99 11/20/24 19:19 O2 Del Method Room Air 11/20/24 19:19 Data NPU 10/23/24 12:59 10/23/24 12:59 A&P Assessment and plan 1. Schizophrenia, paranoid, chronic: Plan: This is a 44-year-old white female with chronic schizophrenia who has not been on her medications since last year in the fall with an extended history of noncompliance who becomes quite psychotic and incapable of managing herself safely at home when off of her medications. She will need to be put back on her 2 antipsychotic injections for likely resolution of this relapse. 1.? ?Engage? patient in individual ,milieu, and group therapy ?2. ? We will attempt to gather collateral information from previous providers ?3. ? Patient on to-15 minute checks 4. Patient had Invega 234mg IM on 10/25/24 and Invega 156mg on 10/29/24. Abilify Maintena IM given on 11/01/24. Will coordinate for outpatient IM abilify and invega sustenna monthly to both be given on 11/29/24 or as early as 11/25/14 if possible. PDMP PDMP Reviewed: Not Reviewed Involuntary Hold Information 2 Hold Status: Legal Status: Active Guardianship Date/Time Hold Expires: @1235 96 Hour Hold: 96 Hour Involuntary Admission: Yes Attestations NPU 2 Medical Necessity Statement*: Inpatient hospitalization is medically necessary and the clinically appropriate intervention at this time. We will monitor medications and make changes as indicated. The patient's likely length of stay 7-8 days. Coding Level of Care Code Acute Code for g Fwd Diagnoses Schizophrenia, paranoid, chronic F20.0
[2024-11-21 13:52] VITALS: BP 90/61; PULSE 76; RESP 16; O2SAT 94
--- NOTE | 2024-11-21 15:55 | PC.NURSE ---
visited pt. today. Signee asked is this your . Pt. replied if it isn't, i've sure known him a long time.
[2024-11-21 19:11] VITALS: BP 91/45; PULSE 88; RESP 16; TEMP 37.1; O2SAT 98
[2024-11-22 06:00] VITALS: RESP 18
--- NOTE | 2024-11-22 06:12 | PC.NURSE ---
Patient refused Charge nurse notified.
[2024-11-22 14:00] VITALS: BP 94/58; PULSE 79; RESP 17; O2SAT 100
--- NOTE | 2024-11-22 18:34 | W.PM.NPUPNS ---
Subjective NPU Subjective: Patient presented today continuing to be mute with this internal communications writer. She almost was pantomime being suggesting increased openness to interaction but still would not make a sound. When asked how things were going she walked over to the door to the unit and pressed up on it and motioned towards the door obviously getting some indication that she would like this internal communications writer to open it and let her out. No signs or symptoms of side effects to her injections. We continue to discuss the plan of treatment with her. Mental Status Exam MSE Comments: Patient is a slender white female in hospital scrubs with limited grooming and eye contact. No abnormal movements except for significant psychomotor retardation. She continued to go up to the door of the unit and press it she was superficially cooperative with exam in mild distress. She continues to be mute. Mood not discussed, affect appeared annoyed and irritable. Her thought process appeared linear. Thought content: Patient did not respond to any questions but demonstrated no aggression towards herself or others, no delusions reported and no conversations to allow for identification of any current delusions, she did not report any auditory or visual hallucinations not responding to those questions and did not necessarily appear to be attending to internal stimuli. Attention and concentration appear intact. Her memory appears unreliable though intentionally, but none were formally tested. She is alert but orientation could not be determined due to her mute nature. Insight, judgment, and impulse control all impaired. Vitals/I&O/Wt Last Vital Signs Temp 98.7 F 11/21/24 19:11 Pulse 79 11/22/24 14:00 Resp 17 11/22/24 14:00 BP 94/58 11/22/24 14:00 Pulse Ox 100 11/22/24 14:00 O2 Del Method Room Air 11/21/24 19:11 Data NPU 10/23/24 12:59 10/23/24 12:59 A&P Assessment and plan 1. Schizophrenia, paranoid, chronic: Plan: This is a 44-year-old white female with chronic schizophrenia who has not been on her medications since last year in the fall with an extended history of noncompliance who becomes quite psychotic and incapable of managing herself safely at home when off of her medications. She will need to be put back on her 2 antipsychotic injections for likely resolution of this relapse. 1.? ?Engage? patient in individual ,milieu, and group therapy ?2. ? We will attempt to gather collateral information from previous providers ?3. ? Patient on to-15 minute checks 4. Patient had Invega 234mg IM on 10/25/24 and Invega 156mg on 10/29/24. Abilify Maintena IM given on 11/01/24. Will coordinate for outpatient IM abilify and invega sustenna monthly to both be given on 11/29/24 or as early as 11/25/14 if possible. Will likely treat inpatient at least until those shots can be given. PDMP PDMP Reviewed: Not Reviewed Involuntary Hold Information Hold Status: Legal Status: Active Guardianship Date/Time Hold Expires: 10/29/24@1235 96 Hour Hold: 96 Hour Involuntary Admission: Yes Attestations NPU Medical Necessity Statement*: Inpatient hospitalization is medically necessary and the clinically appropriate intervention at this time. We will monitor medications and make changes as indicated. The patient's likely length of stay 7-8 days. Coding Level of Care Code Acute Code for [facility] Fwd Diagnoses Schizophrenia, paranoid, chronic F20.0
[2024-11-22 20:04] VITALS: BP 83/50; PULSE 59; RESP 16; O2SAT 100
[2024-11-23 06:00] VITALS: BP 92/50; PULSE 73; RESP 16; O2SAT 99
--- NOTE | 2024-11-23 09:14 | W.PM.NPUPNS ---
Subjective NPU Subjective: Patient presented today having verbal communication with this functional tester typewriters the first time and it was with no noteworthy contention or irritability. She did discuss being ready to discharge and we discussed the current plan which includes making sure she gets her injection prior to discharge which based on her current trajectory would be somewhere between 11/25/2024 and 11/29/2024. She did not report any side effects of her medication. Mental Status Exam MSE Comments: Patient is a slender white female in hospital scrubs with limited grooming and eye contact. No abnormal movements except for mild psychomotor retardation. She continues to pace the hallways but was not observed specifically pressing on her door today. She more cooperative with exam in mild distress. She spoke to this functional tester typewriters for the first time in this day and did so without any noteworthy resistance. Mood described as I am ready to go, affect appeared less irritable. Her thought process appeared linear. Thought content: She denied suicidal or homicidal ideation, there were no clear delusions reported or noted, she did not endorse auditory or visual hallucinations. Attention and concentration appear intact. Her memory appears more reliable, but none were formally tested. She is alert and oriented times person and place. Insight, judgment, and impulse control all improving. Vitals/I&O/Wt Last Vital Signs Temp 98.7 F 11/21/24 19:11 Pulse 73 11/23/24 06:00 Resp 16 11/23/24 06:00 BP 92/50 11/23/24 06:00 Pulse Ox 99 11/23/24 06:00 O2 Del Method Room Air 11/23/24 06:00 Data NPU 10/23/24 12:59 10/23/24 12:59 A&P Assessment and plan 1. Schizophrenia, paranoid, chronic: Plan: This is a 44-year-old white female with chronic schizophrenia who has not been on her medications since last year in the fall with an extended history of noncompliance who becomes quite psychotic and incapable of managing herself safely at home when off of her medications. She will need to be put back on her 2 antipsychotic injections for likely resolution of this relapse. 1.? ?Engage? patient in individual ,milieu, and group therapy ?2. ? We will attempt to gather collateral information from previous providers ?3. ? Patient on to-15 minute checks 4. Patient had Invega 234mg IM on 10/25/24 and Invega 156mg on 10/29/24. Abilify Maintena IM given on 11/01/24. Will coordinate for outpatient IM abilify and invega sustenna monthly to both be given on 11/29/24 or as early as 11/25/14 if possible. Will likely treat inpatient at least until those shots can be given. PDMP PDMP Reviewed: Not Reviewed Involuntary Hold Information Hold Status: Legal Status: Active Guardianship Date/Time Hold Expires: 10/29/24@1235 96 Hour Hold: 96 Hour Involuntary Admission: Yes Attestations NPU Medical Necessity Statement*: Inpatient hospitalization is medically necessary and the clinically appropriate intervention at this time. We will monitor medications and make changes as indicated. The patient's likely length of stay 7-8 days. Coding Level of Care Code Acute Code for [facility] Fwd Diagnoses Schizophrenia, paranoid, chronic F20.0
[2024-11-23 14:00] VITALS: RESP 16
--- NOTE | 2024-11-23 14:10 | PC.NURSE ---
Pt. grabbed for OUTBOUND SUPERVISOR's badge today and was told not to do that again.
[2024-11-23 19:16] VITALS: BP 91/43; PULSE 76; RESP 17; TEMP 36.6; O2SAT 97
[2024-11-24 06:00] VITALS: BP 91/54; PULSE 73; RESP 18; TEMP 36.6; O2SAT 99
[2024-11-24 14:00] VITALS: RESP 18
--- NOTE | 2024-11-24 16:20 | P.NPUPN_ITS ---
Subjective NPU 2 Subjective: Patient presented today reporting that she is doing okay. She was once again vocal and communicative without any resistance or attitude per staff reports and in direct observation. She was very positive and pleasant with this racebook writer and joked about discharge but was open to our conversation about her getting her next injections as soon as possible and that she would be likely a candidate for discharge after that. She was very happy to hear that information and denied any side effects to her medication. Mental Status Exam 2 MSE Comments: Patient is a slender white female in hospital scrubs with limited grooming and eye contact. No abnormal movements except for mild psychomotor retardation. She continues to pace the hallways but was not observed specifically pressing on her door today. She more cooperative with exam in mild distress. She spoke to this racebook writer for the second time in this stay and did so without any noteworthy resistance. Mood described as I am ready to go, affect appeared less irritable. Her thought process appeared linear. Thought content: She denied suicidal or homicidal ideation, there were no clear delusions reported or noted, she did not endorse auditory or visual hallucinations. Attention and concentration appear intact. Her memory appears more reliable, but none were formally tested. She is alert and oriented times person and place. Insight, judgment, and impulse control all improving. Vitals/I&O/Wt Last Vital Signs Temp 97.9 F 11/24/24 06:00 Pulse 73 11/24/24 06:00 Resp 18 11/24/24 14:00 BP 91/54 11/24/24 06:00 Pulse Ox 99 11/24/24 06:00 O2 Del Method Room Air 11/24/24 06:00 Weight last 48 hrs Weight 58.151 kg Data NPU 10/23/24 12:59 10/23/24 12:59 A&P Assessment and plan 1. Schizophrenia, paranoid, chronic: Plan: This is a 44-year-old white female with chronic schizophrenia who has not been on her medications since last year in the fall with an extended history of noncompliance who becomes quite psychotic and incapable of managing herself safely at home when off of her medications. She will need to be put back on her 2 antipsychotic injections for likely resolution of this relapse. 1.? ?Engage? patient in individual ,milieu, and group therapy ?2. ? We will attempt to gather collateral information from previous providers ?3. ? Patient on to minute checks 4. Patient had Invega 234mg IM on 10/25/24 and Invega 156mg on 10/29/24. Abilify Maintena IM given on 11/01/24. Will coordinate for outpatient IM abilify and invega sustenna monthly to both be given on 11/29/24 or as early as 11/25/14 if possible. Will likely treat inpatient at least until those shots can be given. PDMP PDMP Reviewed: Not Reviewed Involuntary Hold Information 2 Hold Status: Legal Status: Active Guardianship Date/Time Hold Expires: @1235 96 Hour Hold: 96 Hour Involuntary Admission: Yes Attestations NPU 2 Medical Necessity Statement*: Inpatient hospitalization is medically necessary and the clinically appropriate intervention at this time. We will monitor medications and make changes as indicated. The patient's likely length of stay 3-5 days. Coding Level of Care Code Acute Code for [facility] Fwd Diagnoses Schizophrenia, paranoid, chronic F20.0
[2024-11-24 20:14] VITALS: BP 97/49; PULSE 87; RESP 18; TEMP 36.7; O2SAT 97
[2024-11-25 06:00] VITALS: BP 89/52; PULSE 68; RESP 17; TEMP 36.5; O2SAT 99
--- NOTE | 2024-11-25 12:05 | PC.NURSE ---
Dr. Peña gave verbal order for Abilify Asimtuffii 960mg inj today, and Invega 156mg inj today.
[2024-11-25 14:00] VITALS: BP 97/56; PULSE 76; RESP 18; TEMP 36.6; O2SAT 95
[2024-11-25 15:30] LABS: HCG Qualitative Urine. Negative (Negative)
[2024-11-25] MEDS: NON-FORMULARY MEDICATION 960 EACH XX (16:21)
[2024-11-25] MEDS: paliperidone palmitate 156 mg Syringe IM (16:21)
--- NOTE | 2024-11-25 16:58 | P.NPUPN_ITS ---
Subjective NPU 2 Subjective: Patient presented today reporting that she wondered if she really needed to injection. We discussed the fact that every time it has taken both medications to alleviate her psychosis. We discussed the risks, benefits and alternatives of Invega Hong Mcfadden and she understood and agreed to proceed as is documented in this note. We discussed tentative plan for discharge tomorrow and she denied any side effects of medication. Mental Status Exam 2 MSE Comments: Patient is a slender white female in hospital scrubs with limited grooming and eye contact. No abnormal movements except for mild psychomotor retardation. She continues to pace the hallways but was not observed specifically pressing on her door today. She more cooperative with exam in mild distress. She spoke to this typewriter repairer without any noteworthy resistance. Mood described as I am ready to go, affect appeared less irritable. Her thought process appeared linear. Thought content: She denied suicidal or homicidal ideation, there were no clear delusions reported or noted, she did not endorse auditory or visual hallucinations. Attention and concentration appear intact. Her memory appears more reliable, but none were formally tested. She is alert and oriented times person and place. Insight, judgment, and impulse control all improving. Vitals/I&O/Wt Last Vital Signs Temp 97.7 F 11/25/24 06:00 Pulse 68 11/25/24 06:00 Resp 17 11/25/24 06:00 BP 89/52 11/25/24 06:00 Pulse Ox 99 11/25/24 06:00 O2 Del Method Room Air 11/25/24 06:00 Weight last 48 hrs Weight 58.151 kg Data NPU 10/23/24 12:59 10/23/24 12:59 A&P Assessment and plan 1. Schizophrenia, paranoid, chronic: Plan: This is a 44-year-old white female with chronic schizophrenia who has not been on her medications since last year in the fall with an extended history of noncompliance who becomes quite psychotic and incapable of managing herself safely at home when off of her medications. She will need to be put back on her 2 antipsychotic injections for likely resolution of this relapse. 1.? ?Engage? patient in individual ,milieu, and group therapy ?2. ? We will attempt to gather collateral information from previous providers ?3. ? Patient on to-15 minute checks 4. Patient had Invega 234mg IM on 10/25/24 and Invega 156mg on 10/29/24. Abilify Maintena IM given on 11/01/24. Will coordinate for outpatient IM abilify and invega sustenna monthly to both be given on 11/29/24 or as early as 11/25/14 if possible. Will likely treat inpatient at least until those shots can be given. Patient given 156 mg IM Invega today for the scheduled 11/29/2024 dose and Abilify Asimtufii 960 mg IM today for a 2-month supply for her 11/29/2024 dose. She will need to repeat those injections in 1 month and 2 months respectively. Tentative plan for discharge tomorrow. PDMP PDMP Reviewed: Not Reviewed Involuntary Hold Information 2 Hold Status: Legal Status: Active Guardianship Date/Time Hold Expires: @1235 96 Hour Hold: 96 Hour Involuntary Admission: Yes Attestations NPU 2 Medical Necessity Statement*: Inpatient hospitalization is medically necessary and the clinically appropriate intervention at this time. We will monitor medications and make changes as indicated. The patient's likely length of stay 1-3 days. Coding Level of Care Code Acute Code for Chg Fwd Diagnoses Schizophrenia, paranoid, chronic F20.0
--- NOTE | 2024-11-25 17:26 | PC.NURSE ---
Patient's initial admission was d/t non-compliance with her monthly injections, therefore we wanted to ensure compliance after d/c. During Treatment Team today, we discussed options for appointments with [facility], including intake/assessment appointment. [facility] was able to schedule patient with an appointment on 12/02 at 1400 and she will have another appointment set during that time for f/u. Both Invega and Abilify were administered today and will be due again as follows: Invega on 12/27/24 and both Invega and Abilify on 01/24/25. I spoke with the team at [facility] and informed them of this as well as wrote out a calendar with due dates for patient's as well as her guardian, Salazar Granado.
[2024-11-25 19:40] VITALS: BP 95/56; PULSE 75; RESP 19; TEMP 36.7; O2SAT 97
[2024-11-26 06:00] VITALS: BP 100/59; PULSE 81; RESP 18; TEMP 36.7; O2SAT 99
[2024-11-26 13:37] VITALS: BP 100/59; PULSE 81; RESP 18; TEMP 36.6; O2SAT 99
--- NOTE | 2024-11-26 15:42 | W.PM.NPUDCS ---
Diagnoses at Discharge Discharge Diagnosis 1. Schizophrenia, paranoid, chronic: Reason for Visit Reason for Visit: 96 Involuntary Hold Information Hold Status: Legal Status: Active Guardianship Date/Time Hold Expires: 10/29/24@2585 96 Hour Hold: 96 Hour Involuntary Admission: Yes Discharge Data Studies Completed and Pending: Laboratory Results WBC 5.27 10^3/uL (3.2 9-11.43) 10/23/24 12:59 RBC 4.44 10^6/uL (3.8 5-5.65) 10/23/24 12:59 Hgb 8.40 g/dL (11.27- 16.99) L 10/23/24 12:59 Hct 31.0 % (36-47) L 10/23/24 12:59 MCV 69.8 fl (85-98) L 10/23/24 12:59 MCH 18.9 pg (27-33) L 10/23/24 12:59 MCHC 27.1 g/dL (30-55) L 10/23/24 12:59 RDW 17.4 % (12.1-15.1 ) H 10/23/24 12:59 Plt Count 261 10^3/cmm (157 -399) 10/23/24 12:59 MPV 10.1 fL (7.4-10.4 ) 10/23/24 12:59 Neut % (Auto) 59.1 % 10/23/24 12:59 Lymph % (Auto) 33.4 % 10/23/24 12:59 Wilkes % (Auto) 5.9 % 10/23/24 12:59 Eos % (Auto) 0.8 % 10/23/24 12:59 Baso % (Auto) 0.6 % 10/23/24 12:59 Neut # (Auto) 3.12 10^3/uL (1.8 -7.7) 10/23/24 12:59 Lymph # (Auto) 1.8 10^3/uL (0.8- 4.8) 10/23/24 12:59 Wilkes # (Auto) 0.3 10^3/uL (0.2- 0.9) 10/23/24 12:59 Eos # (Auto) 0.0 10^3/uL (0.0- 0.8) 10/23/24 12:59 Baso # (Auto) 0.0 10^3/uL (0.0- 0.1) 10/23/24 12:59 Nucleated RBC % (a uto) 0 % 10/23/24 12:59 Nucleated RBCs # 0.0 /100WBC 10/23/24 12:59 Sodium 140 mmol/L (136-1 45) 10/23/24 12:59 Potassium 3.9 mmol/L (3.5-5 .1) 10/23/24 12:59 Chloride 105 mmol/L (98-10 7) 10/23/24 12:59 Carbon Dioxide 22 mmol/L (22-29) 10/23/24 12:59 Anion Gap 16.9 (5-19) 10/23/24 12:59 BUN 7 mg/dL (6-20) 10/23/24 12:59 Creatinine 0.6 mg/dL (0.5-0. 9) 10/23/24 12:59 GFR Calculation 109.1 mL/min (90- 130) 10/23/24 12:59 Glucose 84 mg/dL (65-115) 10/23/24 12:59 Calculated Osmolal ity 287 mOsm/kg (285- 295) 10/23/24 12:59 Calcium 8.9 mg/dL (8.5-10 .5) 10/23/24 12:59 Total Bilirubin 0.5 mg/dL (0.15-1 .2) 10/23/24 12:59 AST 10 U/L (0-32) 10/23/24 12:59 ALT 9 U/L (0-33) 10/23/24 12:59 Alkaline Phosphata se 59 U/L (35-105) 10/23/24 12:59 Total Protein 7.1 g/dL (6.6-8.7 ) 10/23/24 12:59 Albumin 4.0 g/dL (3.5-5.2 ) 10/23/24 12:59 Globulin 3.1 g/dL (1.3-4.6 ) 10/23/24 12:59 HCG, Qual Negative (Negati ve) 11/25/24 14:40 Salicylates < 0.3 mg/dL (3-10 ) L 10/23/24 12:59 Acetaminophen < 5.0 ug/mL (10-3 0) L 10/23/24 12:59 Ethyl Alcohol < 10 mg/dL (0-10) 10/23/24 12:59 Vitals: Last Vital Signs Temp 98 F 11/26/24 13:37 Pulse 81 11/26/24 13:37 Resp 18 11/26/24 13:37 BP 100/59 11/26/24 13:37 Pulse Ox 99 11/26/24 13:37 O2 Del Method Room Air 11/26/24 06:00 Discharge Plan Discharge Patient Disposition: Home Condition: Stable Prescriptions: New Abilify Asimtufii 960 mg/3.2 mL suspension,extended rel syring 960 mg IM ONCE 60 Days Qty: 3.2 1RF Rx Instructions: next injection due 01/28/25 Invega Sustenna 156 mg/mL syringe 156 mg IM Q30D 30 Days Qty: 1 2RF Rx Instructions: Next injection 12/27/24 Discharge Order = DC NOW: Discharge Order (Routine); Ordered 11/26/24 Ordered By: George Peña Referrals: [facility] [Other] Referral Note: Walk in 7 days a week. 8:00 am to 6:00 pm. 24 hour crisis hotline:[id number] Can assist with medication services. [facility] [Outside, Behavioral Health] - 12/02/24 2:00 pm Referral Note: Initial appointment with Leon Tse. Discharge Diet: Regular Discharge Activity: Resume usual activity Patient Instructions: Opioid Safety, Patient Portal & Litzy Instructions Discharge Attestations NPU Status at Discharge: Cognitive status at discharge: cognitively intact, Behavioral status at discharge: cooperative, Coding Level of Care Code Acute Code for [facility] Fwd Diagnoses Schizophrenia, paranoid, chronic F20.0
== END 2024-11-26 15:44 | disposition home or self-care (01) | DRG 885 ==
LOC: ER 12:49 → NP 17:06
PROVIDERS: Admitting Provider Psychiatry & Neurology Psychiatry; Emergency Provider Student in an Organized Health Care Education/Training Program; Visit Provider Psychiatry & Neurology Psychiatry
DX: F20.0 Paranoid schizophrenia (principal)
CPT/HCPCS: 36415; 80053; 80307; 81025; 84703; 85025; 96372; 97150; 97165; 99285; J1200; J1630; J2060

== ENCOUNTER → 2025-03-10 10:26 | Outpatient (BNVA) | payer BC, SELFPAY | PROVIDERS: Visit Provider Nurse Practitioner | DX: F20.0 Paranoid schizophrenia (principal); Z79.899 Other long term (current) drug therapy | CPT/HCPCS: 80061; 81025; 83036 ==